=== PATIENT | male | born 1955 | race Caucasian/White ===

== ENCOUNTER 2018-07-05 22:52 | Outpatient (REF) | payer MEDICAID, SELFPAY ==
[2018-07-05 23:48] LABS: Hemoglobin A1C 6.1 % (4.5-6.2)
[2018-07-06 00:06] LABS: ALT 29 U/L (12-78); AST 16 U/L (15-37); Albumin 4.1 g/dL (3.4-5.0); Alkaline Phosphatase 111 U/L (46-116); Anion Gap 12.5 mmol/L (3-11); BUN 15 mg/dL (7-18); Bilirubin, Total 0.3 mg/dL (0.2-1.0); CO2 24.5 mmol/L (21.0-32.0); CREATININE 0.85 mg/dL (0.70-1.30); Calcium 9.1 mg/dL (8.5-10.1); Chloride 104 mmol/L (98-107); Cholesterol 229 mg/dL (50-200); Glucose 90 mg/dL (70-100); HDL Cholesterol 51 mg/dL (40-60); LDL CHOLESTEROL 156 mg/dL (<100); Potassium 4.6 mmol/L (3.5-5.1); Sodium 141 mmol/L (136-145); Total Protein 7.1 g/dL (6.4-8.2); Triglyceride 155 mg/dL (30-150)
[2018-07-07 09:41] LABS: Hepatitis C Ab w Rflx HCV PCR Negative (NEGAT)
[2018-07-07 15:22] LABS: Lyme Ab w Rflx to Lyme Confirm Negative
[2018-07-07 23:57] LABS: Anaplasma phagocytophilum Negative (Negative); B. miyamotoi PCR Negative (Negative); Babesia divergens/MO-1 Negative (Negative); Babesia duncani Negative (Negative); Babesia microti Negative (Negative); Ehrlichia chaffeensis Negative (Negative); Ehrlichia ewingii/canis Negative (Negative); Ehrlichia muris eauclairensis Negative (Negative)
== END 2018-07-05 23:12 ==
LOC: NCHCN 22:52
PROVIDERS: Visit Provider Family Medicine
DX: M25.469 Effusion, unspecified knee (principal); E66.3 Overweight; Z00.00 Encounter for general adult medical examination without abnormal findings; Z11.59 Encounter for screening for other viral diseases; Z13.220 Encounter for screening for lipoid disorders; Z13.1 Encounter for screening for diabetes mellitus
CPT/HCPCS: 80053; 80061; 83721; 86803; 83036; 86618; 87798

== ENCOUNTER 2019-09-04 15:50 | Outpatient (REF) | payer MEDICAID, SELFPAY ==
[2019-09-04 21:26] LABS: Abs Immature Grans 0.01 k/cumm (0.0-0.09); Absolute Basophil Count 0.06 k/cumm (0.0-0.2); Absolute Eosinophil Count 0.44 k/cumm (0.0-0.7); Absolute Lymphocyte Count 2.46 k/cumm (1.2-3.4); Absolute Monocyte Count 0.65 k/cumm (0.11-0.7); Absolute Neutrophil Count 3.41 k/cumm (1.2-6.7); Basophils % 0.9; Eosinophils % 6.3; HCT 46.3 % (40.0-50.0); HGB 15.4 g/dL (13.5-17.5); Immature Grans % 0.1; Mean Corp. HGB Concentration 33.3 g/dL (32.0-36.0); Mean Corpuscular Hemoglobin 30.1 pg (27.0-33.0); Mean Corpuscular Volume 90.6 fL (80-95); Mean Platelet Volume 10.6 fL (8.0-11.0); Monocytes % 9.2; Neutrophils % 48.5; Platelet Count 281 x1000/uL (130-400); RBC 5.11 m/cumm (4.50-6.00); RBC Distribution Width 13.1 % (11.8-14.1); White Blood Cell Count 7.03 k/cumm (4.4-10.8)
[2019-09-04 21:46] LABS: ALT 38 U/L (16-63); AST 18 U/L (15-37); Albumin 4.2 g/dL (3.4-5.0); Alkaline Phosphatase 111 U/L (46-116); Anion Gap 8.6 mmol/L (3-11); BUN 12 mg/dL (7-18); Bilirubin, Total 0.2 mg/dL (0.2-1.0); CO2 28.4 mmol/L (21.0-32.0); CREATININE 0.96 mg/dL (0.70-1.30); Calcium 9.4 mg/dL (8.5-10.1); Chloride 105 mmol/L (98-107); Glucose 83 mg/dL (74-106); Potassium 4.5 mmol/L (3.5-5.1); Sodium 142 mmol/L (136-145); TSH (W/Ref FT4) 2.62 uIU/mL (0.36-3.74); Total Protein 7.2 g/dL (6.4-8.2)
[2019-09-05 09:55] LABS: Hemoglobin A1C 6.1 % (4.5-6.2)
[2019-09-05 09:58] LABS: Calculated LDL 150 mg/dL; Cholesterol 228 mg/dL (<200); HDL Cholesterol 45 mg/dL (40-60); Triglyceride 168 mg/dL (<150)
== END 2019-09-04 16:10 ==
LOC: NCHCO 15:50
PROVIDERS: PCP Family Medicine; Visit Provider Family Medicine
DX: R73.03 Prediabetes (principal); R20.0 Anesthesia of skin; R20.2 Paresthesia of skin; M62.831 Muscle spasm of calf; I10 Essential (primary) hypertension
CPT/HCPCS: 80053; 80061; 83036; 83735; 84443; 85025

== ENCOUNTER 2021-04-16 14:52 | Outpatient (REF) | payer MEDICAID, SELFPAY ==
--- NOTE | 2021-04-16 12:30 | SKI_PTH ---
PATIENT: Carlos Chaudhary LOC: [facility]#:[id number] AGE/SX: 65/M ROOM: RE04/16/[address]: Candy Montez : 1955 BED: DIS: 04/16/2021 SPEC #: [id number] RECD: 04/17/21 12:53 STATUS: LUKE REQ #: [id number] AUBREY: 04/16/21 12:[address]: Emilio Michael DEPT: Surgical Specimen RECD BY: Rajni Mayer Tissues: 1 - SKIN BIOPSY(SHAVE/PUNCH) Procedures: SKIN LEVEL 4 Comments: [id number]
[2021-04-16 14:32] LABS: Abs Immature Grans 0.03 10^3/uL (0.0-0.06); Absolute Basophil Count 0.07 10^3/uL (0.0-0.2); Absolute Eosinophil Count 0.31 10^3/uL (0.0-0.7); Absolute Monocyte Count 0.61 10^3/uL (0.1-0.8); Absolute Neutrophil Count 4.11 10^3/uL (1.2-6.7); Eosinophils % 4.3; HCT 50.7 % (40.0-50.0); HGB 16.2 g/dL (13.5-17.5); Immature Grans % 0.4; MCH 29.9 pg (27.0-33.0); MCV 93.5 fL (80-95); MPV 10.8 fL (8.0-11.0); Monocytes % 8.4; Neutrophils % 56.9; Nucleated RBC 0 %; Platelet Count 248 10^3/uL (130-400); RBC 5.42 10^6/uL (4.36-5.78); RDW 13.2 % (11.8-14.1); RDW-SD 45.5 fL; WBC 7.23 10^3/uL (4.4-10.8)
[2021-04-16 14:50] LABS: Hemoglobin A1C 6.2 % (<5.7)
[2021-04-16 14:51] LABS: ALT 25 U/L (16-63); AST 14 U/L (15-37); Albumin 4.2 g/dL (3.4-5.0); Alkaline Phosphatase 113 U/L (46-116); Anion Gap 10.7 mmol/L (3-11); BUN 15 mg/dL (7-18); Bilirubin, Total 0.5 mg/dL (0.2-1.0); CO2 27.3 mmol/L (21.0-32.0); CREATININE 0.9 mg/dL (0.70-1.30); Calcium 9.4 mg/dL (8.5-10.1); Calculated LDL 185 mg/dL (<100); Chloride 104 mmol/L (98-107); Cholesterol 260 mg/dL (<200); Glucose 112 mg/dL (74-106); HDL Cholesterol 58 mg/dL (40-60); Potassium 4.7 mmol/L (3.5-5.1); Sodium 142 mmol/L (136-145); Total Protein 7.1 g/dL (6.4-8.2); Triglyceride 85 mg/dL (<150)
[2021-04-16 14:58] LABS: Lipase 112 U/L (73-393)
[2021-04-16 21:53] LABS: PSA, Screening 0.9 ng/mL (0.0-4.5)
== END 2021-04-16 14:53 | disposition home or self-care (01) ==
LOC: NCHCN 14:52
PROVIDERS: PCP Family Medicine; Visit Provider Family Medicine
DX: Z00.00 Encounter for general adult medical examination without abnormal findings (principal); I10 Essential (primary) hypertension; R73.03 Prediabetes; E78.5 Hyperlipidemia, unspecified; R63.4 Abnormal weight loss
CPT/HCPCS: 80053; 80061; 83690; 84153; 83036; 85025; 88305

== ENCOUNTER 2021-04-16 15:00 | Outpatient (REF) | payer MEDICAID, SELFPAY | END 2021-04-16 15:01 | disposition home or self-care (01) | LOC: NCHCN 15:00 | PROVIDERS: Visit Provider Family Medicine | DX: A63.0 Anogenital (venereal) warts (principal) ==

== ENCOUNTER 2021-09-08 13:16 | Outpatient (REF) | payer MEDICAID, SELFPAY ==
[2021-09-08 15:06] LABS: ALT 82 U/L (16-63); AST 33 U/L (15-37); Alkaline Phosphatase 136 U/L (46-116); Anion Gap 3.3 mmol/L (3-11); BUN 13 mg/dL (7-18); Bilirubin, Total 0.4 mg/dL (0.2-1.0); CO2 26.7 mmol/L (21.0-32.0); CREATININE 0.9 mg/dL (0.70-1.30); Calcium 9.2 mg/dL (8.5-10.1); Chloride 105 mmol/L (98-107); Glucose 102 mg/dL (74-106); Potassium 4.4 mmol/L (3.5-5.1); Sodium 135 mmol/L (136-145); Total Protein 6.9 g/dL (6.4-8.2)
== END 2021-09-08 13:17 | disposition home or self-care (01) ==
LOC: NCHCN 13:16
PROVIDERS: PCP Family Medicine; Visit Provider Nurse Practitioner Family
DX: I10 Essential (primary) hypertension (principal)
CPT/HCPCS: 80053

== ENCOUNTER 2021-10-14 14:48 | Outpatient (REF) | payer MEDICAID, SELFPAY ==
[2021-10-14 15:23] LABS: ALT 65 U/L (16-63); AST 30 U/L (15-37); Albumin 3.8 g/dL (3.4-5.0); Alkaline Phosphatase 137 U/L (46-116); Anion Gap 11.2 mmol/L (3-11); BUN 16 mg/dL (7-18); Bilirubin, Total 0.3 mg/dL (0.2-1.0); CO2 24.8 mmol/L (21.0-32.0); CREATININE 0.9 mg/dL (0.70-1.30); Calculated LDL 67 mg/dL (<100); Chloride 104 mmol/L (98-107); Cholesterol 131 mg/dL (<200); Glucose 105 mg/dL (74-106); HDL Cholesterol 48 mg/dL (40-60); Potassium 4.3 mmol/L (3.5-5.1); Sodium 140 mmol/L (136-145); Total Protein 6.6 g/dL (6.4-8.2); Triglyceride 83 mg/dL (<150)
[2021-10-14 22:45] LABS: PSA, Screening 1.4 ng/mL (0.0-4.5)
== END 2021-10-14 14:49 | disposition home or self-care (01) ==
LOC: NCHCN 14:48
PROVIDERS: PCP Family Medicine; Visit Provider Family Medicine
DX: E78.00 Pure hypercholesterolemia, unspecified (principal); I25.10 Atherosclerotic heart disease of native coronary artery without angina pectoris; R79.89 Other specified abnormal findings of blood chemistry; Z12.5 Encounter for screening for malignant neoplasm of prostate
CPT/HCPCS: 80053; 80061; 84153

== ENCOUNTER 2022-01-23 12:33 | Outpatient (CLI) | payer MEDICAID, SELFPAY ==
--- NOTE | 2022-01-23 | DI.RAD_ITS ---
Exam(s) XR THORACIC SPINE COMPLETE EXAM: XR THORACIC SPINE COMPLETE CLINICAL HISTORY: NECK AND BACK PAIN TECHNIQUE: COMPARISON: CR,XR XR CERVICAL SPINE COMP 4-5V from 01/23/2022 FINDINGS: Three views were obtained. There is loss of disc height noted throughout the thoracic region. No ev idence of acute fracture or dislocation. Moderate hypertrophic endplate changes noted throughout. IMPRESSION: DJD, no evidence of acute injury. RADIATION DOSE DELIVERED: Total DLP
--- NOTE | 2022-01-23 | DI.RAD_ITS ---
Exam(s) XR LUMBAR SPINE COMPLETE EXAM: XR LUMBAR SPINE COMPLETE CLINICAL HISTORY: NECK AND BACK PAIN TECHNIQUE: COMPARISON: No exams were available for comparison FINDINGS: Five views were obtained. There is apparent fusion of the left SI joint. The intervertebral disc sp aces are narrowed in the lower thoracic and upper lumbar spine. There is no evidence of acute fractu re or dislocation. Moderate hypertrophic endplate and facet degenerative changes seen. IMPRESSION: DJD, no evidence of acute injury. RADIATION DOSE DELIVERED: Total DLP
--- NOTE | 2022-01-23 13:11 | DI.RAD_ITS ---
Exam(s) XR CERVICAL SPINE COMP 4-5V EXAM: XR CERVICAL SPINE COMP 4-5V CLINICAL HISTORY: NECK AND BACK PAIN TECHNIQUE: COMPARISON: No exams were available for comparison FINDINGS: Six views were obtained. There is mild loss of disc height at C5-6 and C6-7. There is neural forami nal narrowing bilaterally at C4-5 C5-6 and C6-7. There is no evidence of acute fracture or dislocati on. No destructive lesion identified. IMPRESSION: Degenerative changes as described above. RADIATION DOSE DELIVERED: Total DLP
--- NOTE | 2022-01-23 13:50 | DI.VRAD_ITS ---
PROCEDURE INFORMATION: Exam: XR Lumbosacral Spine Exam date and time: 01/23/2022 12:56 PM Age: 66 years old Clinical indication: Low back pain TECHNIQUE: Imaging protocol: XR of the lumbosacral spine. Views: 4 or 5 views. COMPARISON: CR XR THORACIC SPINE COMPLETE 01/23/2022 12:53 PM FINDINGS: Bones/joints: Normal alignment. No acute compression deformities. Disc degeneration at L1-L2 and L2-L3. Mild wedging of L1 and L2 that appears chronic. Soft tissues: Unremarkable. IMPRESSION: Degenerative changes. Dictated and Authenticated by: Dominic Guerrero MD. Ordering:NIDA Fuller MD
--- NOTE | 2022-01-23 13:51 | DI.VRAD_ITS ---
PROCEDURE INFORMATION: Exam: XR Thoracic Spine Exam date and time: 01/23/2022 12:53 PM Age: 66 years old Clinical indication: Pain in thoracic spine TECHNIQUE: Imaging protocol: XR of the thoracic spine. Views: 3 views. COMPARISON: CR XR CERVICAL SPINE COMP 4-5V 01/23/2022 12:51 PM FINDINGS: Bones/joints: No acute compression deformities. Mild thoracic scoliosis of the upper spine concave left. Multilevel mild disc degeneration with spondylosis changes. Soft tissues: Unremarkable. IMPRESSION: No acute compression deformities. Dictated and Authenticated by: Dominic Guerrero MD. Ordering:NIDA Fuller MD
--- NOTE | 2022-01-23 13:52 | DI.VRAD_ITS ---
PROCEDURE INFORMATION: Exam: XR Spine; Cervical Exam date and time: 01/23/2022 12:51 PM Age: 66 years old Clinical indication: Pain: Neck and back pain TECHNIQUE: Imaging protocol: XR of the spine. Exam focused on the cervical spine. Views: 1 view. COMPARISON: No relevant prior studies available. FINDINGS: Bones/joints: Alignment of the spine is normal. Disc degeneration C5-C6 and C6-C7. Foraminal narrowing C5-C6 and C6-C7. Open-mouth view is normal. Soft tissues: Normal. IMPRESSION: Multilevel disc degeneration. Dictated and Authenticated by: Dominic Guerrero MD. Ordering:NIDA Fuller MD
== END 2022-01-23 12:53 ==
PROVIDERS: PCP Family Medicine; Visit Provider Nurse Practitioner Family
DX: M54.2 Cervicalgia (principal); M54.59 Other low back pain; Z98.1 Arthrodesis status; M47.815 Spondylosis without myelopathy or radiculopathy, thoracolumbar region; M51.35 Other intervertebral disc degeneration, thoracolumbar region; M50.322 Other cervical disc degeneration at C5-C6 level; M50.323 Other cervical disc degeneration at C6-C7 level
CPT/HCPCS: 72050; 72072; 72110

== ENCOUNTER 2022-04-13 11:25 | Outpatient (REF) | payer MEDICAID, SELFPAY ==
[2022-04-13 16:24] LABS: ALT 46 U/L (16-63); AST 29 U/L (15-37); Albumin 3.9 g/dL (3.4-5.0); Alkaline Phosphatase 122 U/L (46-116); Anion Gap 11.1 mmol/L (3-11); BUN 21 mg/dL (7-18); Bilirubin, Total 0.6 mg/dL (0.2-1.0); CO2 20.9 mmol/L (21.0-32.0); CREATININE 0.8 mg/dL (0.70-1.30); Calcium 8.9 mg/dL (8.5-10.1); Calculated LDL 82 mg/dL (<100); Chloride 103 mmol/L (98-107); Cholesterol 147 mg/dL (<200); Glucose 123 mg/dL (74-106); HDL Cholesterol 50 mg/dL (40-60); Sodium 135 mmol/L (136-145); Triglyceride 75 mg/dL (<150)
== END 2022-04-13 11:26 | disposition home or self-care (01) ==
LOC: NCHCN 11:25
PROVIDERS: PCP Family Medicine; Visit Provider Family Medicine
DX: R73.03 Prediabetes (principal); R79.89 Other specified abnormal findings of blood chemistry; E66.3 Overweight; E78.5 Hyperlipidemia, unspecified
CPT/HCPCS: 80053; 80061; 83036

== ENCOUNTER 2023-05-03 17:16 | Outpatient (REF) | payer MEDICARE, OTHER, SELFPAY ==
[2023-05-03 17:29] LABS: Hemoglobin A1C 6.3 % (<5.7)
[2023-05-03 17:33] LABS: ALT 40 U/L (16-63); AST 32 U/L (15-37); Alkaline Phosphatase 129 U/L (46-116); BUN 15 mg/dL (7-18); Bilirubin, Total 0.6 mg/dL (0.2-1.0); CREATININE 0.9 mg/dL (0.70-1.30); Calcium 9.2 mg/dL (8.5-10.1); Calculated LDL 68 mg/dL (<100); Chloride 104 mmol/L (98-107); Cholesterol 134 mg/dL (<200); Estimated GFR 94.78 (mL/min/1.73m2); Glucose 113 mg/dL (74-106); HDL Cholesterol 48 mg/dL (40-60); Potassium 3.9 mmol/L (3.5-5.1); Sodium 140 mmol/L (136-145); Total Protein 7.1 g/dL (6.4-8.2); Triglyceride 91 mg/dL (<150)
[2023-05-04 19:54] LABS: PSA, Screening 0.9 ng/mL (<=4.5)
== END 2023-05-03 17:17 | disposition home or self-care (01) ==
LOC: NCHCN 17:16
PROVIDERS: PCP Family Medicine; Visit Provider Family Medicine
DX: Z00.00 Encounter for general adult medical examination without abnormal findings (principal); R73.03 Prediabetes; I25.10 Atherosclerotic heart disease of native coronary artery without angina pectoris; Z12.5 Encounter for screening for malignant neoplasm of prostate
CPT/HCPCS: 80053; 80061; 84153; 83036

== ENCOUNTER 2024-08-02 10:37 | Outpatient (REF) | payer MEDICARE, OTHER, SELFPAY ==
[2024-08-02 17:30] LABS: ALT 27 U/L (16-63); AST 19 U/L (15-37); Alkaline Phosphatase 119 U/L (46-116); Anion Gap 12.3 mmol/L (3-11); BUN 21 mg/dL (7-18); CO2 25.7 mmol/L (21.0-32.0); Calcium 9.3 mg/dL (8.5-10.1); Calculated LDL 100 mg/dL (<100); Chloride 107 mmol/L (98-107); Cholesterol 177 mg/dL (<200); Estimated GFR 83.01 (mL/min/1.73m2); Glucose 115 mg/dL (74-106); HDL Cholesterol 49 mg/dL (40-60); Potassium 4.1 mmol/L (3.5-5.1); Sodium 145 mmol/L (136-145); Total Protein 6.7 g/dL (6.4-8.2); Triglyceride 141 mg/dL (<150)
[2024-08-03 09:43] LABS: PSA, Screening 0.8 ng/mL (<=4.5)
== END 2024-08-02 10:38 | disposition home or self-care (01) ==
LOC: NCHCN 10:37
PROVIDERS: PCP Family Medicine; Visit Provider Family Medicine
DX: Z00.00 Encounter for general adult medical examination without abnormal findings (principal); Z12.5 Encounter for screening for malignant neoplasm of prostate
CPT/HCPCS: 80053; 80061; 84153; 83036

== ENCOUNTER 2024-08-14 22:59 | Outpatient (REF) | payer MEDICARE, OTHER, SELFPAY | END 2024-08-14 23:00 | disposition home or self-care (01) | LOC: NCHCN 22:59 | PROVIDERS: PCP Family Medicine; Visit Provider Family Medicine | DX: M79.18 Myalgia, other site (principal) | CPT/HCPCS: 84443 ==

== ENCOUNTER 2024-10-12 08:06 | Outpatient (REF) | payer MEDICARE, OTHER, SELFPAY ==
--- OUTSIDE RECORDS SUMMARY | 2024-10-12 08:15 | XMS_ITS | Encounter Summary ---
Author Organization [facility] Address [address] [place] [address] Care Team Providers Care Fern Cutter Name Role Phone Nataliia Montez MD Primary Care Provide r Reason for Visit * Reason Comments Follow-up anoscopy Encounter Details Date Type Department Care Team (Late st Contact Info) Description 04/21/2022 14:45 EDT Office Visit [facility] General Surgery - [address] [address] Oumar Carlos MD [address] [place] [address], [address] [place] [address] Anal condyloma (Primary Dx) Social History Tobacco Use Types Packs/Day Years Used Date Smoking Tobacco: Some Days Cigarettes Smokeless Tobacco: Never Alcohol Use Standard Drinks/Week Comments No 0 (1 standard drink = 0.6 oz pur e alcohol) rare Interpersonal Safety Answer Date Record ed Physically Hurt Never 05/18/2020 Verbally Threaten Not on file 05/18/2020 Sex and Gender Information Value Date Recorded Sex Assigned at Not on file Legal Sex Male 17:36 EST Gender Identity Male 09/19/2019 9:00 EST Sexual Orientation Not on file documented as of this encounter Last Filed Vital Signs Vital Sign Reading Time Taken Comments Blood Pressure 142/77 04/21/2022 1435 EDT Pulse 53 04/21/2022 1435 EDT Temperature - - Respiratory Rate - - Oxygen Saturation - - Inhaled Oxygen Concentration - - Weight 83.8 kg (184 lb 12.8 oz) 04/21/2022 1435 EDT Height 170.2 cm (5' 7.01) 04/21/2022 1435 EDT Body Mass Index 28.94 04/21/2022 1435 EDT documented in this encounter Functional Status * Are you deaf or do you have serious difficulty hearing? Answer Date of Assessment Author No 07/26/2021 20:15 Terrie Soliman RN * Are you blind or do you have serious difficulty seeing, even when wearing glasses? Answer Date of Assessment Author No 07/26/2021 20:15 Terrie Soliman RN * Do you have serious difficulty walking or climbing stairs? (5 years old or older) Answer Date of Assessment Author No 07/26/2021 20:15 Terrie Soliman RN * Do you have difficulty dressing or bathing? (5 years old or older) Answer Date of Assessment Author No 07/26/2021 20:15 Terrie Soliman RN * Because of a physical, mental, or emotional condition, do you have difficulty doing errands alone such as visiting a doctor's office or shopping? (15 years old or older) Answer Date of Assessment Author No 07/26/2021 20:15 Terrie Soliman RN documented as of this encounter Mental Status * Because of a physical, mental, or emotional condition, do you have serious difficulty concentrating, remembering, or making decisions? (5 years old or older) Answer Entry Date Author No 07/26/2021 20:15 Terrie Soliman RN documented in this encounter Progress Notes * Anne Ortiz MD - 04/21/2022 1445 EDT Colorectal Clinic Progress Note Chief Complaint: Anal condyloma Subjective: Reports he is here for follow up for his anal condyloma. He has had no recurrences since having his HPV vaccinations and just had his third shot yesterday. Denies any new lesions, pain orblood with bowel movements. Objective: BP 142/77 HR 53 PE: General: alert, cooperative, NAD HEENT: mucous membranes moist Cardiac: RRR Respiratory: normal effort, non-labored on room air Rectal: no condylomas present on external examination. No abnormalities palpated on GALILEO. Assessment: Carlos Jimenez is a 66 y.o. 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 He has had resolution of his symptoms since receiving his first tworounds of the HPV vaccination and just had his second booster yesterday. Will plan for yearly follow ups in the future and advised Carlos to call the office if he should experience recurrence of his symptoms before his next scheduled appointment. Plan: - Follow up yearly - Call clinic PRN for recurrence Anne Ortiz MD, PGY- 2 04/21/2022 I saw and examined the patient and discussed with the resident/medical student/ANIMAL SCIENTIST team. I agree with the findings, and plan of care documented in the resident's/medical student's/ANIMAL SCIENTIST's note. Any additions/exceptions are noted below. 66-year-old male with prior anal condyloma treated with imiquimod. No evidence of recurrence 6 months removed from treatment. We will follow-up in 6 months for exam and anoscopy. Plan to space out visits annually following that exam. Oumar Carlos MD Colon and Rectal Surgery Division of General and Gastrointestinal Surgery documented in this encounter Plan of Treatment Not on file documented as of this encounter Visit Diagnoses Diagnosis Anal condyloma- Primary Condyloma acuminatum documented in this encounter Care Teams Fern Cutter Relationship Specialty Start Date End Date Nataliia Montez MD [address] [place] [address] [address] [place] [address] PCP - General 08/29/18 documented as of this encounter
--- OUTSIDE RECORDS SUMMARY | 2024-10-12 08:15 | XMS_ITS | Encounter Summary ---
Author Organization [facility] Address [address] [place] [address] Care Team Providers Care Millinery Teacher Name Role Phone Nataliia Montez MD Primary Care Provide r Reason for Referral * Referral (Routine/Next Available) - Authorized Specialty Diagnoses / Procedures Referred By Imer howe Referred To Contact Diagnoses Special screening for malignant neoplasms, colon Personal history of colonic polyps Procedures COLONOSCOPY NJ COLONOSCOPY FLX DX W/COLLJ SPEC WHEN PFRMD NJ COLONOSCOPY W/BIOPSY SINGLE/MULTIPLE NJ COLSC FLX W/REMOVAL LESION BY HOT BX FORCEPS Nataliia Montez MD [address] [place] [id number] Phone: tel: fax: [address] [address] Phone: tel: fax: Referral ID Status Reason Start Date Expiration Date V isits Requested Visits Authorized [id number] Authorized 11/15/2022 1 1 Encounter Details Date Type Department Care Team (Latest Contact Info) Description 11/15/2022 Transcribe Orders [address] [address] Nataliia Montez MD [address] [place] [address] [address] [place] [address] Special screening for malignant neoplasms, colon (Primary Dx); Personal history of colonic polyps Social History Tobacco Use Types Packs/Day Years [...] on file documented as of this encounter Functional Status * Are you [...] Terrie Soliman RN documented in this encounter Plan of Treatment Pending Results Name Type Priority Associated Diagnoses Date /Time COLONOSCOPY GI Routine Special screening for malignant neoplasms, colon Personal history of colonic polyps 06/10/2023 9:10 EDT Scheduled Orders Name Type Priority Associated Diagnoses Orde r Schedule COLONOSCOPY GI Routine Special screening for malignant neoplasms, colon Personal history of colonic polyps Expected: 11/15/2022 (Approximate), Expires: 05/15/2024 documented as of this encounter Visit Diagnoses Diagnosis Special screening for malignant neoplasms, colon- Primary Personal history of colonic polyps documented in this encounter Care Teams Millinery Teacher Relationship Specialty Start Date End Date Nataliia Montez MD [address] [address] PCP - General 08/29/18 documented as of this encounter
--- OUTSIDE RECORDS SUMMARY | 2024-10-12 08:15 | XMS_ITS | Encounter Summary ---
Author Organization [facility] Address [address] [place] [address] Care Team Providers Care Early Childhood Education Worker Name Role Phone Nataliia Montez MD Primary Care Provide r Encounter Details Date Type Department Care Team (Late st Contact Info) Description 08/02/2024 Lab Requisition [facility] Pathology & Laboratory Medicine - [address] [address] Outr Resulting Lab, Provider Social History Tobacco Use Types Packs/Day Years Used Date Smoking Tobacco: Every Day Cigarettes Smokeless Tobacco: Never Alcohol Use Standard Drinks/Week Comments Yes 0 (1 standard drink = 0.6 oz [...] on file documented as of this encounter Procedures Procedure Name Priority Date/Time Associated Diagnosis Comments PSA TOTAL, DIAGNOSTIC Routine 08/02/2024 7:30 EDT documented in this encounter Results * PSA TOTAL, DIAGNOSTIC (08/02/2024 7:30 EDT) PSA 0.8 <=4.5 ng/mL 08/03/2024 9:38 EDT [facility] Blood VENOUS BLOOD / Unknown 08/02/2024 7:30 EDT 08/02/2024 22:16 EDT Narrative [facility] - 08/03/2024 9:38 EDT NOTE: Serum PSA concentration should not be interpreted as absolute evidence for the presence or absence of malignant disease. Assayed on Siemens ADVIA Centaur XPT using chemiluminescent technology.??Values obtained by using different assay methods cannot be used interchangeably. us Provider Outr Resulting Lab CHEMISTRY & BLOOD GA S ORDERABLES Final Result [facility] [address] [place] [address] documented in this encounter Visit Diagnoses Not on filedocumented in this encounter Care Teams Early Childhood Education Worker Relationship Specialty Start Date End Date Nataliia Montez MD [address] [facility] [address] [place] [address] PCP - General 08/29/18 documented as of this encounter
--- OUTSIDE RECORDS SUMMARY | 2024-10-12 08:15 | XMS_ITS | Encounter Summary ---
Author Organization [facility] Address [address] [place] [address] Care Team Providers Care Resource Engineer Name Role Phone Nataliia Montez MD Primary Care Provide r Reason for Referral * Referral (Routine/Next Available) - Authorized Specialty Diagnoses / Procedures Referred By Contac shyam Referred To Contact Diagnoses Special screening for malignant neoplasms, colon Personal history of colonic polyps Procedures COLONOSCOPY FL COLONOSCOPY FLX DX W/COLLJ SPEC WHEN PFRMD FL COLONOSCOPY W/BIOPSY SINGLE/MULTIPLE FL COLSC FLX W/REMOVAL LESION BY HOT BX FORCEPS Nataliia Montez MD [address] [place] [address] Phone: tel: fax: [facility] Gastroenterology - [facility] [place] [address] [place] [address] Phone: tel: fax: Referral ID Status Reason Start Date Expiration Date V isits Requested Visits Authorized [id number] Authorized 11/15/2022 1 1 * Referral (Routine/Next Available) - Receiving Office to Obtain Authorization Specialty Diagnoses / Procedures Referred By Contact Referred To Contact Gastroenterology and Hepatology Procedures COLONOSCOPY PROCEDURE New Sorto MD Phone: tel: fax: Referral ID Status Reason Start Date Expiration Date Visits Requested Visits Authorized [id number] Receiving Office to Obtain Authorization 06/10/2023 1 1 Reason for Visit * Referral (Routine/Next Available) - Authorized Specialty Diagnoses / Procedures Referred By Contac t Referred To Contact Diagnoses Special screening for malignant neoplasms, colon Personal history of colonic polyps Procedures COLONOSCOPY FL COLONOSCOPY FLX DX W/COLLJ SPEC WHEN PFRMD FL COLONOSCOPY W/BIOPSY SINGLE/MULTIPLE FL COLSC FLX W/REMOVAL LESION BY HOT BX FORCEPS Nataliia Montez MD [address] [place] [address] Phone: tel: fax: [facility] Gastroenterology - [address] [address] Phone: tel: fax: Referral ID Status Reason Start Date Expiration Date V isits Requested Visits Authorized [id number] Authorized 11/15/2022 1 1 Encounter Details Date Type Department Care Team (Late st Contact Info) Description 06/10/2023 6:56 EDT - 06/10/2023 23:59 EDT Hospital Encounter [facility] Endoscopy - [address] [id number] New Sorto MD [address] [place] [address], [address] [place] [phone] Special screening for malignant neoplasms, colon; Personal history of colonic polyps Discharge Disposition: Home or Self Care Social History Tobacco Use Types Packs/Day Years Used Date Smoking Tobacco: Every Day Cigarettes Smokeless Tobacco: Never Tobacco Cessation:Ready to Q uit: Not Asked; Counseling Given: Not Answered Alcohol Use Standard Drinks/Week Comments Yes 0 [...] Sign Reading Time Taken Comments Blood Pressure 106/72 06/10/2023 0945 EDT Pulse - - Temperature 36.3 ??C (97.3 ??F) 06/10/2023 0936 EDT Respiratory Rate 15 06/10/2023 0945 EDT Oxygen Saturation 95% 06/10/2023 0945 EDT Inhaled Oxygen Concentration - - Weight 81.2 kg (179 lb) 06/10/2023 075 EDT Height 165.1 cm (5' 5) 06/10/2023 075 EDT Body Mass Index 29.79 06/10/2023 0753 EDT documented in this encounter Functional Status [...] Terrie Soliman RN documented in this encounter Medications at Time of Discharge aspirin chewable 81 mg tablet Take 1 Tablet by mouth daily. 90 Tablet 3 07/29/2021 atorvastatin (LIPITOR) 80 mg tablet Take 1 Tablet by mouth daily. 90 Tablet 07/29/2021 clopidogreL (PLAVIX) 75 mg tablet Take 1 Tablet by mouth daily. 90 Tablet 3 07/29/2021 nicotine (NICODERM CQ) 21 mg/[address] 1 Patch onto the skin daily as needed (nicotine craving). 30 Patch 1 07/28/2021 olmesartan (BENICAR) 20 mg tablet Take 1 Tablet by mouth daily. documented as of this encounter Discharge Disposition Disposition Code Departure Means Destination Home or Self Care documented in this encounter H&P Notes * Rick Martinez DO - 06/10/2023 0900 EDT Endoscopy Sedation for Procedure History & Physical Date: 06/10/2023 Time: 9:03 Location: [facility] Endoscopy - [facility] Planned Procedure: Colonoscopy Chief Complaint/Indications for Procedure: surveillance History Previous Complication with Sedation and/or Anesthesia? No Allergies: Allergies Allergen Reactions ??? Losartan Muscle Aches ??? Pollen Extracts Current Medications: Current Outpatient Medications Medication ??? aspirin chewable 81 mg tablet ??? atorvastatin (LIPITOR) 80 mg tablet ??? clopidogreL (PLAVIX) 75 mg tablet ??? nicotine (NICODERM CQ) 21 mg/24 hr patch ??? olmesartan (BENICAR) 20 mg tablet Current Facility-Administered Medications Medication Route Frequency ??? diphenhydrAMINE (BENADRYL) injection 25 mg intravenous Once PRN ??? sodium chloride 0.9 % (NS) infusion intravenous PRN Or ??? lactated ringers (LR) infusion intravenous PRN ??? lidocaine 1 % injection 2 mg intradermal PRN ??? lidocaine 1 % injection 2 mg intradermal PRN ??? ondansetron (PF) (ZOFRAN) injection 2-4 mg intravenous PRN ??? sodium chloride 0.9 % (flush) flush 3 mL intravenous PRN ??? sodium chloride 0.9 % (flush) flush 5 mL intravenous Q8H Past Medical History: Past Medical History: Diagnosis Date ??? Anomaly, cardiac ??? Environmental allergies ??? Hypertension ??? Pericardial effusion Social History: Past Surgical History: Procedure Laterality Date ??? ANKLE FRACTURE SURGERY Right ??? CARDIAC SURGERY pericardial effusion ??? PILONIDAL CYST DRAINAGE Social History Tobacco Use ??? Smoking status: Every Day Packs/day: 1 Types: Cigarettes ??? Smokeless tobacco: Never Substance Use Topics ??? Alcohol use: Yes Comment: rare Family History: Family History Problem Relation Age of Onset ??? Colon Cancer Father ??? Cancer Maternal Grandmother ??? Stomach Cancer Maternal Grandfather Review of Systems as pertinent: Physical Exam Vital Signs: BP 125/75 Temp 36.2 ??C (97.2 ??F) (Temporal) Resp 16 Ht 165.1 cm (65) Wt 81.2 kg (179 lb) SpO2 97% BMI 29.79 kg/m?? Heart Examination: Cardiac Regularity: Regular Respiratory Examination: Respiratory Pattern: Regular Abdominal Examination: Additional physical exam related to the proposed procedure, patient activity, disease state and treatment as pertinent: Assessment Previous complications with sedation or anesthesia?: No Anesthesia Classification: ASA 2 Plan: Proceed with sedation for procedure Fasting Time: Date of Last Liquid: 06/10/23 Time of Last Liquid: 0430 Date of Last Solid: 06/08/23 Time of Last Solid: 1800 Patient Appropriate Candidate for Planned Sedation?: Yes Rick Martinez DO 06/10/2023 9:03 Cosigned by New Sorto MD at 06/10/2023 9:07 EDT documented in this encounter Plan of Treatment Pending Results Name Type Priority Associated Diagnoses Date /Time COLONOSCOPY GI Routine Special screening for malignant neoplasms, colon Personal history of colonic polyps 06/10/2023 9:10 EDT Scheduled Orders Name Type Priority Associated Diagnoses Orde r Schedule COLONOSCOPY GI Routine Special screening for malignant neoplasms, colon Personal history of colonic polyps 1 Occurrences starting 06/10/2023 until 06/10/2023 documented as of this encounter Procedures Procedure Name Priority Date/Time Associated Diagnosis Comments COLONOSCOPY PROCEDURE Routine 06/10/2023 9:32 EDT SURGICAL PATHOLOGY Routine 06/10/2023 9: 18 EDT Special screening for malignant neoplasms, colon Personal history of colonic polyps documented in this encounter Results * COLONOSCOPY PROCEDURE (06/10/2023 9:32 EDT) Anatomical Region Laterality Modality Endoscopy Narrative 06/10/2023 9:32 EDT Procedure Performed Colonoscopy Indications for Exam Surveillance. Hx of polyps. Procedure Technique A physical exam was performed. Informed consent was obtained from the patient after explaining all the risks (perforation, bleeding, missed findings, injury to nearby organs, infection and adverse effects to the medicine), benefits and alternatives to the procedure which the patient appeared to understand and so stated. ??The patient was connected to the monitoring devices and placed in the left lateral position. Continuous oxygen was provided with a nasal cannula and IV medicine administered thru an indwelling cannula. After adequate sedation was achieved, a digital exam was performed and the colonoscope introduced into the rectum and advanced under direct visualization to the Cecum. The Cecum was identified by visual landmarks. The endoscope was subsequently removed slowly while carefully examining the color, texture, anatomy, and integrity of the mucosa on withdrawal. Retroflexion was performed in the rectum: Yes. The patient was subsequently transferred to the recovery area in satisfactory condition. Rectal Exam:Normal rectal exam Estimated Blood Loss: None Complications None Medications Demerol 75 mg Versed 3 mg I was in continuous face to face attendance during the administration of moderate sedation services that were monitored by an independent trained observer who had no other duties during the procedure. ??Total sedation time was ??24 ??minutes. Dexter Bowel Prep Right Colon: 3 ? Transverse Colon: 3 ? Left Colon: 3 ?Total: 9 Findings 5 to 7 mm flat elevated polyp in the transverse colon. Polypectomy performed with cold snare. 3 to 5 mm flat elevated polyp in the transverse colon. Polypectomy performed with cold biopsy forcep. 2, 3 mm flat elevated polyp in the sigmoid colon. Polypectomy performed with cold biopsy forcep. internal hemorrhoids. Diagnosis 5 to 7 mm flat elevated polyp in the transverse colon. Polypectomy performed with cold snare. 3 to 5 mm flat elevated polyp in the transverse colon. Polypectomy performed with cold biopsy forcep. 2, 3 mm flat elevated polyp in the sigmoid colon. Polypectomy performed with cold biopsy forcep. internal hemorrhoids. Recommendations Follow biopsy results. Repeat colonoscopy in 3-5 years, depending on polyp histology. The??procedure??was??performed??by??Dr. Rick Martinez M.D. in the presence of Dr. New Sorto. The attending physician was in the room for the entire procedure. This electronic signature authenticates all electronic and/or handwritten documentation, including orders, generated by the signer during the episode of care contained in this record. 06/10/2023 09:32:37 AM By New Sorto MD New Sorto MD GI PROCEDURE ORDERABLES F inal Result * SURGICAL PATHOLOGY (06/10/2023 9:18 EDT) Note to Patient The following pathology results have been interpreted by your pathologist and may be available to you before your health provider has had the opportunity to review them. Please allow time for your provider to receive these results and explore management options, if applicable. 06/14/2023 9:10 [facility] Final Diagnosis A. COLON, TRANSVERSE, POLYPS, BIOPSY: - Tubular adenomas. B. COLON, SIGMOID, POLYPS, BIOPSY: - Tubular adenoma. - Hyperplastic polyp. 06/14/2023 9:10 [facility] Attestation There was significant resident/fellow involvement in the diagnostic evaluation of this case. By the signature below, the attending physician certifies that they have personally conducted a gross and/or microscopic examination of the described specimens and rendered or confirmed the above diagnosis. 06/14/2023 9:10 [facility] at 0910 Clinical History Not listed 06/14/2023 9:10 [facility] Gross Description A. Received in formalin labelled with proper patient identification (initials M, S) and transverse colon polyps are 3 schmdi and pink-schmid focally red speckled tissues (1.1 x 0.7 x 0.1 cm to 0.3 x 0.1 x 0.1 cm). Entirely submitted in A1. B. Received in formalin labelled with proper patient identification (initials M, S) and sigmoid colon polyps are 5 pink tissues (0.3 x 0.2 x 0.2 cm to 0.1 by less than 0.1 by less than 0.1 cm). Entirely submitted in B1. Please note the smaller tissues may not survive processing. Ting Espinosa 06/10/2023 12:29 06/14/2023 9:10 EDT [facility] Resident/Joel w: New Cristobal MD 06/14/2023 9:10 EDT [facility] Performing Lab [facility] 06/14/2023 9:10 EDT [facility] Scanned Images 06/14/2023 9:10 EDT [facility] Tissue TRANSVERSE COLON STRUCTURE / Unknown 06/10/2023 9:18 EDT 06/10/2023 11:39 EDT Tissue specimen (specimen) SIGMOID COLON STRUCTURE / Unknown 06/10/2023 9:23 EDT 06/10/2023 11:39 EDT us New Sorto MD PATHOLOGY ORDERABLES María garza Result Performing Organization Address City/State/[facility] Co de Phone Number [facility] [address] [place] [phone] documented in this encounter Visit Diagnoses Diagnosis Special screening for malignant neoplasms, colon Personal history of colonic polyps documented in this encounter Administered Medications Inactive Administered Medications - up to 3 most recent administrations Medication Order MAR Action Action Date Dose Rate Site lactated ringers (LR) infusion 30 mL/hr, intravenous, PRN, Starting on Tue06/10/23 at 0750, Until Tue06/13/23 at 0158, Routine, Preprocedure New Bag 06/10/2023 8:05 EDT 30 mL/hr 30 mL/ hr meperidine (PF) (DEMEROL) injection intravenous, As needed, Starting on Tue06/10/23 at 0905, Until Tue06/10/23 at 0931, Routine, Intraprocedure Given 06/10/2023 9:09 EDT 25 mg Given 06/10/2023 9:05 EDT 50 mg midazolam (VERSED) injection intravenous, As needed, Starting on Tue06/10/23 at 0905, Until Tue06/10/23 at 0931, Routine, Intraprocedure Given 06/10/2023 9:09 EDT 1 mg Given 06/10/2023 9:05 EDT 2 mg documented in this encounter Discontinued Medications Medication Sig Discontinue Reason Start Date End Da te polyethylene glycol (GOLYTELY) 236-22.74-6.74 -5.86 gram suspension Follow instructions on colonoscopy prep sheet. OK to substitute with any PEG-3350 product: CoLyte, Gavilyte, Nulytely, Trilyte, or generic PEG-3350 Therapy completed 03/24/2023 06/10/2023 documented as of this encounter Orders Medications Ordered That Seth ht Not Have Been Administered Count Last Ordered Date First Ordered Date diphenhydrAMINE (BENADRYL) injection 25 mg 1 06/10/2023 lidocaine 1 % injection 2 mg 2 06/10/2023 ondansetron (PF) (ZOFRAN) injection 2-4 mg 1 06/10/2023 sodium chloride 0.9 % (flush) flush 3 mL 1 06/10/2023 sodium chloride 0.9 % (flush) flush 5 mL 1 06/10/2023 sodium chloride 0.9 % (NS) infusion 1 06/10 documented in this encounter Care Teams Resource Engineer Relationship Specialty Start Date End Date Nataliia Montez MD [address] [place] [id number] PCP - General 08/29/18 documented as of this encounter
--- OUTSIDE RECORDS SUMMARY | 2024-10-12 08:15 | XMS_ITS | Encounter Summary ---
Author Organization [facility] Address [address] [place] [address] Care Team Providers Care Industrial Economist Name Role Phone Nataliia Montez MD Primary Care Provide r Reason for Visit * Reason Comments Follow-up Anal condyloma Encounter Details Date Type Department Care Team (Late st Contact Info) Description 10/20/2022 11:45 EST Office Visit [facility] General Surgery - [address] [address] Oumar Carlos MD [address] [place] [address], [address] [place] [phone] Anal condyloma (Primary Dx) Social [...] Sign Reading Time Taken Comments Blood Pressure 163/98 10/20/2022 1146 EST Pulse 60 10/20/2022 1146 EST Temperature - - Respiratory Rate - - Oxygen Saturation - - Inhaled Oxygen Concentration - - Weight 85.3 kg (188 lb) 10/20/2022 1146 EST Height 170.2 cm (5' 7.01) 10/20/2022 1146 EST Body Mass Index 29.44 10/20/2022 1146 EST documented in this encounter Functional Status * [...] Terrie Soliman RN documented in this encounter Patient Instructions * Patient Instructions* Oumar Carlos MD - 10/20/2022 11:45 EST Images from the original note were not included. Division of General and Gastrointestinal Surgery [address] [place] [address] 5th Floor [place], [place], [address] Office: [phone] General Instructions for Anorectal Care Diet Please maintain a high-fiber diet (bran cereals, whole grain breads, fruits, and vegetables). Goal fiber consumption is 30g daily. Fiber Supplementation Instructions Also, please take a fiber supplement (Metamucil, Citrucel, Benefiber or other equivalent) availableover the counter. Take 2 tablespoons daily in one glass of water or juice. Drink 8-10 glasses (8oz per glass) of water daily as well. It is ok to start with half the recommended dose for the first 3-5 days. Sitz Bath Instructions Use for perianal pain, discomfort, or itching. Please fill a bathtub with warm water (as hot as youcan safely tolerate). Soak in the tub for 15-20 minutes. Repeat 2-4 times daily, especially after bowel movements. Pat dry, do not wipe excessively. Bowel Hygiene Please minimize the amount of time you spend on the toilet and avoid straining. Both can make your symptoms worse. Hemorrhoid Banding (Ignore if you did not receive banding) If you had hemorrhoid banding today, you may expect some pressure in the anal area for roughly two days. - Do not take any pain medication which contains Aspirin. Ibuprofen (e.g Advil) and Acetaminophen (e.g. Tylenol) are fine to take. - In seven to ten days, the banded tissue and the rubber bands will pass, usually unnoticeably, with a bowel movement. Occasionally the healing area left behind will bleed a small amount. If the bleeding seems excessive, call the office. REASONS TO CALL THE OFFICE -Excessive bleeding (bleeding that does not stop with direct pressure or soaks through dressings and clothing) -If you pass a large amount of blood (1 cup or more) or feel faint from bleeding -If you are unable to urinate for more than 6 hours -If you have a persistent fever greater than 101 degrees -If you have nausea and vomiting that persists making it difficult for you to keep fluids down -Firm painful lump with green/yellow, smelly discharge Follow-up You will already have a follow-up appointment if needed. Please call the office if you need to change or cancel the appointment, or if you have any questions. 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 No evidence that the condyloma returned. States that he has issues with needing to wipe more frequently after bowel movements. Denies any changes in stools. Denies any pain, or perianal itchiness Denies any fevers, CP, SOB, or other issues. Review of Symptoms: Reviewed in detail. He has no pertinent positives on extensive review of systems other than as described above. PMH/PSH/Meds/Allergies: No change in history, medications, or allergies unless noted below. Objective: Blood pressure (!) 163/98, pulse 60, height 170.2 cm (67.01), weight 85.3 kg (188 lb). Physical Exam: Gen: awake, alert, and oriented x 3, NAD Neck: soft, no thyromegaly, no carotid bruits, no cervical lymphadenopathy CV: regular rate Pulm: CTA bilat, no wheezes or rhonchi Abd: soft, non tender Ext: warm, well perfused,no edema Anorectal: External: small external hemorrhoidal tissue, no evidence of condyloma Internal: palpable enlarged prostate, multiple grade 2 internal hemorrhoids in all three columns, no evidence of any condyloma Office Anoscopy/Proctoscopy I explained the procedure including the risks, benefits, and alternative. Verbal consent for the procedure was obtained. A pre-procedure verification was conducted prior to the procedure. The patient's identity, procedure, and when applicable the: side/site, patient position, availability of special equipment or special requirements was verbally confirmed prior to the procedure. Procedure: Diagnostic anoscopy Findings: No visible lesions in the distal rectum anal canal. Enlarged internal hemorrhoids. Complications: none The patient tolerated the procedure without issue. A stone sandblaster was present for the entirety of the exam. Data Review: Labs: Lab Results Component Value Date WBC 7.71 07/28/2021 HGB 15.6 07/28/2021 HCT 45.9 07/28/2021 PLT 207 07/28/2021 Lab Results Component Value Date CREATININE 0.78 07/28/2021 BUN 17 07/28/2021 NA 138 07/28/2021 K 4.2 07/28/2021 CL 107 07/28/2021 CO2 22 07/28/2021 CALCIUM 9.6 07/28/2021 Lab Results Component Value Date INR 0.9 07/26/2021 No results found for: CEA, CA199, CA125 Radiology: none Assessment: Carlos Jimenez is a(n) 67 y.o. old male Hx of anal condyloma. Received HPV vaccine series in 2021. Doing well, no signs of recurrence on physical exam. Has internal hemorrhoids Will follow up in one year. Plan: -f/u with anoscopy in 2023 -take fiber for hemorrhoids PRADEEP JIMENEZ MD 10/20/2022 12:08 I saw and examined the patient and discussed with the resident/medical student/STRAIGHTENING PRESS OPERATOR team. I agree with the findings, and plan of care documented in the resident's/medical student's/STRAIGHTENING PRESS OPERATOR's note. Any additions/exceptions are noted below. Carlos is a 67-year-old male with history of perianal condyloma. No recurrent disease status post Aldara treatment. Annual anoscopy without evidence of intra anal follow-up 1 year. Oumar Carlos MD Colon and Rectal Surgery Division of General and Gastrointestinal Surgery documented in this encounter Plan of Treatment Not on file documented as of this encounter Visit Diagnoses Diagnosis Anal condyloma- Primary Condyloma acuminatum documented in this encounter Care Teams Industrial Economist Relationship Specialty Start Date End Date Nataliia Montez MD [address] [place] [address] [place] [id number] PCP - General 08/29/18 documented as of this encounter
--- OUTSIDE RECORDS SUMMARY | 2024-10-12 08:15 | XMS_ITS | Clinical Summary ---
Author Organization [facility] Address [address] [place] [address] Care Team Providers Care Straightening Machine Operator Name Role Phone Nataliia Montez MD Primary Care Provide r Allergies Active Allergy Reactions Criticality Noted Date Comments Losartan Muscle Aches 11/02/2018 Pollen Extracts 10/20/2022 Medications olmesartan (BENICAR) 20 mg tablet Take 1 Tablet by mouth daily. Active aspirin chewable 81 mg tablet Take 1 Tablet by mouth daily. 90 Tablet 3 1 Active atorvastatin (LIPITOR) 80 mg tablet Take 1 Tablet by mouth daily. 90 Tablet 1 Active clopidogreL (PLAVIX) 75 mg tablet Take 1 Tablet by mouth daily. 90 Tablet 3 1 Active Additional Information Patient not taking.Reported on 10/20/2022 nicotine (NICODERM CQ) 21 mg/[address] 1 Patch onto the skin daily as needed (nicotine craving). 30 Patch 1 1 Active Additional Information Patient not taking.Reported on 08/19/2023 ketoconazole (NIZORAL) 2 % cream Sig apply thin layer to rash areas on face, BID 15 g 5 3 Active Active Problems Problem Noted Date Diagnosed Date CAD in [place] artery 07/27/2021 NSTEMI (non-ST elevated myocardial infarction) ( HCC-CMS) 07/26/2021 Chest pain 07/26/2021 Encounters Date Type Department Care Team Description 08/02/2024 Lab Requisition [facility] Pathology & Laboratory Medicine - [address] [address] Outr Resulting Lab, Provider from Last 3 Months Immunizations Name Administration Dates Next Due Covid-19 mRNA Vaccine (PFIZE R COVID-19) PF 0.3 ml IM (12 yrs+) 02/03/2021,01/13/2021 Influenza Vaccine Quad PF 0.5 ml IM (6 mos+) 09/2021 Surgical History Surgery Date Site/Laterality Comments PILONIDAL CYST DRAINAGE CARDIAC SURGERY pericardial effusion ANKLE FRACTURE SURGERY Right Medical History Medical History Date Comments Pericardial effusion Anomaly, cardiac Hypertension Environmental allergies Family History Medical History Relation Comments Colon Cancer Father Stomach Cancer Maternal Grandfather Cancer Maternal Grandmother Relation Status Comments Father Alive Maternal Grandfather Maternal Grandmother Social History Tobacco Use Types Packs/Day Years [...] 9:00 EST Sexual Orientation Not on file Obstetrics History Last Filed Vital Signs Vital Sign Reading Time Taken Comments Blood Pressure 138/72 11/23/2023 1320 EST Pulse 61 11/23/2023 1320 EST Temperature 36.3 ??C (97.3 ??F) 06/10/2023 0936 EDT Respiratory Rate 15 06/10/2023 0945 EDT Oxygen Saturation 95% 11/23/2023 1320 EST Inhaled Oxygen Concentration - - Weight 84.8 kg (187 lb) 11/23/2023 1320 EST Height 165.1 cm (5' 5) 11/23/2023 1320 EST Body Mass Index 31.12 11/23/2023 1320 EST Plan of Treatment Health Maintenance Due Date Last Done Comments Cologuard (Colon Cancer Screening) 2002 FIT Test (Colon Cancer Screening) 2002 Sigmoidoscopy (Colon Cancer Screening) 2002 RSV Immunization ( o r 60+ Years) (1 - Risk 60-74 years 1-dose series) 2017 Fall Risk Screening 2022 COVID-19 Vaccine ( season) 2024, 01/13/2021 Colonoscopy (Colon Cancer Screening) 06/10/2026 08/02/2023, 09/19/2019 Colorectal Cancer Screening 06/10/2026 Hepatitis C Screen Completed 07/31/2014 Medical Devices Implanted Type Area Car Rental Service Attendant Device Identifier Shelf Expiration Date Model / Serial / Lot Stent Coronary Everomimus Eluting Pt Cr Otw 3.0x32mm Promus Elite [id number] - [id number] Implanted:Qty : 1 on 07/27/2021 by Tung Dennis MD at [facility] Drug Eluting Stent Left: Coronary Skinkers [id number] 08/29/2022 [id number] / / [id number] Procedures Procedure Name Priority Date/Time Associated Diagnosis Comments PSA TOTAL, DIAGNOSTIC Routine 08/02/2024 7:30 EDT COLONOSCOPY PROCEDURE Routine 06/10/2023 9:32 EDT HEPATITIS C AB W REFLEX TO HCV RNA BY PCR Routine 07/31/2014 15:17 EDT from Last 3 Months or Most Recently Relevant to Health Maintenance Results * PSA TOTAL, DIAGNOSTIC (08/02/2024 7:30 EDT) PSA 0.8 <=4.5 ng/mL 08/03/2024 9:38 EDT [facility] Blood VENOUS BLOOD / Unknown 08/02/2024 7:30 EDT 08/02/2024 22:16 EDT Narrative [facility] - 08/03/2024 9:38 EDT NOTE: Serum PSA concentration should not be interpreted as absolute evidence for the presence or absence of malignant disease. Assayed on Siemens ADVIA Innovacellaur XPT using chemiluminescent technology.??Values obtained by using different assay methods cannot be used interchangeably. us Provider Outr Resulting Lab CHEMISTRY & BLOOD GA S ORDERABLES Final Result [facility] [address] [place], [place] [id number] * COLONOSCOPY PROCEDURE (06/10/2023 9:32 EDT) Anatomical [...] procedure. ??Total sedation time was ??24 ??minutes. [place] Bowel Prep Right Colon: 3 ? Transverse [...] GI PROCEDURE ORDERABLES F inal Result * HEPATITIS C ANTIBODY (07/31/2014 15:17 EDT) Hepatitis C Ab Negative [facility] Comment:Reference Range: Neg ative 07/31/2014 15:1 7 EDT 07/31/2014 19:08 EDT Katelyn Elder SKEINS YARN EXAMINER CHEMISTRY & BLOOD GAS ORDERA BLES Final Result Performing Organization Address City/State/[facility] Co de Phone Number [facility] [address] [place] [address] from Last 3 Months or Most Recently Relevant to Health Maintenance Insurance [employer] [place] [place] [id number] MEDICARE [employer]CO [place] Advance Directives For more information, please contact: [phone] * Full Code (Latest Code Status on File) Date Activated Date Inactivated Comments 07/26/2021 19:06 07/28/2021 13:26 Question Answer Comments When the patient has NO PULSE: Full Code / CPR Who Made the Decision? Default/Not Discussed Care Teams Straightening Machine Operator Relationship Specialty Start Date End Date Nataliia Montez MD [address] [place] [address] [address] [place] [address] PCP - General 08/29/18
--- OUTSIDE RECORDS SUMMARY | 2024-10-12 08:15 | XMS_ITS | Encounter Summary ---
Author Organization [facility] Address [address] [place] [address] Care Team Providers Care Cloth Roll Winder Name Role Phone Nataliia Montez MD Primary Care Provide r Reason for Visit * Reason Onset Date Comments Appointment Related 04/09/2024 Encounter Details Date Type Department Care Team (Late st Contact Info) Description 04/09/2024 Telephone [facility] Dermatology [address] [address] Alex Lopez, PA-C [address] [place] [address], [address] [place] [address] Appointment Related Social History Tobacco Use Types Packs/Day Years [...] Date of Assessment Author No 07/26/2021 20:15 EDT Terrie Daniels, RN * Are you blind or do you have serious difficulty seeing, even when wearing glasses? Answer Date of Assessment Author No 07/26/2021 20:15 JACET Terrie Daniels RN * Do you have serious difficulty walking or climbing stairs? (5 years old or older) Answer Date of Assessment Author No 07/26/2021 20:15 JACET Terrie Daniels RN * Do you have difficulty dressing or bathing? (5 years old or older) Answer Date of Assessment Author No 07/26/2021 20:15 JACET Terrie Daniels RN * Because of a physical, mental, [...] Terrie Soliman RN documented in this encounter Miscellaneous Notes * Telephone Encounter - Natalie Escobar MA - 04/12/2024 9987 EDT Called patient asking him to upload a photo of the skintag he wants removed. Patient stated he has never used MyChart before but will try. He was away at time of call so I could not help directly, but I explained how to do this. Sent a MyChart message with [employer]. Natalie Escobar MA 15:00 04/12/2024 * Telephone Encounter - Bernie Fields - 04/09/2024 1523 EDT Patient is calling to see if Alex Lopez would be able to remove a skin tag by the eye? Patient states that its been starting to bother him and has been getting bigger as well. Relayed to patient that I am unsure if Alex is comfortable removing skin tags so close to the eye...Patient opted for PSS to leave a message for Alex for when he's back in the office. Please see if this is something Alex would be willing to do and relay to patient. Thanks! Bernie Fields 04/09/2024 15:28 documented in this encounter Plan of Treatment Not on file documented as of this encounter Visit Diagnoses Not on filedocumented in this encounter Care Teams Cloth Roll Winder Relationship Specialty Start Date End Date Nataliia Montez MD [address] [address] PCP - General 08/29/18 documented as of this encounter
--- OUTSIDE RECORDS SUMMARY | 2024-10-12 08:15 | XMS_ITS | Encounter Summary ---
Author Organization [facility] Address [address] [place] [address] Care Team Providers Care Sonar Technician Name Role Phone Nataliia Montze MD Primary Care Provide r Reason for Visit * Reason Onset Date Comments Other 06/09/2023 Encounter Details Date Type Department Care Team (Late st Contact Info) Description 06/09/[address] [facility] Gastroenterology - [address] [address] [place] Sorto MD [address] [place] [address] [address] [place] [address] Other Social History Tobacco Use Types Packs/Day Years [...] Assessment Author No 07/26/2021 20:15 EDT Terrie Daniels RN * Do you have serious difficulty walking or climbing stairs? (5 years old or older) Answer Date of Assessment Author No 07/26/2021 20:15 EDT Terrie Daniels RN * Do you have difficulty dressing or bathing? (5 years old or older) Answer Date of Assessment Author No 07/26/2021 20:15 EDT Terrie Daniels RN * Because of a physical, mental, or emotional condition, do you have difficulty doing errands alone such as visiting a doctor's office or shopping? (15 years old or older) Answer Date of Assessment Author No 07/26/2021 20:15 EDT Terrie Daniels RN documented as of this encounter Mental Status * Because of a physical, mental, or emotional condition, do you have serious difficulty concentrating, remembering, or making decisions? (5 years old or older) Answer Entry Date Author No 07/26/2021 20:15 EDT Terrie Daniels RN documented in this encounter Miscellaneous Notes * Telephone Encounter - Nandini Gordon RN - 06/09/2023 1119 EDT Spoke w/ pt and [facility] He states understanding w/ no further questions at this time. * Telephone Encounter - Sasha Kirkland - 06/09/2023 1053 EDT Calling for help with the Internet. documented in this encounter Plan of Treatment Not on file documented as of this encounter Visit Diagnoses Not on filedocumented in this encounter Care Teams Sonar Technician Relationship Specialty Start Date End Date Nataliia Montez MD [address] [place] [id number] PCP - General 08/29/18 documented as of this encounter
--- OUTSIDE RECORDS SUMMARY | 2024-10-12 08:15 | XMS_ITS | Encounter Summary ---
Author Organization [facility] Address [address] [place] [address] Care Team Providers Care Boom Pump Operator Name Role Phone Nataliia Montez MD Primary Care Provide r Reason for Visit * Reason Comments Follow-up Anal condyloma Encounter Details Date Type Department Care Team (Late st Contact Info) Description 11/23/2023 13:45 EST Office Visit [facility] General Surgery - [facility] [address] [place] [address] Oumar Carlos MD [address] [place] [address], [address] [place] [address] Anal condyloma (Primary Dx) Social [...] EST Pulse 61 11/23/2023 1320 EST Temperature - - Respiratory Rate - - Oxygen Saturation 95% 11/23/2023 1320 EST Inhaled Oxygen Concentration - - Weight 84.8 kg (187 lb) 11/23/2023 1320 EST Height 165.1 cm (5' 5) 11/23/2023 1320 EST Body Mass Index 31.12 11/23/2023 1320 EST documented in this encounter Functional Status [...] documented in this encounter Progress Notes * Oumar Carlos MD - 11/23/2023 1345 EST Colorectal Surgery Clinic Follow-Up Note Reason For Visit: Anal condyloma HPI: Carlos returns to clinic for evaluation of anal condyloma. He was previously treated over 1 year agowith good response. Since his last visit which no intra anal or perianal disease noted he denies any new symptoms. No lumps or bumps around his anus. No drainage itching or bleeding. No pain with defecation. He did receive the Gardasil vaccine. Review of Symptoms: Reviewed in detail. He has no pertinent positives on extensive review of systems other than as described above. PMH/PSH/Meds/Allergies: No change in history, medications, or allergies unless noted below. Objective: Blood pressure 138/72, pulse 61, height 165.1 cm (65), weight 84.8 kg (187 lb), SpO2 95 %. Physical Exam: Gen: awake, alert, and oriented x 3, NAD Neck: soft CV: regular rate Pulm: non-labored respirations, comfortable on room air Abd: deferred Ext: well perfused Anorectal: Normal-appearing cranial skin. No evidence of recurrent perianal condyloma. Data Review: Labs: Lab Results Component Value [...] Radiology: none Assessment: Carlos Jimenez is a(n) 68 y.o. old male with history of perianal condyloma treated with topicalcream. Overall he had a good response without evidence of recurrent disease over a 1 year period oftime. Plan: Continue to monitor for recurrence of symptoms or lesions around his anus. Follow-up as needed in particular symptoms return Oumar Carlos MD 11/24/2023 9:21 documented in this encounter Plan of Treatment Not on file documented as of this encounter Visit Diagnoses Diagnosis Anal condyloma- Primary Condyloma acuminatum documented in this encounter Care Teams Boom Pump Operator Relationship Specialty Start Date End Date Nataliia Montez MD 4 [facility] [address] [place] [address] PCP - General 08/29/18 documented as of this encounter
--- OUTSIDE RECORDS SUMMARY | 2024-10-12 08:15 | XMS_ITS | Encounter Summary ---
Author Organization [facility] Address [address] [place] [address] Care Team Providers Care C Winforms Developer Name Role Phone Nataliia Montez MD Primary Care Provide r Reason for Visit * Reason Comments Follow-up Anal condyloma Encounter Details Date Type Department Care Team (Late st Contact Info) Description 08/26/2021 13:30 EST Office Visit [facility] General Surgery - [facility] [address] [place] [address] Oumar Carlos MD [address] [place] [address], [address] [place] [address] Anal condyloma (Primary Dx) Social [...] Sign Reading Time Taken Comments Blood Pressure 157/90 08/26/2021 1308 EST Pulse 65 08/26/2021 1308 EST Temperature - - Respiratory Rate - - Oxygen Saturation - - Inhaled Oxygen Concentration - - Weight 83.2 kg (183 lb 6.4 oz) 08/26/[address] Height 170.2 cm (5' 7.01) 08/26/2021 1308 EST Body Mass Index 28.72 08/26/2021 1308 EST documented in this encounter Functional Status [...] * Patient Instructions* Oumar Carlos MD - 08/26/2021 13:30 EST Topical Treatment for Anal Warts Imiquimod (efudex) is an ointment to treat your anal warts. It should be applied once daily before bed on Tuesday, Tuesday, and Tuesday and washed off in the morning with soap and water. Please follow these instructions: - Put a pea-sized amount on a gloved finger - Rub into the pink skin around your anus where there are warts. - You may need a second pea-sized amount for complete coverage OR you may need to apply some internally (no more than one fingernail depth). This will be discussed at your visit if needed. Imiquimod may cause skin irritation to area around your anus, perineum, or scrotum/labia. Please use Vaseline ointment to protect your healthy skin. PCP visit upcoming, discuss HPV vaccine documented in this encounter Ordered Prescriptions Prescription Sig Dispense Quantity Refills Last Filled Start Date End Date imiquimod (ALDARA) 5 % cream Apply 1 application topically to affected area three times a week for 90 days. Apply a thin layer as directed. 24 Packet 08/26/2021 2 documented in this encounter Progress Notes * Oumar Carlos MD - 08/26/2021 1330 EST Colorectal Surgery Clinic Follow-Up Note Reason For Visit: Anal condyloma HPI: Mr. Jimenez returns to clinic today for evaluation of his anal condyloma. He was last seen 6 weeks ago with numerous external condyloma and no evidence of internal disease. He was prescribed topical imiquimod which has been applying 3 times a week and reports improvement. Of note he did have to temporarily stop applying the ointment due to irritation. He also was recently admitted to [facility] with an NSTEMI requiring cardiac catheterization and stenting. He is now on dual antiplatelet therapy and doing well. He is scheduled for PCP visit next week Review of Symptoms: Reviewed in detail. He has no pertinent positives on extensive review of systems other than as described above. PMH/PSH/Meds/Allergies: No change in history, medications, or allergies unless noted below. Objective: Blood pressure (!) 157/90, pulse 65, height 170.2 cm (67.01), weight 83.2 kg (183 lb 6.4 oz). Physical Exam: Gen: awake, alert, and oriented x 3, NAD Neck: soft, no thyromegaly, no carotid bruits, no cervical lymphadenopathy CV: RRR no M/R/G Pulm: CTA bilat, no wheezes or rhonchi Abd: Soft nontender nondistended Ext: warm, well perfused,no edema Anorectal: External: Resolving external condyloma Internal: No masses or lesions Function: Normal Office Anoscopy/Proctoscopy I explained the procedure including the risks, benefits, and alternative. Verbal consent for the procedure was obtained. A pre-procedure verification was conducted prior to the procedure. The patient's identity, procedure, and when applicable the: side/site, patient position, availability of special equipment or special requirements was verbally confirmed prior to the procedure. Procedure: Diagnostic anoscopy Findings: The anoscope was introduced into the anal canal. The distal rectal mucosa was examined and appeared normal. The anal canal mucosa was examined appeared normal. No lesions concerning for intraanal condyloma or dysplasia. Complications: none The patient tolerated the procedure without issue. A entrepreneurship program director was present for the entirety of the exam. Data Review: Labs: Lab Results Component Value Date WBC 7.71 07/28/2021 HGB 15.6 07/28/2021 HCT 45.9 07/28/2021 PLT 207 07/28/2021 Lab Results Component Value Date CREATININE 0.78 07/28/2021 BUN 17 07/28/2021 NA 138 07/28/2021 K 4.2 07/28/2021 CL 107 07/28/2021 CO2 22 07/28/2021 CALCIUM 9.6 07/28/2021 Lab Results Component Value Date INR 0.9 07/26/2021 Radiology: None Assessment: Carlos Jimenez is a(n) 66 y.o. old male with perianal condyloma improving on topical imiquimod.Patient is to continue to apply topical therapy 3 times a week and follow-up in clinic in 2 months to assess for resolution. He should also see his PCP next week as scheduled and discuss proceeding HPV vaccine. Plan: Follow-up in 8 weeks Continue topical imiquimod HPV vaccine with PCP Oumar Carlos MD 08/26/2021 13:33 documented in this encounter Plan of Treatment Not on file documented as of this encounter Visit Diagnoses Diagnosis Anal condyloma- Primary Condyloma acuminatum documented in this encounter Discontinued Medications Medication Sig Discontinue Reason Start Date End Da te imiquimod (ALDARA) 5 % cream Apply 1 application topically to affected area three times a week for 90 days. Apply a thin layer as directed. Reorder 07/08/2021 08/26/2021 documented as of this encounter Care Teams C Winforms Developer Relationship Specialty Start Date End Date Nataliia Montez MD [address] [address] PCP - General 08/29/18 documented as of this encounter
--- OUTSIDE RECORDS SUMMARY | 2024-10-12 08:15 | XMS_ITS | Encounter Summary ---
Author Organization [facility] Address [address] [place] [address] Care Team Providers Care Editor Book Name Role Phone Nataliia Montez MD Primary Care Provide r Encounter Details Date Type Department Care Team (Late st Contact Info) Description 10/14/[address] [facility] Pathology & Laboratory Medicine - [address] [address] Outr Resulting Lab, Provider Social History Tobacco [...] Associated Diagnosis Comments PSA TOTAL, DIAGNOSTIC Routine 10/14/2021 8:05 EST documented in this encounter Results * PSA TOTAL, DIAGNOSTIC (10/14/2021 8:05 EST) PSA 1.4 0.0 - 4.5 ng/mL 10/14/2021 22:40 EST [facility] Blood VENOUS BLOOD / Unknown 10/14/2021 8:05 EST 10/14/2021 21:47 EST Narrative [facility] - 10/14/2021 22:40 EST NOTE: Serum PSA concentration should not be interpreted as absolute evidence for the presence or absence of malignant disease. Assayed on Siemens ADVIA Centaur XPT using chemiluminescent technology.??Values obtained by using different assay methods cannot be used interchangeably. us Provider Outr Resulting Lab CHEMISTRY & BLOOD GA S ORDERABLES Final Result [facility] [address] [place] [address] documented in this encounter Visit Diagnoses Not on filedocumented in this encounter Care Teams Editor Book Relationship Specialty Start Date End Date Nataliia Montez MD 4 [facility] [address] [place] [address] PCP - General 08/29/18 documented as of this encounter
--- OUTSIDE RECORDS SUMMARY | 2024-10-12 08:15 | XMS_ITS | Encounter Summary ---
Author Organization [facility] Address [address] [place] [address] Care Team Providers Care Data Integrity Analyst Name Role Phone Nataliia Montez MD Primary Care Provide r Reason for Visit * Reason Comments Follow-up FBSE, Hx AK. Skin le jeevan on top of scalp Encounter Details Date Type Department Care Team (Late st Contact Info) Description 08/19/2023 9:20 EDT Office Visit [facility] Dermatology [address]th [address] [address] Alex Lopez PA-C [address] [facility], [address] 5 [place] [address] Actinic keratosis (Primary Dx); Acquired digital fibrokeratoma Social History Tobacco Use Types Packs/Day Years [...] this encounter Patient Instructions * Patient Instructions* Alex Lopez PA-C - 08/19/2023 9:20 EDT DERMATOLOGY WOUND CARE INSTRUCTIONS FOR CRYOSURGERY The area you had treated with liquid nitrogen therapy may swell, blister and throb for 24 hours. You may see blood in the blisters. If the blisters open, apply Vaseline/petroleum jelly until the areahas healed. We do not recommend the use of triple antibiotic ointment or other ointments as they can cause allergic reactions. Any scabs that form should fall off within 14-21 days. CONTACT THE OFFICE IF YOU EXPERIENCE: increasing redness warmth to touch increasing pain drainage with a foul odor rapid swelling of the wound fever or chills Please call our office or . documented in this encounter Ordered Prescriptions Prescription Sig Dispense Quantity Refills Last Filled Start Date End Date ketoconazole (NIZORAL) 2 % cream Sig apply thin layer to rash areas on face, BID 15 g 5 08/19/2023 documented in this encounter Progress Notes * Alex Lopez PA-C - 08/19/2023 0920 EDT Chief Complaint Patient presents with Follow-up FBSE, Hx AK. Skin lesion on top of scalp Subjective: Presents today for annual skin exam secondary to prior history of Actinic keratosis. Reports scaly spots on scalp. History of lesion(s) negative for spontaneous bleeding, itching or pain. Past Medical History: Diagnosis Date Anomaly, cardiac Environmental allergies Hypertension Pericardial effusion Objective: Complete Cutaneous Exam On physical examination, in general, Mr. Jimenez is a male who is well- groomed, well-nourished, and appears stated age and is is in no apparent distress. He is alert and oriented to person, place and time. He has Mendieta type III skin. Complete cutaneous examination of the head, including the scalp and face, neck, back, chest, including breasts and axillae, abdomen, groin, buttocks, intertriginous areas, and all four extremities were examined. The examination was normal with the additionof the following comments: Lesion A: Location: Right anterior scalp x 3 Lesion Color: pink Lesion Type: macules Lesion Description: Gritty, keratotic texture on palpation. Well-defined. Lesion B: Location: Left ring finger, dorsal Lesion Color: pink, yellowish Lesion Type: papule Lesion Description: 2 mm, firm, dome-shaped, shows peripheral collarette at base. A/P: 1.) Actinic keratoses, right scalp. PLAN: Treatment by LN cryotherapy today. See procedure note below for details. CRYOSURGERY PROCEDURE NOTE PATIENT INFORMATION: Carlos Jimenez [id number] 1955 [id number] 1955 DATE OF PROCEDURE: 08/19/2023 SURGEON: Alex Lopez PA-C TABLE OPERATOR: INDICATIONS: SITE/LESION TYPE/DIAGNOSIS: Lesion(s) A: Location: right anterior scalp Lesion Type/Diagnosis: 3 actinic keratosis(es) Liquid nitrogen cryosurgery was applied to a total of 3 lesion(s) on the above stated locations. The expected reaction and healing course were discussed, as well as the possibility of incomplete resolution and/or permanent dyspigmentation. The indication, risks, benefits and alternatives to this pro cedure were discussed in detail with the patient and all questions were answered. Verbal wound care instructions were given. COMPLICATIONS: none Alex Lopez PA-C 08/19/2023 9:39 2.) Acquired digital fibrokeratoma, left ring finger. PLAN: Patient reassurance; no further treatment today. Refilled today: Prescription for Ketoconazole 2% cream, sig apply face BID, #30g with 12 refills. Follow up here in one year, sooner if needed. Alex HARRIS PA-C [facility] Division of Dermatology Clinical Instructor - [facility] 08/19/2023 documented in this encounter Plan of Treatment Not on file documented as of this encounter Visit Diagnoses Diagnosis Actinic keratosis- Primary Acquired digital fibrokeratoma Acquired keratoderma documented in this encounter Care Teams Data Integrity Analyst Relationship Specialty Start Date End Date Nataliia Montez MD [address] [address] PCP - General 08/29/18 documented as of this encounter
--- OUTSIDE RECORDS SUMMARY | 2024-10-12 08:15 | XMS_ITS | Referral Summary ---
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) 07/26/2021 Chest pain 07/26/2021 Immunizations Name Administration Dates Next Due Covid-19 mRNA Vaccine (PFIZE R COVID-19) PF 0.3 ml IM (12 yrs+) 02/03/2021,01/13/2021 Influenza Vaccine Quad PF 0.5 ml IM (6 mos+) 09/2021 Social History Tobacco Use Types Packs/Day Years [...] 9:00 EST Sexual Orientation Not on file Last Filed Vital Signs Vital Sign Reading [...] Body Mass Index 31.12 11/23/2023 1320 EST Functional Status * Are you deaf or [...] Author No 07/26/2021 20:15 Terrie Soliman RN Mental Status * Because of a physical, mental, or emotional condition, do you have serious difficulty concentrating, remembering, or making decisions? (5 years old or older) Answer Entry Date Author No 07/26/2021 20:15 Terrie Soliman RN Plan of Treatment Not on file Medical Devices Implanted Type Area General Utility Worker Device Identifier Shelf Expiration Date Model / Serial / Lot Stent Coronary Everomimus Eluting Pt Cr Otw 3.0x32mm Promus Elite [id number] - [id number] Implanted:Qty : 1 on 07/27/2021 by Tung Dennis MD at [facility] Drug Eluting Stent Left: Coronary [employer] [id number] 08/29/2022 [id number] / / [id number] Procedures Procedure Name Priority Date/Time Associated Diagnosis Comments PSA TOTAL, DIAGNOSTIC Routine 08/02/2024 7:30 EDT COLONOSCOPY PROCEDURE Routine 06/10/2023 9:32 EDT HEPATITIS C AB W REFLEX TO HCV RNA BY PCR Routine 07/31/2014 15:17 EDT from Last 3 Months or Most Recently Relevant to Health Maintenance Results * PSA TOTAL, DIAGNOSTIC (08/02/2024 7:30 EDT) PSA 0.8 <=4.5 ng/mL 08/03/2024 9:38 EDT [facility] Blood VENOUS BLOOD / Unknown 08/02/2024 7:30 EDT 08/02/2024 22:16 EDT Narrative [facility] - 08/03/2024 9:38 EDT NOTE: Serum PSA concentration should not be interpreted as absolute evidence for the presence or absence of malignant disease. Assayed on Siemens ADVIA [employer]so [employer]aur XPT using chemiluminescent technology.??Values obtained by using different assay methods cannot be used interchangeably. us Provider Outr Resulting Lab CHEMISTRY & BLOOD GA S ORDERABLES Final Result [facility] [address] [place], [place] [address] * COLONOSCOPY PROCEDURE (06/10/2023 9:32 EDT) Anatomical [...] procedure. ??Total sedation time was ??24 ??minutes. [place] Bowel Prep Right Colon: 3 ? Transverse [...] 7 EDT 07/31/2014 19:08 EDT Katelyn Elder APRN CHEMISTRY & BLOOD GAS ORDERA BLES Final Result [facility] [address] [place] [address] from Last 3 Months or Most Recently Relevant to Health Maintenance Insurance [employer] MEDICARE [employer]CO [place] Advance Directives For more information, please contact: [phone] * Full Code (Latest Code Status on File) Date Activated Date Inactivated Comments 07/26/2021 19:06 07/28/2021 13:26 Question Answer Comments When the patient has NO PULSE: Full Code / CPR Who Made the Decision? Default/Not Discussed Care Teams Tube Operator Relationship Specialty Start Date End Date Nataliia Montez MD [address] [place] [address] [address] [place] [address] PCP - General 08/29/18
--- OUTSIDE RECORDS SUMMARY | 2024-10-12 08:15 | XMS_ITS | Encounter Summary ---
Author Organization [facility] Address [address] [place] [address] Care Team Providers Care Sanitation Director Name Role Phone Nataliia Montez MD Primary Care Provide r Reason for Visit * Reason Onset Date Comments Medication Questions 06/09/2023 Encounter Details Date Type Department Care Team (Late st Contact Info) Description 06/09/2023 Telephone [facility] Gastroenterology - [address] [address] New Sorto MD [address] [place] [address], [facility] [address] [place] [address] Medication Questions Social History Tobacco Use Types Packs/Day Years [...] Encounter - Nandini Gordon RN - 06/09/2023 1031 EDT Spoke w/ pt and resent CellErahart invite. He will call back if he can't get into his mychart. He states understanding w/ no further questions at this time. * Telephone Encounter - Sasha Kirkland - 06/09/2023 1013 EDT Patient has questions on his colonoscopy, at the [facility] who will bring him tomorrow but forgot his paperwork. documented in this encounter Plan of Treatment Not on file documented as of this encounter Visit Diagnoses Not on filedocumented in this encounter Care Teams Sanitation Director Relationship Specialty Start Date End Date Nataliia Montez MD 4 [facility] [address] [place] [address] PCP - General 08/29/18 documented as of this encounter
--- OUTSIDE RECORDS SUMMARY | 2024-10-12 08:15 | XMS_ITS | Encounter Summary ---
Author Organization [facility] Address [address] [place] [address] Care Team Providers Care Utilization Management Rn Name Role Phone Nataliia Montez MD Primary Care Provide r Reason for Visit * Reason Comments Follow-up Anal condyloma Encounter Details Date Type Department Care Team (Late st Contact Info) Description 10/21/2021 11:45 EST Office Visit [facility] General Surgery - [facility] [address] [place] [address] Oumar Carlos MD [address] [place] [address], [address] [place] [address] Anal condyloma (Primary Dx) Social [...] Sign Reading Time Taken Comments Blood Pressure 122/93 10/21/2021 1143 EST Pulse 76 10/21/2021 1143 EST Temperature - - Respiratory Rate - - Oxygen Saturation - - Inhaled Oxygen Concentration - - Weight 82.6 kg (182 lb 3.2 oz) 10/21/[address] Height 170.2 cm (5' 7.01) 10/21/2021 1143 EST Body Mass Index 28.53 10/21/2021 1143 EST documented in this encounter Functional Status [...] * Patient Instructions* Oumar Carlos MD - 10/21/2021 11:45 EST Stop imiquimod. documented in this encounter Progress Notes * Sujit Murray MD - 10/21/2021 1145 EST Surgery Progress Note Chief Complaint: Anal condyloma Subjective: Feels that things have completely resolved. Had to stop the imiquimod in the past 2 weeks due to irritation, but is not longer having any bothersome symptoms. Got his first round of HPV shots, 2nd round is tomorrow. Objective: All vitals reviewed and wnl PE: Gen: Awake, alert, no acute distress CV: RRR Resp: CTAB Abd: SNT Rectal: Normal rectal exam, no evidence of condyloma Assessment: Mr. Jimenez is a 66 yom presenting for follow up of anal condyloma. Lesions have resolved and he is undergoing HPV vaccination. Okay to stop imiquimod and follow up as needed. Plan: - Follow up yearly Sujit Murray MD, PGY- 5 10/21/2021 I saw and examined the patient and discussed with the resident/medical student/HEALTH INFORMATION TECHNOLOGIST team. I agree with the findings, and plan of care documented in the resident's/medical student's/HEALTH INFORMATION TECHNOLOGIST's note. Any additions/exceptions are noted below. The patient exhibits complete resolution of anal condyloma with topical imiquimod therapy. He stopped the imiquimod 2 weeks ago due to mild irritation. His perianal skin looks well-healed with no evidence of condyloma. I will see the patient back in 1 year for repeat anoscopy. In the meantime he should complete his HPV vaccine regimen and should feel free to call the office should his condyloma return prior to follow-up. Oumar Carlos MD Colon and Rectal Surgery Division of General and Gastrointestinal Surgery documented in this encounter Plan of Treatment Not on file documented as of this encounter Visit Diagnoses Diagnosis Anal condyloma- Primary Condyloma acuminatum documented in this encounter Care Teams Utilization Management Rn Relationship Specialty Start Date End Date Nataliia Montez MD [address] [place] [address] [address] [place] [address] PCP - General 08/29/18 documented as of this encounter
--- OUTSIDE RECORDS SUMMARY | 2024-10-12 08:15 | XMS_ITS | Encounter Summary ---
Author Organization [facility] Address [address] [place] [address] Care Team Providers Care Operator Specialist Communications Name Role Phone Nataliia Montez MD Primary Care Provide r Encounter Details Date Type Department Care Team (Late st Contact Info) Description 03/23/2023 Orders Only [facility] Gastroenterology - [facility] [address] [place], [place] [address] New Sorto MD [address] [facility], [address] [place] [address] Social History Tobacco Use Types Packs/Day Years [...] Terrie Soliman RN documented in this encounter Ordered Prescriptions Prescription Sig Dispense Quantity Refills Last Filled Start Date End Date polyethylene glycol (GOLYTELY) 236-22.74-6.74 -5.86 gram suspension Follow instructions on colonoscopy prep sheet. OK to substitute with any PEG-3350 product: CoLyte, Gavilyte, Nulytely, Trilyte, or generic PEG-3350 1 Each 03/24/2023 3 documented in this encounter Plan of Treatment Not on file documented as of this encounter Visit Diagnoses Not on filedocumented in this encounter Care Teams Operator Specialist Communications Relationship Specialty Start Date End Date Nataliia Montez MD [address] [facility] [address] [place] [address] PCP - General 08/29/18 documented as of this encounter
--- OUTSIDE RECORDS SUMMARY | 2024-10-12 08:15 | XMS_ITS | Encounter Summary ---
Author Organization [facility] Address [address] [place] [address] Care Team Providers Care Substance Abuse Counselor Name Role Phone Nataliia Montez MD Primary Care Provide r Reason for Visit * Reason Comments Skin Exam Spots of concern on back and scalp Encounter Details Date Type Department Care Team (Late st Contact Info) Description 08/16/2022 11:20 EDT Office Visit [facility] Dermatology [address] [facility] [address] [place] [address] Alex Lopez PA-C [address] [facility], [address] [place] [address] Actinic keratosis (Primary Dx); Inflamed seborrheic keratosis; Solar lentigo Social History Tobacco Use Types Packs/Day Years [...] * Patient Instructions* Alex Lopez PA-C - 08/16/2022 11:20 EDT DERMATOLOGY WOUND CARE INSTRUCTIONS FOR CRYOSURGERY [...] days. CONTACT THE OFFICE IF YOU EXPERIENCE: ?? increasing redness ?? warmth to touch ?? increasing pain ?? drainage with a foul odor ?? rapid swelling of the wound ?? fever or chills Please call our office or . documented in this encounter Progress Notes * Alex Lopez PA-C - 08/16/2022 1120 EDT Chief Complaint Patient presents with ??? Skin Exam Spots of concern on back and scalp Subjective: Presents today for further evaluation and treatment of skin lesions. Characterized by spots on scalp and back, which are scaly and itchy. History of lesion(s) negative for spontaneous bleeding, or pain. Past Medical History: Diagnosis Date ??? Anomaly, cardiac ??? Environmental allergies ??? Hypertension ??? Pericardial effusion Objective: Waist up Cutaneous Exam On physical examination, in general, Mr. Jimenez is a male who presents well- groomed, well-nourished and appears stated age. He is alert and oriented to person, place and time. He has Mendieta type III skin. On cutaneous examination of the head, including the scalp and face, neck, back, chest, including breasts and axillae, abdomen, intertriginous areas, and upper extremities were examined. The examination was normal with the addition of the following comments: Lesion A: Location: Central/anterior scalp x 1; right mid nasal bridge x 1 Lesion Color: whitish, yellowish Lesion Type: macule, papule Lesion Description: Gritty, keratotic texture on palpation. Well-defined. Lesion B: Location: Central nasal bridge Lesion Color: brown, black Lesion Type: macule, patch Lesion Description: No clinical changes noted in reference to prior observations in my chart notes (see my notes from 2019.) Lesion C: Location: Right upper back x 2; left elbow x 1 Lesion Color: brown, mcgarry Lesion Type: papule, plaques Lesion Description: Warty, crusted, stuck-on appearing papule and plaques with mild, surrounding erythema. A/P: 1.) Actinic keratoses, scalp/nose. PLAN: Treatment by LN cryotherapy today. See procedure note below for details. 2.) Lentigo/nevus collision, nasal bridge, no changes noted. PLAN: Patient reassurance; no further treatment today. 3.) Inflamed seborrheic keratoses, back/elbow. PLAN: Treatment by LN cryotherapy today. See procedure note below for details. CRYOSURGERY PROCEDURE NOTE PATIENT INFORMATION: Carlos Jimenez [id number] 1955 [id number] 1955 DATE OF PROCEDURE: 08/16/2022 SURGEON: Alex Lopez PA-C CAKE WINDER: INDICATIONS: SITE/LESION TYPE/DIAGNOSIS: Lesion(s) A: Location: Central/anterior scalp x 1; right mid nasal bridge x 1 Lesion Type/Diagnosis: 2 actinic keratosis(es) Lesion(s) B: Location: Right upper back x 2; left elbow x 1 Lesion Type/Diagnosis: 3 irritated seborrheic keratosis(es) Liquid nitrogen cryosurgery was applied to a total of 5 lesion(s) on the above stated locations. The expected reaction and healing course were discussed, as well as the possibility of incomplete resolution and/or permanent dyspigmentation. The indication, risks, benefits and alternatives to this pro cedure were discussed in detail with the patient and all questions were answered. Verbal wound care instructions were given. COMPLICATIONS: none NOTE: 2-3 freeze/thaw cycles were applied to all today. Alex Lopez PA-C 08/16/2022 11:48 Follow up here in one year, sooner if needed. Alex HARRIS PA-C [facility] Division of Dermatology Clinical Instructor - [facility] 08/16/2022 documented in this encounter Plan of Treatment Not on file documented as of this encounter Visit Diagnoses Diagnosis Actinic keratosis- Primary Inflamed seborrheic keratosis Solar lentigo Other dyschromia documented in this encounter Care Teams Substance Abuse Counselor Relationship Specialty Start Date End Date Nataliia Montez MD [address] [place] [address] [address] [place] [address] PCP - General 08/29/18 documented as of this encounter
--- OUTSIDE RECORDS SUMMARY | 2024-10-12 08:15 | XMS_ITS | Encounter Summary ---
Author Organization [facility] Address [address] [place] [address] Care Team Providers Care Metal Weigher Name Role Phone Nataliia Montez MD Primary Care Provide r Encounter Details Date Type Department Care Team (Late st Contact Info) Description 05/04/2023 Lab Requisition [facility] Pathology & Laboratory Medicine - [address] [address] Outr Resulting Lab, Provider Social History Tobacco [...] Associated Diagnosis Comments PSA TOTAL, DIAGNOSTIC Routine 05/03/2023 9:10 EDT documented in this encounter Results * PSA TOTAL, DIAGNOSTIC (05/03/2023 9:10 EDT) PSA 0.9 <=4.5 ng/mL 05/04/2023 19:48 EDT [facility] Blood VENOUS BLOOD / Unknown 05/03/2023 9:10 EDT 05/04/2023 17:48 EDT Narrative [facility] - 05/04/2023 19:48 EDT NOTE: Serum PSA concentration should not be interpreted as absolute evidence for the presence or absence of malignant disease. Assayed on Siemens ADVIA [employer] XPT using chemiluminescent technology.??Values obtained by using different assay methods cannot be used interchangeably. us Provider Outr Resulting Lab CHEMISTRY & BLOOD GA S ORDERABLES Final Result [facility] [address] [place] [address] documented in this encounter Visit Diagnoses Not on filedocumented in this encounter Care Teams Metal Weigher Relationship Specialty Start Date End Date Nataliia Montez MD 4 [facility] [address] [place] [address] PCP - General 08/29/18 documented as of this encounter
--- OUTSIDE RECORDS SUMMARY | 2024-10-12 08:16 | XMS_ITS | Encounter Summary ---
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 Name Role Phone Nataliia Montez MD Primary Care Provide r Encounter Details Date Type Department Care Team (Late st Contact Info) Description 09/19/2019 8:58 EST - 09/19/2019 11:17 EST Hospital Encounter [facility] Endoscopy - [address] [id number] New Sorto MD [address] [place] [address], [address] [place] [address] Discharge Disposition: Home or Self Care Social History Tobacco Use Types Packs/Day Years Used Date Smoking Tobacco: Some Days Cigarettes Smokeless Tobacco: Never Alcohol Use Standard Drinks/Week Comments No 0 (1 standard drink = 0.6 oz pur e alcohol) rare Sex and Gender Information Value Date Recorded Sex Assigned at Not on file Legal Sex Male 17:36 EST Gender Identity Male 09/19/2019 9:00 EST Sexual Orientation Not on file documented as of this encounter Last Filed Vital Signs Vital Sign Reading Time Taken Comments Blood Pressure 103/64 09/19/2019 1115 EST Pulse - - Temperature 35.1 ??C (95.2 ??F) 09/19/2019 0943 EST Respiratory Rate 13 09/19/2019 1115 EST Oxygen Saturation 93% 09/19/2019 1115 EST Inhaled Oxygen Concentration - - Weight 84.8 kg (187 lb) 09/19/2019 0943 EST Height 167.6 cm (5' 6) 09/19/2019 0943 EST Body Mass Index 30.18 09/19/2019 0943 EST documented in this encounter Functional Status * Because of a physical, mental, or emotional condition, does this person have difficulty doing errands alone such as visiting a doctor's office or shopping? Answer Date of Assessment Author No 11/02/2018 8:22 EST documented as of this encounter Mental Status * Because of a physical, mental, or emotional condition, does this person have serious difficulty concentrating, remembering, or making decisions? Answer Entry Date Author No 11/02/2018 8:22 EST documented in this encounter Medications at Time of Discharge olmesartan (BENICAR) 20 mg tablet Take 1 Tablet by mouth daily. aspirin 325 mg tablet Take 325 mg by mouth daily. 07/26/2021 ketoconazole (NIZORAL) 2 % cream Sig apply thin layer to rash areas on face, BID 15 g 5 11/02/2018 07/26/2021 losartan (COZAAR) 25 mg tablet Take 25 mg by mouth daily. 07/26/2021 documented as of this encounter Discharge Disposition Disposition Code Departure Means Destination Home or Self Care Walk-out Home documented in this encounter H&P Notes * New Sorto MD - 09/19/2019 1024 EST Endoscopy Sedation for Procedure History & Physical Date: 09/19/2019 Time: 10:24 Location: 4 Planned Procedure: Colonoscopy Chief Complaint/Indications for Procedure: personal h/o colon polyps History Previous Complication with Sedation and/or Anesthesia? No Allergies: Allergies Allergen Reactions ??? Losartan Muscle Aches Current Medications: Current Facility-Administered Medications: diphenhydrAMINE (BENADRYL) injection 25 mg intravenous Once PRN lactated ringers (LR) infusion intravenous CONTINUOUS lidocaine (PF) 10 mg/mL (1 %) injection 2 mg intradermal PRN ondansetron (PF) (ZOFRAN) injection 2-4 mg intravenous PRN sodium chloride 0.9 % (flush) flush 3 mL intravenous PRN Past Medical History: Past Medical History: Diagnosis Date ??? Anomaly, cardiac ??? Environmental allergies ??? Hypertension ??? Pericardial effusion Social History: Past Surgical History: Procedure Laterality Date ??? CARDIAC SURGERY pericardial effusion ??? PILONIDAL CYST DRAINAGE Social History Tobacco Use ??? Smoking status: Current Some Day Smoker Packs/day: 1.00 ??? Smokeless tobacco: Never Used Substance Use Topics ??? Alcohol use: No Comment: rare Family History: Family History Problem Relation Age of Onset ??? Colon Cancer Father ??? Cancer Maternal Grandmother ??? Stomach Cancer Maternal Grandfather Review of Systems as pertinent: Physical Exam Vital Signs: BP 139/86 Temp (!) 35.1 ??C (95.2 ??F) (Tympanic) Resp 16 Ht 167.6 cm (66) Wt84.8 kg (187 lb) SpO2 98% BMI 30.18 kg/m?? Heart Examination: Cardiac Regularity: Regular Respiratory Examination: Respiratory Pattern: Regular Breath Sounds Right: Clear Breath Sounds Left: Clear Abdominal Examination: Soft, non-tender, bowel sounds normal, no masses, no organomegaly Additional physical exam related to the proposed procedure, patient activity, disease state and treatment as pertinent: Assessment Previous complications with sedation or anesthesia?: No Airway Concerns: None/NA Anesthesia Classification: ASA 2 Plan: Proceed with sedation for procedure Fasting Time: Patient Appropriate Candidate for Planned Sedation?: Yes New Sorto MD 09/19/2019 10:24 documented in this encounter Plan of Treatment Not on file documented as of this encounter Procedures Procedure Name Priority Date/Time Associated Diagnosis Comments COLONOSCOPY PROCEDURE Routine 09/19/2019 10:52 EST SURGICAL PATHOLOGY Routine 09/19/2019 10 :35 EST COLONOSCOPY 09/19/2019 10:21 EST Screen for colon cancer documented in this encounter Results * COLONOSCOPY PROCEDURE (09/19/2019 10:52 EST) Anatomical Region Laterality Modality Endoscopy Narrative 09/19/2019 10:52 EST Procedure Performed Colonoscopy Indications for Exam Surveillance for a personal h/o colon polyps Procedure Technique A physical exam was performed. [...] during the procedure. ??Total sedation time was 21 ?? minutes. [place] Bowel Prep Right Colon: 3 ? Transverse Colon: 3 ? Left Colon: 3 ?Total: 9 Findings 2, 2 to 3 mm flat elevated polyps in the cecum. Polypectomy performed with cold biopsy forcep. 3 to 4 mm flat elevated polyp in the ascending colon. Polypectomy performed with cold biopsy forcep. 3, 3 to 4 mm flat elevated polyps in the sigmoid colon. Polypectomy performed with cold biopsy forcep. 5 mm sessile polyp in the rectum. Polypectomy performed with cold biopsy forcep. internal hemorrhoids. Diagnosis 2, 2 to 3 mm flat elevated polyps in the cecum. Polypectomy performed with cold biopsy forcep. 3 to 4 mm flat elevated polyp in the ascending colon. Polypectomy performed with cold biopsy forcep. 3, 3 to 4 mm flat elevated polyps in the sigmoid colon. Polypectomy performed with cold biopsy forcep. 5 mm sessile polyp in the rectum. Polypectomy performed with cold biopsy forcep. internal hemorrhoids. Recommendations Follow biopsy results. Repeat colonoscopy in 3-5 years, depending on polyp histology. The??procedure??was??performed??by??Dr. Gwendolyn Cole M.D. in the presence of Dr. New Sorto. The attending physician was in the room for the entire procedure. This electronic signature authenticates all electronic and/or handwritten documentation, including orders, generated by the signer during the episode of care contained in this record. 09/19/2019 10:52:13 AM By New Sorto MD us New Sorto MD GI PROCEDURE ORDERABLES F inal Result * SURGICAL PATHOLOGY (09/19/2019 10:35 EST) Final Diagnosis A. COLON, CECUM, POLYPS, BIOPSY: - Fragments of tubular adenoma (s). B. COLON, ASCENDING, POLYP, BIOPSY: - Sessile serrated adenoma. C. COLON, SIGMOID, POLYPS, BIOPSY: - Fragments of hyper plastic polyp (s). D. RECTUM, POLYP, BIOPSY: - Fragments of tubular adenoma. 09/21/2019 14:38 [facility] at 1437 Clinical History 09/21/2019 14:38 [facility] Attestation By the signature below, the attending physician certifies that they have personally conducted a gross and/or microscopic examination of the described specimens and rendered or confirmed the above diagnosis. 09/21/2019 14:38 [facility] at 1437 Gross Description A. Received in formalin labelled with proper patient identification (initials M, S) and cecal polyps are 3 schmid irregular tissues ranging from 0.2 x 0.1 by less than 0.1 cm to 0.3 x 0.2 x 0.1 cm. Entirely submitted in A1. B. Received in formalin labelled with proper patient identification (initials M, S) and ascending colon polyp is a schmid irregular tissue, 0.4 x 0.2 x 0.2 cm. Entirely submitted in B1. C. Received in formalin labelled with proper patient identification (initials M, S) and sigmoid colon polyps are 4 schmid nodular tissues ranging from 0.2 x 0.2 x 0.1 cm to 0.2 x 0.2 x 0.2 cm. Entirely submitted in C1. D. Received in formalin labelled with proper patient identification (initials M, S) and rectal polyp are 2 schmid irregular tissues averaging 0.2 x 0.2 x 0.2 cm. Entirely submitted in D1. Landy Sofia 09/19/2019 13:50 09/21/2019 14:38 EST [facility] Scanned Images 09/21/2019 14:38 EST [facility] Tissue POLYP OF COLON / Unknown 09/19/2019 10:35 EST 09/19/2019 12:41 EST Tissue specimen (specimen) POLYP OF COLON / Unknown 09/19/2019 10:38 EST 09/19/2019 12:41 EST Tissue specimen (specimen) POLYP OF COLON / Unknown 09/19/2019 10:43 EST 09/19/2019 12:41 EST Tissue specimen (specimen) SPECIMEN FROM RECTUM / Unknown 09/19/2019 10:45 EST 09/19/2019 12:41 EST us New Sorto MD PATHOLOGY ORDERABLES María garza Result [facility] [address] [place] [address] documented in this encounter Visit Diagnoses Not on filedocumented in this encounter Administered Medications Inactive Administered Medications - up to 3 most recent administrations Medication Order MAR Action Action Date Dose Rate Site diphenhydrAMINE (BENADRYL) injection 25 mg 25 mg, intravenous, ONCE PRN, 1 dose, Starting on Tue09/19/19 at 1010, Until Tue09/19/19 at 1409, Sleep, Routine, Preprocedure lactated ringers (LR) infusion 30 mL/hr, intravenous, CONTINUOUS, Starting on Tue09/19/19 at 1030, Until Tue09/19/19 at 1409, Routine, Preprocedure New Bag 09/19/2019 10:03 EST 30 mL/hr 30 mL/hr lidocaine (PF) 10 mg/mL (1 %) injection 2 mg 2 mg, intradermal, PRN, 4 doses, Starting on Tue09/19/19 at 1010, Until Tue09/19/19 at 1409, peripheral intravenous catheter placement, Routine, Preprocedure meperidine (PF) (DEMEROL) injection intravenous, PRN, Starting on Tue09/19/19 at 1026, Until Tue09/19/19 at 1409, Routine Given 09/19/2019 10:29 EST 25 mg Given 09/19/2019 10:26 EST 50 mg midazolam (MDV) (VERSED) injection intravenous, PRN, Starting on Tue09/19/19 at 1026, Until Tue09/19/19 at 1409, Routine Given 09/19/2019 10:29 EST 1 mg Given 09/19/2019 10:26 EST 2 mg ondansetron (PF) (ZOFRAN) injection 2-4 mg 2-4 mg, intravenous, PRN, Starting on Tue09/19/19 at 1010, Until Tue09/19/19 at 1409, Nausea, Vomiting, Routine, Intraprocedure sodium chloride 0.9 % (flush) flush 3 mL 3 mL, intravenous, PRN, Starting on Tue09/19/19 at 1010, Until Tue09/19/19 at 1409, Line Care, Routine, Preprocedure documented in this encounter Discontinued Medications Medication Sig Discontinue Reason Start Date End Da te polyethylene glycol (GOLYTELY) 236-22.74-6.74 -5.86 gram suspension Follow instructions on 'colonoscopy preparation instructions' sheet. Therapy completed 07/18/2019 09/19/2019 documented as of this encounter Active and Recently Administered Medications Times are shown in EST. Continuous Medication Order 09/17/2019 09/18/2019 09/19/2019 lactated ringers (LR) infusion 30 mL/hr, intravenous, CONTINUOUS, Starting on Tue09/19/19 at 1030, Until Tue09/19/19 at 1409, Routine, Preprocedure 1003 (New Bag - Prov ider: Isi Mitchell RN)1142 (Completed - Provider: Anne Rothman RN) PRN Medication Order 09/17/2019 09/18/2019 09/19/2019 diphenhydrAMINE (BENADRYL) injection 25 mg 25 mg, intravenous, ONCE PRN, 1 dose, Starting on Tue09/19/19 at 1010, Until Tue09/19/19 at 1409, Sleep, Routine, Preprocedure lidocaine (PF) 10 mg/mL (1 %) injection 2 mg 2 mg, intradermal, PRN, 4 doses, Starting on Tue09/19/19 at 1010, Until Tue09/19/19 at 1409, peripheral intravenous catheter placement, Routine, Preprocedure meperidine (PF) (DEMEROL) injection intravenous, PRN, Starting on Tue09/19/19 at 1026, Until Tue09/19/19 at 1409, Routine 1026 (Given - Provid er: Tana Quach RN)1029 (Given - Provider: Tana Quach RN) midazolam (MDV) (VERSED) injection intravenous, PRN, Starting on Tue09/19/19 at 1026, Until Tue09/19/19 at 1409, Routine 1026 (Given - Provid er: Tana Quach RN)1029 (Given - Provider: Tana Quach RN) ondansetron (PF) (ZOFRAN) injection 2-4 mg 2-4 mg, intravenous, PRN, Starting on Tue09/19/19 at 1010, Until Tue09/19/19 at 1409, Nausea, Vomiting, Routine, Intraprocedure sodium chloride 0.9 % (flush) flush 3 mL 3 mL, intravenous, PRN, Starting on Tue09/19/19 at 1010, Until Tue09/19/19 at 1409, Line Care, Routine, Preprocedure documented in this encounter Orders Medications Ordered That Seth ht Not Have Been Administered Count Last Ordered Date First Ordered Date diphenhydrAMINE (BENADRYL) injection 25 mg 1 09/19/2019 lidocaine (PF) 10 mg/mL (1 % ) injection 2 mg 1 09/19/2019 ondansetron (PF) (ZOFRAN) injection 2-4 mg 1 09/19/2019 sodium chloride 0.9 % (flush) flush 3 mL 1 09/19/2019 documented in this encounter Care Teams 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
--- OUTSIDE RECORDS SUMMARY | 2024-10-12 08:16 | XMS_ITS | Encounter Summary ---
Author Organization [facility] Address [address] [place] [address] Care Team Providers Care Scrummaster Name Role Phone Nataliia Montez MD Primary Care Provide r Reason for Visit * Reason Comments Chest Pain Pt presents to the E D with c/o cp, diaphorisis, left arm pain and nausea this am. Pt has a hx of pericardial effusion. 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 * Auth/Cert Specialty Diagnoses / Procedures [facility] Referred To Contact Diagnoses Chest pain NSTEMI (non-ST elevated myocardial infarction) ([facility]) Referral ID Status Reason Start Date Expiration Date Visits Re quested Visits Authorized [id number] 1 1 Encounter Details Date Type Department Care Team (Late st Contact Info) Description 07/27/2021 10:10 EDT - 07/27/2021 11:10 EDT Surgery [facility] Invasive Cardiology Unit [address] [place] [address] Tung Dennis MD [address] [facility], Level 1 [place] [id number] Left Heart Cath Surgery Details Date/Time Status Location OR Service Patient Class Case Class Case Type Trauma Case? 07/27/2021 1010 Posted [facility] Manager Leasing Manager Leasing 2 Interventional Cardiology Inpatient Panel 1 Procedure LRB Anes Op Region Wound Class Comments Left Heart Cath Left Chest Percutaneous Coronary Intervention N/A None Chest Surgeon Surgeon Role Service Panel Tung Dennis MD Primary Interventional Cardi ology 1 Maxim Graves MD Fellow Interventional Cardiology 1 documented in this encounter Social History Tobacco Use Types Packs/Day Years [...] 9:00 EST Sexual Orientation Not on file COVID-19 Exposure Response Date Recorded In the last month, have you been in contact with someone who was confirmed or suspected to have Coronavirus / COVID-19? No / Unsure 07/26/2021 15:05 EDT documented as of this encounter Last Filed Vital Signs Vital Sign Reading Time Taken Comments Blood Pressure 137/81 07/27/2021 0905 EDT Pulse 57 07/26/2021 1503 EDT Temperature 36 ??C (96.8 ??F) 07/27/2021 0900 EDT Respiratory Rate 16 07/27/2021 0900 EDT Oxygen Saturation 98% 07/27/2021 0900 EDT Inhaled Oxygen Concentration - - Weight 78 kg (172 lb) 07/27/2021 0905 EDT Height 170.2 cm (5' 7) 07/27/2021 0905 EDT Body Mass Index 26.94 07/27/2021 0905 EDT documented in this encounter Functional Status * Are you deaf or do you have serious difficulty hearing? Answer Date of Assessment Author No 07/26/2021 20:15 EDT Terrie Daniels RN * Are you blind or do you have serious difficulty seeing, even when wearing glasses? Answer Date of Assessment Author No 07/26/2021 20:15 EDT Terrie Daniels RN * Do you have serious difficulty walking or climbing stairs? (5 years old or older) Answer Date of Assessment Author No 07/26/2021 20:15 EDTerrie Woodruff RN * Do you have difficulty dressing or bathing? (5 years old or older) Answer Date of Assessment Author No 07/26/2021 20:15 EDTerrie Woodruff RN * Because of a physical, mental, [...] Terrie Soliman RN documented in this encounter Discharge Summaries * MossShirazia - 07/28/2021 0940 EDT Cardiology Discharge Summary Primary Care Provider: Nataliia Montez Attending Physician: Tung Dennis Jr., MD Admit Date: 07/26/2021 Discharge Date: 07/28/2021 Disposition: Home or self care Problems and Procedures Admitting Diagnosis: NSTEMI Final Hospital Diagnosis: NSTEMI, CAD s/p PCI Additional Problems Managed in the Hospital Active Hospital Problems Diagnosis Date Noted ??? *Chest pain 07/26/2021 ??? CAD in [place] artery 07/27/2021 ??? NSTEMI (non-ST elevated myocardial infarction) ([facility]) ([facility]) 07/26/2021 Resolved Hospital Problems No resolved problems to display. Left Heart Cath 07/27/2021 Access: Right radial artery IV Contrast Total: 100 mL X-ray Dose: 340 mGy ?? Diagnostic Cardiac Study Results Left main: Free of angiographically significant disease. Left anterior descending: Minor luminal irregularities. Left circumflex: Mid 90% involving OM2 (Becker 0,1,0) Right coronary artery: Non dominant. Free of angiographically significant disease. ?? Interventional Procedure: Using standard technique, the mid left circumflex coronary artery was stented using a Promus 3.0x32 TEODORA, post-dilated to 4.0 proximally. ?? Plan: Aspirin 81mg PO daily. High intensity statin therapy PO daily. Ticagrelor 90mg PO BID. Evaluation for cardiac rehab program. Transthoracic Echo 07/27/2021 ??? Left??Ventricle: The left ventricular cavity was normal in size. Left ventricular systolic function was normal with an ejection fraction of 60-65%. The estimated left ventricular ejection fraction by biplane Chang's method was 63%. Left ventricular diastolic parameters were normal. Left ventricular wall thickness was normal. Left ventricular wall motion was normal; there were no regional wall motion abnormalities. ??? Left??Atrium: Left atrial cavity was mildly dilated. Left atrial volume index was mildly increased. ?? Hospital Course Genaro Shin is a 65 y.o. male with a PMH significant for hypertension, tobacco use disoder and pericarditis with pericardial effusion in 2012 (unclear cause) who presented to [facility] ED on 07/26 for evaluation of chest pain and nausea which started 3 days earlier and gradually worsened. Troponin was mildly elevated and pt was transferred to [facility] for ischemic evaluation of suspected type 1NSTEMI. Patient had heart cath and stenting of the LCx vessel as described above. Echocardiogram demonstrated LVEF 60-65% without regional wall motion abnormalities and mildly dilated left atrium. Patient did well overnight; he had 1 episode of 6 beats of NSVT immediately post-PCI but was otherwise free of arrhythmias and heart block on telemetry. Right radial cath site is soft, no bleeding or hematoma, distal CSMTs intact. Smoking cessation was discussed with pt and he is ready to quit. Pt was discharged with nicotine replacement therapy and plans on slowly cutting back with the goal of complete cessation. Patient will be discharged on aspirin 81 mg daily indefinitely, clopidogrel 75 mg daily uninterrupted for at least 1 year (07/27/2022), atorvastatin 80 mg daily, and CRYPTOLOGIC SUPERVISOR olmesartan 20 mg daily. Pt has baseline bradycardia and therefore a beta porfirio was not started. Follow up was requested with PCP and Dr. Serrato. Pt was also referred for cardiac rehab evaluation at [facility]. Allergies and Immunizations Allergies Allergen Reactions ??? Losartan Muscle Aches There is no immunization history for the selected administration types on file for this patient. Transition of Care Plans Condition at Discharge Improved Assessment at Discharge Vitals: 07/27/21 1721 07/27/21 1947 07/28/21 0017 07/28/21 0829 BP: (!) 156/77 129/63 109/73 126/79 BP Cuff Location: Left arm Left arm Left arm Left arm BP Patient Position: Standing Standing Standing Semi fowlers Pulse: Resp: 16 18 16 Temp: 36.2 ??C (97.2 ??F) 36.2 ??C (97.2 ??F) 36.4 ??C (97.5 ??F) TempSrc: Tympanic Tympanic Tympanic SpO2: 97% 96% 98% 98% Weight: Height: Is the patient being discharged with a diagnosis of Systolic Heart Failure? No Coumadin Management N/A Non-Cardiac Studies at Time of Discharge none Results Pending at Discharge Test results still pending from this admission None Last Lab Results at Discharge BUN: Lab Results Component Value Date BUN 17 07/28/2021 Creatinine: Lab Results Component Value Date CREATININE 0.78 07/28/2021 CBC: Lab Results Component Value Date WBC 7.71 07/28/2021 RBC 5.23 07/28/2021 HGB 15.6 07/28/2021 HCT 45.9 07/28/2021 MCV 88 07/28/2021 MCH 29.8 07/28/2021 MCHC 34.0 07/28/2021 PLT 207 07/28/2021 DIFFTYPE Auto 07/26/2021 SEDRATE 2 06/23/2017 Electrolytes: Lab Results Component Value Date NA 138 07/28/2021 K 4.2 07/28/2021 CL 107 07/28/2021 CO2 22 07/28/2021 Lipid Profile: Lab Results Component Value Date CHOL 198 07/27/2021 TRIG 169 07/27/2021 HDL 41 07/27/2021 LDLBASE 123 07/27/2021 CHOLHDL 4.8 07/27/2021 Lab Results Component Value Date HGBA1C 6.1 (H) 07/26/2021 Medication List START taking these medications aspirin chewable 81 mg tablet Take 1 Tablet by mouth daily. Start taking on: July 29, 2021 atorvastatin 80 mg tablet Commonly known as: LIPITOR Take 1 Tablet by mouth daily. Start taking on: July 29, 2021 clopidogreL 75 mg tablet Commonly known as: PLAVIX Take 1 Tablet by mouth daily. Start taking on: July 29, 2021 nicotine 21 mg/24 hr patch Commonly known as: NICODERM CQ Place 1 Patch onto the skin daily as needed (nicotine craving). CONTINUE taking these medications imiquimod 5 % cream Commonly known as: ALDARA Apply 1 application topically to affected area three times a week for 90 days. Apply a thin layer as directed. olmesartan 20 mg tablet Commonly known as: BENICAR Where to Get Your Medications These medications were sent to [facility] - [place], [place] - [address] [place], [place] [address] [id number] ?? aspirin chewable 81 mg tablet ?? atorvastatin 80 mg tablet ?? clopidogreL 75 mg tablet ?? nicotine 21 mg/24 hr patch Discharge Follow Up Appointments Scheduled with [facility] Upcoming Appointments Aug 26, 2021 13:30 Office Visit with Oumar Carlos MD [facility] General Surgery - [facility] (--) [address] [place] [id number] Appointments Outside of [facility] We Will Schedule Follow-up appointments and procedures [facility] Cardiac Rehabilitation Referral Your local cardiac rehab program will contact you and/or your tape recorder repairer to discuss. Authorizing Provider: Iram Moss DNP Amb Consult/Follow Up Cardiac Rehabilitation Beth Reason for Request: CAD s/p PCI Expected Discharge Date (Inpatient Only): 07/28/2021 Practice Site (External Referral Only): [facility] Authorizing Provider: Iram Moss DNP Amb Consult/Follow Up Primary Care Physician Reason for Request: NSTEMI s/p PCI Expected Discharge Date (Inpatient Only): 07/28/2021 Authorizing Provider: Iram Moss DNP Amb Consult/Follow Up Cardiology Reason for Request: CAD s/p PCI Expected Discharge Date (Inpatient Only): 07/28/2021 Authorizing Provider: Iram Moss DNP Nadia S Fletcher, DNP 07/28/2021 9:46 Cosigned by Tung Dennis Jr., MD at 07/28/2021 15:08 EDT documented in this encounter Medications at Time [...] tablet Take 1 Tablet by mouth daily. imiquimod (ALDARA) 5 % cream Apply 1 application topically to affected area three times a week for 90 days. Apply a thin layer as directed. 24 Packet 07/08/2021 documented as of this encounter Ordered Prescriptions Prescription Sig Dispense Quantity Refills Last Filled Start Date End Date nicotine (NICODERM CQ) 21 mg/[address] 1 Patch onto the skin daily as needed (nicotine craving). 30 Patch 1 07/28/2021 clopidogreL (PLAVIX) 75 mg tablet Take 1 Tablet by mouth daily. 90 Tablet 3 07/29/2021 atorvastatin (LIPITOR) 80 mg tablet Take 1 Tablet by mouth daily. 90 Tablet 07/29/2021 aspirin chewable 81 mg tablet Take 1 Tablet by mouth daily. 90 Tablet 3 07/29/2021 ticagrelor (BRILINTA) 90 mg tablet Take 1 Tablet by mouth 2 times daily. 180 Tablet 3 07/27/2021 07/28/2021 documented in this encounter Discharge Disposition Disposition Code Departure Means Destination Home or Self [facility] documented in this encounter Progress Notes * Buddy Huber - 07/27/2021 1526 EDT Initial Case Management/Social Work Assessment and Discharge Plan/Readmission Risk Assessment REASON FOR ADMISSION: Chest pain Patient understands reason for admission: Yes PATIENT INFO VERIFIED: PCP, Contact Info, Address Type of housing (single family, condo, apartment, long term, single room occupancy, [facility] funded hotel room, group nursing home) - single family Who does the patient live with? alone Does the patient have access to their own bedroom/bathroom/kitchen - or is it shared with others? Does not share Name of housing complex (ex [facility], [facility], etc)- n/a Housing Authority/Managing Organization - n/a Community Care Providers (lining caser, [facility] nurse, etc) name and contact information- n/a LIVING ARRANGEMENTS AND ACCESSIBILITY ISSUES: Living Arrangements: Alone, Private residence Levels: 1 Stairs to enter: 1 Handicap access: Railings into home Bathroom located on bedroom level?: Yes What in home social supports are available to the patient? Family member(s), Friends / neighbors Is 09/05 care available? NA ADVANCED DIRECTIVES, POA &/or COLST IN PLACE: Healthcare Directive: No, patient does not have advance directive for healthcare treatment Information Provided on Healthcare Directives: Yes Information on Healthcare Directives Requested: No (Patient does not wish to complete an Advance Directive this admission) DIRECTIVES FOR FINANCES: Directive For Finances: No TRANSPORTATION: Transportation: Self Patient expects to be discharged to: home CULTURAL, CHRISTIAN and/or LANGUAGE factors affecting health care/discharge planning: Spiritual/Cultural Requests: None Insurance Information: Medical Insurance: Yes Type of insurance: Medicaid Medicaid Type: Community Referred to patient financial services: No Nutrition: cardiac diet DISCHARGE RISK ASSESSMENT: Lives at home with limited or no community support Total # selected above: Score of 1 - 2: This patient is at LOW RISK for re-hospitalization Tentative plan to address the risk of re-hospitalization for those at HIGH MODERATE RISK: Other: (Patient is low risk for rehospitalization) RAPT TOOL: Age: 50-65 Gender: Male Ambulation distance: 2 or more blocks (600ft) Gait device: None Community Services: Home health, MOW, [facility]-none of one time a week Will you live with someone who will care for you?: No RAPT Tool Score: 9 Patient expects to be discharged to: home SBIRT: SASQ (Single Alcohol Screening Question) How many times in the past year have you had 5 or more drinks in a single day?: Never How many times in the past year have you used an illegal drug or used a prescription medication fornon-medical reasons?: Never Intervention in place/initiated?: No, not indicated FUNCTIONAL STATUS: Activities patient requires assistance: None Assistive Device: None COMMUNITY RESOURCES/SUPPORTS: Primary Care Provider: Nataliia Montez PCP Verified: Specialists: None Type of Home Health Services: None DME Provider: n/a Pharmacy: [id number] - [place], [place] - [address] [facility] [id number] [facility] - [place], [place] - [address] [address] Home Health: N/a Other: POST HOSPITAL TRANSITION PLAN: Home to self care. Patient is independent with ADL's and IADL's prior to admission. Patient's brother Lico is at bedside, Lico lives in [place]. Lico will drive patient home at discharge. Patient chose to participate in Meds to Beds. BUDDY HUBER 07/27/2021 15:26 * Loni Cardona MD - 07/27/2021 1516 EDT Cardiology Progress note Service Date: 07/27/2021 Admit Date: 07/26/2021 15:06 Reason for Admission: 65 y.o. male admitted with a chief complaint of chest pain and now with a principal diagnosis of NSTEMI. Events/ Procedures in the last 24 Hours: NAEO Subjective/Objective Subjective Patient has no acute complaints. Denies fevers, chills, n/v, CP, SOB, palpitations, lightheadedness, dizziness, LE edema. Review of Systems Pertinent items are noted in Subjective/HPI Objective Vital Signs Patient Vitals for the past 8 hrs: BP Pulse Heart Rate Resp Temp SpO2 O2 Device 07/27/21 1445 116/73 -- (!) 48 BPM -- -- 97 % None 07/27/21 1430 120/87 -- 57 BPM -- -- -- -- 07/27/21 1415 110/75 -- 54 BPM 18 -- -- None 07/27/21 1412 116/69 -- 63 BPM -- -- -- -- 07/27/21 1343 104/58 62 62 BPM 18 -- 98 % -- 07/27/21 0905 137/81 -- -- -- -- -- -- 07/27/21 0900 137/81 -- 52 BPM 16 36 ??C (96.8 ??F) 98 % None 07/27/21 0848 -- -- 55 BPM -- -- -- None Weight: Patient Vitals for the past 8 hrs: Weight 07/27/21 0905 78 kg (172 lb) Intake/Output Summary (Last 24 hours) at 07/27/2021 1517 Last data filed at 07/27/2021 1343 Gross per 24 hour Intake 1764.31 ml Output -- Net 1764.31 ml Physical Exam General: Alert and oriented. No apparent distress. HEENT: No scleral icterus, no conjunctival injection. No nasal discharge. Cardiac:Regular rate and rhythm. No murmurs. Pulmonary: Clear to auscultation bilaterally. Abdominal: Soft, non-tender, non-distended. No rebound or guarding. Extremities: Warm and well-perfused. 2+ lower extremity pulses. No lower extremity edema. Skin: Warm and dry. No rashes. Neuro: No cranial nerve deficits. No focal neurological deficits. Psych: Pleasant and cooperative. Normal behavior. Is PICC or central line present? No, PICC/Central line not present. Medications Reviewed Labs Reviewed CBC: Recent Labs 07/26/21 1530 07/27/21 0609 WBC 5.85 4.98 HGB 16.1 15.0 HCT 47.7 44.8 MCV 89 87 PLT 232 189 BMP: Recent Labs 07/26/21 1530 07/27/21 0609 CREATININE 0.82 0.71 BUN 16 16 NA 140 137 K 4.3 4.3 CL 105 107 CO2 26 21* CALCIUM 9.6 9.5 MG 2.1 1.9 Coags: Recent Labs 07/26/21 1530 PROTIME 10.4 INR 0.9 PTT 33 LFTs: No results for input(s): ALT, AST, GGT, ALKPHOS, TBIL in the last 72 hours. Cardiac Biomarkers: Recent Labs 07/26/21 1842 07/27/21 0326 07/27/21 1108 TROPONINI 1.160* 1.220* 0.715* Lipids: Recent Labs 07/27/21 0609 CHOL 198 TRIG 169 HDL 41 LDLBASE 123 CHOLHDL 4.8 Non-Invasive Findings last 24 hours: TTE - 07/27 ??? Left??Ventricle: The left ventricular cavity was normal in size. Left ventricular systolic function was normal with an ejection fraction of 60-65%. The estimated left ventricular ejection fraction by biplane Chang's method was 63%. Left ventricular diastolic parameters were normal. Left ventricular wall thickness was normal. Left ventricular wall motion was normal; there were no regional wall motion abnormalities. ??? Left??Atrium: Left atrial cavity was mildly dilated. Left atrial volume index was mildly increased. Telemetry: Sinus bradycardia Does the patient have active heart failure? no C - 07/27 Diagnostic Cardiac Study Results Left main: Free of angiographically significant disease. Left anterior descending: Minor luminal irregularities. Left circumflex: Mid 90% involving OM2 (Becker 0,1,0) Right coronary artery: Non dominant. Free of angiographically significant disease. ?? Post-Procedure Diagnostic Conclusion: PCI is indicated. Interventional Procedure: Using standard technique, the mid left circumflex coronary artery was stented using a Promus 3.0x32 TEODORA, post-dilated to 4.0 proximally. Assessment/Plan Assessment/Plan Genaro Shin is a 65 y.o. male patient with PMHx of hypertension, pericarditis with pericardial effusion 7 years ago who presented to the ED for recent worsening of chest pressure and shortnessof breath with 1 incident of acute onset chest pain with radiation to the left arm, found to have positive troponin, c/f NSTEMI. Before admission, was s/p CRYPTOLOGIC SUPERVISOR ASA 324mg x2. He was started on heparin gtt. Since admission, troponins peaked at 1.22. TTE showed no overt structural abnormalities. Underwent LHC today that showed occlusion in left circumflex, and stent was placed. Is now hemodynamicallystable post-procedure for transfer to interventional cardiology service. #NSTEMI - Continue telemetry - F/u lipid panel and HbA1c - ASA 81mg daily - Ticagrelor 90mg BID - S/p heparin gtt - Atorvastatin 80 mg daily - Consider initiation of BB - Supplemental O2 if needed for hypoxia ?? #HTN BP 147/83 on arrival. Continues to be well-controlled. - CRYPTOLOGIC SUPERVISOR olmesartan 20 mg daily - Consider additional antihypertensives ?? #Anal condyloma -On CRYPTOLOGIC SUPERVISOR topical imiquimod for total 6 weeks (seems to have been initiated 07/09/2021) -He will either need to bring imiquimod from home or order as nonformulary. ?? FEN: Cardiac diet ?? Code: FULL code per discussion with patient ?? DVT PPx: S/p heparin gtt ?? Disposition: Pending clinical course LONI CARDONA MD 07/27/2021 15:17 Cosigned by Lloyd Alvarez MD at 07/27/2021 15:52 EDT * Yonathan Mckeon - 07/26/2021 1839 EDT Fellow addendum to resident H and P Briefly, this is a 65 yr old male with hx of HTN, pericarditis who is presenting to the ER with complains of chest pain. Patient reports that for past 2 days he is feeling really tired and nauseous. With minimal activityhe is having episodes of dizziness associated with left arm numbness, chest pressure and shortness of breath. Due to the symptoms he presented to ER for evaluation No prior CAD history. Patient is active smoker. Father with LA in 60s. On arrival to ER patient's blood pressure was stable. Noted to be in sinus bradycardia heart rates in the high 50s. On exam cardiac exam with regular rate and rhythm, no murmurs rubs or gallops Lungs clear to auscultation Labs with troponin elevated to 0.559, D-dimer negative, chest x-ray normal, EKG with sinus bradycardia without any acute ischemic changes noted. A/P: this is a 65 yr old male with hx of HTN, pericarditis who is presenting to the ER with complains ofchest pain concerning for type I NSTEMI. -Trend troponin and EKG to peak Start on heparin drip, aspirin -Plan for left heart cath tomorrow -N.p.o. after midnight -Start on high intensity statin -Check lipids and A1c -Obtain formal echo tomorrow Yonathan Mckeon, PGY5 [id number] detonator maker PATIENT CONSENT TO CARDIOVASCULAR CATHETERIZATION OR INTERVENTION: Yonathan Hongai, have explained the risks and benefits of cardiac catheterization and/or intervention to the patient (or responsible libertarian) and have answered the patient's (or responsible libertarian's) questions. To the best of my knowledge, the patient (or responsible libertarian) has been adequately informed. The patient (or responsible libertarian) has consented to the interventional cardiac procedure. As partof the consent we reviewed that, like surgical procedures, interventional procedures require aggressive short term support to determine the potential benefits of the procedures. For this reason, the patient (or responsible libertarian) has agreed to remain FULL CODE for a minimum of 48 hours after the procedure. Yonathan Mckeon 07/26/2021 18:43 documented in this encounter H&P Notes * Bruce Vital - 07/26/2021 1745 EDT Cardiology Admission H&P Admit Date: 07/26/2021 PCP: Nataliia Montez Customer Operations Manager: Previously seen by Katelyn Elder APRN (2013) CC: Chest pain HPI: Genaro Shin is a 65 y.o. male with a PMH significant for hypertension, pericarditis with pericardial effusion 7 years ago who presented to the ED for chest pain. In the ED, VSS with BP 147/83. EKG showing sinus bradycardia with HR 50 without obvious signs of ischemia. Normal BMP and CBC. Other labs notable for fibrinogen 399, troponin 0.559, negative D-dimer.CXR showing no acute abnormality of the chest. He was started on heparin drip. On interview, patient states that his chest pain began 3 days ago and has gradually worsened. He describes the pain as pressure-like, 4/10 in severity, localized to the left parasternal region with intermittent radiation to the neck. Not worsened by exertion or positioning, no he does report a history of brief chest pain and shortness of breath on exertion. He also had acute onset diaphoresis, nausea, and left arm pain/numbness after sweeping in the garage today which prompted him to come to the ED. Prior to arrival, patient took 2 x 325 mg aspirin. He is a current 1 PPD smoker. Family history positive for heart attack and father at age 60. 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 His presenting symptom at this timewas pleuritic chest pain. Symptoms resolved in 2012 after this procedure. -Patient reporting history of one of his outpatient providers telling him he has a thoracic aneurysm that would need to be monitored Echocardiogram: no prior available KATIE: NA [facility]: NA Review of Systems: A 10-point review of systems was conducted and negative except as noted above. Past Medical History: Reviewed, pertinent PMH as noted above Past Medical History: Diagnosis Date ??? Anomaly, cardiac ??? Environmental allergies ??? Hypertension ??? Pericardial effusion Prior to admission medications: No current facility-administered medications on file prior to encounter. Current Outpatient Medications on File Prior to Encounter Medication Sig Dispense Refill ??? aspirin 325 mg tablet Take 325 mg by mouth daily. (Patient not taking: Reported on 06/10/2021) ??? imiquimod (ALDARA) 5 % cream Apply 1 application topically to affected area three times a week for 90 days. Apply a thin layer as directed. 24 Packet 0 ??? ketoconazole (NIZORAL) 2 % cream Sig apply thin layer to rash areas on face, BID (Patient not taking: Reported on 06/10/2021) 15 g 5 ??? losartan (COZAAR) 25 mg tablet Take 25 mg by mouth daily. (Patient not taking: Reported on 06/10/2021) ??? olmesartan (BENICAR) 20 mg tablet Take 40 mg by mouth daily. Past Surgical History: Past Surgical History: Procedure Laterality Date ??? CARDIAC SURGERY pericardial effusion ??? PILONIDAL CYST DRAINAGE Family History: Father with LA at age 60. Family History Problem Relation Age of Onset ??? Colon Cancer Father ??? Cancer Maternal Grandmother ??? Stomach Cancer Maternal Grandfather Social History: Current smoker Social History Tobacco Use ??? Smoking status: Current Some Day Smoker Packs/day: 1.00 ??? Smokeless tobacco: Never Used Substance Use Topics ??? Alcohol use: No Comment: rare Allergies and Medications: Reviewed Allergies Allergen Reactions ??? Losartan Muscle Aches Physical Exam BP (!) 147/83 Pulse 57 Temp 37.2 ??C (99 ??F) (Oral) Resp 18 Ht 170.2 cm (67) Wt 78 kg (172 lb) SpO2 97% BMI 26.94 kg/m?? General: Alert and oriented. No apparent distress. HEENT: No scleral icterus, no conjunctival injection. No nasal discharge. Cardiac:Regular rate and rhythm. No murmurs. Pulmonary: Clear to auscultation bilaterally. Abdominal: Soft, non-tender, non-distended. No rebound or guarding. Extremities: Warm and well-perfused. 2+ lower extremity pulses. No lower extremity edema. Skin: Warm and dry. No rashes. Neuro: No cranial nerve deficits. No focal neurological deficits. Psych: Pleasant and cooperative. Normal behavior. Data review: EKG: Sinus bradycardia with no obvious signs of ischemia. Labs: Reviewed CBC and coags: Recent Labs 07/26/21 1530 WBC 5.85 HGB 16.1 HCT 47.7 PLT 232 MCV 89 Recent Labs 07/26/21 1530 INR 0.9 PTT 33 Incorrect component name entered: PT BMP: Recent Labs 07/26/21 1530 NA 140 K 4.3 CL 105 CO2 26 BUN 16 CREATININE 0.82 No results for input(s): AST, ALT, ALKPHOS, ALB in the last 72 hours. Lipid profile and HbA1c: No results for input(s): HDL, LDLBASE, CHOL, TRIG in the last 72 hours.Incorrect component name entered: [id number] Cardiac Biomarkers: Recent Labs 07/26/21 1530 TROPONINI 0.559* Microbiology NA Imaging/Other Studies: CXR showing no acute cardiopulmonary process. ASSESSMENT/PLAN: Genaro Shin is a 65 y.o. male patient with PMHx of hypertension, pericarditis with pericardial effusion 7 years ago who presented to the ED for recent worsening of chest pressure and shortnessof breath with 1 incident of acute onset chest pain with radiation to the left arm, found to have positive troponin, c/f NSTEMI. Plan for trending troponins, LHC and echo tomorrow. Currently on heparin drip s/p aspirin load. #NSTEMI - Admit to telemetry - Cycle cardiac enzymes q8h till peak - F/u lipid panel and HbA1c - Echocardiogram to assess LVEF tomorrow ordered - ASA 81mg daily starting tm. Pt took ASA 324 mg x 2 CRYPTOLOGIC SUPERVISOR - Heparin gtt - Atorvastatin 80 mg daily - Consider initiation of BB - NPO after midnight for [facility] 07/27 - Diet cardiac - Supplemental O2 if needed for hypoxia #HTN BP 147/83 on arrival. - CRYPTOLOGIC SUPERVISOR olmesartan 20 mg daily - Consider additional antihypertensives #Anal condyloma -On CRYPTOLOGIC SUPERVISOR topical imiquimod for total 6 weeks (seems to have been initiated 07/09/2021) -He will either need to bring imiquimod from home or order as nonformulary. FEN: Cardiac diet, n.p.o. after midnight for [facility] Code: FULL code per discussion with patient DVT PPx: Heparin gtt Disposition: Pending clinical course BRUCE VITAL MD/PGY1 [id number] 07/26/21 17:46 Cosigned by Lloyd Alvarez MD at 07/27/2021 13:48 EDT Associated attestation - Lloyd Alvarez MD - 07/27/2021 1348 EDT I have seen and evaluated the patient on 07/27/21. I agree with the assessment and plan as outlinedby Dr. Vital. Lloyd Alvarez MD [facility] documented in this encounter Procedure Notes * Tung Dennis Jr., MD - 07/27/2021 1340 EDT Cardiovascular Catheterization Laboratory Preliminary Report -- Catheterization Date of Service/Procedure: 07/27/2021 Attending Physician: Tung Dennis Jr., MD Fellow: Maxim Graves MD Pre-Procedure Diagnosis /NCDR Indication: Genaro Shin is a 65 y.o. year old male with ACS <= 24 hrs. Chest Pain Symptom Assessment: Typical Angina NCDR Indication for PCI: NSTE - ACS Heart Failure: No CHSA Clinical Frailty Scale: 3: Managing Well Prior Stress Testing? No Anesthesia: A moderate level of anesthesia/conscious sedation was used in addition to local anesthesia. Access: Right radial artery Procedure: He was brought to [facility] Cardiac Catheterization Laboratory for the procedure: Diagnostic coronary/graft angiography and Coronary intervention (PCI). Closure: TR Band Post-Procedure Condition: The condition of the patient was Good. Complications: None. IV Contrast Total: 100 mL X-ray Dose: 340 mGy Estimated Blood Loss: Minimal. Unless otherwise noted,there were no specimens removed, cultures obtained, or drains retained. Research Study: Patient is not enrolled in a research study. Diagnostic Cardiac Study Results Left main: Free of angiographically significant disease. Left anterior descending: Minor luminal irregularities. Left circumflex: Mid 90% involving OM2 (Becker 0,1,0) Right coronary artery: Non dominant. Free of angiographically significant disease. Post-Procedure Diagnostic Conclusion: PCI is indicated. Interventional Procedure: Using standard technique, the mid left circumflex coronary artery was stented using a Promus 3.0x32 TEODORA, post-dilated to 4.0 proximally. Plan: Aspirin 81mg PO daily. High intensity statin therapy PO daily. Ticagrelor 90mg PO BID. Evaluation for cardiac rehab program. At the completion of the procedure, the attending physician has explained the findings, therapies, any complications and treatment plan to the patient. With the patients consent, all family members and patient support persons who were present at the conclusion of the procedure have been notified ofthese results and treatment plans as well. Post Interventional Conclusion/Physician Disposition: (check one main category) Inpatient procedure, continue inpatient status (no procedural complication required) Tung Dennis Jr., MD PagerNumber: [phone] 07/27/2021 13:41 documented in this encounter ED Notes * Mark Dale RN - 07/26/20211952 EDT Ok to transport off of tele per Dr Yo * Zita Hull RN - 07/26/2021 1813 EDT Cards Fellow @ bedside. * Shravan Rajan - 07/26/2021 1632 EDT IShravan, notified Dr. MOORE of TROPONIN 0.559 on 07/26/2021 at 16:32. * Eleazar Yo MD - 07/26/2021 1549 EDT This patient received an evaluation and medical screening exam for emergent medical conditions at the [facility] on 07/26/2021. This note was created and authored by Winnie Moore DO working under the supervision of Eleazar Yo MD. This documentation is recorded by Taina Bone acting as Scribe under the direction and presence of Eleazar Yo MD and Winnie Moore DO. Eleazar Yo MD and Winnie Moore DO: We personally performed the services recorded by thescribe in our presence. We confirm the scribe's documentation has been reviewed by us to accuratelyand completely record our work, treatment, procedures, and medical decision making. ED Attending's Supervisory Statement Srinath Hong Samuel F, MD, performed a history and exam of this patient and discussed the case with the resident. I have reviewed and edited this note, and the documentation is consistent with my findings, assessment and plan. I fully participated in the medical decision making. The patient has pain, with story concerning for ACS. He is currently chest pain- free. EKG with submillimeter ST elevations inferiorly, not STEMI criteria, troponin mildly elevated, discussed with cardiology who plan to evaluate at bedside and likely admit, agree with heparin drip which was subsequently ordered. Aspirin loaded on arrival. Less likely dissection, PE, pneumothorax, pneumonia. HPI Genaro Shin is a 65 y.o. male with a past medical history significant for hypertension, pericarditis with pericardial effusion 7 years ago who presents to the ED at [facility] for chest pain. The patient states that his chest pain began 3 days ago and has gradually worsened. The chest pain is described as pressure. It is localized to the left parasternal region and intermittently radiates to the neck. It does not worsen with position and it is not worse on exertion. He rates his pain a 4 out of 10. Today, the patient developed acute onset diaphoresis, nausea as well as left arm pain and numbness, prompting visit to the emergency department for further evaluation. Denies fevers, chills, loss of consciousness, weakness, abdominal pain, vomiting, changes in bowel movements, dysuria, hematur ia. Also denies recent extensive travel, prolonged immobilization, recent surgery or history of cancer. He is a current smoker, smoking 1 pack per day. Family history notable for heart attack in father at age 60. The patient took two 325mg aspirin prior to arrival. History was provided by: The patient Patient's pertinent PMH, FH, SH were reviewed and updated PRN. Other documented history in the medical record includes but is not limited to: PMH PSH Past Medical History: Diagnosis Date ??? Anomaly, cardiac ??? Environmental allergies ??? Hypertension ??? Pericardial effusion Past Surgical History: Procedure Laterality Date ??? CARDIAC SURGERY pericardial effusion ??? PILONIDAL CYST DRAINAGE Social History Family History Social History Tobacco Use ??? Smoking status: Current Some Day Smoker Packs/day: 1.00 ??? Smokeless tobacco: Never Used Substance Use Topics ??? Alcohol use: No Comment: rare Family History Problem Relation Age of Onset ??? Colon Cancer Father ??? Cancer Maternal Grandmother ??? Stomach Cancer Maternal Grandfather Medications Allergies Current Facility-Administered Medications Medication Route Frequency ??? heparin 1,000 unit/mL injection 5,000 Units intravenous PRN Or ??? heparin 1,000 unit/mL injection 2,500 Units intravenous PRN ??? heparin 1,000 unit/mL injection 5,000 Units intravenous Now ??? heparin in 1/2 NS 25,000 unit/250 mL infusion intravenous CONTINUOUS ??? ondansetron (PF) (ZOFRAN) injection 4 mg intravenous Now Current Outpatient Medications Medication ??? aspirin 325 mg tablet ??? imiquimod (ALDARA) 5 % cream ??? ketoconazole (NIZORAL) 2 % cream ??? losartan (COZAAR) 25 mg tablet ??? olmesartan (BENICAR) 20 mg tablet Allergies Allergen Reactions ??? Losartan Muscle Aches ROS A focused review of systems was performed. Pertinent positives and negatives as noted in HPI. Physical Exam Nursing notes and vital signs were reviewed Vital Signs Temp: 37.2 ??C (99 ??F) Temp src: Oral Pulse: 57 Resp: 18 SpO2: 97 % BP: (!) 147/83 Physical Exam Constitutional: Well appearing in no acute distress. Appears stated age. Head: Atraumatic, normocephalic Eyes: No scleral icterus, no conjuctival injection Mouth: Moist oral mucosa without apparent lesions Neck: Full ROM Cardiovascular: Regular rate and rhythm. Extremities warm and well perfused, no peripheral edema. +2 equal radial pulses bilaterally. Respiratory: Normal respiratory effort. No wheezes or crackles. Clear to auscultation bilaterally. Abdomen: Soft, non-tender to palpation. Skin: No overt rashes on exposed skin. Musculoskeletal: Moving extremities spontaneously; no gross deformities. Neuro: Grossly neurologically intact with normal speech. Cranial nerves II through XII grossly intact. Full strength and sensation in all 4 extremities. Psych: No agitation or overt thought disorder. Results An EKG was obtained and independently interpreted: Sinus bradycardia at a rate of 56 bpm. Normal axis. Normal intervals. No ST segment elevations or depressions. I performed a limited Cardiac [id number] ultrasound. Please see my narrative and impression recorded in imaging results. I performed, reviewed, and independently interpreted the images. Images saved in SeeControl and PACS. This study was supervised by a credentialed provider. Please see attestation in SeeControl Imaging obtained was reviewed and independently interpreted by myself along with a radiologist. Please see radiology report for further details: XR CHEST 2 VIEWS Preliminary Result No acute abnormality of the chest. Laboratory results independently reviewed, significant for: Labs Reviewed TROPONIN I - Abnormal Result Value Status Troponin I 0.559 (*) Final Narrative: The results of this assay can be falsely lowered due to the consumption of Biotin. FIBRINOGEN - Abnormal Fibrinogen 399 (*) Final BASIC METABOLIC PANEL (BMP) - Normal Sodium 140 Final Potassium 4.3 Final Chloride 105 Final CO2 Total 26 Final Glucose 80 Final Calcium 9.6 Final Calculated Calcium 9.0 Final BUN 16 Final Creatinine 0.82 Final eGFR 94 Final MAGNESIUM - Normal Magnesium 2.1 Final LIPASE - Normal Lipase 53 Final PROTIME - Normal I.N.R. 0.9 Final Pro Time 10.4 Final Narrative: Moderate Intensity Coumadin INR = 2.0-3.0 Adjustments in anticoagulant therapy dose should be based on the INR and NOT on the Protime. PTT - Normal PTT 33 Final D-DIMER - Normal D-Dimer <200 Final Narrative: Cutoff value for the exclusion of DVT and PE: 230 ng/mL D-dimer units. Any use of the age-adjusted cutoff value is a post-analytic modification of this FDA- approved test and is considered off-labeluse of the test result. [facility] laboratory does not have literature to support the validity of an age-adjusted cutoff for our specific assay. HOLD BLUE TOP Hold Hold Final HOLD GREEN TOP Hold Hold Final HOLD LAVENDER TOP Hold Hold Final COMPLETE BLOOD COUNT AND DIFFERENTIAL WBC 5.85 Final RBC 5.35 Final Hemoglobin 16.1 Final HCT 47.7 Final MCV 89 Final MCH 30.1 Final MCHC 33.8 Final RDW-CV 13.1 Final RDW-SD 42.5 Final PLT 232 Final MPV 10.5 Final Neutrophils 47.4 Final Lymphocytes 35.6 Final Monocytes 11.1 Final Eosinophils 4.3 Final Basophils 0.9 Final Immature Grans 0.7 Final Absolute Neutrophils 2.78 Final Absolute Lymphocytes 2.08 Final Absolute Monocytes 0.65 Final Absolute Eosinophils 0.25 Final Absolute Basophils 0.05 Final Absolute Immature Grans 0.04 Final Type of Differential: Auto Final Procedures Procedures Medical Decision Making / ED Course A medical screening exam was performed. Genaro Shin is a 65 y.o. male with a past medical history significant for hypertension, pericarditis with pericardial effusion status post pericardiocentesis 7 years ago who presented to the ED at [facility] with the chief complaint of 3 days of chest pressure associated with new-onset nausea, diaphoresis, and left arm pain and numbness today, found to have NSTEMI. Currently chest pain free. The patient was aspirin loaded with two 325mg aspirin prior to arrival. The differential diagnosis for this patient included but was not limited to: ACS, aortic dissection, pericarditis, pericardial effusion, tamponade, pulmonary embolism, myocarditis, pancreatitis, stable angina, pneumonia, costochondritis, rib fractures. Further workup included: Chest x-ray, EKG, POCUS, lab work including cardiac pack. Diagnostic imaging revealed: No acute abnormality of the chest. POCUS demonstrated normal EF. No evidence of gross wall motion abnormalities or pericardial effusion. EKG notable for sinus bradycardia at a rate of 56 bpm. Normal axis. Normal intervals. No ST segmentelevations or depressions. Labwork was significant for: Troponin-0.559, negative D-dimer, normal lipase. Repeat EKG demonstrated sinus bradycardia at a rate of [address] segment elevations in III and avF. Repeat troponin 1.160. Consulted cardiology, who agreed to evaluate the patient. Recommended starting the patient on a heparin drip. A heparin drip was started. Cardiology evaluated the patient. The patient was admitted to Cardiology under the care of Dr. Gupta. Clinical Impression Final diagnoses: None Disposition Upon departure from the Emergency Department, the patient's pain seemed to be 0 on a zero to ten scale. Condition at departure from the Emergency Department: Improved Disposition decisions were made weighing risks and benefits of hospitalization vs. outpatient treatment, the risk for further decompensation, and the patient's wishes. Admitted Some of this note was transcribed with [employer] software. While it was proofread, it may still contain unnoticed grammatical or word errors due to incorrect transcribing. documented in this encounter Miscellaneous Notes * Plan of Care - Carlos Devries RN - 07/28/2021 1023 EDT Problem: Daily Care Plan Goals Goal: Care Plan Documentation Outcome: Ongoing Flowsheets (Taken 07/28/2021 0900) Area of Focus: Circulatory Status Goal This Shift: VSS VS: BP 126/79 (BP Cuff Location: Left arm, BP Patient Position: Semi fowlers) Pulse 62 Temp 36.4 ??C (97.5 ??F) (Tympanic) Resp 16 Ht 170.2 cm (67) Wt 78 kg (172 lb) SpO2 98% BMI 26.94kg/m?? Data: Assumed care of pt at 0700. Pt s/p PCI to LCx yesterday via RRA, site remains C/D/I. SB on tele. No c/o pain,; endorsing mild SOB this morning that began last evening, lungs CTAB, O2 sats WNL. notified, Brilinta switched to Plavix. Action: All medications administered as ordered (see eMAR). Tele monitored per [facility] policy. Continually assessed for pain and offered interventions. Response: Pt pleasant and cooperative, able to make needs known. Resting comfortably with call bellin reach. Plan for discharge today. 1020: d/c order in place, IVs removed, flu vaccine administered, tele removed. AVS discussed with patient, addressed all questions. Awaiting ride home from brother. CARLOS DEVRIES RN 07/28/2021 10:23 * Plan of Care - Rosario Molina RN - 07/28/2021 0600 EDT Data: Assumed care of pt at 1900. Tele shows SB 50s with lowest reading of 45. Pt denies CP/numbness/N. Pt reports slight SOB at rest while falling asleep. Pt saturating at 97%. S/P LHC via RRA; C/D/I. Action: Monitored cath site and associated pain. Educated pt on post LHC restrictions and plan of care. Clustered care to promote rest. Response: Pt understands education and denies questions at this time. Pt resting comfortably in bedwith no needs at this time. ROSARIO MOLINA RN 07/28/2021 06:00 Problem: High Fall Risk: Goal: Patient Will Remain Free from Fall-Related Injury Outcome: Ongoing Problem: Daily Care Plan Goals Goal: Care Plan Documentation Outcome: Ongoing * Plan of Care - Ewelina Denny RN - 07/27/2021 1158 EDT Problem: Daily Care Plan Goals Goal: Care Plan Documentation Outcome: Ongoing Data: Patient admitted with NSTEMI. He is A&O x3, independent. Patient reports that he is not having chest pain, but continues to feel subtle chest tightness. He is NPO for C today. SB on tele with HR in the 50s. Heparin gtt infusing. Action: Assessed and documented in flow sheets. Meds given per DEC. Reviewed expectations for LHC procedure. Response: Patient has been OOB ambulating in his room. He is anxious about LHC. CTM and provide interventions as needed. EWELINA DENNY RN 07/27/2021 11:58 * Plan of Care - Rosario Molina RN - 07/27/2021 0533 EDT Data: Pt arrived to unit at 20:15. Pt denies CP/SOB/numbness/N. Tele shows SB in the 50s. Action: Completed admission documentation. Oriented pt to floor, room & call yañez system. Clustered care to promote rest. Response: Pt resting comfortably in bed with no needs at this time. ROSARIO MOLINA RN 07/27/2021 05:33 Problem: High Fall Risk: Goal: Patient will Remain Free of Falls due to Med. Side Effects Outcome: Ongoing documented in this encounter Plan of Treatment Scheduled Referrals Name Type Priority Associated Diagnoses Order Schedule PROVIDER FOLLOW-UP INSTRUCTIONS Outpatient Referral Routine/Next Available Ordered: 07/27/2021 documented as of this encounter Procedures Procedure Name Priority Date/Time Associated Diagnosis Comments ECG REPORT - SCANNED 08/11/2021 18:19 EDT ECG REPORT - SCANNED 08/11/2021 10:53 EDT ECG REPORT - SCANNED 08/11/2021 10:35 EDT ECG REPORT - SCANNED 07/30/2021 11:24 EDT ECG REPORT - SCANNED 07/30/2021 11:24 EDT COMPLETE BLOOD COUNT Routine 07/28/2021 5:25 EDT BASIC METABOLIC PANEL (BMP) Routine 07/28/2021 5:25 EDT EKG 12-LEAD Routine 07/27/2021 15:46 EDT CARDIAC CATHETERIZATION Routine 07/27/20 13:50 EDT CARDIAC CATHETERIZATION Routine 07/27/20 13:50 EDT TROPONIN I Routine 07/27/2021 11:08 EDT TRANSTHORACIC ECHO (TTE) COMPLETE Routine 07/27/2021 8:37 EDT HEPARIN LEVEL - UNFRACTIONATED HEPARIN STAT 07/27/2021 6:09 EDT COMPLETE BLOOD COUNT Routine 07/27/2021 6:09 EDT MAGNESIUM Routine 07/27/2021 6:09 EDT LIPID PROFILE (INCLUDES CHOLESTEROL, TRIGLYCERIDES, HDL, LDL) Routine 07/27/2021 6:09 EDT BASIC METABOLIC PANEL (BMP) Routine 07/27/2021 6:09 EDT TROPONIN I Routine 07/27/2021 3:26 EDT HEPARIN LEVEL - UNFRACTIONATED HEPARIN STAT 07/27/2021 0:20 EDT ZZCOVID-19 TEST [facility] PCR Today 07/26/2021 18:42 EDT COVID-19 TESTING Routine 07/26/2021 18:4 2 EDT TROPONIN I STAT 07/26/2021 18:42 EDT EKG 12-LEAD STAT 07/26/2021 17:29 EDT POCT US ED CARDIAC 07/26/2021 16 :50 EDT XR CHEST 2 VIEWS STAT 07/26/2021 16:1 1 EDT HOLD LAVENDER TOP Routine 07/26/2021 15: 30 EDT HOLD GREEN TOP Routine 07/26/2021 15:30 EDT HOLD BLUE TOP Routine 07/26/2021 15:30 EDT TROPONIN I STAT Add-on 07/26/2021 15:30 EDT PTT STAT Add-on 07/26/2021 15:30 EDT PROTIME STAT Add-on 07/26/2021 15:30 EDT FIBRINOGEN STAT Add-on 07/26/2021 15:30 EDT D-DIMER STAT Add-on 07/26/2021 15:30 EDT COMPLETE BLOOD COUNT AND DIFFERENTIAL STAT Add-on 07/26/2021 15:30 EDT MAGNESIUM STAT Add-on 07/26/2021 15:30 EDT LIPASE STAT Add-on 07/26/2021 15:30 EDT HEMOGLOBIN A1C Add-On 07/26/2021 15:30 EDT BASIC METABOLIC PANEL (BMP) STAT Add-on 07/26/2021 15:30 EDT EKG 12-LEAD STAT 07/26/2021 15:07 EDT EKG 12-LEAD STAT 07/26/2021 14:59 EDT documented in this encounter Results * ECG REPORT - SCANNED (08/11/2021 18:19 EDT) 08/11/2021 18:1 9 EDT us Scan 2 Continuous Improvement Consultant PROCEDURE/MINOR SURGICAL OR DERABLES Final Result * ECG REPORT - SCANNED (08/11/2021 10:53 EDT) 08/11/2021 10:5 3 EDT us Scan 2 Continuous Improvement Consultant PROCEDURE/MINOR SURGICAL OR DERABLES Final Result * ECG REPORT - SCANNED (08/11/2021 10:35 EDT) 08/11/2021 10:3 5 EDT us Scan 2 Continuous Improvement Consultant PROCEDURE/MINOR SURGICAL OR DERABLES Final Result * ECG REPORT - SCANNED (07/30/2021 11:24 EDT) 07/30/2021 11:2 4 EDT us Scan 2 Continuous Improvement Consultant PROCEDURE/MINOR SURGICAL OR DERABLES Final Result * ECG REPORT - SCANNED (07/30/2021 11:24 EDT) 07/30/2021 11:2 4 EDT us Scan 2 Continuous Improvement Consultant PROCEDURE/MINOR SURGICAL OR DERABLES Final Result * (ABNORMAL) BASIC METABOLIC PANEL (BMP) (07/28/2021 5:25 EDT) Sodium 138 136 - 145 mmol/L 07/28/2021 6:53 [facility] Potassium 4.2 3.5 - 5.0 mEq/L 07/28/2021 6:53 [facility] Chloride 107 96 - 110 mEq/L 07/28/2021 6:53 [facility] CO2 Total 22 22 - 32 mEq/L 07/28/2021 6:53 [facility] Glucose 107(H) 70 - 100 mg/dL 07/28/2021 6:53 [facility] Calcium 9.6 8.5 - 10.5 mg/dL 07/28/2021 6:53 [facility] LABORATORY SERVICES Calculated Calcium 9.6 8.5 - 10.5 mg/dL 07/28/2021 6:53 [facility]ORY [facility] BUN 17 10 - 26 mg/dL 07/28/2021 6:53 [facility] Creatinine 0.78 0.66 - 1.25 mg/dL 07/28/2021 6:53 [facility] eGFR 96 >60 mL/min/1.7 3m2 07/28/2021 6:53 [facility] Comment:eGFR calculated jack gordon CKD-EPI equation for non- Americans. Multiply eGFR by 1.16 for patients. Blood VENOUS BLOOD / Unknown Venipuncture / Unknown 07/28/2021 5:25 EDT 07/28/2021 6:20 EDT Iram Moss DNP CHEMISTRY & BLOOD GAS ORDER KARYN Final Result [facility] LABORATORY SERVICES [address] [place] [address] * COMPLETE BLOOD COUNT (07/28/2021 5:25 EDT) WBC 7.71 4.00 - 10.40 K/cmm 07/28/2021 6:28 [facility] RBC 5.23 4.36 - 5.78 M/cmm 07/28/2021 6:28 [facility] Hemoglobin 15.6 13.8 - 17.3 gm/dL 07/28/2021 6:28 [facility] HCT 45.9 39.5 - 50.2 % 07/28/2021 6:28 [facility] MCV 88 81 - 95 fl 07/28/2021 6:28 [facility] MCH 29.8 27.6 - 33.0 pg 07/28/2021 6:28 [facility] MCHC 34.0 32.8 - 36.4 gm/dL 07/28/2021 6:28 [facility] RDW-CV 13.0 <14.2 % 07/28/2021 6:28 [facility] RDW-SD 41.5 <46.0 fl 07/28/2021 6:28 [facility] LABORATORY SERVICES PLT 207 141 - 377 K/cmm 07/28/2021 6:28 EDT [facility] LABORATORY SERVICES MPV 10.3 9.5 - 12.7 fl 07/28/2021 6:28 EDT [facility] LABORATORY SERVICES Blood VENOUS BLOOD / Unknown Venipuncture / Unknown 07/28/2021 5:25 EDT 07/28/2021 6:16 EDT Cristina Gupta MD HEMATOLOGY & PF4 ORDE RABLES Final Result [facility] LABORATORY SERVICES [address] [place] [address] * EKG 12-LEAD (07/27/2021 15:46 EDT) 07/27/2021 15:4 6 EDT Narrative [facility] EKG - 08/11/2021 10:50 EDT ? [facility] ? Test Date: ?2021-07-27 Pat Name: ? GENARO SHIN ? Department: ?? [place] [facility] ? Room: ? [id number] Gender: ? Male ? 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 : ?1955 ? Requested By: NELI Duncan Order Number: [id number] ? Aristeo HOLLEY: ?? CLAUDIO JONES MD ? Measurements Intervals ?Lorenzo ? Rate: ? 51 ? P: ?27 ID: ? [id number] ?QRS: ?-17 QRSD: ? 94 ? T: ?-25 QT: ? 423 ? QTc: ?391 ? Interpretive Statements SINUS BRADYCARDIA I reviewed the tracing and have either agreed or edited the findings in this report. Electronically Signed On 08-11-2021 10:50:35 EDT by CLAUDIO JONES MD. Procedure Note Claudio Jones MD - 08/11/2021 [facility] Test Date: 2021-07-27 Pat Name: GENARO SHIN Department: [place] [address] Room: [facility] Gender: Male Rf Microwave Engineer: : 1955 Requested By: NELI Duncan Order Number: [id number] Reading MD: CLAUDIO JONES MD Measurements Intervals Lorenzo Rate: 51 P: 27 ID: [id number] QRS: -17 QRSD: 94 T: -25 QT: 423 QTc: 391 Interpretive Statements SINUS BRADYCARDIA I reviewed the tracing and have either agreed or edited the findings inthis report. Electronically Signed On 08-11-2021 10:50:35 EDT by CLAUDIO ZIMMERMAN MD. Tung Dennis MD CARDIAC ECG ORDERABLES Final Result [facility] EKG * LEFT HEART CATH, PERCUTANEOUS CORONARY INTERVENTION (07/27/2021 13:50 EDT) Anatomical Region Laterality Modality Manager Leasing 07/27/2021 12:3 2 EDT Narrative 08/05/2021 13:25 EDT Cardiology [address] [place] [address] Catheterization Laboratory Study Patient: Genaro Shin M ?Study Date: ?07/27/2021 ?Accession #: ? [id number] : ? 1955 Referring: Bruce Vital Diagnostic Attending: ??Tung Dennis Interventional Attending: ?? Tung Dennis Diagnostic Fellow: Maxim Graves MD Interventional Fellow: Maxim Graves MD ATTESTATION: IDr. Maxim was the initial author of this report. Dr. Tung Dennis was present and supervising for the entire procedure. I, Dr. Tung Dennis have reviewed and agreed with the findings of this report. PROCEDURE PLAN: Based on the diagnostic study percutaneous coronary intervention is indicated. RESEARCH STUDY: Patient is not enrolled in any research studies. IMPRESSIONS: 1. Moderate single vessel coronary artery disease. 2. Non ST-elevated myocardial infarction (NSTEMI). The culprit lesion ?? was identified and reperfusion was successfully achieved with no ?? complications. SUMMARY: 1. Left circumflex: Mid-vessel lesion: There is a discrete, 90%de brittany ?? stenosis. There is FRANKY grade 3 flow (brisk flow) across the lesion. ?? The distal vessel supplies a large vascular territory. The lesion is ?? a likely culprit for the patient's anginal symptoms and an ACC/AHA ?? type A low risk lesion for intervention. The lesion was stented ?? (see 1st lesion intervention), jailing the first obtuse marginal. ?? Following intervention, the lesion has a residual stenosis of 0%, an ?? excellent angiographic appearance, and FRANKY grade 3 flow (brisk ?? flow). 2. 2nd obtuse marginal: Ostial lesion: There is an 80% stenosis. RECOMMENDATIONS: 1. ACC recommendation: PCI w/o planned CABG. 2. Patient management should include risk factor modification, lifestyle ?? change to reduce stress, and a cardiac rehabilitation program. 3. Aspirin 81mg PO daily. ?? High intensity statin therapy PO daily. ?? Ticagrelor 90mg PO BID. HISTORY: Risk factors: ??Family history of coronary artery disease. Current tobacco use. Hypertension. LABS, PRIOR TESTS, PROCEDURES AND SURGERY: Serum potassium (K) of 4.3 mEq/l. ??Serum creatinine (current admission) of 0.71 mg/dl. ??Hemoglobin (pre-procedure) of 15 g/dl. STUDY DATA: Study status: ??Cardiac cath: urgent. Percutaneous coronary intervention: urgent. ??Location: ??Catheterization laboratory. Sex: male. Patient is 65yr old. Height: 170.2cm. Weight: 78kg. BSA: 1.94m^2. Procedures performed: ?Right radial artery access. ?Left coronary angiography. ?Right coronary angiography. ?Lesion intervention: ?? Percutaneous intervention on the 90% de brittany stenosis in the mid left circumflex. ?Balloon angioplasty. ?Stent placement. Balloon angioplasty. ANESTHESIA: Conscious sedation by cardiology staff. PROCEDURE: 1. Initial setup. The patient was brought to the laboratory in the ?? fasting state. A baseline ECG was recorded. Surface ECG leads, ?? automatic cuff blood pressure measurements, and pulse oximetric ?? signals were monitored. 2. Skin preparation. The planned puncture sites were prepped with ?? chlorhexidine and draped in the usual sterile manner. 3. Local anesthesia. Using 2% Lidocaine, local anesthetic was ?? administered to the access site(s). 4. Right radial artery access. A 6FR/.021 Alamo Sheath Slender sheath ?? was advanced into the vessel. 5. Selective left coronary angiography. A 5 FR Dyllan catheter was ?? advanced into the left coronary vessel ostium under fluoroscopic ?? guidance. Contrast was injected. Images were obtained in multiple ?? projections. 6. Selective right coronary angiography. A 5 FR Dyllan catheter was ?? advanced into the right coronary vessel ostium under fluoroscopic ?? guidance. Contrast was injected. Images were obtained in multiple ?? projections. 7. Right radial artery hemostasis. Mechanical compression was applied. 1st lesion intervention: Percutaneous intervention on the 90% de brittany stenosis in the mid left circumflex. 1. Guider placement. A 6F Runway VL 3.5 guiding catheter was placed. 2. Wire placement. A 190cm Minamo wire was placed across the lesion. 3. Balloon angioplasty. A 3mm (D) x 12mm (L), Emerge RX balloon was ?? employed. The balloon was placed across the lesion and given two ?? inflations with a maximum inflation pressure of 14atm. 4. Stent placement. A 3.0/32 Promus Elite stent was advanced across the ?? lesion and deployed with a single inflation and a maximum pressure of ?? 17atm. 5. Balloon angioplasty. A 4mm (D) x 15mm (L), NC EMERGE balloon was ?? employed. The balloon was placed across the lesion and given two ?? inflations with a maximum inflation pressure of 18atm. STUDY COMPLETION: The estimated blood loss was 10ml. All catheters inserted during the procedure were removed. The patient tolerated the procedure well and was discharged from the lab. There were no complications. ??Contrast: Isovue 100ml (total dose). ??Isovue 100ml (wasted). ??Fluoroscopy time: 9.7min. ??Fluoroscopy dose: ??34cGy. CORONARY ARTERIES: The coronary circulation is co-dominant. Left main: ??Normal. LAD: ??Minor luminal irregularities. Left circumflex: ??Mid-vessel lesion: There is a discrete, 90%de brittany stenosis. There is FRANKY grade 3 flow (brisk flow) across the lesion. The distal vessel supplies a large vascular territory. The lesion is a likely culprit for the patient's anginal symptoms and an ACC/AHA type A low risk lesion for intervention. The lesion was stented (see 1st lesion intervention), jailing the first obtuse marginal. Following intervention, the lesion has a residual stenosis of 0%, an excellent angiographic appearance, and FRANKY grade 3 flow (brisk flow). There were no site complications. 2nd obtuse marginal: ??Ostial lesion: There is an 80% stenosis. Right coronary: ??Normal. HEMODYNAMICS: + + + LV pressure s/ed ? 139 (s) ? + + + Arterial pressure s/d (m) 125/69 (91) + + + * Electronically signed by Tung Dennis Jr., MD 2021-08-05 13:25 us Bruce Vital CARDIAC CATH ORDERABLES Final Re sult * (ABNORMAL) TROPONIN I (07/27/2021 11:08 EDT) [facility] Troponin I (ng/mL) 0.715(H) <0.034 ng/mL 07/27/2021 12:18 EDT [facility] LABORATORY SERVICES Blood VENOUS BLOOD / Unknown Venipuncture / Unknown 07/27/2021 11:08 EDT 07/27/2021 11:35 EDT Narrative [facility] LABORATORY SERVICES - 07/27/2021 12:18 EDT The results of this assay can be falsely lowered due to the consumption of Biotin. us Cristina Gupta MD CHEMISTRY & BLOOD GAS ORDERABLES Final Result [facility]ORATORY SERVICES [address] [place] [address] * TRANSTHORACIC ECHO (TTE) COMPLETE W/DOPPLER W/CF NO CONTRAST (07/27/2021 8:37 EDT) LA Atrial Length A2C 6.7 cm [facility] LA Atrial Area A4C 25.0 cm2 [facility] LA ID/bsa, A-P 2.1 cm/m2 [facility] LA ID, A-P, ES 3.9 cm [facility] LV PW thickness, ED, PLAX 0.9 0.6 - 1.1 cm [facility] Aortic root ID 3.4 cm [facility] LV ejection fraction, 1-p A4C 60 % [facility] LVOT mean gradient, S 2 mmHg [facility] AV LVOT peak gradient 4 mmHg [facility] LV e', lateral 0.14 m/s [facility] Mitral deceleration time 243 ms [facility] LV IVRT, DP 85 msec [facility] PO INT [facility] CARE LVOT area 3.1 cm2 [facility] LVOT peak velocity, S 1.0 m/s [facility] LVOT VTI, S 23.7 cm [facility] PO INT [facility] CARE Stroke volume (SV), LVOT DP 74 ml [facility] Mitral peak gradient, D 3 mmHg [facility] LVOT mean velocity, S 0.7 m/s [facility] Mitral E-wave peak velocity 0.9 m/s [facility] Mitral A-wave peak velocity 0.6 m/s [facility] LV Systolic Volume Index 14.0 mL/m2 [facility] LV Diastolic Volume Index 38.0 mL/m2 [facility] LA Atrial Length A4C 6.8 cm [facility] LVOT ID, S 2.0 cm [facility] POI NT OF CARE EF 63 % [facility] LA volume, ES, BP 71.0 ml [facility] LA volume/bsa, ES, A4C 39.0 ml/m2 [facility] LA volumes, ES, A4C 75.0 ml [facility] LA volume/bsa, ES, BP 37.0 ml/m2 [facility] LV Systolic Volume 27 mL [facility] LV Diastolic Volume 72 mL [facility] Stroke index (SV/bsa) LVOT DP 39.0 ml/m2 [facility] Interventricular Septum to Posterior Wall Thickness Ratio 1.1 [facility] P OINT OF [facility] IVS thickness, ED, PLAX 1.0 cm [facility] LV e', medial 0.08 m/s [facility] LV e', average 0.11 m/s [facility] Pulmonic valve mean velocity, S 1 cm/s [facility] Ascending aorta ID, a-p 3.6 cm [facility] LA Atrial Area A2C 25.0 cm2 [facility] LA/aortic root ratio 1.15 [facility] LV ID, ED, PLAX 5.1 3.5 - 6.0 cm [facility] LV ID, ES, PLAX 3.8 2.1 - 4.0 cm [facility] LV end diastolic volume 1-p A2C 71 ml [facility] LV ejection fraction, 1-p A2C 61 % [facility] T [facility] LV E/e', lateral 6.0 [facility] LV E/e', medial 6.0 [facility] N POINT OF [facility] LV E/e', average 6 [facility] LV end-diastolic volume, 1-p A4C 64 ml [facility] Anatomical Region Laterality Modality Ultrasound Narrative 07/27/2021 9:41 EDT ?Left??Ventricle: The left ventricular cavity was normal in size. Left ventricular systolic function was normal with an ejection fraction of 60-65%. The estimated left ventricular ejection fraction by biplane Chang's method was 63%. Left ventricular diastolic parameters were normal. Left ventricular wall thickness was normal. Left ventricular wall motion was normal; there were no regional wall motion abnormalities. ?Left??Atrium: Left atrial cavity was mildly dilated. Left atrial volume index was mildly increased. Left Ventricle The left ventricular cavity was normal in size. Left ventricular systolic function was normal with an ejection fraction of 60-65%. The estimated left ventricular ejection fraction by biplane Chang's method was 63%. Left ventricular diastolic parameters were normal. Left ventricular wall thickness was normal. Left ventricular wall motion was normal; there were no regional wall motion abnormalities. Right Ventricle The right ventricular cavity was normal in size. Right ventricular systolic function was normal. Right ventricular wall thickness was normal. Left Atrium Left atrial cavity was mildly dilated. Left atrial volume index was mildly increased. Right Atrium The right atrium was normal in size. IVC/SVC The inferior vena cava was normal in size. Mitral Valve Mitral valve structure was normal. There was no significant mitral valve stenosis or regurgitation. Tricuspid Valve Tricuspid valve structure was normal. There was trace tricuspid valve regurgitation. There was no tricuspid valve stenosis. Aortic Valve The aortic valve structure was trileaflet. The aortic leaflets were not thickened. There was no aortic valve stenosis. There was no aortic valve regurgitation. Pulmonic Valve There was no pulmonic valve regurgitation. There was no pulmonic valve stenosis. Ascending Aorta The ascending aorta was mildly dilated. Pericardium There was no pericardial effusion. Pulmonic Artery Pulmonary systolic pressure was within the normal range, estimated to be 30 mmHg. Study Details Study status: Routine. Transthoracic echocardiography. M-Mode, complete 2D, complete spectral Doppler, and color Doppler.The study was interpreted by [facility]. Pertinent images and digital data are archived for permanent storage and are available for subsequent review. Scanning was performed from the apical, parasternal and subcostal acoustic windows. Overall the study quality was adequate. Images were obtained using cardiac ultrasound machine EPIQ #10. us Cristina Gupta MD CARDIAC ECHO ORDERABL ES Final Result * COMPLETE BLOOD COUNT (07/27/2021 6:09 EDT) WBC 4.98 4.00 - 10.40 K/cmm 07/27/2021 6:56 [facility] RBC 5.13 4.36 - 5.78 M/cmm 07/27/2021 6:56 [facility] Hemoglobin 15.0 13.8 - 17.3 gm/dL 07/27/2021 6:56 [facility] HCT 44.8 39.5 - 50.2 % 07/27/2021 6:56 [facility] MCV 87 81 - 95 fl 07/27/2021 6:56 [facility] MCH 29.2 27.6 - 33.0 pg 07/27/2021 6:56 [facility] MCHC 33.5 32.8 - 36.4 gm/dL 07/27/2021 6:56 [facility] RDW-CV 13.1 <14.2 % 07/27/2021 6:56 [facility] RDW-SD 41.8 <46.0 fl 07/27/2021 6:56 [facility] PLT 189 141 - 377 K/cmm 07/27/2021 6:56 [facility] MPV 10.6 9.5 - 12.7 fl 07/27/2021 6:56 [facility] Blood VENOUS BLOOD / Unknown Venipuncture / Unknown 07/27/2021 6:09 EDT 07/27/2021 6:49 EDT us Cristina Gupta MD HEMATOLOGY & PF4 ARIE WAGNER Final Result [facility] [address] [place] [address] * MAGNESIUM (07/27/2021 6:09 EDT) Magnesium 1.9 1.7 - 2.8 mg/dL 07/27/2021 7:26 [facility] Blood VENOUS BLOOD / Unknown Venipuncture / Unknown 07/27/2021 6:09 EDT 07/27/2021 6:54 EDT Cristina Gupta MD CHEMISTRY & BLOOD GAS ORDERABLES Final Result Performing Organization Address [facility] Co de Phone Number [facility] [address] [place] [address] * HEPARIN LEVEL - UNFRACTIONATED HEPARIN (07/27/2021 6:09 EDT) Heparin Level-UFH 0.35 Therapeutic Range: 0.30 - 0.70 IU/mL 07/27/2021 7:11 EDT [facility] Comment:Unfractionated hepar in therapeutic range = 0.3-0.7 IU/ml - This test is not intended for monitoring direct Xa inhibitors, direct thrombin inhibitors, or fondaparinux.- Exogenous ATIII is NOT supplied in this assay. For unexpected or persistently low levels, consider measuring patient's ATIII level. Results will be overestimated in the presence of direct Xa inhibitors (rivaroxaban, apixaban, edoxaban). Blood VENOUS BLOOD / Unknown Venipuncture / Unknown 07/27/2021 6:09 EDT 07/27/2021 6:48 EDT Winnie Moore DO HEMATOLOGY & PF4 ORDERABLES Final Result Performing Organization Address [facility] Co de Phone Number [facility] [address] [place] [address] * LIPID PROFILE (INCLUDES CHOLESTEROL, TRIGLYCERIDES, HDL, LDL) (07/27/2021 6:09 EDT) Cholesterol 198 See Note mg/dL 07/27/2021 7:26 EDT [facility] Comment: Acceptable: ?<200 mg/dL Borderline High: 200-239 mg/dL High: ?> or = 240 mg/dL HDL 41 See Note mg/dL 07/27/2021 7:26 EDT [facility] Comment: Low: ? <40 mg/dL Normal: ??40-60 mg/dL High: ?>60 mg/dL LDL, Calculated 123 See Note mg/dL 07/27/2021 7:26 [facility] Comment: Optimal: ? <100 mg/dL Near Optimal: ?100-129 mg/dL Borderline High: 130-159 mg/dL High: ?160-189 mg/dL Very High: ? > or = 190 mg/dL Triglyceride 169 See Note mg/dL 07/27/2021 7:26 [facility] Comment: Normal: ? <150 mg/dL Borderline High: ??150 - 199 mg/dL High: ? 200 - 499 mg/dL Very High: ?> or = 500 mg/dL Chol/HDL Ratio 4.8 See Note 07/27/2021 7:26 [facility] Comment:No reference range h as been established for CHOL/HDL ratio. Non HDL Cholesterol 157 See Note mg/dL 07/27/2021 7:26 [facility] Comment: Desirable: ?<130 mg/dL Borderline High: ??130-159 mg/dL High: ? 160-189 mg/dL Very High: ?> or = 190 mg/dL Blood VENOUS BLOOD / Unknown Venipuncture / Unknown 07/27/2021 6:09 EDT 07/27/2021 6:54 EDT Cristina Gupta MD CHEMISTRY & BLOOD GAS ORDERABLES Final Result [facility] [address] [place] [address] * (ABNORMAL) BASIC METABOLIC PANEL (BMP) (07/27/2021 6:09 EDT) Sodium 137 136 - 145 mmol/L 07/27/2021 7:26 [facility] Potassium 4.3 3.5 - 5.0 mEq/L 07/27/2021 7:26 [facility] Chloride 107 96 - 110 mEq/L 07/27/2021 7:26 [facility] CO2 Total 21(L) 22 - 32 mEq/L 07/27/2021 7:26 [facility] Glucose 106(H) 70 - 100 mg/dL 07/27/2021 7:26 [facility] Calcium 9.5 8.5 - 10.5 mg/dL 07/27/2021 7:26 [facility] Calculated Calcium 9.6 8.5 - 10.5 mg/dL 07/27/2021 7:26 [facility] BUN 16 10 - 26 mg/dL 07/27/2021 7:26 [facility] Creatinine 0.71 0.66 - 1.25 mg/dL 07/27/2021 7:26 [facility] eGFR 100 >60 mL/min/1.7 3m2 07/27/2021 7:26 [facility] Comment:eGFR calculated jack gordon CKD-EPI equation for non- Americans. Multiply eGFR by 1.16 for patients. Blood VENOUS BLOOD / Unknown Venipuncture / Unknown 07/27/2021 6:09 EDT 07/27/2021 6:54 EDT us Cristina Gupta MD CHEMISTRY & BLOOD GAS ORDERABLES Final Result [facility] [address] [place] [address] * (ABNORMAL) TROPONIN I (07/27/2021 3:26 EDT) Troponin I (ng/mL) 1.220(H) <0.034 ng/mL 07/27/2021 4:21 [facility] Comment:Slight hemolysis tera ntified, interpret with caution as results may be affected due to hemolysis. Blood VENOUS BLOOD / Unknown Venipuncture / Unknown 07/27/2021 3:26 EDT 07/27/2021 3:38 EDT Narrative [facility] - 07/27/2021 4:21 EDT The results of this assay can be falsely lowered due to the consumption of Biotin. Cristina Gupta MD CHEMISTRY & BLOOD GAS ORDERABLES Final Result Performing Organization Address [facility] de Phone Number [facility] [address] [place] [address] * HEPARIN LEVEL - UNFRACTIONATED HEPARIN (07/27/2021 0:20 EDT) Heparin Level-UFH 0.49 Therapeutic Range: 0.30 - 0.70 IU/mL 07/27/2021 0:54 EDT [facility] Comment:Unfractionated hepar in therapeutic range = 0.3-0.7 IU/ml - This test is not intended for monitoring direct Xa inhibitors, direct thrombin inhibitors, or fondaparinux.- Exogenous ATIII is NOT supplied in this assay. For unexpected or persistently low levels, consider measuring patient's ATIII level. Results will be overestimated in the presence of direct Xa inhibitors (rivaroxaban, apixaban, edoxaban). Blood VENOUS BLOOD / Unknown Venipuncture / Unknown 07/27/2021 0:20 EDT 07/27/2021 0:33 EDT Eleazar Yo MD HEMATOLOGY & PF4 ORDERABLES F inal Result Performing Organization Address [facility] Co de Phone Number [facility] [address] [place] [address] * COVID-19 TEST [facility] PCR (07/26/2021 18:42 EDT) Swab ENTIRE NASOPHARYNX / Unknown Swab / Unknown 07/26/2021 18:42 EDT 07/26/2021 18:44 EDT Eleazar Yo MD MICROBIOLOGY - GENERAL ORDERA BLES Final Result Performing Organization Address [facility] Co de Phone Number [facility] [address] [place] [address] * (ABNORMAL) TROPONIN I (07/26/2021 18:42 EDT) Pathologist [facility] Troponin I (ng/mL) 1.160(H) <0.034 ng/mL 07/26/2021 19:19 EDT [facility] Blood VENOUS BLOOD / Unknown Venipuncture / Unknown 07/26/2021 18:42 EDT 07/26/2021 18:44 EDT Narrative [facility] - 07/26/2021 19:19 EDT The results of this assay can be falsely lowered due to the consumption of Biotin. Eleazar Yo MD CHEMISTRY & BLOOD GAS ORDERAB LES Final Result Performing Organization Address [facility] Co de Phone Number [facility]ORY SERVICES [address] [place] [address] * COVID-19 TESTING (07/26/2021 18:42 EDT) [facility] COVID-19 rt-PCR Result Negative Negative 07/26/2021 21:30 EDT [facility] Comment: This test has not been FDA cleared or approved. This test has been authorized by FDA under an EUA for use by authorized laboratories. This test has been authorized only for detection of nucleic acid from 2019-nCoV, not for any other viruses or pathogens. This test is only authorized for the duration of the declaration that circumstances exist justifying the authorization of emergency use of in vitro diagnostic tests for detection and/or diagnosis of 2019-nCoV under section 564(b)(1) of Act, 21 U.S.C ?? 360bbb-3(b) (1), unless the authorization is terminated or revoked sooner. Negative results do not preclude 2019-nCoV infection and should not be used as the sole basis for treatment or other patient management decisions. Negative results must be combined with clinical observations, patient history, and epidemiological information. Performed on the [employer] instrument Performing Lab [place] [facility] Lab 07/26/2021 21:30 EDT [facility] Swab ENTIRE NASOPHARYNX / Unknown Swab / Unknown 07/26/2021 18:42 EDT 07/26/2021 18:44 EDT us Eleazar Yo MD MICROBIOLOGY - GENERAL FLORINAA BLES Final Result [facility] [address] [place] [address] * EKG 12-LEAD (07/26/2021 17:29 EDT) 07/26/2021 17:2 9 EDT Narrative [facility] EKG - 08/11/2021 10:31 EDT ?[facility] Emergency ? Test Date: ?2021-07-26 Pat Name: ? GENARO SHIN ? Department: ?? ED ? Room: ? AC16 Gender: ? Male ? 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 [id number] : ?1955 ? Requested By: OSCAR WHITNEY Order Number: [id number] ? Aristeo HOLLEY: ?? CLAUDIO JONES MD ? Measurements Intervals ?Lorenzo ? Rate: ? 50 ? P: ?56 ID: ? [id number] ?QRS: ?-10 QRSD: ? 88 ? T: ?11 QT: ? 429 ? QTc: ?394 ? Interpretive Statements SINUS BRADYCARDIA I reviewed the tracing and have either agreed or edited the findings in this report. Electronically Signed On 08-11-2021 10:31:09 EDT by CLAUDIO JONES MD. Procedure Note Claudio Jones MD - 08/11/2021 [facility] Emergency Test Date: 2021-07-26 Pat Name: GENARO SHIN Department: ED Room: 16 Gender: Male Rf Microwave Engineer: [id number] : 1955 Requested By: OSCAR WHITNEY Order Number: [id number] Aristeo MD: CLAUDIO JONES MD Measurements Intervals Lorenzo Rate: 50 P: 56 ID: [id number] QRS: -10 QRSD: 88 T: 11 QT: 429 QTc: 394 Interpretive Statements SINUS BRADYCARDIA I reviewed the tracing and have either agreed or edited the findings inthis report. Electronically Signed On 08-11-2021 10:31:09 EDT by CLAUDIO ZIMMERMAN MD. Winnie Moore DO CARDIAC ECG ORDERABLES Final Result [facility] EKG * POCT ED CARDIAC (07/26/2021 16:50 EDT) Anatomical Region Laterality Modality Other 07/26/2021 16:5 0 EDT Narrative 2021 9:00 EDT Study Date and Time: 2021-07-26 16:50 Study Author: Maksim Moore EDR ED Cardiac - TTE: Indication(s) for Exam: ?The exam was performed with the following indications:: Chest Pain ?Other indications(s):: N/A Views Obtained & Images Saved for these Views: ?The pericardial sac, myocardium, 4 chambers, and IVC were identified using the following views:: Parasternal Long Lorenzo (PLAX), Parasternal Short Lorenzo (PSAX), Subxiphoid, Apical 4-chamber ?Other views obtained: N/A ?Pleural space was evaluated with the following views: N/A Findings: ?Pericardial effusion: None ?Other pericardial finidfindings:: N/A ?Cardiac Activity: Normal ?Other Cardiac Activity:: N/A ?LV Function: Normal ( > 50% LVEF) ?Other LV Function findings:: N/A ?RV Diameter: Normal ?Other RV findings: N/A ?Signs of RV Strain: None ?Other cardiac findings: N/A ?IVC collapsibility: Indeterminate ?Other IVC Findings: N/A ?Pulmonary Findings: N/A ?Other Pulmonary findings: N/A Interpretation: ?Cardiac Interpretation: Normal Cardiac Activity, Normal Cardiac Function ?Other cardiac: N/A ?Pulmonary Interpretation: N/A ?Other pulmonary: N/A Confirmatory Findings: ?What confirmatory study was performed during ED patient evaluation?: No additional study ordered ?Confirmatory study findings/comments:: marko bump - found to have NSTEMI Signed by Maksim Moore EDR on 2021 07:15 Physician Attestation: I reviewed and independently interpreted these images. ??I was present for the vargas and critical portions of the ultrasound imaging and agree with or have edited the findings as documented. Final Signature by Jose A Yo on 2021 09:00 Procedure Note Eleazar Yo MD - 09/03/2021 Study Date and Time: 2021-07-26 16:50 Study Author: Maksim NARAYANAN ED Cardiac - TTE: Indication(s) for Exam: The exam was performed with the following indications:: Chest Pain Other indications(s):: N/A Views Obtained & Images Saved for these Views: The pericardial sac, myocardium, 4 chambers, and IVC were identifiedusing the following views:: Parasternal Long Lorenzo (PLAX), ParasternalShort Lorenzo (PSAX), Subxiphoid, Apical 4-chamber Other views obtained: N/A Pleural space was evaluated with the following views: N/A Findings: Pericardial effusion: None Other pericardial finidfindings:: N/A Cardiac Activity: Normal Other Cardiac Activity:: N/A LV Function: Normal ( > 50% LVEF) Other LV Function findings:: N/A RV Diameter: Normal Other RV findings: N/A Signs of RV Strain: None Other cardiac findings: N/A IVC collapsibility: Indeterminate Other IVC Findings: N/A Pulmonary Findings: N/A Other Pulmonary findings: N/A Interpretation: Cardiac Interpretation: Normal Cardiac Activity, Normal CardiacFunction Other cardiac: N/A Pulmonary Interpretation: N/A Other pulmonary: N/A Confirmatory Findings: What confirmatory study was performed during ED patient evaluation?:No additional study ordered Confirmatory study findings/comments:: marko riberamp - found to haveNSTEMI Signed by Maksim NARAYANAN on 2021 07:15 Physician Attestation: I reviewed and independently interpreted theseimages. I was present for the vargas and critical portions of the ultrasoundimaging and agree with or have edited the findings as documented. Final Signature by Jose A Yo on 2021 09:00 us Winnie Moore DO IMG POCT US ORDERABLES Final Result * XR CHEST 2 VIEWS (07/26/2021 16:11 EDT) Anatomical Region Laterality Modality Computed Radiogr aphy 07/26/2021 18:0 8 EDT Impressions 07/26/2021 18:08 EDT No acute abnormality of the chest. I have personally reviewed the images and the above interpretation and agree with the findings. Narrative 07/26/2021 18:08 EDT XR CHEST 2 VIEWS ??07/26/2021 4:00 PM CLINICAL HISTORY/COMMENTS: chest pain with nausea, diaphoresis, and left arm pain COMPARISON: Chest radiographs on 09/24/2015. The patient had a Chest CT at an outside institution on 05/04/2021. TECHNIQUE: Frontal and lateral views of the chest were performed. FINDINGS: Soft tissues, bones and extrathoracic findings: Degenerative changes are noted. Cardiac and mediastinal contours: Within normal limits for technique. Lungs: The lungs appear generally clear with no airspace consolidation identified. The pulmonary vascular pattern is within normal limits. ?? Pleura/diaphragms: No pleural effusion or pneumothorax demonstrated. Procedure Note Rodríguez Alanis MD - 07/26/2021 XR CHEST 2 VIEWS 07/26/2021 4:00 PM CLINICAL HISTORY/COMMENTS: chest pain with nausea, diaphoresis, and left arm pain COMPARISON: Chest radiographs on 09/24/2015. The patient had a Chest CT at an outsideinstitution on 05/04/2021. TECHNIQUE: Frontal and lateral views of the chest were performed. FINDINGS: Soft tissues, bones and extrathoracic findings: Degenerative changes arenoted. Cardiac and mediastinal contours: Within normal limits for technique. Lungs: The lungs appear generally clear with no airspace consolidationidentified. The pulmonary vascular pattern is within normal limits. Pleura/diaphragms: No pleural effusion or pneumothorax demonstrated. IMPRESSION No acute abnormality of the chest. I have personally reviewed the images and the above interpretation andagree with the findings. us Winnie Moore DO IM DIAGNOSTIC IMAGING ORDER KARYN Final Result * (ABNORMAL) HEMOGLOBIN A1C (07/26/2021 15:30 EDT) Hemoglobin A1c 6.1(H) <5.7 % 07/27/2021 11:28 EDT [facility] Comment: Glycemic Status References: Normal: ??<5.7% Pre-Diabetes: ??5.7% - 6.4% Diagnostic of Diabetes: ??> or = 6.5% (if confirmed) Goals for glycemic control in diabetics (ADA 2017): <7.0% target for non adults with diabetes. <7.5% target for children and adolescents with Type I Diabetes. More or less stringent targets may be appropriate for individual patients. Est Avg Glucose 128 mg/dL 11:28 EDT [facility] Comment:The eAG represents t he A1c result expressed as average glucose in mg/dL. Blood VENOUS BLOOD / Unknown Venipuncture / Unknown 07/26/2021 15:30 EDT 07/26/2021 15:32 EDT us Cristina Gupta MD CHEMISTRY & BLOOD GAS ORDERABLES Final Result [facility] [address] [place] [address] * D-DIMER (07/26/2021 15:30 EDT) D-Dimer <200 <=230 ng/mL DDU 07/26/2021 17:49 EDT [facility] Blood VENOUS BLOOD / Unknown Venipuncture / Unknown 07/26/2021 15:30 EDT 07/26/2021 15:33 EDT Narrative [facility] - 07/26/2021 17:49 EDT Cutoff value for the exclusion of DVT and PE: 230 ng/mL D-dimer units. Any use of the age-adjusted cutoff value is a post-analytic modification of this FDA-approved test and is considered off-label use of the test result. [facility] laboratory does not have literature to support the validity of an age-adjusted cutoff for our specific assay. Winnie Mejiaick DO HEMATOLOGY & PF4 ORDERABLES Final Result Performing Organization Address [facility] Co de Phone Number [facility] [address] [place] [address] * PTT (07/26/2021 15:30 EDT) [facility] PTT [phone] - 37 secs 07/26/2021 16:08 EDT [facility] Blood VENOUS BLOOD / Unknown Venipuncture / Unknown 07/26/2021 15:30 EDT 07/26/2021 15:33 EDT [employer] DO HEMATOLOGY & PF4 ORDERABLES Final Result Performing Organization Address [facility] de Phone Number [facility] [address] [place] [address] * (ABNORMAL) FIBRINOGEN (07/26/2021 15:30 EDT) [facility] Fibrinogen 399(H) 171 - 384 mg/dl 07/26/2021 16:06 EDT [facility] Blood VENOUS BLOOD / Unknown Venipuncture / Unknown 07/26/2021 15:30 EDT 07/26/2021 15:33 EDT [employer] DO HEMATOLOGY & PF4 ORDERABLES Final Result Performing Organization Address [facility] de Phone Number [facility] [address] [place] [address] * PROTIME (07/26/2021 15:30 EDT) Pathologist [facility] I.N.R. 0.9 0.9 - 1.1 Ratio 07/26/2021 16:08 EDT [facility] Pro Time 10.4 10.4 - 12.6 secs 07/26/2021 16:08 EDT [facility] Blood VENOUS BLOOD / Unknown Venipuncture / Unknown 07/26/2021 15:30 EDT 07/26/2021 15:33 EDT Narrative [facility] - 07/26/2021 16:08 EDT Moderate Intensity Coumadin INR = 2.0-3.0 Adjustments in anticoagulant therapy dose should be based on the INR and NOT on the Protime. [employer] DO HEMATOLOGY & PF4 ORDERABLES Final Result [facility] [address] [place] [address] * LIPASE (07/26/2021 15:30 EDT) Lipase 53 <251 U/L 07/26/2021 16:18 EDT [facility] Blood VENOUS BLOOD / Unknown Venipuncture / Unknown 07/26/2021 15:30 EDT 07/26/2021 15:32 EDT [employer] DO CHEMISTRY & BLOOD GAS ORDERA BLES Final Result Performing Organization Address [facility]/ZIP Co de Phone Number [facility] [address] [place] [address] * MAGNESIUM (07/26/2021 15:30 EDT) Magnesium 2.1 1.7 - 2.8 mg/dL 07/26/2021 16:18 EDT [facility] Blood VENOUS BLOOD / Unknown Venipuncture / Unknown 07/26/2021 15:30 EDT 07/26/2021 15:32 EDT [employer] DO CHEMISTRY & BLOOD GAS ORDERA BLES Final Result Performing Organization Address [facility]/ZIP Co de Phone Number [facility] [address] [place] [address] * (ABNORMAL) TROPONIN I (07/26/2021 15:30 EDT) Troponin I (ng/mL) 0.559(H) <0.034 ng/mL [facility]2021 [facility] Blood VENOUS BLOOD / Unknown Venipuncture / Unknown 07/26/2021 15:30 EDT 07/26/2021 15:32 EDT Narrative [facility] - 07/26/2021 16:33 EDT The results of this assay can be falsely lowered due to the consumption of Biotin. Winnie Moore DO CHEMISTRY & BLOOD GAS ORDERA BLES Final Result [facility] [address] [place] [address] * BASIC METABOLIC PANEL (BMP) (07/26/2021 15:30 EDT) Pathologist [facility] Sodium 140 136 - 145 mmol/L 07/26/2021 16:18 [facility] Potassium 4.3 3.5 - 5.0 mEq/L 07/26/2021 16:18 [facility] Chloride 105 96 - 110 mEq/L 07/26/2021 16:18 [facility] CO2 Total 26 22 - 32 mEq/L 07/26/2021 16:18 [facility] Glucose 80 70 - 100 mg/dL 07/26/2021 16:18 [facility] Calcium 9.6 8.5 - 10.5 mg/dL 07/26/2021 16:18 [facility] Calculated Calcium 9.0 8.5 - 10.5 mg/dL 07/26/2021 16:18 [facility] BUN 16 10 - 26 mg/dL 07/26/2021 16:18 [facility] Creatinine 0.82 0.66 - 1.25 mg/dL 07/26/2021 16:18 [facility] eGFR 94 >60 mL/min/1.7 3m2 07/26/2021 16:18 [facility] Comment:eGFR calculated jack gordon CKD-EPI equation for non- Americans. Multiply eGFR by 1.16 for patients. Blood VENOUS BLOOD / Unknown Venipuncture / Unknown 07/26/2021 15:30 EDT 07/26/2021 15:32 EDT Winnie Moore DO CHEMISTRY & BLOOD GAS ORDERA BLES Final Result [facility] [address] [place] [address] * COMPLETE BLOOD COUNT AND DIFFERENTIAL (07/26/2021 15:30 EDT) WBC 5.85 4.00 - 10.40 K/cmm 07/26/2021 16:04 [facility] RBC 5.35 4.36 - 5.78 M/cmm 07/26/2021 16:04 [facility] Hemoglobin 16.1 13.8 - 17.3 gm/dL 07/26/2021 16:04 [facility] HCT 47.7 39.5 - 50.2 % 07/26/2021 16:04 [facility] MCV 89 81 - 95 fl 07/26/2021 16:04 [facility] MCH 30.1 27.6 - 33.0 pg 07/26/2021 16:04 [facility] MCHC 33.8 32.8 - 36.4 gm/dL 07/26/2021 16:04 [facility] RDW-CV 13.1 <14.2 % 07/26/2021 16:04 [facility] RDW-SD 42.5 <46.0 fl 07/26/2021 16:04 [facility] PLT 232 141 - 377 K/cmm 07/26/2021 16:04 [facility] MPV 10.5 9.5 - 12.7 fl 07/26/2021 16:04 [facility] % Neutrophils 47.4 % 07/26/2021 16:04 [facility] % Lymphocytes 35.6 % 07/26/2021 16:04 [facility] % Monocytes 11.1 % 07/26/2021 16:04 [facility] % Eosinophils 4.3 % 07/26/2021 16:04 [facility] % Basophils 0.9 % 07/26/2021 16:04 [facility] % Immature Grans 0.7 % 07/26/20 16:04 [facility] Absolute Neutrophils 2.78 2.20 - 8.85 K/cmm 07/26/2021 16:04 [facility] Absolute Lymphocytes 2.08 1.09 - 3.30 K/cmm 07/26/2021 16:04 [facility] Absolute Monocytes 0.65 0.10 - 0.80 K/cmm 07/26/2021 16:04 [facility] Absolute Eosinophils 0.25 0.03 - 0.61 K/cmm 07/26/2021 16:04 [facility] ABS Basophils 0.05 0.01 - 0.11 K/cmm 07/26/2021 16:04 [facility] Absolute Immature Grans 0.04 0.00 - 0.06 K/cmm 07/26/2021 16:04 [facility] Type of Differential: Auto 07/26/2021 16:04 [facility] Blood VENOUS BLOOD / Unknown Venipuncture / Unknown 07/26/2021 15:30 EDT 07/26/2021 15:32 EDT us Winnie Moore DO PACKAGES & DNA PROBE ORDERAB LES Final Result [facility] [address] [place] [address] * HOLD LAVENDER TOP (07/26/2021 15:30 EDT) Hold Hold 07/26/2021 16:45 [facility] Blood VENOUS BLOOD / Unknown Venipuncture / Unknown 07/26/2021 15:30 EDT 07/26/2021 15:32 EDT us Eleazar Yo MD LAB INFO SERVICE AND SUPPORT & PHONE RESULT Final Result Performing Organization Address [facility] Co de Phone Number [facility] [address] [place] [address] * HOLD GREEN TOP (07/26/2021 15:30 EDT) Hold Hold 07/26/2021 16:45 EDT [facility] Blood VENOUS BLOOD / Unknown Venipuncture / Unknown 07/26/2021 15:30 EDT 07/26/2021 15:32 EDT us Eleazar Yo MD LAB INFO SERVICE AND SUPPORT & PHONE RESULT Final Result Performing Organization Address [facility] Co de Phone Number [facility] [address] [place] [address] * HOLD BLUE TOP (07/26/2021 15:30 EDT) Hold Hold 07/26/2021 16:45 EDT [facility] Blood VENOUS BLOOD / Unknown Venipuncture / Unknown 07/26/2021 15:30 EDT 07/26/2021 15:33 EDT us Eleazar Yo MD LAB INFO SERVICE AND SUPPORT & PHONE RESULT Final Result Performing Organization Address [facility] Co de Phone Number [facility] [address] [place] [address] * EKG 12-LEAD (07/26/2021 15:07 EDT) 07/26/2021 15:0 7 EDT Narrative [facility] EKG - 08/11/2021 18:12 EDT ?[facility] Emergency ? Test Date: ?2021-07-26 Pat Name: ? GENARO SHIN ? Department: ?? ED ? Room: ? Gender: ? Male ? 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 [id number] : ?1955 ? Requested By: TORRES LEGER TRACI Order Number: [id number] ? Reading MD: ?? MARLA ZEGLIN MD ? Measurements Intervals ?Lorenzo ? Rate: ? 56 ? P: ?39 ID: ? [id number] ?QRS: ?-9 QRSD: ? 86 ? T: ?2 QT: ? 404 ? QTc: ?390 ? Interpretive Statements SINUS BRADYCARDIA Automated Interpretation. ??Provider Interpretation to follow. Compared to ECG 06/23/2017 03:30:46 Sinus rhythm no longer present T-wave abnormality no longer present I reviewed the tracing and have either agreed or edited the findings in this report. Electronically Signed On 08-11-2021 18:12:51 EDT by MARLA RICHARD MD. 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 Provider Interpretation to follow. Compared to ECG 06/23/2017 03:30:46 Sinus rhythm no longer present T-wave abnormality no longer present I reviewed the tracing and have either agreed or edited the findings inthis report. Electronically Signed On 08-11-2021 18:12:51 EDT by DEUCE HOLLEY. us Emigdio White MD CARDIAC ECG ORDERABLES nal Result [facility] EKG documented in this encounter Visit Diagnoses Not on filedocumented in this encounter Admitting Diagnoses Diagnosis NSTEMI (non-ST elevated myocardial infarction) ([facility]) Acute myocardial infarction, subendocardial infarction, episode of care unspecified documented in this encounter Administered Medications Inactive Administered Medications - up to 3 most recent administrations Medication Order MAR Action Action Date Dose Rate Site acetaminophen (TYLENOL) tablet 650 mg 650 mg, oral, EVERY 4 HOURS PRN, Starting on Tue07/27/21 at 1343, Until Tue07/28/21 at 1321, Pain, Routine, Release aspirin chewable tablet 81 mg 81 mg, oral, DAILY, First dose on Tue07/27/21 at 0900, Until Discontinued, Routine Given 07/28/2021 8:44 EDT 81 mg Given 07/27/2021 9:09 EDT 81 mg atorvastatin (LIPITOR) tablet 80 mg 80 mg, oral, DAILY, First dose on Tue07/26/21 at 1915, Until Discontinued, Routine Given 07/28/2021 8:44 EDT 80 mg Given 07/27/2021 9:09 EDT 80 mg Given 07/26/2021 21:12 EDT 80 mg fentaNYL citrate (PF) injection PRN, Starting on Tue07/27/21 at 1306, Until Tue07/27/21 at 1348, Routine, Intraprocedure Given 07/27/2021 13:20 E DT 50 mcg Given 07/27/2021 13:06 EDT 50 mcg fentaNYL citrate (PF) injection PRN, Starting on Tue07/27/21 at 1333, Until Tue07/27/21 at 1354, Routine, Intraprocedure Given 07/27/2021 13:33 EDT 50 mcg heparin 1,000 unit/mL injection PRN, Starting on Tue07/27/21 at 1322, Until Tue07/27/21 at 1348, Routine, Intraprocedure Given 07/27/2021 13:22 EDT 6,500 Units iopamidoL (ISOVUE-370) injection PRN, Starting on Tue07/27/21 at 1349, Until Tue07/27/21 at 1350, Routine, Intraprocedure Given 07/27/2021 13:49 EDT 100 mL midazolam (PF) (VERSED) injection PRN, Starting on Tue07/27/21 at 1306, Until Tue07/27/21 at 1348, Routine, Intraprocedure Given 07/27/2021 13:20 EDT 1 mg Given 07/27/2021 13:06 EDT 1 mg midazolam (PF) (VERSED) injection PRN, Starting on Tue07/27/21 at 1338, Until Tue07/27/21 at 1354, Routine, Intraprocedure Given 07/27/2021 13:38 EDT 1 mg nicotine (NICODERM CQ) 21 mg/24 hr patch 1 Patch 1 Patch, transdermal, DAILY PRN, Starting on Tue07/28/21 at 0941, Until Tue07/28/21 at 1321, nicotine craving, Routine olmesartan (BENICAR) tablet 20 mg 20 mg, oral, DAILY, First dose on Tue07/27/21 at 0900, Until Discontinued, Routine Given 07/28/2021 8:44 EDT 20 mg Given 07/27/2021 9:08 EDT 20 mg sodium chloride 0.9 % (NS) infusion FA IP EQF CONTINUOUS PRN FOR ONE STEP MEDS, Starting on Tue07/27/21 at 1248, Until Tue07/27/21 at 1248, Routine, Intraprocedure New Bag 07/27/2021 12:48 EDT 25 mL/hr 25 mL/hr ticagrelor (BRILINTA) tablet PRN, Starting on Tue07/27/21 at 1342, Until Tue07/27/21 at 1348, Routine, Intraprocedure Given 07/27/2021 13:42 EDT 180 mg documented in this encounter Discontinued Medications Medication Sig Discontinue Reason Start Date End Da te aspirin 325 mg tablet Take 325 mg by mouth daily. Error 07/26/2021 ketoconazole (NIZORAL) 2 % cream Sig apply thin layer to rash areas on face, BID Error 11/02/2018 07/26/2021 losartan (COZAAR) 25 mg tablet Take 25 mg by mouth daily. Error 07/26/2021 ticagrelor (BRILINTA) 90 mg tablet Take 1 Tablet by mouth 2 times daily. 07/27/2021 07/28/2021 documented as of this encounter Active and Recently Administered Medications Times are shown in EDT. Scheduled Medication Order 07/26/2021 07/27/2021 07/28/2021 aspirin chewable tablet 81 mg 81 mg, oral, DAILY, First dose on Tue07/27/21 at 0900, Until Discontinued, Routine 09 (Given - Provider: Ewelina Denny RN)1232 (DEC Hold - Provider: Automatic Transfer Provider Hn - Reason: Patient off unit)1400 (DEC Unhold - Provider: Automatic Transfer Provider Hn) 0844 (Given - Provider: Carlos Devries RN) atorvastatin (LIPITOR) tablet 80 mg 80 mg, oral, DAILY, First dose on Tue07/26/21 at 1915, Until Discontinued, Routine 2111 (Given - Provider: Rosario Molina RN) 0909 (Given - Provider: Ewelina Denny RN)1232 (DEC Hold - Provider: Automatic Transfer Provider Hn - Reason: Patient off unit)1400 (DEC Unhold - Provider: Automatic Transfer Provider Hn) 0844 (Given - Provider: Carlos Devries RN) clopidogreL (PLAVIX) tablet 600 mg (COMPLETED) 600 mg, oral, NOW X1, 1 dose, On Tue07/28/21 at 1000, Routine 1005 (Given - Provider: Carlos Devries RN) heparin 1,000 unit/mL injection 5,000 Units (COMPLETED) 5,000 Units (rounded from 4,963 Units = 70 Units/kg ? 70.9 kg Adjusted weight), intravenous, NOW X1, 1 dose, On Tue07/26/21 at 1800, STAT 1809 (Given - Provider: Zita Hull, LIEN) lactated ringers BOLUS 1,000 mL (COMPLETED) 1,000 mL, intravenous, NOW X1, 1 dose, On Tue07/26/21 at 1600, STAT 1627 (New Bag - Provider: Zita Hull, RN)1737 (IV Stopped - Provider: Zita Hull RN) olmesartan (BENICAR) tablet 20 mg 20 mg, oral, DAILY, First dose on Tue07/27/21 at 0900, Until Discontinued, Routine 0908 (Given - Provider: Ewelina Denny RN)1232 (DEC Hold - Provider: Automatic Transfer Provider Hn - Reason: Patient off unit)1400 (DEC Unhold - Provider: Automatic Transfer Provider Hn) 0844 (Given - Provider: Carlos Devries RN) ticagrelor (BRILINTA) tablet 90 mg (CANCELED) 90 mg, oral, 2 TIMES DAILY, First dose on Tue07/27/21 at 2100, Until Discontinued, Routine 2007 (Given - Provider: Rosario Molina RN) 0958 (Not Given - Provider: Carlos Devries RN - Reason: Discontinued) Continuous Medication Order 07/26/2021 07/27/2021 07/28/2021 heparin in 1/2 NS 25,000 unit/250 mL infusion (CANCELED) 15 Units/kg/hr ? 70.9 kg Adjusted weight (10.635 mL/hr, rounded to 10.6 mL/hr), intravenous, CONTINUOUS, Starting on Tue07/26/21 at 1800, Until Tue07/27/21 at 1348, STAT 1809 (New Bag - Provider: Zita Hull, RN)2041 (Rate Documented - Provider: Brandi Daniels, RN) 0745 (Rate Documented - Provider: Ewelina Denny RN - Comment: [facility]FH .35)1251 (Paused - Provider: Lenard Webb RN) PRN Medication Order 07/26/2021 07/27/2021 07/28/2021 acetaminophen (TYLENOL) tablet 650 mg 650 mg, oral, EVERY 4 HOURS PRN, Starting on Tue07/27/21 at 1343, Until Tue07/28/21 at 1321, Pain, Routine, Release fentaNYL citrate (PF) injection (CANCELED) PRN, Starting on Tue07/27/21 at 1306, Until Tue07/27/21 at 1348, Routine, Intraprocedure 1306 (Given - Provider: Mark Vickers RN)1320 (Given - Provider: Mark Vickers, LIEN) fentaNYL citrate (PF) injection (CANCELED) PRN, Starting on Tue07/27/21 at 1333, Until Tue07/27/21 at 1354, Routine, Intraprocedure 1333 (Given - Provider: Mark Vickers RN) heparin 1,000 unit/mL injection (CANCELED) PRN, Starting on Tue07/27/21 at 1322, Until Tue07/27/21 at 1348, Routine, Intraprocedure 1322 (Given - Provider: Mark Vickers, LIEN) iopamidoL (ISOVUE-370) injection (CANCELED) PRN, Starting on Tue07/27/21 at 1349, Until Tue07/27/21 at 1350, Routine, Intraprocedure 1349 (Given - Provider: Tung Dennis Jr., MD) lidocaine (PF) 10 mg/mL (1 %) injection 2 mg 2 mg, intradermal, PRN, 4 doses, Starting on Tue07/26/21 at 1906, Until Tue07/28/21 at 1321, peripheral intravenous catheter placement, Routine 1232 (DEC Hold - Provider: Automatic Transfer Provider Hn - Reason: Patient off unit)1400 (DEC Unhold - Provider: Automatic Transfer Provider Hn) midazolam (PF) (VERSED) injection (CANCELED) PRN, Starting on Tue07/27/21 at 1306, Until Tue07/27/21 at 1348, Routine, Intraprocedure 1306 (Given - Provider: Mark Vickers RN)1320 (Given - Provider: Mark Vickers RN) midazolam (PF) (VERSED) injection (CANCELED) PRN, Starting on Tue07/27/21 at 1338, Until Tue07/27/21 at 1354, Routine, Intraprocedure 1338 (Given - Provider: Mark Vickers RN) nicotine (NICODERM CQ) 21 mg/24 hr patch 1 Patch 1 Patch, transdermal, DAILY PRN, Starting on Tue07/28/21 at 0941, Until Tue07/28/21 at 1321, nicotine craving, Routine sodium chloride 0.9 % (NS) infusion (COMPLETED) FA IP EQF CONTINUOUS PRN FOR ONE STEP MEDS, Starting on Tue07/27/21 at 1248, Until Tue07/27/21 at 1248, Routine, Intraprocedure 1248 (New Bag - Provider: Lenard Webb RN) ticagrelor (BRILINTA) tablet (CANCELED) PRN, Starting on Tue07/27/21 at 1342, Until Tue07/27/21 at 1348, Routine, Intraprocedure 1342 (Given - Provider: Mark Vickers RN) documented in this encounter Orders Medications Ordered That Seth ht Not Have Been Administered Count Last Ordered Date First Ordered Date clopidogreL (PLAVIX) tablet 600 mg 1 2020 nicotine (NICODERM CQ) 21 mg /24 hr patch 1 Patch 1 07/28/2021 acetaminophen (TYLENOL) tablet 650 mg 1 08/2021 fentaNYL citrate (PF) 50 mcg/mL injection 2 07/27/2021 heparin 1,000 unit/mL injection 1 lidocaine 20 mg/mL (2 %) injection 1 2020 midazolam (PF) (VERSED) 1 mg/mL injection 2 07/27/2021 nitroglycerin 100 mcg/mL syringe 1 07/27/20 21 ticagrelor (BRILINTA) 90 mg tablet 2 2020 ticagrelor (BRILINTA) tablet 90 mg 1 2020 verapamil (ISOPTIN) 2.5 mg/mL injection 1 1 aspirin chewable tablet 81 mg 1 07/26/2021 atorvastatin (LIPITOR) tablet 80 mg 1 07/26 heparin 1,000 unit/mL inject ion 2,500 Units 1 07/26/2021 heparin 1,000 unit/mL inject ion 5,000 Units 2 07/26/2021 heparin in 1/ NS 25,000 uni t/250 mL infusion 1 07/26/2021 lactated ringers BOLUS 1,000 mL 1 lidocaine (PF) 10 mg/mL (1 % ) injection 2 mg 1 07/26/2021 olmesartan (BENICAR) tablet 20 mg 1 021 ondansetron (PF) (ZOFRAN) injection 4 mg 1 07/26/2021 EKG Orders Without Results Count Last Ordered D ate First Ordered Date EKG 12-LEAD 1 07/26/2021 Diet Count Last Ordered Date First Orde red Date DISCHARGE DIET 3 07/27/2021 Nursing Count Last Ordered Date First Orde red Date ACTIVITY INSTRUCTIONS 3 07/27/2021 BATHING INSTRUCTIONS 3 07/27/2021 PATIENT AT LOW RISK FOR VTE: RISK OF PHARMACOLOGIC PROPHYLAXIS OUTWEIG 1 07/27/2021 WOUND CARE INSTRUCTIONS 2 07/27/2021 HEIGHT AND WEIGHT 1 07/26/2021 NURSING COMMUNICATION 1 07/26/2021 VITAL SIGNS 1 07/26/2021 VTE PHARMACOLOGIC PROPHYLAXI S CURRENTLY ORDERED OR ON ALTERNATIVE THER 1 07/26/2021 Admission Count Last Ordered Date First Orde red Date ADMIT TO INPATIENT 1 07/26/2021 Transfer Count Last Ordered Date First Orde red Date ED BED REQUEST 1 07/26/2021 Discharge Count Last Ordered Date First Orde red Date DISCHARGE PATIENT 1 07/28/2021 Legal Count Last Ordered Date First Orde red Date MISCELLANEOUS DISCHARGE INSTRUCTIONS 6 07/17 Case Request Count Last Ordered Date First Orde red Date CASE REQUEST CORE SHAPER TOP 1 07/26/2021 documented in this encounter Care Teams Scrummaster Relationship Specialty Start Date End Date Nataliia Montez MD [address] [address] PCP - General 08/29/18 documented as of this encounter
--- OUTSIDE RECORDS SUMMARY | 2024-10-12 08:16 | XMS_ITS | Encounter Summary ---
Author Organization [facility] Address [address] [place] [address] Care Team Providers Care Loom Winder Tender Name Role Phone Nataliia Montez MD Primary Care Provide r Reason for Visit * Reason Comments New Patient Visit Condyloma acuminata * Referral (3 - 10 Business Days) - Closed Specialty Diagnoses / Procedures [facility] To Contact Colon and Rectal Surgery / General Surgery Diagnoses Condyloma acuminata Alex Lopez PA-C Phone: tel: fax: [address] [address] Phone: tel: fax: Referral ID Status Reason Start Date Expiration Date V isits Requested Visits Authorized [id number] Closed Specialty Services Required 06/10/2021 1 1 Encounter Details Date Type Department Care Team (Late st Contact Info) Description 07/08/2021 13:30 EDT Office Visit [address] [id number] Oumar Carlos MD [address] [facility], [address] [place] [id number] Anal condyloma (Primary Dx) Social History Tobacco [...] Sign Reading Time Taken Comments Blood Pressure 130/83 07/08/2021 1306 EDT Pulse 73 07/08/2021 1306 EDT Temperature - - Respiratory Rate - - Oxygen Saturation - - Inhaled Oxygen Concentration - - Weight 80.6 kg (177 lb 9.6 oz) 07/08/2021 1306 E DT Height 167.6 cm (5' 5.98) 07/08/2021 1306 EDT Body Mass Index 28.68 07/08/2021 1306 EDT documented in this encounter Functional Status [...] 11/02/2018 8:22 EST documented in this encounter Ordered Prescriptions Prescription Sig Dispense Quantity Refills Last Filled Start Date End Date imiquimod (ALDARA) 5 % cream Apply 1 application topically to affected area three times a week for 90 days. Apply a thin layer as directed. 24 Packet 07/08/2021 1 documented in this encounter Progress Notes * Oumar Carlos MD - 07/08/2021 1330 EDT Colorectal Surgery Clinic Note Chief Complaint: Anal condyloma HPI: Patient is a 65 y.o. male being seen at the request of Alex Lopez PA-C for evaluation of perineal warts. Mr. Jimenez of late has noticed numerous bumps on his perianal skin that have become minimally symptomatic. Occasionally itch and when he wipes them excessively bleed slightly. Otherwise they are not causing him any discomfort. He has not noticed any change in bowel habits or weight loss. He is not currently sexually active and last intercourse 20 years ago. He has no known history of STI and is HIV negative in 2014 without concern for exposure since. He has never engaged in receptive intercourse. He does carry a family history of colon cancer in his father. However does not have a personal family history of plantar bowel disease or anal cancer. He is up-to-date on his colonoscopies. 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 Review of Symptoms: Reviewed in detail on our intake sheet today. He has no pertinent positives on extensive review of systems other than as described above. PMH PSH Past Medical History: Diagnosis Date ??? Anomaly, cardiac ??? Environmental allergies ??? Hypertension ??? Pericardial effusion Past Surgical History: Procedure Laterality Date ??? CARDIAC SURGERY pericardial effusion ??? PILONIDAL CYST DRAINAGE Social History Family history Social History Tobacco Use ??? Smoking status: Current Some Day Smoker Packs/day: 1.00 ??? Smokeless tobacco: Never Used Substance Use Topics ??? Alcohol use: No Comment: rare Family History Problem Relation Age of Onset ??? Colon Cancer Father ??? Cancer Maternal Grandmother ??? Stomach Cancer Maternal Grandfather Current Outpatient Medications Medication ??? aspirin 325 mg tablet ??? imiquimod (ALDARA) 5 % cream ??? ketoconazole (NIZORAL) 2 % cream ??? losartan (COZAAR) 25 mg tablet ??? olmesartan (BENICAR) 20 mg tablet No current facility-administered medications for this visit. Allergies Allergies Allergen Reactions ??? Losartan Muscle Aches Objective: Blood pressure 130/83, pulse 73, height 167.6 cm (65.98), weight 80.6 kg (177 lb 9.6 oz). Physical Exam: Gen: awake, alert, and oriented x 3, NAD Neck: soft, no thyromegaly, no carotid bruits, no cervical lymphadenopathy CV: RRR no M/R/G Pulm: CTA bilat, no wheezes or rhonchi Abd: Soft nontender nondistended. No inguinal lymphadenopathy. Ext: warm, well perfused,no edema Anorectal: Numerous perianal condyloma >10, non-confluent. No palpable masses on internal exam. Office Anoscopy/Proctoscopy I explained the procedure including the risks, benefits, and alternative. Verbal consent for the procedure was obtained. A pre-procedure verification was conducted prior to the procedure. The patient's identity, procedure, and when applicable the: side/site, patient position, availability of special equipment or special requirements was verbally confirmed prior to the procedure. Procedure: anoscopy Findings: no visible disease in the anal canal Complications: none The patient tolerated the procedure without issue. A air support control officer was present for the entirety of the exam. 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 He is minimally symptomatic at this time but is interested in undergoing treatment. We discussed all available options including topical imiquimod and fulguration. Patient is interested in trying topical therapy at this time. I will see him back in 6 weeks to reevaluate his condyloma and decide whether or not he needs additional therapy. Will discuss long-term follow-up plan at that time. I also recommended to him that he receivesthe HPV vaccine which we unfortunately did not provide in our clinic. Plan: - topical imiquimod as prescribed for 6 weeks - fu in clinic in 6 weeks - discuss HPV vaccine with PCP Oumar Carlos MD 07/09/2021 7:21 documented in this encounter Plan of Treatment Not on file documented as of this encounter Visit Diagnoses Diagnosis Anal condyloma- Primary Condyloma acuminatum documented in this encounter Care Teams Loom Winder Tender Relationship Specialty Start Date End Date Nataliia Montez MD [address] [address] PCP - General 08/29/18 documented as of this encounter
--- OUTSIDE RECORDS SUMMARY | 2024-10-12 08:16 | XMS_ITS | Encounter Summary ---
Author Organization [facility] Address [address] [place] [address] Care Team Providers Care Sewage Reticulation Drafting Officer Name Role Phone Nataliia Montez MD Primary Care Provide r Encounter Details Date Type Department Care Team (Late st Contact Info) Description 07/18/2019 Orders Only [facility] [address] [place], [place] [id number] New Sorto MD [address] [facility], [address] [place] [address] Social History Tobacco Use Types [...] as of this encounter Functional Status * Because of [...] Follow instructions on 'colonoscopy preparation instructions' sheet. 1 Bottle 07/18/2019 9 documented in this encounter Plan of Treatment Not on file documented as of this encounter Visit Diagnoses Not on filedocumented in this encounter Care Teams Sewage Reticulation Drafting Officer Relationship Specialty Start Date End Date Nataliia Montez MD [address] [place] [id number] PCP - General 08/29/18 documented as of this encounter
--- OUTSIDE RECORDS SUMMARY | 2024-10-12 08:16 | XMS_ITS | Encounter Summary ---
Author Organization [facility] Address [address] [place] [address] Care Team Providers Care Transport Specialist Name Role Phone Katelyn Elder APRN Primary Care Provider [phone] Reason for Visit * Reason Comments Foreign Body in Eye FB sensation left ey e after working under a car on the [employer]. Encounter Details Date Type Department Care Team (Latest Contact Info) Description 10/19/2017 16:24 EST - 10/19/2017 19:42 EST Hospital Encounter [facility] [address] [place] [address] [id number] Lauren Kumar PA-C [address] [place] [id number] Unknown, Provider, Foreign body of right eye, initial encounter (Primary Dx); Corneal rust ring of right eye Discharge Disposition: Home or Self Care Social [...] Sign Reading Time Taken Comments Blood Pressure 147/82 10/19/2017 1923 EST Pulse 61 10/19/20171922 EST Temperature 36.5 ??C (97.7 ??F) 10/19/2017 1642 EST Respiratory Rate 15 10/19/2017 192 EST Oxygen Saturation - - Inhaled Oxygen Concentration - - Weight - - Height - - Body Mass Index - - documented in this encounter Discharge Instructions * Discharge Instructions* Lauren Kumar PA-C - 10/19/2017 19:52 EST As we discussed, your corneal abrasion should only take a few days to heal. In the mean time you will need to take the antibiotic drops prescribed as well as control your pain. You may take ibuprofen 600mg (3 regular tabs) every 6 hours or naproxen (aleve) 440 mg (2 regular tabs) every 8 -12 hours as needed for your pain. You will need to use your eyedrops 2 drops in your left eye 4 times a day for one week. If you have severe pain, discharge from your eye, headache, or any change in vision, or any redness, swelling, or tenderness in the skin around the area of your eyes, you need to return immediately to the clinic or go directly to the ER. * Attachments The following attachments cannot be sent through Care Everywhere. * FOREIGN BODY IN THE EYE ([employer] [place]) documented in this encounter Medications at Time of Discharge olmesartan (BENICAR) 20 mg tablet Take 1 Tablet by mouth daily. losartan (COZAAR) 25 mg tablet Take 25 mg by mouth daily. 07/26/2021 documented as of this encounter Discharge Disposition Disposition Code Departure Means Destination Home or Self Care documented in this encounter ED Notes * Lauren Kumar PA-C - 10/19/2017 194 ESTAssociated Order(s): FOREIGN BODY REMOVAL DOS: 10/19/2017 Chief Complaint Patient presents with ??? Foreign Body in Eye FB sensation left eye after working under a car on the [place]. The patient is a 62 y.o. 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 Foreign Body in Eye Review of Systems Current Facility-Administered Medications Medication Dose Route Frequency Provider Last Rate Last Dose ??? polymyxin B sulf-trimethoprim (POLYTRIM) ophthalmic solution 2 Drop 2 Drop left eye Now Lauren Kumar PA-C Current Outpatient Prescriptions Medication Sig Dispense Refill ??? losartan (COZAAR) 25 mg tablet Take 25 mg by mouth daily. ??? olmesartan (BENICAR) 20 mg tablet Take 20 mg by mouth daily. Allergies Allergen Reactions ??? No Known Drug Allergies There are no active problems to display for this patient. Past Medical History: Diagnosis Date ??? Anomaly, cardiac ??? Environmental allergies ??? Hypertension ??? Pericardial effusion Social History Substance Use Topics ??? Smoking status: Current Some Day Smoker Packs/day: 0.25 ??? Smokeless tobacco: Never Used ??? Alcohol use No Comment: rare Family History Problem Relation Age of Onset ??? Colon Cancer Father ??? Cancer Maternal Grandmother ??? Stomach Cancer Maternal Grandfather BP (!) 147/82 Pulse 61 Temp 97.7 ??F (36.5 ??C) (Temporal) Resp 15 Physical Exam Constitutional: He is oriented to person, place, and time. He appears well- developed and well-nourished. No distress. HENT: Head: Normocephalic. Eyes: EOM are normal. Pupils are equal, round, and reactive to light. Right eye exhibits no discharge and no exudate. No foreign body present in the right eye. Left eye exhibits discharge (excess lacrimation). Left eye exhibits no exudate. Foreign body (there is a pinpoint foreign body over the nasal aspect of the left cornea. it is visible to the naked eye) present in the left eye. Right conjunct alicia is not injected. Left conjunctiva is injected. Cardiovascular: Normal rate, regular rhythm and normal heart sounds. Neurological: He is alert and oriented to person, place, and time. Skin: Skin is warm and dry. No rash noted. Psychiatric: He has a normal mood and affect. His behavior is normal. Nursing note and vitals reviewed. Consult orders: None PCP: Katelyn Elder No results found for this visit on 10/19/17. Radiology orders: None Imaging Results None No orders to display Relevant Data FB Removal Date/Time: 10/19/2017 19:54 Performed by: PAConsent: Verbal consent obtained. Consent given by: patient Time out: Immediately prior to procedure a time out was called to verify the correct patient, procedure, equipment, production support consultant and site/side marked as required, Body area: eye Location: left cornea Local anesthetic: tetracaine drops Eye not examined with fluorescein Corneal abrasion size: small Corneal abrasion location: medialResidual rust ring presentDressing: antibiotic drops Complexity: simple Number of Objects Recovered: 1 Objects Recovered: 1 Post-procedure assessment: foreign body removed Patient tolerance: Patient tolerated the procedure well with no immediate complications URGENT CARE COURSE A medical screening exam was performed. ASSESSMENT AND PLAN Final diagnoses: Foreign body of right eye, initial encounter Corneal rust ring of right eye Case discussed briefly with Dr. sims who is able to see the patient and outpatient follow-up. Polytrim eyedrops given. Patient instructed to follow up with Dr. Tate by calling tomorrow morning in taking the next appointment. He should return any time for worsening pain, change in vision, discharge from the eye, fever, any other signs of worsening. Dr. Km Maddox was available for consultation during my care of this patient. DISPOSITION: Discharged The patient's pain was managed to an adequate level weighing risk vs. benefit of further medications. Upon departure from [facility], the patient's pain was 3 on a zero to ten scale. Any further pain treatment will be at the discretion of the provider following up with the patient based on their clinical assessment . Condition at departure from the [facility] : Stable MDM 10/19/2017 19:56 * Taya Chatterjee RN - 10/19/2017 1722 EST Foreign body in left eye round 1400. Flushed eye with water but irritation witjh blinking is getting worse. documented in this encounter Plan of Treatment Not on file documented as of this encounter Procedures Procedure Name Priority Date/Time Associated Diagnosis Comments FOREIGN BODY REMOVAL - EMBEDDED Routine 10/19/2017 19:56 EST documented in this encounter Results * FOREIGN BODY REMOVAL (10/19/2017 19:56 EST) Narrative [facility] EKG - 10/19/2017 19:56 EST Lauren Kumar PA-C ? 10/19/2017 19:56 FB Removal Date/Time: 10/19/2017 19:54 Performed by: PAConsent: Verbal consent obtained. Consent given by: patient Time out: Immediately prior to procedure a time out was called to verify the correct patient, procedure, equipment, production support consultant and site/side marked as required, Body area: eye Location: left cornea Local anesthetic: tetracaine drops Eye not examined with fluorescein Corneal abrasion size: small Corneal abrasion location: medialResidual rust ring presentDressing: antibiotic drops Complexity: simple Number of Objects Recovered: 1 Objects Recovered: 1 Post-procedure assessment: foreign body removed Patient tolerance: Patient tolerated the procedure well with no immediate complications us Lauren Kumar PA-C PROCEDURE/MINOR SURGIC AL ORDERABLES Final Result [facility] EKG documented in this encounter Visit Diagnoses Diagnosis Foreign body of right eye, initial encounter- Primary Corneal rust ring of right eye documented in this encounter Administered Medications Inactive Administered Medications - up to 3 most recent administrations Medication Order MAR Action Action Date Dose Rate Site polymyxin B sulf-trimethoprim (POLYTRIM) ophthalmic solution 2 Drop 2 Drop, left eye, NOW X1, 1 dose, On Tue10/19/17 at 2000, Routine Given 10/19/2017 19:53 EST 2 Drops tetracaine HCl (PF) (PONTOCAINE) 0.5 % ophthalmic solution 1 Drop 1 Drop, left eye, NOW X1, 1 dose, On Tue10/19/17 at 1900, Routine Given 10/19/2017 18:56 EST 1 Drop documented in this encounter Active and Recently Administered Medications Times are shown in EST. Scheduled Medication Order 10/17/2017 10/18/2017 10/19/2017 polymyxin B sulf-trimethoprim (POLYTRIM) ophthalmic solution 2 Drop (COMPLETED) 2 Drop, left eye, NOW X1, 1 dose, On Tue10/19/17 at 2000, Routine 1953 (Given - Provid er: Taya Chatterjee RN - Comment: Dipensed the bottle to patient with instructions on discharge instructions) tetracaine HCl (PF) (PONTOCAINE) 0.5 % ophthalmic solution 1 Drop (COMPLETED) 1 Drop, left eye, NOW X1, 1 dose, On Tue10/19/17 at 1900, Routine 1856 (Given - Provid er: Jerry Parra RN) documented in this encounter Orders Medications Ordered That Seth ht Not Have Been Administered Count Last Ordered Date First Ordered Date polymyxin B sulf-trimethopri m (POLYTRIM) ophthalmic solution 1 Drop 1 10/19/2017 Nursing Count Last Ordered Date First Orde red Date VISUAL ACUITY SCREENING 1 10/19/2017 documented in this encounter Care Teams Transport Specialist Relationship Specialty Start Date End Date Katelyn Elder, KEELEY [phone] [id number] PCP - General 02/01/13 08/28/18 documented as of this encounter
--- OUTSIDE RECORDS SUMMARY | 2024-10-12 08:16 | XMS_ITS | Encounter Summary ---
Author Organization [facility] Address [address] [place] [address] Care Team Providers Care Hadoop Consultant Name Role Phone Nataliia Montez MD Primary Care Provide r Reason for Referral * (Routine/Next Available) Specialty Diagnoses / Procedures Referred By Imer howe Referred To Contact Iram Moss DNP Phone: tel: Referral ID Status Reason Start Date Expiration Date V isits Requested Visits Authorized Specialty Services Required Comments Your local cardiac rehab program will contact you and/or your stocking and box shop supervisor to discuss. Reason for Visit * Reason Comments Chest Pain Pt presents to the E D with c/o cp, diaphorisis, left arm pain and nausea this am. Pt has a hx of pericardial effusion. 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 * Auth/Cert Specialty Diagnoses / Procedures Referred By Imer howe Referred To Contact Diagnoses Chest pain NSTEMI (non-ST elevated myocardial infarction) ([facility]) Referral ID Status Reason Start Date Expiration Date Visits Re quested Visits Authorized [id number] 1 1 Encounter Details Date Type Department Care Team (Late st Contact Info) Description 07/26/2021 15:06 EDT - 07/28/2021 11:21 EDT Hospital Encounter [facility] Cardiac Unit [address] [place], [place] [id number] Eleazar Yo MD [address] [place] [id number] Cristina Gupat MD [address] [phone] Lloyd Alvarez MD [address] [facility] [address] [place] [address] Falguni Dennis MD [address] [phone] Chest pain (Primary Dx); NSTEMI (non-ST elevated myocardial infarction) ([facility]) ([facility]); 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; Tobacco use disorder Discharge Disposition: Home or Self Care Social [...] Sign Reading Time Taken Comments Blood Pressure 126/79 07/28/2021 0829 EDT Pulse 62 07/27/2021 1343 EDT Temperature 36.4 ??C (97.5 ??F) 07/28/2021 0829 EDT Respiratory Rate 16 07/28/2021 0829 EDT Oxygen Saturation 98% 07/28/2021 0829 EDT Inhaled Oxygen Concentration - - Weight [...] documented in this encounter Discharge Summaries * Iram Moss - 07/28/2021 0940 EDT Cardiology Discharge Summary Primary Care Provider: Nataliia Montez Attending Physician: Falguni Dennis Jr., MD Admit Date: 07/26/2021 Discharge Date: 07/28/2021 Disposition: Home or self care Problems and Procedures Admitting Diagnosis: NSTEMI Final Hospital Diagnosis: NSTEMI, CAD s/p PCI Additional Problems Managed in the Hospital Active Hospital Problems Diagnosis Date Noted ??? *Chest pain 07/26/2021 ??? 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 NSTEMI (non-ST elevated myocardial infarction) ([facility]) ([facility]) 07/26/2021 Resolved Hospital Problems No [...] in 2012 (unclear cause) who presented to [facility] ED on 07/26 for evaluation of chest pain and nausea which started 3 days earlier and gradually worsened. Troponin was mildly elevated and pt was transferred to [facility] for ischemic evaluation of suspected type 1NSTEMI. 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 Pt has baseline bradycardia and therefore a beta porfirio was not started. Follow up was requested with PCP and Dr. Serrato. Pt was also referred for cardiac rehab evaluation at [facility]. Allergies and Immunizations Allergies Allergen Reactions ??? [...] Your Medications These medications were sent to [facility] ([facility] - [place] [address] ?? aspirin chewable 81 mg tablet ?? atorvastatin 80 mg tablet ?? clopidogreL 75 mg tablet ?? nicotine 21 mg/24 hr patch Discharge Follow Up Appointments Scheduled with [facility] Upcoming Appointments Aug 26, 2021 13:30 Office Visit with Oumar Carlos MD [facility] General Surgery - [facility] (--) [address] [place] [address] Appointments Outside of [facility] We Will Schedule Follow-up appointments and procedures [facility] Cardiac Rehabilitation Referral Your local cardiac rehab program will contact you and/or your stocking and box shop supervisor to discuss. Authorizing Provider: Iram Moss DNP Amb Consult/Follow Up Cardiac Rehabilitation [facility] Reason for Request: CAD s/p PCI Expected Discharge Date (Inpatient Only): 07/28/2021 Practice Site (External Referral Only): [facility] Authorizing Provider: Iram Moss DNP Amb Consult/Follow Up Primary Care Physician Reason for Request: NSTEMI s/p PCI Expected Discharge Date (Inpatient Only): 07/28/2021 Authorizing Provider: Iram Moss DNP Amb Consult/Follow Up Cardiology Reason for Request: CAD s/p PCI Expected Discharge Date (Inpatient Only): 07/28/2021 Authorizing Provider: Iram Moss DNP Nadia S Fletcher, DNP 07/28/2021 9:46 Cosigned by Falguni Dennis Jr., MD at 07/28/2021 15:08 EDT [...] Code Departure Means Destination Home or Self Longterm documented in this encounter Progress Notes * Buddy Huber - 07/27/2021 1526 EDT Initial Case Management/Social Work Assessment and Discharge Plan/Readmission Risk Assessment REASON FOR ADMISSION: Chest pain Patient understands reason for admission: Yes PATIENT INFO VERIFIED: PCP, Contact Info, Address Type of housing (single family, condo, apartment, fpc, single room occupancy, [facility] funded hotel room, group halfway) - single family Who does the patient live with? alone Does the patient have access to their own bedroom/bathroom/kitchen - or is it shared with others? Does not share Name of housing complex (ex [employer], [facility], etc)- n/a Housing Authority/Managing Organization - n/a Community Care Providers (leather case finisher, [facility] nurse, etc) name and contact information- [...] expects to be discharged to: home CULTURAL, MANDAEISM and/or LANGUAGE factors affecting health care/discharge planning: [...] device: None Community Services: Home health, MOW, SASH-none of one time a week Will you [...] Health Services: None DME Provider: n/a Pharmacy: [facility]/pharmacy #[id number] [address] [facility] ([facility]) - [address] [address] Home Health: N/a Other: POST HOSPITAL TRANSITION PLAN: Home to self care. Patient is independent with ADL's and IADL's prior to admission. Patient's brother Lico is at bedside, Lico lives in [place]. Lico will drive patient home at discharge. [...] the patient have active heart failure? no [facility] - 07/27 Diagnostic Cardiac Study Results Left [...] troponin, c/f NSTEMI. Before admission, was s/p WEB MARKETING STRATEGIST ASA 324mg x2. He was started on [...] on arrival. Continues to be well-controlled. - WEB MARKETING STRATEGIST olmesartan 20 mg daily - Consider additional antihypertensives ?? #Anal condyloma -On WEB MARKETING STRATEGIST topical imiquimod for total 6 weeks (seems [...] history. Patient is active smoker. Father with OK in 60s. On arrival to ER patient's [...] formal echo tomorrow Yonathan Mckeon, PGY5 [phone] psychology fellow PATIENT CONSENT TO CARDIOVASCULAR CATHETERIZATION OR INTERVENTION: I, Yonathan Mckeon, have explained the risks and benefits of cardiac catheterization and/or intervention to the patient (or responsible democrat) and have answered the patient's (or responsible democrat's) questions. To the best of my knowledge, the patient (or responsible democrat) has been adequately informed. The patient (or responsible democrat) has consented to the interventional cardiac procedure. As partof the consent we reviewed that, like surgical procedures, interventional procedures require aggressive short term support to determine the potential benefits of the procedures. For this reason, the patient (or responsible democrat) has agreed to remain FULL CODE for a minimum of 48 hours after the procedure. Yonathan Mckeon 07/26/2021 18:43 documented in this encounter H&P Notes * Bruce Vital - 07/26/2021 1745 EDT Cardiology Admission H&P Admit Date: 07/26/2021 PCP: Nataliia Montez Materials Management Clerk: Previously seen by Katelyn Elder APRN (2013) [...] with tamponade physiology s/p pericardial window at [facility]. His presenting symptom at this timewas pleuritic chest pain. Symptoms resolved in 2012 after this procedure. -Patient reporting history of one of his outpatient providers telling him he has a thoracic aneurysm that would need to be monitored Echocardiogram: no prior available KATIE: NA C: NA Review of Systems: A 10-point review [...] PILONIDAL CYST DRAINAGE Family History: Father with OK at age 60. Family History Problem Relation [...] Pt took ASA 324 mg x 2 WEB MARKETING STRATEGIST - Heparin gtt - Atorvastatin 80 mg daily - Consider initiation of BB - NPO after midnight for LHC 07/27 - Diet cardiac - Supplemental O2 if needed for hypoxia #HTN BP 147/83 on arrival. - WEB MARKETING STRATEGIST olmesartan 20 mg daily - Consider additional antihypertensives #Anal condyloma -On WEB MARKETING STRATEGIST topical imiquimod for total 6 weeks (seems to have been initiated 07/09/2021) -He will either need to bring imiquimod from home or order as nonformulary. FEN: Cardiac diet, n.p.o. after midnight for LHC Code: FULL code per discussion with patient DVT PPx: Heparin gtt Disposition: Pending clinical course BRUCE VITAL MD/PGY1 [id number] 07/26/21 17:46 Cosigned by Lloyd Alvarez MD at 07/27/2021 13:48 EDT Associated attestation - Lloyd Alvarez MD - 07/27/2021 1493 EDT I have seen and evaluated the patient on 07/27/21. I agree with the assessment and plan as outlinedby Dr. Vital. Lloyd Alvarez MD [facility] documented in this encounter Procedure Notes * Falguni Dennis Jr., MD - 07/27/2021 1340 EDT Cardiovascular Catheterization Laboratory Preliminary Report -- Catheterization Date of Service/Procedure: 07/27/2021 Attending Physician: Falguni Dennis Jr., MD Fellow: Maxim Graves MD [...] artery Procedure: He was brought to [facility] Cardiac Catheterization Laboratory for the procedure: [...] continue inpatient status (no procedural complication required) Falguni Dennis Jr., MD PagerNumber: [phone] 07/27/2021 13:41 documented in this encounter ED Notes * Mark Dale RN - 07/26/2021 1953 EDT Ok to transport off of tele per Dr Yo * Zita Hull RN - 07/26/2021 1813 EDT Cards Fellow @ bedside. * Shravan Rajan - 07/26/2021 1632 EDT IShravan, notified Dr. MOORE of TROPONIN 0.559 on 07/26/2021 at 16:32. * Eleazar Yo MD - 07/26/2021 1549 EDT This patient received an evaluation and medical screening exam for emergent medical conditions at the [facility] on 07/26/2021. This note was created [...] ago who presents to the ED at [facility] for chest pain. The patient states that [...] provided by: The patient Patient's pertinent PMH, , SH were reviewed and updated PRN. Other [...] or depressions. I performed a limited Cardiac [id number] ultrasound. Please see my narrative and impression recorded in imaging results. I performed, reviewed, and independently interpreted the images. Images saved in [employer] and PACS. This study was supervised by a credentialed provider. Please see attestation in [employer] obtained was reviewed and independently interpreted [...] is considered off-labeluse of the test result. [facility] laboratory does not have literature to support [...] ago who presented to the ED at [facility] with the chief complaint of 3 days [...] Some of this note was transcribed with [employer] dictating software. While it was proofread, it may still contain unnoticed grammatical or word errors due to incorrect transcribing. documented in this encounter Miscellaneous Notes * Plan of Care - Carlos Devrise RN - 07/28/2021 1023 EDT Problem: Daily [...] subtle chest tightness. He is NPO for LHC today. SB on tele with HR in [...] HEPARIN STAT 07/27/2021 0:20 EDT ZZCOVID-19 TEST [facility] PCR Today 07/26/2021 18:42 EDT COVID-19 [...] 08/11/2021 18:1 9 EDT us Scan 2 Senior Clinical Data Coordinator PROCEDURE/MINOR SURGICAL OR DERABLES Final Result * ECG REPORT - SCANNED (08/11/2021 10:53 EDT) 08/11/2021 10:5 3 EDT us Scan 2 Senior Clinical Data Coordinator PROCEDURE/MINOR SURGICAL OR DERABLES Final Result * ECG REPORT - SCANNED (08/11/2021 10:35 EDT) 08/11/2021 10:3 5 EDT us Scan 2 Senior Clinical Data Coordinator PROCEDURE/MINOR SURGICAL OR DERABLES Final Result * ECG REPORT - SCANNED (07/30/2021 11:24 EDT) 07/30/2021 11:2 4 EDT us Scan 2 Senior Clinical Data Coordinator PROCEDURE/MINOR SURGICAL OR DERABLES Final Result * ECG REPORT - SCANNED (07/30/2021 11:24 EDT) 07/30/2021 11:2 4 EDT us Scan 2 Senior Clinical Data Coordinator PROCEDURE/MINOR SURGICAL OR DERABLES Final Result * (ABNORMAL) BASIC METABOLIC PANEL (BMP) (07/28/2021 5:25 EDT) Sodium 138 136 - 145 mmol/L 07/28/2021 6:53 EDT [facility] Potassium 4.2 3.5 - 5.0 mEq/L 07/28/2021 6:53 [facility] Chloride 107 96 - 110 mEq/L 07/28/2021 6:53 [facility] CO2 Total 22 22 - 32 mEq/L 07/28/2021 6:53 [facility] Glucose 107(H) 70 - 100 mg/dL 07/28/2021 6:53 [facility] Calcium 9.6 8.5 - 10.5 mg/dL 07/28/2021 6:53 [facility] Calculated Calcium 9.6 8.5 - 10.5 mg/dL 07/28/2021 6:53 [facility] BUN 17 10 - 26 mg/dL 07/28/2021 6:53 [facility] Creatinine 0.78 0.66 - 1.25 mg/dL 07/28/2021 6:53 [facility] eGFR 96 >60 mL/min/1.7 3m2 07/28/2021 6:53 [facility] Comment:eGFR calculated jack gordon CKD-EPI equation for non- Americans. Multiply eGFR by 1.16 for patients. Blood VENOUS BLOOD / Unknown Venipuncture / Unknown 07/28/2021 5:25 EDT 07/28/2021 6:20 EDT Iram Moss [facility] CHEMISTRY & BLOOD GAS ORDER KARYN Final Result [facility] [address] [place] [address] * COMPLETE BLOOD COUNT (07/28/2021 5:25 EDT) WBC 7.71 4.00 - 10.40 K/cmm 07/28/2021 6:28 T [facility] RBC 5.23 4.36 - 5.78 M/cmm 07/28/2021 6:28 [facility] Hemoglobin 15.6 13.8 - 17.3 gm/dL 07/28/2021 6:28 EDT [facility] HCT 45.9 39.5 - 50.2 % 07/28/2021 6:28 EDT [facility] MCV 88 81 - 95 fl 07/28/2021 6:28 EDT [facility] MCH 29.8 27.6 - 33.0 pg 07/28/2021 6:28 EDT [facility] MCHC 34.0 32.8 - 36.4 gm/dL 07/28/2021 6:28 EDT [facility] RDW-CV 13.0 <14.2 % 07/28/2021 6:28 EDT [facility] RDW-SD 41.5 <46.0 fl 07/28/2021 6:28 EDT [facility] PLT 207 141 - 377 K/cmm 07/28/2021 6:28 EDT [facility] MPV 10.3 9.5 - 12.7 fl 07/28/2021 6:28 EDT [facility] Blood VENOUS BLOOD / Unknown Venipuncture / Unknown 07/28/2021 5:25 EDT 07/28/2021 6:16 EDT Cristina Gupta MD HEMATOLOGY & PF4 ARIE WAGNER Final Result [facility] [address] [place] [address] * EKG 12-LEAD (07/27/2021 15:46 EDT) 07/27/2021 15:4 6 EDT Narrative [facility] EKG - 08/11/2021 10:50 EDT ? [facility] ? Test Date: ?2021-07-27 Pat Name: ? GENARO SHIN ? Department: ?? [place] [facility] ? Room: ? [id number] Gender: ? Male ? 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 : ?1955 ? Requested By: NELI FALGUNI B Order Number: [id number] ? Reading MD: ?? CLAUDIO JONES MD ? Measurements Intervals ?Williams ? Rate: ? 51 ? P: ?27 CA: ? 154 ?QRS: ?-17 QRSD: ? 94 ? T: ?-25 QT: ? 423 ? QTc: ?391 ? Interpretive Statements SINUS BRADYCARDIA I reviewed the tracing and have either agreed or edited the findings in this report. Electronically Signed On 08-11-2021 10:50:35 EDT by CLAUDIO JONES MD. Procedure Note Claudio Jones MD - 08/11/[address] [facility] Test Date: 2021-07-27 Pat Name: GENARO SHIN Department: [place] [address] Room: [id number] Gender: Male Film Rental Clerk: : 1955 Requested By: NELI Duncan Order Number: [id number] Reading MD: CLAUDIO JONES MD Measurements Intervals Williams Rate: 51 P: 27 CA: 154 QRS: -17 QRSD: 94 T: -25 QT: 423 QTc: 391 Interpretive Statements SINUS BRADYCARDIA I reviewed the tracing and have either agreed or edited the findings inthis report. Electronically Signed On 08-11-2021 10:50:35 EDT by CLAUDIO ZIMMERMAN MD. Falguni Dennis MD CARDIAC ECG ORDERABLES Final Result [facility] EKG * LEFT HEART CATH, PERCUTANEOUS CORONARY INTERVENTION (07/27/2021 13:50 EDT) Anatomical Region Laterality Modality Operations Supervisor 2Nd Shift 07/27/2021 12:3 2 EDT Narrative 08/05/2021 13:25 EDT [address]iology [address] [place] [address] Catheterization Laboratory Study Patient: Genaro Shin M ?Study Date: ?07/27/2021 ?Accession #: ? [id number] : ? 1955 Referring: Bruce Vital Diagnostic Attending: ??Falguni Dennis Interventional Attending: ?? Falguni Dennis Diagnostic Fellow: Maxim Graves MD Interventional Fellow: Maxim Graves MD ATTESTATION: IDr. Maxim was the initial author of this report. Dr. Falguni Dennis was present and supervising for the entire procedure. I, Dr. Falguni Dennis have reviewed and agreed with the [...] 4. Right radial artery access. A 6FR/.021 [place] Sheath Slender sheath ?? was advanced into [...] + + + * Electronically signed by Falguni Dennis Jr., MD 2021-08-05 13:25 us Bruce Vital CARDIAC CATH ORDERABLES Final Re sult * (ABNORMAL) TROPONIN I (07/27/2021 11:08 EDT) Pathologist [facility] Troponin I (ng/mL) 0.715(H) <0.034 ng/mL 07/27/2021 12:18 EDT [facility] Blood VENOUS BLOOD / Unknown Venipuncture / Unknown 07/27/2021 11:08 EDT 07/27/2021 11:35 EDT Narrative [facility] - 07/27/2021 12:18 EDT The results of this assay can be falsely lowered due to the consumption of Biotin. us Cristina Gupta MD CHEMISTRY & BLOOD GAS ORDERABLES Final Result [facility] [address] [place] [address] * TRANSTHORACIC ECHO (TTE) COMPLETE W/DOPPLER W/CF NO CONTRAST (07/27/2021 8:37 EDT) Pathologist [facility] [place] Atrial Length A2C 6.7 cm [facility] [...] CARE LVOT peak velocity, S 1.0 m/s [facility] POINT OF CARE LVOT VTI, S 23.7 cm [facility] PO INT OF CARE Stroke volume (SV), LVOT DP 74 ml [facility] POINT OF CARE Mitral peak gradient, D 3 mmHg [facility] POINT OF CARE LVOT mean velocity, S 0.7 m/s [facility] POINT [facility] CARE Mitral E-wave peak velocity 0.9 m/s [facility] POINT [facility] CARE Mitral A-wave peak velocity 0.6 m/s [facility] LV Systolic Volume Index 14.0 mL/m2 [facility] LV Diastolic Volume Index 38.0 mL/m2 [facility] LA Atrial Length A4C 6.8 cm [facility] POINT OF CARE LVOT ID, S 2.0 cm [facility] POI NT OF CARE EF 63 % [facility] POIN T OF CARE LA volume, ES, BP 71.0 ml [facility] POINT OF CARE LA volume/bsa, ES, A4C 39.0 ml/m2 [facility] CARE LA volumes, ES, A4C 75.0 ml [facility] POINT OF CARE LA volume/bsa, ES, BP 37.0 ml/m2 [facility] LV Systolic Volume 27 mL [facility] POINT OF CARE LV Diastolic Volume 72 mL [facility] POINT OF CARE Stroke index (SV/bsa) LVOT DP 39.0 ml/m2 [facility] POINT OF CARE Interventricular Septum to Posterior Wall Thickness Ratio 1.1 [facility] P OINT OF CARE IVS thickness, ED, PLAX 1.0 cm [facility] LV e', medial 0.08 m/s [facility] LV e', average 0.11 m/s [facility] Pulmonic valve mean velocity, S 1 cm/s [facility] C[facility] Ascending aorta ID, a-p 3.6 cm [facility] LA Atrial Area A2C [...] color Doppler.The study was interpreted by [facility]. Pertinent images [...] 4.98 4.00 - 10.40 K/cmm 07/27/2021 6:56 [facility] RBC 5.13 4.36 - 5.78 M/cmm 07/27/2021 6:56 [facility] Hemoglobin 15.0 13.8 - 17.3 gm/dL 07/27/2021 6:56 [facility] HCT 44.8 39.5 - 50.2 % 07/27/2021 6:56 [facility] MCV 87 81 - 95 fl 07/27/2021 6:56 [facility] MCH 29.2 27.6 - 33.0 pg 07/27/2021 6:56 [facility] MCHC 33.5 32.8 - 36.4 gm/dL 07/27/2021 6:56 [facility] RDW-CV 13.1 <14.2 % 07/27/2021 6:56 [facility] RDW-SD 41.8 <46.0 fl 07/27/2021 6:56 [facility] PLT 189 141 - 377 K/cmm 07/27/2021 6:56 [facility] MPV 10.6 9.5 - 12.7 fl 07/27/2021 6:56 EDT [facility] Blood VENOUS BLOOD / Unknown Venipuncture / Unknown 07/27/2021 6:09 EDT 07/27/2021 6:49 EDT Cristina Gupta MD HEMATOLOGY & PF4 ORDE RABLES Final Result [facility] [address] [place] [address] * MAGNESIUM (07/27/2021 6:09 EDT) Pathologist [facility] Magnesium 1.9 1.7 - 2.8 mg/dL 07/27/2021 7:26 EDT [facility] Blood VENOUS BLOOD / Unknown Venipuncture / Unknown 07/27/2021 6:09 EDT 07/27/2021 6:54 EDT Cristina Gupta MD CHEMISTRY & BLOOD GAS ORDERABLES Final Result Performing Organization Address City/[facility] Co de Phone Number [facility] [address] [place] [address] * HEPARIN LEVEL - UNFRACTIONATED HEPARIN (07/27/2021 6:09 EDT) Heparin Level-UFH 0.35 Therapeutic Range: 0.30 - 0.70 IU/mL 07/27/2021 7:11 EDT [facility] Comment:Unfractionated hepar in therapeutic [...] Unknown 07/27/2021 6:09 EDT 07/27/2021 6:48 EDT us Winnie Moore DO HEMATOLOGY & PF4 ORDERABLES Final Result [facility] [address] [place] [address] * LIPID PROFILE (INCLUDES CHOLESTEROL, TRIGLYCERIDES, HDL, LDL) (07/27/2021 6:09 EDT) Cholesterol 198 See Note mg/dL 07/27/2021 7:26 [facility] Comment: Acceptable: ?<200 mg/dL Borderline High: 200-239 mg/dL High: ?> or = 240 mg/dL HDL 41 See Note mg/dL 07/27/2021 7:26 [facility] Comment: Low: ? <40 mg/dL Normal: ??40-60 mg/dL High: ?>60 mg/dL LDL, Calculated 123 See Note mg/dL 07/27/2021 7:26 [facility] Comment: Optimal: ? <100 mg/dL Near Optimal: ?100-129 mg/dL Borderline High: 130-159 mg/dL High: ?160-189 mg/dL Very High: ? > or = 190 mg/dL Triglyceride 169 See Note mg/dL 07/27/2021 7:26 [facility] Comment: Normal: ? <150 mg/dL Borderline High: ??150 - 199 mg/dL High: ? 200 - 499 mg/dL Very High: ?> or = 500 mg/dL Chol/HDL Ratio 4.8 See Note 07/27/2021 7:26 [facility] Comment:No reference range h as been established for CHOL/HDL ratio. Non HDL Cholesterol 157 See Note mg/dL 07/27/2021 7:26 [facility] Comment: Desirable: ?<130 mg/dL Borderline High: ??130-159 mg/dL High: ? 160-189 mg/dL Very High: ?> or = 190 mg/dL Blood VENOUS BLOOD / Unknown Venipuncture / Unknown 07/27/2021 6:09 EDT 07/27/2021 6:54 EDT Cristina Gupta MD CHEMISTRY & BLOOD GAS ORDERABLES Final Result [facility] [address] [place] [address] * (ABNORMAL) BASIC METABOLIC PANEL (BMP) (07/27/2021 6:09 EDT) Sodium 137 136 - 145 mmol/L 07/27/2021 7:26 [facility] Potassium 4.3 3.5 - 5.0 mEq/L 07/27/2021 7:26 [facility] Chloride 107 96 - 110 mEq/L 07/27/2021 7:26 [facility] CO2 Total 21(L) 22 - 32 mEq/L 07/27/2021 7:26 [facility] Glucose 106(H) 70 - 100 mg/dL 07/27/2021 7:26 [facility] Calcium 9.5 8.5 - 10.5 mg/dL 07/27/2021 7:26 [facility] Calculated Calcium 9.6 8.5 - 10.5 mg/dL 07/27/2021 7:26 [facility] BUN 16 10 - 26 mg/dL 07/27/2021 7:26 [facility] Creatinine 0.71 0.66 - 1.25 mg/dL 07/27/2021 7:26 [facility] eGFR 100 >60 mL/min/1.7 3m2 07/27/2021 7:26 [facility] Comment:eGFR calculated jack gordon CKD-EPI equation for non- Americans. Multiply eGFR by 1.16 for patients. Blood VENOUS BLOOD / Unknown Venipuncture / Unknown 07/27/2021 6:09 EDT 07/27/2021 6:54 EDT us Cristina Gupta MD CHEMISTRY & BLOOD GAS ORDERABLES Final Result Performing Organization Address [facility] de Phone Number [facility] [address] [place] [address] * (ABNORMAL) TROPONIN I (07/27/2021 3:26 EDT) [facility] Troponin I (ng/mL) 1.220(H) <0.034 ng/mL 07/27/2021 4:21 EDT [facility] Comment:Slight hemolysis tera ntified, interpret with caution as results may be affected due to hemolysis. Blood VENOUS BLOOD / Unknown Venipuncture / Unknown 07/27/2021 3:26 EDT 07/27/2021 3:38 EDT Narrative [facility] - 07/27/2021 4:21 EDT The results of this assay can be falsely lowered due to the consumption of Biotin. us Cristina Gupta MD CHEMISTRY & BLOOD GAS ORDERABLES Final Result Performing Organization Address [facility] de Phone Number [facility] [address] [place] [address] * HEPARIN LEVEL - UNFRACTIONATED HEPARIN (07/27/2021 0:20 EDT) [facility] Heparin Level-UFH 0.49 Therapeutic Range: 0.30 - 0.70 IU/mL 07/27/2021 0:54 EDT [facility] Comment:Unfractionated hepar in therapeutic [...] ORDERABLES F inal Result Performing Organization Address City/[facility]/ZIP Co de Phone Number [facility] [address] [place] [address] * COVID-19 TEST [facility] PCR (07/26/2021 18:42 EDT) Swab ENTIRE NASOPHARYNX / Unknown Swab / Unknown 07/26/2021 18:42 EDT 07/26/2021 18:44 EDT Eleazar Yo MD MICROBIOLOGY - GENERAL ORDERA BLES Final Result Performing Organization Address [facility]/ZIP Co de Phone Number [facility] [address] [place] [address] * (ABNORMAL) TROPONIN I (07/26/2021 18:42 EDT) Pathologist [facility] Troponin I (ng/mL) 1.160(H) <0.034 ng/mL 07/26/2021 19:19 EDT [facility] Blood VENOUS BLOOD / Unknown Venipuncture / Unknown 07/26/2021 18:42 EDT 07/26/2021 18:44 EDT Narrative [facility] - 07/26/2021 19:19 EDT The results of this assay can be falsely lowered due to the consumption of Biotin. Eleazar Yo MD CHEMISTRY & BLOOD GAS ORDERAB LES Final Result Performing Organization Address [facility]/ZIP Co de Phone Number [facility] [address] [place] [address] * COVID-19 TESTING (07/26/2021 18:42 EDT) Pathologist [facility] COVID-19 rt-PCR Result Negative Negative 07/26/2021 21:30 EDT [facility] Comment: This test has [...] history, and epidemiological information. Performed on the [employer] instrument Performing Lab [place] [facility] 07/26/2021 21:30 EDT [facility] Swab ENTIRE NASOPHARYNX / Unknown Swab / Unknown 07/26/2021 18:42 EDT 07/26/2021 18:44 EDT Eleazra Yo MD MICROBIOLOGY - GENERAL ORDERA BLES Final Result [facility] [address] [place] [address] * EKG 12-LEAD (07/26/2021 17:29 EDT) 07/26/2021 17:2 9 EDT Narrative [facility] EKG - 08/11/2021 10:31 EDT ?[facility] ? Test Date: ?2021-07-26 Pat Name: ? GENARO SHIN ? Department: ?? ED ? Room: ? AC16 Gender: ? Male ? 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 [id number] : ?1955 ? Requested By: OSCAR WHITNEY Order Number: [id number] ? Reading MD: ?? CLAUDIO JONES MD ? Measurements Intervals ?Williams ? Rate: ? 50 ? P: ?56 CA: ? 152 ?QRS: ?-10 QRSD: ? 88 ? T: ?11 QT: ? 429 ? QTc: ?394 ? Interpretive Statements SINUS BRADYCARDIA I reviewed the tracing and have either agreed or edited the findings in this report. Electronically Signed On 08-11-2021 10:31:09 EDT by CLAUDIO JONES MD. Procedure Note Claudio Jones MD - 08/11/[address] [facility] Test Date: 2021-07-26 Pat Name: GENARO SHIN Department: ED Room: [facility] Gender: Male Film Rental Clerk: [id number] : 1955 Requested By: OSCAR WHITNEY Order Number: [id number] Reading MD: CLAUDIO JONES MD Measurements Intervals Williams Rate: 50 P: 56 CA: 152 QRS: -10 QRSD: 88 T: 11 QT: 429 QTc: 394 Interpretive Statements SINUS BRADYCARDIA I reviewed the tracing and have either agreed or edited the findings inthis report. Electronically Signed On 08-11-2021 10:31:09 EDT by CLAUDIO ZIMMERMAN MD. Winnie Moore DO CARDIAC ECG ORDERABLES Final Result [facility] EKG * POCT ED CARDIAC (07/26/2021 [...] identified using the following views:: Parasternal Long Williams (PLAX), Parasternal Short Williams (PSAX), Subxiphoid, Apical 4-chamber ?Other views obtained: [...] additional study ordered ?Confirmatory study findings/comments:: marko reddy - found to have NSTEMI Signed by [...] were identifiedusing the following views:: Parasternal Long Williams (PLAX), ParasternalShort Williams (PSAX), Subxiphoid, Apical 4-chamber Other views obtained: [...] evaluation?:No additional study ordered Confirmatory study findings/comments:: trop bump - found to haveNSTEMI Signed by Maksim Moore EDR on 2021 [...] the above interpretation andagree with the findings. Winnie Moore DO [facility] DIAGNOSTIC IMAGING ORDER KARYN Final Result * (ABNORMAL) HEMOGLOBIN A1C (07/26/2021 15:30 EDT) Hemoglobin A1c 6.1(H) <5.7 % 07/27/2021 11:28 EDT [facility] Comment: Glycemic Status References: [...] Est Avg Glucose 128 mg/dL 11:28 EDT [facility] Comment:The eAG represents t he A1c result expressed as average glucose in mg/dL. Blood VENOUS BLOOD / Unknown Venipuncture / Unknown 07/26/2021 15:30 EDT 07/26/2021 15:32 EDT Cristina Gupta MD CHEMISTRY & BLOOD GAS ORDERABLES Final Result Performing Organization Address City/[facility]/ZIP Co de Phone Number [facility] [address] [place] [address] * D-DIMER (07/26/2021 15:30 EDT) Pathologist [facility] D-Dimer <200 <=230 ng/mL DDU 07/26/2021 17:49 EDT [facility] Blood VENOUS BLOOD / Unknown Venipuncture / Unknown 07/26/2021 15:30 EDT 07/26/2021 15:33 EDT Narrative [facility] - 07/26/2021 17:49 EDT Cutoff value for the exclusion of DVT and PE: 230 ng/mL D-dimer units. Any use of the age-adjusted cutoff value is a post-analytic modification of this FDA-approved test and is considered off-label use of the test result. [facility] laboratory does not have literature to support the validity of an age-adjusted cutoff for our specific assay. Winnie Moore DO HEMATOLOGY & PF4 ORDERABLES Final Result Performing Organization Address [facility]/ZIP Co de Phone Number [facility] [address] [place] [address] * PTT (07/26/2021 15:30 EDT) [facility] PTT 33 26 - 37 secs 07/26/2021 16:08 EDT [facility] Blood VENOUS BLOOD / Unknown Venipuncture / Unknown 07/26/2021 15:30 EDT 07/26/2021 15:33 EDT Winnie Moore DO HEMATOLOGY & PF4 ORDERABLES Final Result Performing Organization Address City/[facility]/ZIP Co de Phone Number [facility] [address] [place] [address] * (ABNORMAL) FIBRINOGEN (07/26/2021 15:30 EDT) [facility] Fibrinogen 399(H) 171 - 384 mg/dl 07/26/2021 16:06 EDT [facility] Blood VENOUS BLOOD / Unknown Venipuncture / Unknown 07/26/2021 15:30 EDT 07/26/2021 15:33 EDT Winnie Mejiaick DO HEMATOLOGY & PF4 ORDERABLES Final Result Performing Organization Address City/[facility]/ZIP Co de Phone Number [facility] [address] [place] [address] * PROTIME (07/26/2021 15:30 EDT) I.N.R. 0.9 0.9 - 1.1 Ratio 07/26/2021 16:08 EDT [facility] Pro Time 10.4 10.4 - 12.6 secs 07/26/2021 16:08 EDT [facility] Blood VENOUS BLOOD / Unknown Venipuncture / Unknown 07/26/2021 15:30 EDT 07/26/2021 15:33 EDT Narrative [facility] - 07/26/2021 16:08 EDT Moderate Intensity Coumadin INR = 2.0-3.0 Adjustments in anticoagulant therapy dose should be based on the INR and NOT on the Protime. Winnie Moore DO HEMATOLOGY & PF4 ORDERABLES Final Result Performing Organization Address City/[facility]/ZIP Co de Phone Number [facility] [address] [place] [address] * LIPASE (07/26/2021 15:30 EDT) Lipase 53 <251 U/L 07/26/2021 16:18 EDT [facility] Blood VENOUS BLOOD / Unknown Venipuncture / Unknown 07/26/2021 15:30 EDT 07/26/2021 15:32 EDT Winnie Moore DO CHEMISTRY & BLOOD GAS ORDERA BLES Final Result [facility] [address] [place] [address] * MAGNESIUM (07/26/2021 15:30 EDT) Magnesium 2.1 1.7 - 2.8 mg/dL 07/26/2021 16:18 EDT [facility] Blood VENOUS BLOOD / Unknown Venipuncture / Unknown 07/26/2021 15:30 EDT 07/26/2021 15:32 EDT Propellerick DO CHEMISTRY & BLOOD GAS ORDERA BLES Final Result Performing Organization Address City/[facility]/ZIP Co de Phone Number [facility] [address] [place] [address] * (ABNORMAL) TROPONIN I (07/26/2021 15:30 EDT) Pathologist [facility] Troponin I (ng/mL) 0.559(H) <0.034 ng/mL 07/26/2021 16:33 EDT [facility] Blood VENOUS BLOOD / Unknown Venipuncture / Unknown 07/26/2021 15:30 EDT 07/26/2021 15:32 EDT Narrative [facility] - 07/26/2021 16:33 EDT The results of this assay can be falsely lowered due to the consumption of Biotin. Propellerick DO CHEMISTRY & BLOOD GAS ORDERA BLES Final Result Performing Organization Address City/[facility]/ZIP Co de Phone Number [facility] [address] [place] [address] * BASIC METABOLIC PANEL (BMP) (07/26/2021 15:30 EDT) Sodium 140 136 - 145 mmol/L 07/26/2021 16:18 EDT [facility] Potassium 4.3 3.5 - 5.0 mEq/L 07/26/2021 16:18 EDT [facility] Chloride 105 96 - 110 mEq/L 07/26/2021 16:18 EDT [facility] CO2 Total 26 22 - 32 mEq/L 07/26/2021 16:18 [facility] Glucose 80 70 - 100 mg/dL 07/26/2021 16:18 [facility] Calcium 9.6 8.5 - 10.5 mg/dL 07/26/2021 16:18 [facility] Calculated Calcium 9.0 8.5 - 10.5 mg/dL 07/26/2021 16:18 [facility] BUN 16 10 - 26 mg/dL 07/26/2021 16:18 [facility] Creatinine 0.82 0.66 - 1.25 mg/dL 07/26/2021 16:18 [facility] eGFR 94 >60 mL/min/1.7 3m2 07/26/2021 16:18 [facility] Comment:eGFR calculated jack gordon CKD-EPI equation for non- Americans. Multiply eGFR by 1.16 for patients. Blood VENOUS BLOOD / Unknown Venipuncture / Unknown 07/26/2021 15:30 EDT 07/26/2021 15:32 EDT Winnie Moore DO CHEMISTRY & BLOOD GAS ORDERA BLES Final Result [facility] [address] [place] [address] * COMPLETE BLOOD COUNT AND DIFFERENTIAL (07/26/2021 15:30 EDT) WBC 5.85 4.00 - 10.40 K/cmm 07/26/2021 16:04 [facility] RBC 5.35 4.36 - 5.78 M/cmm 07/26/2021 16:04 [facility] Hemoglobin 16.1 13.8 - 17.3 gm/dL 07/26/2021 16:04 [facility] HCT 47.7 39.5 - 50.2 % 07/26/2021 16:04 [facility] MCV 89 81 - 95 fl 07/26/2021 16:04 [facility] MCH 30.1 27.6 - 33.0 pg 07/26/2021 16:04 [facility] MCHC 33.8 32.8 - 36.4 gm/dL 07/26/2021 16:04 [facility] RDW-CV 13.1 <14.2 % 07/26/2021 16:04 [facility] RDW-SD 42.5 <46.0 fl 07/26/2021 16:04 [facility] PLT 232 141 - 377 K/cmm 07/26/2021 16:04 [facility] MPV 10.5 9.5 - 12.7 fl 07/26/2021 16:04 [facility] % Neutrophils 47.4 % 07/26/2021 16:04 [facility] % Lymphocytes 35.6 % 07/26/2021 16:04 [facility] % Monocytes 11.1 % 07/26/2021 16:04 [facility] % Eosinophils 4.3 % 07/26/2021 16:04 [facility] % Basophils 0.9 % 07/26/2021 16:04 [facility] % Immature Grans 0.7 % 07/26/20 16:04 [facility] Absolute Neutrophils 2.78 2.20 - 8.85 K/cmm 07/26/2021 16:04 [facility] Absolute Lymphocytes 2.08 1.09 - 3.30 K/cmm 07/26/2021 16:04 [facility] Absolute Monocytes 0.65 0.10 - 0.80 K/cmm 07/26/2021 16:04 [facility] Absolute Eosinophils 0.25 0.03 - 0.61 K/cmm 07/26/2021 16:04 [facility] ABS Basophils 0.05 0.01 - 0.11 K/cmm 07/26/2021 16:04 [facility] Absolute Immature Grans 0.04 0.00 - 0.06 K/cmm 07/26/2021 16:04 EDT [facility] Type of Differential: Auto 07/26/2021 16:04 EDT [facility] Blood VENOUS BLOOD / Unknown Venipuncture / Unknown 07/26/2021 15:30 EDT 07/26/2021 15:32 EDT Winnie Moore DO PACKAGES & DNA PROBE ORDERAB LES Final Result [facility] [address] [place] [address] * HOLD LAVENDER TOP (07/26/2021 15:30 EDT) Hold Hold 07/26/2021 16:45 EDT [facility] Blood VENOUS BLOOD / Unknown Venipuncture / Unknown 07/26/2021 15:30 EDT 07/26/2021 15:32 EDT Eleazar Yo MD LAB INFO SERVICE AND SUPPORT & PHONE RESULT Final Result [facility] [address] [place] [address] * HOLD GREEN TOP (07/26/2021 15:30 EDT) Hold Hold 07/26/2021 16:45 EDT [facility] Blood VENOUS BLOOD / Unknown Venipuncture / Unknown 07/26/2021 15:30 EDT 07/26/2021 15:32 EDT Eleazar Yo MD LAB INFO SERVICE AND SUPPORT & PHONE RESULT Final Result [facility] [address] [place] [address] * HOLD BLUE TOP (07/26/2021 15:30 EDT) Hold Hold 07/26/2021 16:45 EDT [facility] Blood VENOUS BLOOD / Unknown Venipuncture / Unknown 07/26/2021 15:30 EDT 07/26/2021 15:33 EDT us Eleazar Yo MD LAB INFO SERVICE AND SUPPORT & PHONE RESULT Final Result [facility] [address] [place] [address] * EKG 12-LEAD (07/26/2021 15:07 EDT) 07/26/2021 15:0 7 EDT Narrative [facility] EKG - 08/11/2021 18:12 EDT ?[facility] ? Test Date: ?2021-07-26 Pat Name: ? GENARO SHIN ? Department: ?? ED ? Room: ? Gender: ? Male ? 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 [id number] : ?1955 ? Requested By: TORRES AVILES Order Number: [id number] ? Aristeo HOLLEY: ?? MARLA RICHARD MD ? Measurements Intervals ?Williams ? Rate: ? 56 ? P: ?39 CA: ? 154 ?QRS: ?-9 QRSD: ? 86 [...] Note Marla Richard MD - 08/11/[address] [facility] Test Date: 2021-07-26 Pat Name: GENARO SHIN Department: ED Room: Gender: Male Film Rental Clerk: [id number] : 1955 Requested By: TORRES AVILES Order Number: [id number] Reading MD: MARLA RICHARD MD Measurements Intervals Williams Rate: 56 P: 39 CA: 154 QRS: -9 QRSD: 86 T: 2 QT: 404 QTc: 390 Interpretive Statements SINUS BRADYCARDIA Automated Interpretation. Provider Interpretation to follow. Compared to ECG 06/23/2017 03:30:46 Sinus rhythm no longer present T-wave abnormality no longer present I reviewed the tracing and have either agreed or edited the findings inthis report. Electronically Signed On 08-11-2021 18:12:51 EDT by DEUCE HOLLEY. 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 Coronary atherosclerosis of douglas coronary artery Tobacco use disorder NSTEMI (non-ST elevated myocardial infarction) (HCC-CMS) Acute myocardial infarction, subendocardial infarction, episode of care unspecified 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 70.9 kg Adjusted weight), intravenous, NOW X1, 1 dose, On Tue07/26/21 at 1800, STAT Given 07/26/2021 18:09 EDT 5,000 Units heparin in 1/2 NS 25,000 unit/250 mL infusion 15 Units/kg/hr ? 70.9 kg Adjusted weight (10.635 mL/hr, rounded to 10.6 mL/hr), intravenous, CONTINUOUS, Starting on Tue07/26/21 at 1800, Until Tue07/27/21 at 1348, STAT Rate Documented 07/27/2021 7:45 EDT 15 Units/kg/hr 10.6 mL/hr Rate Documented 07/26/2021 20:41 EDT 15 Units/kg/hr 10.6 m L/hr New Bag 07/26/2021 18:09 EDT 15 Units/kg/hr 10.6 mL/hr lactated ringers BOLUS 1,000 mL 1,000 mL, intravenous, NOW X1, 1 dose, On Tue07/26/21 at 1600, STAT New Bag 07/26/2021 16:27 EDT 1,000 mL nicotine (NICODERM CQ) 21 mg/24 hr patch 1 Patch 1 Patch, transdermal, DAILY PRN, Starting on Tue07/28/21 at 0941, Until Tue07/28/21 at 1321, nicotine craving, Routine olmesartan (BENICAR) tablet 20 mg 20 mg, oral, DAILY, First dose on Tue07/27/21 at 0900, Until Discontinued, Routine Given 07/28/2021 8:44 EDT 20 mg Given 07/27/2021 9:08 EDT 20 mg ticagrelor (BRILINTA) tablet 90 mg 90 mg, oral, 2 TIMES DAILY, First dose on Tue07/27/21 at 2100, Until Discontinued, Routine Given 07/27/2021 20:08 EDT 90 mg documented in this encounter Discontinued Medications [...] on Tue07/27/21 at 0900, Until Discontinued, Routine 0909 (Given - Provider: Ewelina Denny RN)1232 (DEC Hold - Provider: Automatic Transfer Provider Hn - Reason: Patient off unit)1400 (DEC Unhold - Provider: Automatic Transfer Provider Hn) 0844 (Given - Provider: Carlos Devries RN) atorvastatin (LIPITOR) tablet 80 mg 80 mg, oral, DAILY, First dose on Tue07/26/21 at 1915, Until Discontinued, Routine 211 (Given - Provider: Rosario Molina RN) 0909 [...] 1800, STAT 1809 (Given - Provider: Zita Hull RN) lactated ringers BOLUS 1,000 mL (COMPLETED) 1,000 mL, intravenous, NOW X1, 1 dose, On Tue07/26/21 at 1600, STAT 1627 (New Bag - Provider: Zita Hull RN)1737 (IV Stopped - Provider: Ziat Hull RN) olmesartan (BENICAR) tablet 20 mg 20 mg, oral, DAILY, First dose on Tue07/27/21 at 0900, Until Discontinued, Routine 0908 (Given - Provider: Ewelina Denny RN)1232 (DEC Hold - Provider: Automatic Transfer Provider Hn - Reason: Patient off unit)1400 (DEC Unhold - Provider: Automatic Transfer Provider Hn) 0844 (Given - Provider: Carlos Devries, LIEN) ticagrelor (BRILINTA) tablet 90 mg (CANCELED) 90 mg, oral, 2 TIMES DAILY, First dose on Tue07/27/21 at 2100, Until Discontinued, Routine 2007 (Given - Provider: Rosario Molina RN) 0947 (Not Given - Provider: Carlos Devries RN - Reason: Discontinued) Continuous Medication Order 07/26/2021 07/27/2021 07/28/2021 heparin in 1/2 NS 25,000 unit/250 mL infusion (CANCELED) 15 Units/kg/hr ? 70.9 kg Adjusted weight (10.635 mL/hr, rounded to 10.6 mL/hr), intravenous, CONTINUOUS, Starting on Tue07/26/21 at 1800, Until Tue07/27/21 at 1348, STAT 1809 (New Bag - Provider: Ziat Hull RN)2041 (Rate Documented - Provider: Brandi Daniels RN) 0745 (Rate Documented - Provider: Ewelina [...] RN)1320 (Given - Provider: Mark Vickers RN) fentaNYL citrate (PF) injection (CANCELED) PRN, Starting on Tue07/27/21 at 1333, Until Tue07/27/21 at 1354, Routine, Intraprocedure 1333 (Given - Provider: Mark Vickers RN) heparin 1,000 unit/mL injection (CANCELED) PRN, Starting on Tue07/27/21 at 1322, Until Tue07/27/21 at 1348, Routine, Intraprocedure 1322 (Given - Provider: Mark Vickers RN) iopamidoL (ISOVUE-370) injection (CANCELED) PRN, Starting on Tue07/27/21 at 1349, Until Tue07/27/21 at 1350, Routine, Intraprocedure 1349 (Given - Provider: Falguni Dennis Jr., MD) lidocaine (PF) 10 mg/mL [...] Intraprocedure 1248 (New Bag - Provider: Lenard Webb, LIEN) ticagrelor (BRILINTA) tablet (CANCELED) PRN, Starting on Tue07/27/21 at 1342, Until Tue07/27/21 at 1348, Routine, Intraprocedure 1342 (Given - Provider: Mark Vickers RN) documented in this encounter Orders Medications Ordered That Seth ht Not Have Been Administered Count Last Ordered Date First Ordered Date nicotine (NICODERM CQ) 21 mg /24 hr patch 1 Patch 1 07/28/2021 acetaminophen (TYLENOL) tablet 650 mg 1 08/2021 fentaNYL citrate (PF) 50 mcg/mL injection 2 07/27/2021 fentaNYL citrate (PF) injection 2 1 heparin 1,000 unit/mL injection 2 1 iopamidoL (ISOVUE-370) injection 1 07/27/20 21 lidocaine 20 mg/mL (2 %) injection 1 2020 midazolam (PF) (VERSED) 1 mg/mL injection 2 07/27/2021 midazolam (PF) (VERSED) injection 2 021 nitroglycerin 100 mcg/mL syringe 1 07/27/20 sodium chloride 0.9 % (NS) infusion 1 07/27 ticagrelor (BRILINTA) 90 mg tablet 2 2020 ticagrelor (BRILINTA) tablet 1 07/27/2021 verapamil (ISOPTIN) 2.5 mg/mL injection 1 1 heparin 1,000 unit/mL inject ion 2,500 Units 1 07/26/2021 heparin 1,000 unit/mL inject ion 5,000 Units 1 07/26/2021 lidocaine (PF) 10 mg/mL (1 % ) injection 2 mg 1 07/26/2021 ondansetron (PF) (ZOFRAN) injection 4 mg 1 [...] Date First Orde red Date CASE REQUEST ANESTHESIOLOGIST ASSISTANT CERTIFIED 1 07/26/2021 documented in this encounter Care Teams Hadoop Consultant Relationship Specialty Start Date End Date Nataliia Montez MD [address] [address] PCP - General 08/29/18 documented as of this encounter
--- OUTSIDE RECORDS SUMMARY | 2024-10-12 08:16 | XMS_ITS | Encounter Summary ---
Author Organization [facility] Address [address] [place] [address] Care Team Providers Care Cross Tie Tram Loader Name Role Phone Nataliia Montez MD Primary Care Provide r Encounter Details Date Type Department Care Team (Late st Contact Info) Description 04/16/2021 Lab Requisition [facility] Pathology & Laboratory Medicine - [address] [address] Outr Resulting Lab, Provider Social History Tobacco [...] 11/02/2018 8:22 EST documented in this encounter Plan of Treatment Not on file documented as of this encounter Procedures Procedure Name Priority Date/Time Associated Diagnosis Comments PSA TOTAL, DIAGNOSTIC Routine 04/16/2021 8:56 EDT documented in this encounter Results * PSA TOTAL, DIAGNOSTIC (04/16/2021 8:56 EDT) PSA 0.9 0.0 - 4.5 ng/mL 04/16/2021 21:47 EDT [facility] Blood VENOUS BLOOD / Unknown 04/16/2021 8:56 EDT 04/16/2021 20:53 EDT Narrative [facility] - 04/16/2021 21:47 EDT NOTE: Serum PSA concentration should not be interpreted as absolute evidence for the presence or absence of malignant disease. Assayed on Siemens ADVIA Closetboxaur XPT using chemiluminescent technology.??Values obtained by using different assay methods cannot be used interchangeably. us Provider Outr Resulting Lab CHEMISTRY & BLOOD GA S ORDERABLES Final Result [facility] [address] [place] [address] documented in this encounter Visit Diagnoses Not on filedocumented in this encounter Care Teams Cross Tie Tram Loader Relationship Specialty Start Date End Date Nataliia Montez MD [address] [place] [address] [address] [place] [address] PCP - General 08/29/18 documented as of this encounter
--- OUTSIDE RECORDS SUMMARY | 2024-10-12 08:16 | XMS_ITS | Encounter Summary ---
Author Organization [facility] Address [address] [place] [address] Care Team Providers Care Warehouse Forklift Operator Name Role Phone Nataliia Montez MD Primary Care Provide r Reason for Referral * Referral (3 - 10 Business Days) - Closed Specialty Diagnoses / Procedures Referred By Contac t Referred To Contact Colon and Rectal Surgery / General Surgery Diagnoses Condyloma acuminata Alex Lopez PA-C Phone: tel: fax: [facility] General Surgery - [address] [address] Phone: tel: fax: Referral ID Status Reason Start Date Expiration Date V isits Requested Visits Authorized [id number] Closed Specialty Services Required 06/10/2021 1 1 Question Answer Reason for Request: Patient with new onset, extensive, biopsy-proven condyloma involving external anus. Scheduling Comments (optional ? describe specific scheduling needs if applicable): Within next month/JOSE Reason for Visit * Reason Comments Follow-up Patient reports spot s of concern on buttocks and groin * Consult (Routine) - Closed Specialty Diagnoses / Procedures Referred By Contac t Referred To Contact Dermatology Diagnoses Verruca vulgaris Skin lesions Anal warts Nataliia Montez MD [address] [place] [address] [place] [address] Phone: tel: fax: [facility] Dermatology [address] [address] Phone: tel: fax: Referral ID Status Reason Start Date Expiration Date Visits Re quested Visits Authorized [id number] Closed 1 1 Encounter Details Date Type Department Care Team (Late st Contact Info) Description 06/10/2021 15:10 EDT Office Visit [facility] Dermatology [address] [phone] Alex Lopez PA-C [address] [facility], [address] [place] [address] Neoplasm of uncertain behavior of skin (Primary Dx); Condyloma acuminata; Inflamed seborrheic keratosis Social History Tobacco Use Types Packs/Day Years [...] 11/02/2018 8:22 EST documented in this encounter Patient Instructions * Patient Instructions* Alex Lopez PA-C - 06/10/2021 15:10 EDT DERMATOLOGY WOUND CARE INSTRUCTIONS FOR CRYOSURGERY [...] chills Please call our office or . WOUND CARE INSTRUCTIONS FOR SKIN BIOPSIES DRESSING/BANDAID: This should remain in place for 24 hours. You may shower or bathe after 24 hours.After the shower, remove the bandage, pat dry, and replace it with Vaseline/petroleum jelly and non-stick bandaging. DISCOMFORT: Tylenol (acetaminophen) or ibuprofen may be used for discomfort. Generally the pain should be mild. Take according to container washer directions. BLEEDING: You may notice some blood on the edges of the dressing the first day and this is NORMAL. If the bleeding soaks through the dressing, hold solid pressure on the area with a wet wash cloth for 15 minutes. If the bleeding stops, put a new dressing on the site. If not, call our office at . ACTIVITY: You may resume normal activity in 1 day unless instructed otherwise. WOUND CARE: ?? Wash hands with soap and water before changing the dressing. ?? Change the dressing daily and when it becomes wet/dirty. Clean the wound daily with mild soap and water. You may gently loosen any crusts with a cotton swab. The wound may be slightly tender and may bleed a small amount. A small amount of discharge is normal. Apply a thin layer of sterile petroleum jelly/vaseline over the wound. Cover the wound with a non-stick dressing or bandage. It is important to keep the wound covered for 1 week. We do not recommend antibiotic ointment as many people will develop an allergic reaction. SUTURE REMOVAL: Please return to our clinic at your scheduled appointment for suture removal. You may also have your local doctors remove them at the scheduled time. CONTACT THE OFFICE IF YOU EXPERIENCE: ?? increased redness ?? warmth to touch ?? increased pain ?? drainage with a foul odor ?? rapid swelling of the wound ?? fever or chills It was a pleasure taking care of you today. Please call our office or if you have any concerns or questions. documented in this encounter Progress Notes * Holly Jacobo MA - 06/10/2021 1510 EDT Review of Systems Constitutional: Negative for fatigue, fever and unexpected weight change. HENT: Negative for mouth sores. Eyes: Negative for pain. Respiratory: Negative for cough and shortness of breath. Cardiovascular: Negative for chest pain and palpitations. Gastrointestinal: Negative for abdominal pain, blood in stool, constipation, diarrhea, nausea and vomiting. Genitourinary: Negative for dysuria, frequency and hematuria. Musculoskeletal: Negative for myalgias, joint swelling, arthralgias and muscle stiffness in the morning. Skin: Negative for rash. Neurological: Negative for numbness and headaches. Endo/Heme/Allergies: Does not bruise/bleed easily. Psychiatric/Behavioral: Negative for sleep disturbance. The patient is not nervous/anxious. HOLLY JACOBO MA 06/10/2021 15:10 * Alex Lopez PA-C - 06/10/2021 1510 EDT Chief Complaint Patient presents with ??? Follow-up Patient reports spots of concern on buttocks and groin Subjective: Presents today for further evaluation and treatment of skin lesions. Characterized by: A.) More Seborrheic keratoses, pubic area and left groin crease. Similar lesions were biopsied by me in 2019, showing Seborrheic keratosis. B.) New concern: Perianal warts. Recently biopsy-proven. Has always been heterosexual, denies receptive anal intercourse. These lesions seem to be new over past 1-2 years, were not noted on colonoscopy in 2019. Objective: Complete Cutaneous Exam On physical examination, in general, Mr. Jimenez is a male who is well- groomed, well-nourished and appears stated age and is is in no apparent distress. He is alert and oriented to person, place and time. He has Mendieta type III skin. Complete cutaneous examination of the head, including thescalp and face, neck, back, chest, including breasts and axillae, abdomen, groin, buttocks, intertriginous areas, and all four extremities were examined. The examination was normal with the addition of the following comments: Lesion A: Location: Left posterior neck x 1; left pubic area x 1; left medial thigh x 2; right groin crease x1 Lesion Color: brown Lesion Type: papules Lesion Description: Warty, stuck-on appearing lesions with velvety surface texture, morphologicallysimilar with respect to one another. Lesion B: Location: External anus Lesion Color: flesh-colored, pink Lesion Type: papules Lesion Description: discrete and confluent, too numerous to count, monomorphic/verrucous lesions ranging 1-2 mm diameter. Laboratory: Surgical Pathology (Final result) [id number] Authorizing Provider: Emilio Michael MD Ordering Provider: Emilio Michael MD Ordering Location: [facility] Pathology & Laboratory Medicine - [facility] Collected: 04/16/2021 1230 Pathologist: Shikha Conley MD Received: 04/17/2021 1806 . Final Diagnosis Attention patients The following pathology results have been interpreted by your pathologist and may be available toyou before your health provider has had the opportunity to review them. Please allow time for your provider to receive these results and explore management options, if applicable. A. SKIN OF PERIANAL REGION, SHAVE BIOPSY: - Condyloma acuminatum. See comment. Diagnosis Comment Customs And Immigration Officer slides of this case were reviewed at the intradepartmental consultation conference. . A/P: 1.) Inflamed seborrheic keratoses, pubic area/thigh/groin/neck. PLAN: Clinical impression was reviewed with patient. Largest lesion biopsied today for histopath confirmation, remainder treated via cryotherapy. The patient name, date of , surgical site, and procedure were verified prior to the procedure.Alex Lopez PA-C 16:04 06/10/2021. SHAVE BIOPSY PATIENT INFORMATION: Carlos Jimenez : MRN: [id number] SURGEON: Alex Lopez PA-C The indication, risks, benefits and alternatives to this procedure were discussed in detail with the patient and all questions were answered. Informed consent was obtained in writing. PROCEDURE NOTE Specimen A Procedure: Tangential Shave Indication: Diagnostic Biopsy Site: left pubic area Anesthesia: 1% lidocaine with epinephrine 1:100,000 local infiltration Prep: Povodine Iodine The lesion was prepped as above and locally anesthetized. The specimen was removed by tangential shave using a Dermablade??. Hemostasis was achieved with pressure and/or aluminum chloride. The wound was cleansed with alcohol and a sterile dressing was applied over Petrolatum ointment. Verbal and written wound care instructions were given.The specimen was submitted to pathology for histological evaluation. CRYOSURGERY PROCEDURE NOTE PATIENT INFORMATION: Carlos Jimenez [id number] 1955 DATE OF PROCEDURE: 06/10/2021 SURGEON: Alex Lopez PA-C AIR TUBE RELEASER: INDICATIONS: SITE/LESION TYPE/DIAGNOSIS: Lesion(s) A: Location: Left posterior neck x 1; left pubic area x 1; left medial thigh x 2; right groin crease x1 Lesion Type/Diagnosis: 4 irritated seborrheic keratosis(es) Liquid nitrogen cryosurgery was applied to a total of 4 lesion(s) on the above stated locations. The expected reaction and healing course were discussed, as well as the possibility of incomplete resolution and/or permanent dyspigmentation. The indication, risks, benefits and alternatives to this pro cedure were discussed in detail with the patient and all questions were answered. Verbal wound care instructions were given. COMPLICATIONS: none NOTE: Two freeze/thaw cycles were applied to all today. Alex Lopez PA-C 06/10/2021 16:04 2.) Viral warts, external anus. PLAN: Clinical impression was reviewed with patient. Recommend immediate referral to colorectal surgery for consultation in consideration of anoscopy to check for further involvement, and for consideration of treatment under conscious sedation/etc. Referral was placed by me today. Follow up here as needed, pending results of today's skin biopsy and/or other diagnostic procedures. Alex HARRIS PA-C [facility] Division of Dermatology Clinical Instructor - [facility] 06/10/2021 documented in this encounter Miscellaneous Notes * Result Encounter Note - Alex Lopez PA-C - 06/10/2021 1510 EDT Results reviewed - showed benign Seborrheic keratosis, left pubic area - no further treatment indicated at this time. SELVIN please call patient to inform - can explain that biopsy showed benign keratosis, biopsy was negative for any kind of warts. He is all set, no further treatment needed there. Alex Lopez PA-C 06/12/2021 15:21 * Result Encounter Note - Devonte Bingham MA - 06/10/2021 1510 EDT Spoke with patient to relay biopsy results patient verbalized understanding and had no further questions at this time. DEVONTE BINGHAM MA 06/15/2021 16:30 documented in this encounter Plan of Treatment Scheduled Referrals Name Type Priority Associated Diagnoses Orde r Schedule AMB CONS/FOLLOW UP GENERAL SURGERY/COLORECTAL SURGERY Outpatient Referral Routine Condyloma acuminata Ordered: 06/10/2021 documented as of this encounter Procedures Procedure Name Priority Date/Time Associated Diagnosis Comments SURGICAL PATHOLOGY Routine 06/10/2021 15 :38 EDT Neoplasm of uncertain behavior of skin documented in this encounter Results * SURGICAL PATHOLOGY (06/10/2021 15:38 EDT) Note to Patient The following pathology results have been interpreted by your pathologist and may be available to you before your health provider has had the opportunity to review them. Please allow time for your provider to receive these results and explore management options, if applicable. 06/12/2021 10:39 [facility] Final Diagnosis A. SKIN OF PUBIC REGION, LEFT, SHAVE BIOPSIES: - Seborrheic keratosis, pigmented. See comment. 06/12/2021 10:39 [facility] Diagnosis Comment The findings are those of a seborrheic keratosis. Definitive viral cytopathic changes are not identified. 06/12/2021 10:39 [facility] Attestation By the signature below, the attending physician certifies that they have 1) personally conducted a gross and/or microscopic examination of the described specimen(s), and/or personally interpreted the results of laboratory testing of the described specimen(s), and 2) personally rendered or confirmed the above diagnosis. 06/12/2021 10:39 [facility] at 1039 Clinical History Probable ISK; DDx: Condyloma (less likely); clinical diagnosis code: D48.5 06/12/2021 10:39 [facility] Gross Description A. Received in formalin labelled with proper patient identification (initials M, S) and left pubic area are 2 polypoid fragments of schmid-nelson tissue (0.7 x 0.7 x 0.3 cm and 1.0 x 0.8 x 0.3 cm). The margins are inked. The specimens are bisected and entirely submitted in A1 (smaller tissue) and A2 (larger tissue). NIKKI TUBBS(ASCP) 06/11/2021 7:28 06/12/2021 10:39 [facility] Performing Lab [facility] 06/12/2021 10:39 [facility] Scanned Images 06/12/2021 10:39 [facility] Tissue TISSUE SPECIMEN FROM SKIN / Unknown Collection, Other / Unknown 06/10/2021 15:38 EDT 06/10/2021 21:38 EDT us Alex Lopez PA-C PATHOLOGY ORDERABLES Fin al Result [facility] [address] [place] [address] documented in this encounter Visit Diagnoses Diagnosis Neoplasm of uncertain behavior of skin- Primary Condyloma acuminata Condyloma acuminatum Inflamed seborrheic keratosis documented in this encounter Care Teams Warehouse Forklift Operator Relationship Specialty Start Date End Date Nataliia Montez MD [address] [place] [id number] PCP - General 08/29/18 documented as of this encounter
--- OUTSIDE RECORDS SUMMARY | 2024-10-12 08:16 | XMS_ITS | Encounter Summary ---
Author Organization [facility] Address [address] [place] [address] Care Team Providers Care Surgical Services Manager Name Role Phone Nataliia Montez MD Primary Care Provide r Reason for Visit * Reason Comments Epidermal Cyst Back Encounter Details Date Type Department Care Team (Late st Contact Info) Description 12/14/2018 9:00 EST Office Visit [facility] Dermatology 5th [address] [address] Nusrat Lopez, PA-C [address] [place] [address], [address] [place] [address] Epidermal inclusion cyst (Primary Dx) Discharge Disposition: Auto Discharge Social History Tobacco Use Types Packs/Day Years [...] 11/02/2018 8:22 EST documented in this encounter Discharge Diagnoses Diagnosis L72.0 Epidermal cyst-L72.0[ICD-10-CM] documented in this encounter Patient Instructions * Patient Instructions* Nusrat Lopez PA-C - 12/14/2018 9:00 EST [facility] DERMATOLOGIC AND [facility] SURGERY UNIT EXCISIONAL WOUND CARE INSTRUCTIONS The DRESSING/BANDAID should remain in place for 24 hours. You may shower or bathe after 24 hours; remove the bandage and replace it after the shower. DISCOMFORT: Expect some discomfort. Extra-Strength Tylenol, taken as directed by the keyboard operator, will help relieve pain. If the pain is severe please call the office. BLEEDING: You may notice some blood on the edges of the dressing the first day - this is NORMAL. Ifthe bleeding soaks through the dressing, remove the dressing, and apply firm, steady pressure with a moist clean wash cloth for fifteen minutes. If the bleeding stops, redress the wound, if not, callour office at . ACTIVITY: Relax and limit your physical activity for the first 48 hours after surgery. Also, if thesurgery was on the face or scalp, keep your head elevated. Your provider may ask you to limit activity for a longer period of time. APPEARANCE: There may be swelling and bruising around the wound, especially near the eyes. Some redness is normal, but the wound should not be red, hot and tender. If the wound becomes increasingly inflamed, warm, or drains pus, please call our office. WOUND CARE: ?? Wash hands with soap and water before changing the dressing. ?? Change the dressing daily and when it becomes wet. Clean the wound daily with mild soap and water. You may gently loosen any crusts with a cotton swab. The wound may be slightly tender and may bleed a small amount. A small amount of discharge is normal. Apply a thin layer of sterile petroleum jelly over the wound. Cover the wound with a Telfa (non-stick) dressing or bandage. It is important to keep the wound covered. If your sutures require removal, you will receive specific instructions regarding when and where tohave them removed. CONTACT THE OFFICE IF YOU EXPERIENCE: ?? increased redness ?? warmth to touch ?? increased pain ?? drainage with a foul odor ?? rapid swelling of the wound ?? fever or chills Please call our office or . documented in this encounter Discharge Disposition Disposition Code Departure Means Destination Auto Discharge documented in this encounter Progress Notes * Rebecca Elmore - 12/14/2018 09 EST Patient Education Topic: wound care Method: Demonstration, Handout and Verbal Taught to: Patient Barriers: None Outcomes: independent and verbalized understanding Signature: Rebecca Elmore * Nusrat Lopez PA-C - 12/14/2018 09 EST Images from the original note were not included. Chief Complaint Patient presents with ??? Epidermal Cyst Back LINEAR EXCISION AND LAYERED CLOSURE PATIENT INFORMATION: Genaro Jimenez : MRN: [id number] PROCEDURE DATE: 12/14/2018 SURGEON: Nusrat Lopez PA-C SHIP SCRAPER: Rebecca Elmore MA LOCATION: central and superior back PREOPERATIVE DIAGNOSIS: Scarred/previously ruptured Epidermal inclusion cyst LESION SIZE: 2.8 x 2.6 cm MARGIN PER SIDE: 0 cm TOTAL EXCISION DIAMETER: 2.8 x 2.6 cm INDICATIONS: The indication, risks, benefits and alternatives to this procedure were discussed in detail with the patient and all questions were answered. The patient had no contraindications to surgery with local anesthesia. Informed consent was obtained in writing. PROCEDURE: Patient position: prone Anesthesia: 1% lidocaine with epinephrine 1:100,000 local infiltration Prep: Povodine Iodine The patient was brought to the operative suite. The lesion was identified, prepped and draped in the usual sterile fashion. Following complete anesthesia, the skin was incised in a fusiform fashion to the level of the superficial fascia with a number 15 surgical blade. The wound was undermined as needed with care to avoid functionally important nerves and vessels. Hemostasis was achieved with spot electrocoagulation. The wound edges were approximated with 3.0 PDS (polydioxanone) buried interrupted sutures at the level of the fascia and subcutis. The epidermis was approximated with 5.0 Fast absorbing plain gut. The final wound length was 3.2 centimeters. The wound edges were cleansed and a st erile dressing was applied. Verbal and written wound care instructions were given. The patient tolerated the procedure well and left the operating suite in excellent condition. NOTE: Significant scarring changes/fibrosis were present in all areas immediately surrounding cyst,consistent with patient history of prior rupture/drainage. The surgical specimen was submitted to pathology for histologic evaluation. POSTOPERATIVE DIAGNOSIS: Scarred/previously ruptured Epidermal inclusion cyst FINAL PROCEDURE: Excision and Linear Repair BLOOD LOSS: minimal OPERATIVE TIME: 45 minutes COMPLICATIONS: None A combined pressure/tegaderm dressing was applied today. Patient instructed to call/come here for further wound care should the area under the dressing get wet within the next 7 days. Follow up here as needed. Nusrat HARRIS PA-C [facility] Division of Dermatology Clinical Instructor - [facility] 12/14/2018 * Carmencita Bernard MD - 12/14/2018 0900 EST I was the supervising physician and was present in the clinic during this visit. Note reviewed, patient was not seen by me. Carmencita Bernard MD documented in this encounter Plan of Treatment Scheduled Orders Name Type Priority Associated Diagnoses Orde r Schedule SURGICAL PATHOLOGY- ORDER ONLY Pathology Routine Epidermal inclusion cyst Ordered: 12/14/2018 documented as of this encounter Procedures Procedure Name Priority Date/Time Associated Diagnosis Comments SURGICAL PATHOLOGY Routine 12/14/2018 10 :29 EST documented in this encounter Results * SURGICAL PATHOLOGY (12/14/2018 10:29 EST) Pathology Report: SURGICAL PATHOLOGY REPORT Reports generated via electronic interface contain original data; however they are lacking the format of the original report. Caution should be taken when reading/interpret ing unformatted reports. Name: ? GENARO JIMENEZ ? Accession #: ? [id number] ? : ? 1955 (Age: 63) ??M ? Collect Date: ? 12/14/2018 ? Location: ? DERM ? Receive Date: ? 12/14/2018 ? Provider: NUSRAT LOPEZ PA-C Copy to: ? Final Pathologic Diagnosis: SKIN OF BACK, CENTRAL UPPER, EXCISION: - Follicular cyst, infundibular type. Microscopic Description: There is a dermal cyst that is lined by stratified squamous epithelium that matures through a granular layer. ??The cyst is filled with laminated orthokeratin. ??(Dr. Rogel)/jds Document reviewed and electronically signed by: CLAUDETTE ROGEL MD Report ??Date: 12/18/2018 11:10 By the signature above, the attending physician certifies that he/she has personally conducted a gross and/or microscopic examination of the described specimens and rendered or confirmed the above diagnosis. Specimen(s) Received: Central upper back Clinical History: Probable scarred EIC; clinical diagnosis code: L72.0 Gross Description: ? Received in formalin labelled with proper patient identification (initials M, S) and central upper back is a 2.7 x 2.3 x 1.5 cm ovoid, focally disrupted fragment of pink-white tissue. There is a 2.4 x 0.6 cm unoriented pink-schmid skin ellipse located along one side of the specimen. The margin is inked blue. Sectioning reveals a 2.0 x 1.5 x 0.9 cm smooth-walled cyst filled with grumous pink-white material located immediately subjacent to the skin surface. The remaining cut surfaces are schmid-white. Two guest service representative sections are submitted in 1-2. NIKKI Lee (ASCP) 12/14/2018 12:35 PM End of Report [facility] 12/14/2018 10:2 9 EST 12/14/2018 10:29 EST us Nusrat Lopez PA-C PATHOLOGY ORDERABLES Fin al Result [facility] [address] [place] [address] documented in this encounter Visit Diagnoses Diagnosis Epidermal inclusion cyst- Primary Sebaceous cyst documented in this encounter Care Teams Surgical Services Manager Relationship Specialty Start Date End Date Nataliia Montez MD [address] [place] [id number] PCP - General 08/29/18 documented as of this encounter
--- OUTSIDE RECORDS SUMMARY | 2024-10-12 08:16 | XMS_ITS | Encounter Summary ---
Author Organization [facility] Address [address] [place] [address] Care Team Providers Care Information Systems Security Developer Name Role Phone Tra Montez MD Primary Care Provide r Reason for Visit * Reason Comments New Patient Visit Skin Exam FBSE. Patient report s several spots of concerns * Consult (Routine) - Closed Specialty Diagnoses / Procedures Referred By Contebonie t Referred To Contact Dermatology Diagnoses Skin lesions Tra Montez MD [address] [place] [address] [address] [place] [address] Phone: tel: fax: [facility] Dermatology [address] [address] Phone: tel: fax: Referral ID Status Reason Start Date Expiration Date Visits Re quested Visits Authorized [id number] Closed 1 1 Encounter Details Date Type Department Care Team (Late st Contact Info) Description 11/02/2018 8:30 EST Office Visit [facility] Dermatology [address] [id number] Nusrat Lopez PA-C [address] [facility], [facility] [address] [place] [id number] Neoplasm of uncertain behavior of skin (Primary Dx); Inflamed seborrheic keratosis; Seborrheic dermatitis Discharge Disposition: Auto Discharge Social History Tobacco [...] documented in this encounter Discharge Diagnoses Diagnosis L82.0 Inflamed seborrheic keratosis-L82.0[ICD-10-CM] L21.9 Seborrheic dermatitis, unspecified-L21.9[ICD-10-CM] D48.5 Neoplasm of uncertain behavior of skin-D48.5[ICD-10-CM] documented in this encounter Patient Instructions * Patient Instructions* Nusrat Lopez PA - 11/02/2018 8:30 EST WOUND CARE INSTRUCTIONS FOR SKIN BIOPSIES DRESSING/BANDAID: This should remain in place for 24 hours. You may shower or bathe after 24 hours.After the shower, remove the bandage, pat dry, and replace it with Vaseline/petroleum jelly and non-stick bandaging. DISCOMFORT: Tylenol (acetaminophen) or ibuprofen may be used for discomfort. Generally the pain should be mild. Take according to flame hardener directions. BLEEDING: You may notice some blood [...] concerns or questions. documented in this encounter Ordered Prescriptions Prescription Sig Dispense Quantity Refills Last Filled Start Date End Date ketoconazole (NIZORAL) 2 % cream Sig apply thin layer to rash areas on face, BID 15 g 5 11/02/2018 07/26/2021 documented in this encounter Discharge Disposition Disposition Code Departure Means Destination Auto Discharge documented in this encounter Progress Notes * Mayra Guzman - 11/02/2018 0830 EST Review of Systems Constitutional: Negative for fatigue, fever and unexpected weight change. HENT: Negative for mouth sores. Eyes: Negative for pain. Respiratory: Negative for cough and shortness of breath. Cardiovascular: Negative for chest pain and palpitations. Gastrointestinal: Negative for abdominal pain, blood in stool, constipation, diarrhea, nausea and vomiting. Genitourinary: Negative for dysuria, frequency and hematuria. Musculoskeletal: Positive for joint swelling, arthralgias and muscle stiffness in the morning. Negative for myalgias. Skin: Negative for rash. Neurological: Negative for numbness and headaches. Endo/Heme/Allergies: Does not bruise/bleed easily. Psychiatric/Behavioral: Negative for sleep disturbance. The patient is not nervous/anxious. Mayra Guzman 11/02/2018 8:24 Reviewed NIKKI Mckeon 11/02/2018 * Nusrat Lopez PA - 11/02/2018 0830 EST Chief Complaint Patient presents with ??? New Patient Visit ??? Skin Exam FBSE. Patient reports several spots of concerns Subjective: Presents today for further evaluation and treatment of multiple concerns: A.) Brown spot, nasal bridge, no changes noted but wants to have checked again. (I had diagnosed asSeborrheic keratosis/Lentigo senilis collision lesion in 2012.) History of lesion(s) negative for spontaneous bleeding, itching or pain. B.) irritated, pink mole on left mid flank area. C.) Irritated/bothersome moles on right groin crease, and left pubic area. Both are itchy. History of lesion(s) negative for spontaneous bleeding, or pain. For a complete past medical history, current medications, medication allergies, review of systems, family history and social history, please see the Dermatology intake sheet in chart. There is no problem list on file for this patient. Past Medical History: Diagnosis Date ??? Anomaly, cardiac ??? Environmental allergies ??? Hypertension ??? Pericardial effusion Objective: Complete Cutaneous Exam On physical examination, in general, Mr. Jimenez is a male who is well- groomed, well-nourished and appears stated age and is is in no apparent distress. He is alert and oriented to person, place and time. He has Mendieta type II skin. Complete cutaneous examination of the head, including the scalp and face, neck, back, chest, including breasts and axillae, abdomen, groin, buttocks, intertriginous areas, and all four extremities were examined. The examination was normal with the addition of the following comments: Lesion A: Location: Nasal bridge Lesion Color: brown Lesion Type: papule, patch Lesion Description: Shows an approximately 1 cm schmid patch with a centrally- located, warty, stuck-onappearing papule of approximately 2 mm diameter. No features consistent with melanocytic lesion areseen on dermoscopy, and essentially no clinical changes noted in reference to prior observations inmy chart notes. Lesion B: Location: cheek(s) Lesion Color: whitish, erythematous Lesion Type: patches Lesion Description: Multiple lkvb-vp-kaepxaxcoavy patches characterized by moderate amount of loosely adherent, yellowish, greasy scale. Lesion C: Location: Left mid flank - See photo from today in patient chart under scans/media in [facility]ISM. Lesion Color: pink Lesion Type: papule Lesion Description: Somewhat excoriated, pearly lesion. Shows somewhat atypical vascular pattern ondermoscopy, with numerous torturous and looped vessels. Lesion D: Location: Left pubic area Lesion Color: whitish, pink, brown Lesion Type: Papule - 4 mm Lesion Description: Warty, crusted, stuck-on appearing papule with mild, surrounding erythema. Lesion E: Left mid groin crease shows a pink/brown, verrucous and pedunculated papule. A/P: 1.) Seborrheic keratosis/Lentigo senilis, nasal bridge. PLAN: Patient reassurance; no further treatment today. 2.) Seborrheic Dermatitis, cheeks. PLAN: Etiology, treatment and expectations for treatment of Seborrheic Dermatitis were reviewed at length today. Recommend proceed with first-line topical therapy: Prescription for Ketoconazole 2% cream, sig apply face BID, #30g with 12 refills. 3.) Skin neoplasm of unspecified nature, left mid flank , clinically suspicious for excoriated/traumatized Seborrheic keratosis. Ddx: Basal Cell carcinoma vs Amelanotic malignant melanoma. Plan: Biopsy by shave technique today, specimen to pathology, further treatment pending results, see procedurenote below for details. Details of procedure, possible post-operative complications, as well as post-procedure wound care was reviewed. 4.) Inflamed seborrheic keratosis, left pubic area. PLAN: Etiology, treatment and expectations for treatment of Inflamed seborrheic keratosis were reviewed at length today. Risks/benefits of therapy were reviewed. Treatment by LN cryotherapy today. See procedure note below for details. CRYOSURGERY PROCEDURE NOTE PATIENT INFORMATION: Genaro Jimenez [id number] 1955 [id number] 1955 DATE OF PROCEDURE: 11/02/2018 SURGEON: NIKKI Mckeon COGNOS ADMINISTRATOR: INDICATIONS: SITE/LESION TYPE/DIAGNOSIS: Lesion(s) A: Location: Left pubic area Lesion Type/Diagnosis: 1 irritated seborrheic keratosis(es) Liquid nitrogen cryosurgery was applied to a total of 1 lesion(s) on the above stated locations. The expected reaction and healing course were discussed, as well as the possibility of incomplete resolution and/or permanent dyspigmentation. The indication, risks, benefits and alternatives to this pro cedure were discussed in detail with the patient and all questions were answered. Verbal wound care instructions were given. COMPLICATIONS: none NOTE: 3 freeze/thaw cycles were applied today. NIKKI Mckeon 11/02/2018 9:11 5.) Skin neoplasm of unspecified nature, right groin crease, clinically suspicious for Inflamed seborrheic keratosis. Ddx: Nevus vs External Genital Wart. Plan: Biopsy by shave technique today, specimen to pathology, further treatment pending results, see procedure note below for details. Details of procedure, possible post-operative complications, as well as post-procedure wound care was reviewed. The patient name, date of , surgical site, and procedure were verified prior to the procedure.NIKKI Mckeon 9:12 11/02/2018. SHAVE BIOPSY PATIENT INFORMATION: Genaro Jimenez : MRN: [id number] SURGEON: NIKKI Mckeon The indication, risks, benefits and alternatives to this procedure were discussed in detail with the patient and all questions were answered. Informed consent was obtained in writing. PROCEDURE NOTE Specimen A Procedure: Tangential Shave Indication: Diagnostic Biopsy Site: left mid flank Anesthesia: 1% lidocaine with epinephrine 1:100,000 local [...] was submitted to pathology for histological evaluation. Specimen B Procedure: Tangential Shave Indication: Diagnostic Biopsy Site: right groin crease Anesthesia: 1% lidocaine with epinephrine 1:100,000 local [...] was submitted to pathology for histological evaluation. Follow up here as needed, pending results of today's skin biopsy and/or other diagnostic procedures. Nusrat HARRIS PA-C [facility] Division of Dermatology Clinical Instructor - [facility] 11/02/2018 documented in this encounter Plan of Treatment Scheduled Orders Name Type Priority Associated Diagnoses Orde r Schedule SURGICAL PATHOLOGY- ORDER ONLY Pathology Routine Neoplasm of uncertain behavior of skin Ordered: 11/02/2018 documented as of this encounter Procedures Procedure Name Priority Date/Time Associated Diagnosis Comments SURGICAL PATHOLOGY Routine 11/02/2018 11 :57 EST documented in this encounter Results * SURGICAL PATHOLOGY (11/02/2018 11:57 EST) Pathology Report: SURGICAL PATHOLOGY REPORT Reports generated via electronic interface contain original data; however they are lacking the format of the original report. Caution should be taken when reading/interpret ing unformatted reports. Name: ? GENARO JIMENEZ ? Accession #: ? [id number] ? : ? 1955 (Age: 63) ??M ? Collect Date: ? 11/02/2018 ? Location: ? DERM ? Receive Date: ? 11/02/2018 ? Provider: NUSRAT JORDAN Copy to: TRA MONTEZ MD ? Final Pathologic Diagnosis: A. ??SKIN OF FLANK, LEFT, SHAVE BIOPSY: - Seborrheic keratosis. B. ??SKIN OF GROIN CREASE, RIGHT, SHAVE BIOPSY: - Seborrheic keratosis, inflamed. Microscopic Description: Orthohyperkeratos is and focal parakeratosis thicken the stratum corneum. ??There is formation of horn pseudocysts. ??The epidermis is hyperplastic with acanthosis and papillomatosis. ??The keratinocytes have a basaloid appearance with squamous eddies in many areas. ??Within the dermis, there is a moderately dense lymphohistiocytic infiltrate. ??The infiltrate extends into the epidermis with concomitant vacuolar change and keratinocyte necrosis. ??(Dr. Rogel)/[facility] Document reviewed and electronically signed by: CLAUDETTE ROGEL MD Report ??Date: 11/03/2018 14:12 By the signature above, the attending physician certifies that he/she has personally conducted a gross and/or microscopic examination of the described specimens and rendered or confirmed the above diagnosis. Specimen(s) Received: A. ??Left flank B. ??Right groin crease Clinical History: A. ISK vs BCC vs AMM; B. SK vs genital wart vs acrochordon; clinical diagnosis code: ??D48.5 Gross Description: A. ?Received in formalin labelled with proper patient identification (initials M, S) and left flank is a shave biopsy of schmid-pink, diffusely raised skin (1.0 x 0.7 x 0.2 cm). The specimen is inked, trisected and submitted in A1. B. ?Received in formalin labelled with proper patient identification (initials M, S) and right groin crease is a shave biopsy of a schmid-pink granular to furrowed papule (1.0 x 0.5 x 0.3 cm). The specimen is inked and submitted entirely in B1. NIKKI Banegas (ASCP) 11/02/2018 1:27 PM End of Report [facility] 11/02/2018 11:5 7 EST 11/02/2018 11:57 EST Nusrat Lopez PA-C PATHOLOGY ORDERABLES [place] [employer] Result [facility] [address] [place] [address] documented in this encounter Visit Diagnoses Diagnosis Neoplasm of uncertain behavior of skin- Primary Inflamed seborrheic keratosis Seborrheic dermatitis Seborrheic dermatitis, unspecified documented in this encounter Historical Medications * This list may reflect changes made after this encounter. aspirin 325 mg tablet Take 325 mg by mouth daily. 07/26/2021 added in this encounter Care Teams Information Systems Security Developer Relationship Specialty Start Date End Date Tra Montez MD [address] [address] PCP - General 08/29/18 documented as of this encounter
--- OUTSIDE RECORDS SUMMARY | 2024-10-12 08:16 | XMS_ITS | Encounter Summary ---
Author Organization [facility] Address [address] [place] [address] Care Team Providers Care Final Dressing Cutter Name Role Phone Nataliia Montez MD Primary Care Provide r Reason for Visit * (Routine/Next Available) - Receiving Office to Obtain Authorization Specialty Diagnoses / Procedures Referred By Imer howe Referred To Contact Procedures CT OUTSIDE IMAGES CHEST Unknown, Provider, MD Referral ID Status Reason Start Date Expiration Date Visits Requested Visits Authorized [id number] Receiving Office to Obtain Authorization 07/08/2021 1 1 Encounter Details Date Type Department Care Team (Latest Contact Info) Description 05/04/2021 Hospital Encounter [facility] Secondary Reads [place] Discharge Disposition: Home or Self Care Social [...] or Self Care documented in this encounter Plan of Treatment Not on file documented as of this encounter Procedures Procedure Name Priority Date/Time Associated Diagnosis Comments CT OUTSIDE IMAGES CHEST Routine 07/08/2021 10:21 EDT documented in this encounter Results * CT OUTSIDE IMAGES CHEST (07/08/2021 10:21 EDT) Narrative 07/08/2021 10:21 EDT This is a non-reportable exam. us Provider Unknown MD GONZALEZ OTHER IMAGING ORDERABLES Final Result documented in this encounter Visit Diagnoses Not on filedocumented in this encounter Care Teams Final Dressing Cutter Relationship Specialty Start Date End Date Nataliia Montez MD [address] [place] [address] [address] [place] [address] PCP - General 08/29/18 documented as of this encounter
--- OUTSIDE RECORDS SUMMARY | 2024-10-12 08:16 | XMS_ITS | Encounter Summary ---
Author Organization [facility] Address [address] [place] [address] Care Team Providers Care Corporate Executive Name Role Phone Nataliia Montez MD Primary Care Provide r Encounter Details Date Type Department Care Team (Late st Contact Info) Description 09/06/2018 Historical Results Only [facility] Radiology Results [address] [place], [place] [address] Oralia Celeste MD [address] [facility] [address] [place], [place] [address] Social History Tobacco Use Types Packs/Day Years [...] on file documented as of this encounter Plan of Treatment Not on file documented as of this encounter Procedures Procedure Name Priority Date/Time Associated Diagnosis Comments XR KNEE RIGHT 4 OR MORE VIEWS 09/06/2018 11:27 EST documented in this encounter Results * XR KNEE RIGHT 4 OR MORE VIEWS (09/06/2018 11:27 EST) Anatomical Region Laterality Modality Lower Extremities Right Other 09/06/2018 11:2 7 EST Narrative 09/06/2018 11:30 EST ? EXAM: RADIOLOGY EXPRESS CARE/EXP CARE KNE EX. D/ (1055) ? CLINICAL INFORMATION: ? M25.461 EFFUSION OF RIGHT KNEE ? SWOLLEN AND PAINFUL ? INDICATION: M25.461 EFFUSION OF RIGHT KNEE, ??, SWOLLEN AND PAINFUL. ? COMPARISON: None. ? TECHNIQUE: Four views of the right knee. ? FINDINGS: ? Large knee joint effusion. Mild swelling of the prepatellar soft ? tissues. Unremarkable tibiofemoral and patellofemoral joints. Normal ? bone density. No fracture. ? IMPRESSION: Knee joint effusion and nonspecific prepatellar soft ? tissue swelling. ? REPORT SIGNED IN OTHER VENDOR SYSTEM 09/06/2018 ?Reported By: Deni Mustafa MD ? CC: ? Transcribed Date/Time: 09/06/2018 (1130) ? Government Guard: ? Printed Date/Time: 04/08/2019 (1405) ? PAGE 1 ? Signed Report ? Procedure Note Deni Mustafa MD - 08/23/2019 EXAM: RADIOLOGY EXPRESS CARE/EXP CARE KNE EX. D/ (1055) CLINICAL INFORMATION: M25.461 EFFUSION OF RIGHT KNEE SWOLLEN AND PAINFUL INDICATION: M25.461 EFFUSION OF RIGHT KNEE, , SWOLLEN AND PAINFUL. COMPARISON: None. TECHNIQUE: Four views of the right knee. FINDINGS: Large knee joint effusion. Mild swelling of the prepatellar soft tissues. Unremarkable tibiofemoral and patellofemoral joints.Normal bone density. No fracture. IMPRESSION: Knee joint effusion and nonspecific prepatellar soft tissue swelling. REPORT SIGNED IN OTHER VENDOR SYSTEM 09/06/2018 Reported By: Deni Mustafa MD CC: Transcribed Date/Time: 09/06/2018 (2725) Government Guard: Printed Date/Time: 04/08/2019 (0696) PAGE 1 Signed Report us Oralia Celeste MD IMG DIAGNOSTIC IMAGING ORDERABLE S Final Result documented in this encounter Visit Diagnoses Not on filedocumented in this encounter Care Teams Corporate Executive Relationship Specialty Start Date End Date Nataliia Montez MD [address] [place] [address] PCP - General 08/29/18 documented as of this encounter
--- OUTSIDE RECORDS SUMMARY | 2024-10-12 08:16 | XMS_ITS | Encounter Summary ---
Author Organization [facility] Address [address] [place] [address] Care Team Providers Care Facilities Maintenance Assistant Name Role Phone Nataliia Montez MD Primary Care Provide r Encounter Details Date Type Department Care Team (Latest Contact Info) Description 07/14/2021 Transcribe Orders [facility] - [facility] [address] [place], [place] [address] Nataliia Montez MD [address] [place] [address] [place] [phone] Upper abdominal pain (Primary Dx) Social History Tobacco Use Types [...] as of this encounter Visit Diagnoses Diagnosis Upper abdominal pain- Primary Abdominal pain, other specified site documented in this encounter Care Teams Facilities Maintenance Assistant Relationship Specialty Start Date End Date Nataliia Montez MD [address] [address] PCP - General 08/29/18 documented as of this encounter
--- OUTSIDE RECORDS SUMMARY | 2024-10-12 08:16 | XMS_ITS | Encounter Summary ---
Author Organization [facility] Address [address] [place] [address] Care Team Providers Care Auctioneer Tobacco Name Role Phone Nataliia Montez MD Primary Care Provide r Reason for Visit * Reason Onset Date Comments Biopsy Results 06/12/2021 Encounter Details Date Type Department Care Team (Late st Contact Info) Description 06/12/2021 Telephone [facility] Dermatology [address] [address] Alex Lopez, PA-C [address] [place] [address], [address] [place] [address] Biopsy Results Social History Tobacco Use Types Packs/Day Years [...] 15:05 EDT documented as of this encounter Functional Status [...] 11/02/2018 8:22 EST documented in this encounter Miscellaneous Notes * Telephone Encounter - Winnie Bingham MA - 06/15/2021 1630 EDT Results relayed. See result note for further details. WINNIE BINGHAM MA 06/15/2021 16:30 * Telephone Encounter - Holly Jacobo MA - 06/12/2021 1534 EDT Left message for patient to call back regarding biopsy results. If MA, please inform, otherwise transfer call to me: Left pubic area: SK (benign, negative for any kind of wart). No further treatment needed. HOLLY JACOBO MA 06/12/2021 15:34 documented in this encounter Plan of Treatment Not on file documented as of this encounter Visit Diagnoses Not on filedocumented in this encounter Care Teams Auctioneer Tobacco Relationship Specialty Start Date End Date Nataliia Montez MD [address] [place] [address] [address] [place] [address] PCP - General 08/29/18 documented as of this encounter
--- OUTSIDE RECORDS SUMMARY | 2024-10-12 08:16 | XMS_ITS | Encounter Summary ---
Author Organization [facility] Address [address] [place] [address] Care Team Providers Care Director Independent Name Role Phone Nataliia Montez MD Primary Care Provide r Reason for Visit * (Routine/Next Available) - Receiving Office to Obtain Authorization Specialty Diagnoses / Procedures Referred By Imer howe Referred To Contact Procedures US OUTSIDE IMAGES BODY Unknown, Provider, MD Referral ID Status Reason Start Date Expiration Date Visits Requested Visits Authorized [id number] Receiving Office to Obtain Authorization 07/08/2021 1 1 Encounter Details Date Type Department Care Team (Latest Contact Info) Description 05/04/2021 Hospital Encounter [facility] Secondary Reads [place] Discharge Disposition: Home [...] Procedure Name Priority Date/Time Associated Diagnosis Comments US OUTSIDE IMAGES BODY Routine 07/08/2021 10:22 EDT documented in this encounter Results * US OUTSIDE IMAGES BODY (07/08/2021 10:22 EDT) Narrative 07/08/2021 10:22 EDT This is a non-reportable exam. us Provider Unknown IMVicki OTHER IMAGING ORDERABLES Final Result documented in this encounter Visit Diagnoses Not on filedocumented in this encounter Care Teams Director Independent Relationship Specialty Start Date End Date Nataliia Montez MD [address] [place] [address] [address] [place] [address] PCP - General 08/29/18 documented as of this encounter
--- OUTSIDE RECORDS SUMMARY | 2024-10-12 08:16 | XMS_ITS | Encounter Summary ---
Author Organization [facility] Address [address] [place] [address] Care Team Providers Care Java J2Ee Software Engineer Name Role Phone Nataliia Montez MD Primary Care Provide r Encounter Details Date Type Department Care Team (Latest Contact Info) Description 07/26/2021 Travel Social History Tobacco Use Types Packs/Day Years [...] on filedocumented in this encounter Care Teams Java J2Ee Software Engineer Relationship Specialty Start Date End Date Nataliia Montez MD [address] [address] PCP - General 08/29/18 documented as of this encounter
--- OUTSIDE RECORDS SUMMARY | 2024-10-12 08:16 | XMS_ITS | Encounter Summary ---
Author Organization [facility] Address [address] [place] [address] Care Team Providers Care Certified Health Education Specialist Name Role Phone Nataliia Montez MD Primary Care Provide r Encounter Details Date Type Department Care Team (Latest Contact Info) Description 09/06/2018 11:46 EST - 09/06/2018 23:[address] [facility] [address] [place] [address] Unknown, Provider, Discharge Disposition: Home or Self Care Social [...] on file documented as of this encounter Medications at Time of Discharge olmesartan (BENICAR) 20 mg tablet Take 1 Tablet by mouth daily. losartan (COZAAR) 25 mg tablet Take 25 mg by mouth daily. 07/26/2021 documented as of this encounter Discharge Disposition Disposition Code Departure Means Destination Home or Self Jail documented in this encounter Plan of Treatment Not on file documented as of this encounter Visit Diagnoses Not on filedocumented in this encounter Care Teams Certified Health Education Specialist Relationship Specialty Start Date End Date Nataliia Montez MD [address] [place] [address] [address] [place] [address] PCP - General 08/29/18 documented as of this encounter
--- OUTSIDE RECORDS SUMMARY | 2024-10-12 08:16 | XMS_ITS | Encounter Summary ---
Author Organization [facility] Address [address] [place] [address] Care Team Providers Care Mathematics Technician Name Role Phone Nataliia Montez MD Primary Care Provide r Encounter Details Date Type Department Care Team (Late st Contact Info) Description 04/17/2021 Lab Requisition [facility] Pathology & Laboratory Medicine - [facility] [address] [place] [address] Emilio Michael MD [address] [place], [place] [address] Encounter for other general examination Social History Tobacco Use Types Packs/Day Years [...] Priority Date/Time Associated Diagnosis Comments SURGICAL PATHOLOGY Today 04/16/2021 12 :30 EDT Encounter for other general examination documented in this encounter Results * SURGICAL PATHOLOGY (04/16/2021 12:30 EDT) Final Diagnosis Attention patients The following pathology results have been interpreted by your pathologist and may be available to you before your health provider has had the opportunity to review them. Please allow time for your provider to receive these results and explore management options, if applicable. A. SKIN OF PERIANAL REGION, SHAVE BIOPSY: - Condyloma acuminatum. See comment. 04/21/2021 14:49 [facility] Diagnosis Comment Flight Instructor slides of this case were reviewed at the intradepartmental consultation conference. 04/21/2021 14:49 [facility] Attestation By the signature below, the attending physician certifies that they have 1) personally conducted a gross and/or microscopic examination of the described specimen(s), and/or personally interpreted the results of laboratory testing of the described specimen(s), and 2) personally rendered or confirmed the above diagnosis. 04/21/2021 14:49 [facility] at 1449 Clinical History Perianal growth, anal wart vs. tumor; excision of pedunculated portion of lesion 04/21/2021 14:49 [facility] Gross Description A. Received in formalin labelled with proper patient identification (initials M, S) and perianal is a shave biopsy of a white to brown finely papillary irregular lesion (0.4 x 0.3 x 0.3 cm). The margin is inked blue. Submitted intact in A1. Rex Flores 04/18/2021 10:34 04/21/2021 14:49 [facility] Performing Lab [facility] 04/21/2021 14:49 EDT [facility] Scanned Images 04/21/2021 14:49 EDT [facility] Tissue TISSUE SPECIMEN FROM SKIN / Unknown 04/16/2021 12:30 EDT 04/17/2021 18:06 EDT us Emilio Michael MD PATHOLOGY ORDERABLES Final Resul t [facility] [address] [place] [address] documented in this encounter Visit Diagnoses Diagnosis Encounter for other general examination documented in this encounter Care Teams Mathematics Technician Relationship Specialty Start Date End Date Nataliia Montez MD [address] [place] [address] PCP - General 08/29/18 documented as of this encounter
--- OUTSIDE RECORDS SUMMARY | 2024-10-12 08:16 | XMS_ITS | Encounter Summary ---
Author Organization [facility] Address [address] [place] [address] Care Team Providers Care Briquetter Operator Name Role Phone Nataliia Montez MD Primary Care Provide r Encounter Details Date Type Department Care Team (Late st Contact Info) Description 09/19/2019 10:10 EST - 09/19/2019 10:50 EST Surgery [facility] Endoscopy - [address] [address] New Sorto MD [address] [place] [address], [facility] [address] [place] [address] COLONOSCOPY PROCEDURE-GI Surgery Details Date/Time Status Location OR Service Patient Class Case Class Case Type Trauma Case? 09/19/2019 1010 Posted [facility] GI/ENDO ENDO [facility] Outpatient Procedure H - Elective Panel 1 Procedure [facility] Anes Op Region Wound Class Comments COLONOSCOPY PROCEDURE-GI N/A Nurse Moderate Sedation Surgeon Surgeon Role Service Panel New Sorto MD Primary Gastroenterology 1 documented in this encounter Social History [...] Sign Reading Time Taken Comments Blood Pressure 106/75 09/19/2019 1048 EST Pulse - - Temperature 35.1 ??C (95.2 ??F) 09/19/2019 0943 EST Respiratory Rate 11 09/19/2019 1048 EST Oxygen Saturation 95% 09/19/2019 1048 EST Inhaled Oxygen Concentration - - Weight [...] & Physical Date: 09/19/2019 Time: 10:24 Location: [facility] Planned Procedure: Colonoscopy Chief Complaint/Indications for Procedure: [...] ??Total sedation time was 21 ?? minutes. [place] Bowel Prep Right Colon: 3 ? Transverse [...] - Fragments of tubular adenoma. 09/21/2019 14:38 [facility] at 1437 Clinical History 09/21/2019 14:38 [facility] Attestation By the signature below, the attending physician certifies that they have personally conducted a gross and/or microscopic examination of the described specimens and rendered or confirmed the above diagnosis. 09/21/2019 14:38 [facility] at 1437 Gross [...] Landy Sofia 09/19/2019 13:50 09/21/2019 14:38 EST [facility] Scanned Images 09/21/2019 14:38 EST [facility] Tissue POLYP OF COLON / [...] Sorto MD PATHOLOGY ORDERABLES María garza Result [facility] [address] [place] [address] documented in this encounter Visit Diagnoses Diagnosis Screen for colon cancer Special screening for malignant neoplasms, colon documented in this encounter Administered Medications Inactive Administered Medications - up to 3 most recent administrations Medication Order MAR Action Action Date Dose Rate Site diphenhydrAMINE (BENADRYL) injection 25 mg 25 mg, intravenous, ONCE PRN, 1 dose, Starting on Tue09/19/19 at 1010, Until 09/19/19 at 1409, Sleep, Routine, Preprocedure lactated ringers [...] 09/19/2019 documented in this encounter Care Teams Briquetter Operator Relationship Specialty Start Date End Date Nataliia Montez MD [address] [place] [address] [address] [place] [address] PCP - General 08/29/18 documented as of this encounter
--- OUTSIDE RECORDS SUMMARY | 2024-10-12 08:17 | XMS_ITS | Encounter Summary ---
Author Organization [facility] Address [address] [place] [address] Care Team Providers Care Aluminum Hydroxide Process Operator Name Role Phone Katelyn Schwab LABOR RELATIONS SUPERVISOR Primary Care Provider [phone] Encounter Details Date Type Department Care Team (Late st Contact Info) Description 03/27/[address] [facility] [address] [place], [place] [address] Viki Rahman MD [address] [place] [address] Social History Tobacco Use Types Packs/Day Years Used Date Smoking Tobacco: Every Day Cigarettes Alcohol Use Standard Drinks/Week Comments Yes 0 [...] Date/Time Associated Diagnosis Comments SURGICAL PATHOLOGY Routine 03/27/2013 11 :53 EDT documented in this encounter Results * SURGICAL PATHOLOGY (03/27/2013 11:53 EDT) Pathology Report: SURGICAL PATHOLOGY REPORT Reports generated via electronic interface contain original data; however they are lacking the format of the original report. Caution should be taken when reading/interpreti ng unformatted reports. Name: ? CHAUDHARYGENARO ONOFRE M ? Accession #: ? [id number] ? : ? 1955 (Age: 57) ??M ? Collect Date: ? 03/27/2013 ? Location: ? ENDOP ? Receive Date: ? 03/27/2013 ? Provider: VIKI RAHMAN MD Copy to: KATELYN SCHWAB LABOR RELATIONS SUPERVISOR ? Final Pathologic Diagnosis: A. ?Cecum, polyp, biopsy: 1. ?Tubular adenoma. B. ?Colon, transverse, proximal, polyps, biopsies: 1. ?Tubular adenoma (1 tissue fragment) 2. ? Polypoid fragments of colonic mucosa with prominent lymphoid aggregates (2 tissue ?fragments). See comment. Comment: ? Deeper levels have been examined. Document reviewed and electronically signed by: ÁLVARO VILLASENOR MD Report ??Date: 03/28/2013 17:59 By the signature above, the attending physician certifies that he/she has personally conducted a gross and/or microscopic examination of the described specimens and rendered or confirmed the above diagnosis. Specimen(s) Received: A. ?Cecal polyp B. ? Prox transv colon, 3 polyps Clinical History: ? Screen Gross Description: ? Received in formalin labelled Genaro Chaudhary and cecal polyp is a schmid-pink irregular soft tissue fragment measuring 0.5 x 0.2 x 0.2 cm. ??The specimen is entirely submitted as (A1). Received in formalin labelled Chaudhary, Genaro and proximal transverse polyps are two schmid-pink irregular soft tissue fragments measuring 0.5 x 0.3 x 0.3 cm and 0.5 x 0.3 x 0.2 cm. ??The specimen is entirely submitted as (B1). ??(Chloe Marshall)/kmmya ?? End of Report KARMEN DIAZ 03/27/2013 11:5 3 EDT 03/27/2013 11:53 EDT us Viki Rahman MD PATHOLOGY ORDERABLES Final Resu lt [facility] [address] [place] [address] documented in this encounter Visit Diagnoses Not on filedocumented in this encounter Care Teams Aluminum Hydroxide Process Operator Relationship Specialty Start Date End Date Katelyn Schwab APRN [address] [facility] [address] [place] [address] PCP - General 02/01/13 08/28/18 documented as of this encounter
--- OUTSIDE RECORDS SUMMARY | 2024-10-12 08:17 | XMS_ITS | Encounter Summary ---
Author Organization [facility] Address [address] [place] [address] Care Team Providers Care Stock Analyst Name Role Phone Katelyn Elder APRN Primary Care Provider [phone] Reason for Visit * Reason Onset Date Comments Requesting Sooner Appointment 02/01/2013 Steve goss has a brown non healing lesion on the bridge of his nose. Dr. Elder would like the patient to be seen within one month. Encounter Details Date Type Department Care Team (Late st Contact Info) Description 02/01/2013 Telephone [facility] Dermatology 3rd Floor [facility] [address] [place], [place] [id number] Gladys Haywood MD [address] [facility], [address] [place] [address] Requesting Sooner Appointment (Patient has a brown non healing lesion on the bridge of his nose. Dr. Elder would like the patient to be seen within one month.) Social History Tobacco Use Types Packs/Day Years [...] on file documented as of this encounter Miscellaneous Notes * Telephone Encounter - Iqra Wang, LIEN - 02/01/2013 1412 EDT Phoned and left a message for Karen at Dr. Elder's office requesting notes. Contacted patient. He states he has had the spot on his nose for approximately years. He describes it as brown asymetrical with irregular that changes in size from 1 in to 1/2 in long, is sometimes scabby, non healing, not painful or itchy. Patient is traveling and will be back by 03/05. Patient scheduled 03/05 at 815 with Alex Lopez PA-C. Left a message for Karen to let her know patient was scheduled. IQRA WANG RN 02/01/2013 14:27 documented in this encounter Plan of Treatment Not on file documented as of this encounter Visit Diagnoses Not on filedocumented in this encounter Care Teams Stock Analyst Relationship Specialty Start Date End Date Katelyn Elder, KEELEY [address] [facility] [address] [place] [address] PCP - General 02/01/13 08/28/18 documented as of this encounter
--- OUTSIDE RECORDS SUMMARY | 2024-10-12 08:17 | XMS_ITS | Encounter Summary ---
Author Organization [facility] Address [address] [place] [address] Care Team Providers Care Commissioner Conservation Of Resources Name Role Phone Unavailable Primary Care Provider Unavailabl e Encounter Details Date Type Department Care Team (Latest Contact Info) Description 05/11/2006 9:08 EDT - 05/11/2006 11:59 EDT Hospital Encounter [facility] Emergency Department - [facility] [address] [place] [address] Emergency, Default, MD Discharge Disposition: Home or Self Care Social History Tobacco Use Types Packs/Day Years Used Date Smoking Tobacco: Never Assessed Sex and Gender Information Value Date Recorded Sex Assigned at Not on file Legal Sex Male 17:36 EST Gender Identity Male 09/19/2019 9:00 EST Sexual Orientation Not on file documented as of this encounter Discharge Disposition Disposition Code Departure Means Destination Home or Self Care documented in this encounter Plan of Treatment Not on file documented as of this encounter Visit Diagnoses Not on filedocumented in this encounter
--- OUTSIDE RECORDS SUMMARY | 2024-10-12 08:17 | XMS_ITS | Encounter Summary ---
Author Organization [facility] Address [address] [place] [address] Care Team Providers Care As400 Operator Name Role Phone Katelyn Elder DIRECTOR MATERNAL CHILD Primary Care Provider [phone] Reason for Visit * Reason Comments Shoulder Pain X3 days, left neck p ain radiating to shoulder, arm. Seen by 2 other facilities, rx'd valium. No relief. Pain worse at night. Occasionally diaphoretic. Encounter Details Date Type Department Care Team (Late st Contact Info) Description 06/23/2017 3:11 EDT - 06/23/2017 8:50 EDT [facility] Emergency Department - [address] [address] Jovanna Brito MD [address] [place] [address], [facility], [address] [place] [address] Emergency, MD [place]ila Acute pain of left shoulder (Primary Dx) Discharge Disposition: Home or Self Care Social History Tobacco Use Types Packs/Day Years Used Date Smoking Tobacco: Some Days Cigarettes Alcohol Use Standard Drinks/Week Comments Yes [...] Sign Reading Time Taken Comments Blood Pressure 156/106 06/23/2017 0800 EDT Pulse 75 06/23/2017 0316 EDT Temperature 36.4 ??C (97.5 ??F) 06/23/2017 0316 EDT Respiratory Rate 13 06/23/2017 0800 EDT Oxygen Saturation 95% 06/23/2017 08 EDT Inhaled Oxygen Concentration - - Weight - - Height - - Body Mass Index - - documented in this encounter Discharge Diagnoses Diagnosis M25.512 Pain in left shoulder-M25.512[ICD-10-CM] I10 Essential (primary) hypertension-I10[ICD-10-CM] F17.200 Nicotine dependence, unspecified, uncomplicated-F17.200[ICD-10-CM] documented in this encounter Discharge Instructions * Attachments The following attachments cannot be sent through Care Everywhere. * SHOULDER PAIN (KINYARWANDA) documented in this encounter Medications at Time of Discharge olmesartan (BENICAR) 20 mg tablet Take 1 Tablet by mouth daily. losartan (COZAAR) 25 mg tablet Take 25 mg by mouth daily. 07/26/2021 documented as of this encounter Discharge Disposition Disposition Code Departure Means Destination Home or Self Care Car Home documented in this encounter ED Notes * Stacey Kaur - 06/23/2017 0605 EDT Pt placed back on the monitor. Offered blanket; currently comfortable, denies needs at this time. * Stacey Kaur - 06/23/2017 0501 EDT Medical evaluation in progress, Jovanna Brito MD at bedside * Stacey Kaur - 06/23/2017 0337 EDT Medical evaluation in [place] Katherine A, MD at bedside * Jovanna Brito MD - 06/23/2017 0336 EDT DOS: 06/23/2017 Chief Complaint Patient presents with ??? Shoulder Pain X3 days, left neck pain radiating to shoulder, arm. Seen by 2 other facilities, rx'd valium. No relief. Pain worse at night. Occasionally diaphoretic. HPI Comments: I, Nadia Prietoers, am scribing for Jovanna Brito MD while she is personally performing the service. Nadia Prietoers 06/23/2017 3:36 Genaro Jimenez is a 61 y.o. male with a history of hypertension and pericardial effusion who presents with left neck pain that radiates to his left arm that developed 9 days ago. The patient was seen by a facility in [place] where he was given a muscle relaxant without improvement of his pain. He states he had a Chest X-Ray, EKG, and laboratory results that were normal and he was prescribed valium. The patient states his pain is worse at night and has been affecting his sleep, where he is unable to find a comfortable position with lying supine. He endorses mild pleuritic pain and was told by his sister, who is an RN, that he should seek evaluation if he developed diaphoresis and reports he woke up diaphoretic this morning. 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 He denies change in his appetite, diarrhea, constipation, nausea, emesis, leg pain, leg swelling, cough, numbness, weakness, or rashes. The patient has tried hydrocodone and percocet without relief of his pain. He states this episode is not similar to his episode where he had a pericardial effusion. The history is provided by the patient and medical records. Review of Systems Review of Systems Constitutional: Negative for appetite change. Respiratory: Negative for cough. Cardiovascular: Positive for chest pain (mild, pleuritic). Negative for leg swelling. Gastrointestinal: Negative for constipation, diarrhea, nausea and vomiting. Musculoskeletal: Positive for arthralgias (left shoulder) and neck pain. Skin: Negative for rash. Neurological: Negative for weakness and numbness. All other systems reviewed and are negative. The patient???s past medical, family, and social history was reviewed and updated as needed. Allergies Allergen Reactions ??? No Known Drug Allergies Vital Signs Temp: 36.4 ??C (97.5 ??F) Temp src: Oral Pulse: 75 Resp: 14 SpO2: 99 % BP: (!) 143/94 BP Device: BP Machine Physical Exam Constitutional: He is oriented to person, place, and time. He appears well- developed and well-nourished. No distress. HENT: Head: Normocephalic and atraumatic. Eyes: Conjunctivae and EOM are normal. Pupils are equal, round, and reactive to light. Right eye exhibits no discharge. Left eye exhibits no discharge. Neck: Normal range of motion. Neck supple. No tracheal deviation present. Cardiovascular: Regular rhythm, normal heart sounds and intact distal pulses. Tachycardia present. No murmur heard. Pulmonary/Chest: Effort normal and breath sounds normal. No respiratory distress. He has no wheezes. Abdominal: Soft. Bowel sounds are normal. He exhibits no distension. There is no tenderness. Musculoskeletal: Normal range of motion. He exhibits no edema. Left arm neurovascularly intact with 5/5 strength intact, intact distal pulses, and good capillary refill. Neurological: He is alert and oriented to person, place, and time. He exhibits normal muscle tone. Skin: Skin is warm and dry. No rash noted. 2 cm area of induration over hid upper back just lateral to T3. Psychiatric: He has a normal mood and affect. Nursing note and vitals reviewed. RESULTS EKG orders: EKG 12-LEAD Radiology orders: SHOULDER 2 OR MORE VIEWS CERVICAL SPINE 2-3 VIEWS ED Lab Results Labs Reviewed PROFILE ED CARDIAC PACK - Abnormal Result Value Status ABS Monocytes 0.89 (*) Final Glucose, Screening 117 (*) Final Sodium 144 Final Potassium 4.1 Final Chloride 110 Final CO2 23 Final BUN 18 Final Creatinine 0.86 Final GFR, Calculated 95 Final Magnesium 2.0 Final WBC 8.20 Final RBC 5.12 Final Hemoglobin 15.9 Final HCT 44.7 Final MCV 87 Final MCH 31.1 Final MCHC 35.6 Final RDW-CV 12.8 Final RDW-SD 40.9 Final PLT 251 Final MPV 10.1 Final Neutrophils 48.7 Final Lymphocytes 32.0 Final Monocytes 10.9 Final Eosinophils 6.7 Final Basophils 1.2 Final Immature Grans 0.5 Final ABS Neutrophils 4.00 Final ABS Lymphs 2.62 Final ABS Eosinophils 0.55 Final ABS Basophils 0.10 Final ABS Immature Grans 0.04 Final Type of Diff: Automated Final Troponin I <0.034 Final Hold Blue Top Final Value: Sample for coagulation will be discarded after 4 hours SED. RATE:WESTERGREN Sed. Rate Westergren 2 Final C REACTIVE PROTEIN C Reactive Protien <7.0 Final Relevant Data Procedures ED COURSE A medical screening exam was performed. The patient was a 61 year old male who presented with 9 days of left sided neck pain that radiates to his left shoulder and arm with associated pleuritic mild chest pain and diaphoresis. Physical exam significant for a 2 cm area of induration over hid upper back just lateral to T3, right arm neurovascularly intact with 5/5 strength intact, intact distal pulses, and good capillary refill. The patient had an EKG which was independently reviewed and interpreted by me. Normal sinus rhythm at a rate of 73 BPM with no acute ST abnormalities. Patient had labs that were reviewed independently by myself, significant for negative troponin, ESRof 2, and CRP of less than 7. 0500: I performed a bedside Cardiac ultrasound. Findings include no pericardial effusion. Images were not saved. Patient had Cervical Spine X-ray, which was significant for no fracture or malalignment, and mild degenerative changes. Patient had x-rays that were obtained, reviewed, and interpreted by myself and discussed with a radiologist. Please see radiology report for further details. Patient had Left Shoulder X-ray, which was significant for likely rotator cuff insufficiency and calcific tendinitis of the supraspinatus. Patient had x-rays that were obtained, reviewed, and interpreted by myself and discussed with a radiologist. Please see radiology report for further details. Pain is most likely MSK in nature. May need MRI cervical spine as outpatient. Will continue with supportive management. The patient was discharged to home with instructions to follow-up with his PCP. Prior to discharge usual and customary precautions were reviewed with the patient including follow-up instructions and reasons to return to the Emergency Department if condition worsens, does not improve as expected, orother new concerns arise. ASSESSMENT AND PLAN Final diagnoses: Acute pain of left shoulder DISPOSITION: Discharged The patient's pain was managed to an adequate level weighing risk vs. benefit of further medications. Upon departure from the Emergency Department, the patient's pain was 4 on a zero to ten scale. Any further pain treatment will be at the discretion of the provider following up with the patient based on their clinical assessment. Condition at departure from the Emergency Department: Good This documentation is recorded by Nadia Montiel acting as Scribe under the direction and presenceof Jovanna Brito MD. Jovanna Brito MD: I personally performed the services recorded by the scribe in my presence. I confirm the scribe's documentation has been reviewed by me to accurately and completely record my work, treatment, procedures, and medical decision making. PCP: Katelyn Elder [facility] 06/23/2017 3:36 No flowsheet data found. * Mark Mendez, RN - 06/23/2017 0320 EDT X3 days, left neck pain radiating to shoulder, arm. Seen by 2 other facilities, rx'd valium. No relief. Pain worse at night. documented in this encounter Plan of Treatment Not on file documented as of this encounter Procedures Procedure Name Priority Date/Time Associated Diagnosis Comments ECG REPORT - SCANNED 06/23/2017 13:44 EDT SHOULDER 2 OR MORE VIEWS STAT 06/23/2017 5:53 EDT CERVICAL SPINE 2-3 VIEWS STAT 06/23/2017 5:53 EDT PROFILE ED CARDIAC PACK STAT 06/23/2017 3:50 EDT SED RATE STAT 06/23/2017 3:50 EDT C REACTIVE PROTEIN STAT 06/23/2017 3:50 EDT EKG 12-LEAD STAT 06/23/2017 3:30 EDT documented in this encounter Results * ECG REPORT - SCANNED (06/23/2017 13:44 EDT) 06/23/2017 13:4 4 EDT us Scan 2 Male Impersonator PROCEDURE/MINOR SURGICAL OR DERABLES Final Result * CERVICAL SPINE 2-3 VIEWS (06/23/2017 5:53 EDT) Anatomical Region Laterality Modality Other 06/23/2017 5:53 EDT 06/23/2017 10:14 EDT Narrative 06/23/2017 10:14 EDT CERVICAL SPINE 2-3 VIEWS ??06/23/2017 5:53 AM Signs and Symptoms/Comments: ?? neck pain Comparison: None. TECHNIQUE: 3 views of the cervical spine. FINDINGS: The odontoid is intact, and articulate symmetrically with the C1 lateral masses. C1-C6 are clearly visible on lateral examination. C7 cannot be identified clearly on the swimmer's view. Of the visible cervical vertebral bodies, there is no fracture or dislocation identified. Vertebral body heights and disc spaces are normal. Posterior elements are intact. There are only mild degenerative changes, including minimal endplate osteophytosis at C6-7, and mild facet arthropathy at C2-3, best seen on lateral Prevertebral soft tissues are normal. Impression: 1. No fracture or malalignment. 2. Mild degenerative changes detailed above. I have personally reviewed the images and the above interpretation and agree with the findings. Procedure Note Glenn Abad MD - 06/23/2017 CERVICAL SPINE 2-3 VIEWS 06/23/2017 5:53 AM Signs and Symptoms/Comments: neck pain Comparison: None. TECHNIQUE: 3 views of the cervical spine. FINDINGS: The odontoid is intact, and articulate symmetrically with the C1 lateral masses. C1-C6 are clearly visible on lateral examination. C7 cannot be identified clearly on the swimmer's view. Of the visible cervical vertebral bodies, there is no fracture or dislocation identified. Vertebral body heights and disc spaces are normal. Posterior elements are intact. There are only mild degenerative changes, including minimal endplate osteophytosis at C6-7, and mild facet arthropathy at C2-3, best seen on lateral Prevertebral soft tissues are normal. Impression: 1. No fracture or malalignment. 2. Mild degenerative changes detailed above. I have personally reviewed the images and the above interpretation and agree with the findings. us Jovanna Brito MD [facility] ORDDalia WAGNER Final Result * SHOULDER 2 OR MORE VIEWS (06/23/2017 5:53 EDT) Anatomical Region Laterality Modality Other 06/23/2017 5:53 EDT 06/23/2017 9:02 EDT Narrative 06/23/2017 9:02 EDT SHOULDER 2 OR MORE VIEWS ??06/23/2017 5:53 AM Signs and Symptoms/Comments: ?? shoulder pain Comparison: None. TECHNIQUE: 3 views of the left shoulder. No fracture or dislocation. The humeral head is slightly high riding with respect to the acromion. Calcific tendinitis at the insertion of the supraspinatus is noted. Otherwise, no significant degenerative changes. Limited view of the left upper lung shows no significant abnormality. IMPRESSION: Calcific tendinosis of the supraspinatus I have personally reviewed the images and the above interpretation and agree with the findings. Procedure Note Glenn Abad MD - 06/23/2017 SHOULDER 2 OR MORE VIEWS 06/23/2017 5:53 AM Signs and Symptoms/Comments: shoulder pain Comparison: None. TECHNIQUE: 3 views of the left shoulder. No fracture or dislocation. The humeral head is slightly high riding with respect to the acromion. Calcific tendinitis at the insertion of the supraspinatus is noted. Otherwise, no significant degenerative changes. Limited view of the left upper lung shows no significant abnormality. IMPRESSION: Calcific tendinosis of the supraspinatus I have personally reviewed the images and the above interpretation and agree with the findings. Jovanna Brito MD [facility] DIAGNOSTIC IMAGING ORDDalia WAGNER Final Result * C REACTIVE PROTEIN (06/23/2017 3:50 EDT) C Reactive Protein <7.0 <10.0 mg/L 06/23/2017 4:36 EDT [facility] Blood specimen (specimen) BLOOD SPECIMEN / Unknown 06/23/2017 3:50 EDT 06/23/2017 4:06 EDT Jovanna Brito MD CHEMISTRY & BLOOD GAS ORDER KARYN Final Result [facility] [address] [place] [address] * SED. RATE:WESTERGREN (06/23/2017 3:50 EDT) Sed. Rate Westergren 2 0 - 20 mm/hr 06/23/2017 5:06 EDT [facility] Blood specimen (specimen) BLOOD SPECIMEN / Unknown 06/23/2017 3:50 EDT 06/23/2017 4:06 EDT us Jovanna Brito MD HEMATOLOGY & PF4 ORDERABLES Final Result Performing Organization Address [facility] Co de Phone Number [facility] [address] [place] [address] * (ABNORMAL) PROFILE ED CARDIAC PACK (06/23/2017 3:50 EDT) [facility] Sodium 144 136 - 145 mEq/L 06/23/2017 4:36 [facility] Potassium 4.1 3.5 - 5.0 mEq/L 06/23/2017 4:36 [facility] Chloride 110 96 - 110 mEq/L 06/23/2017 4:36 [facility] CO2 23 22 - 32 mEq/L 06/23/2017 4:36 [facility] BUN 18 10 - 26 mg/dl 06/23/2017 4:36 [facility] Creatinine 0.86 0.66 - 1.25 mg/dl 06/23/2017 4:36 [facility] GFR, Calculated 95 >60 ml/min/1 .73m2 06/23/2017 4:36 [facility] Comment: eGFR calculated using CKD-EPI equation for non Americans. Multiply eGFR by 1.16 for Americans. Magnesium 2.0 1.7 - 2.8 mg/dl 06/23/2017 4:36 [facility] WBC 8.20 4.0 - 10.4 K/cmm 06/23/2017 4:26 [facility] RBC 5.12 4.36 - 5.78 M/cmm 06/23/2017 4:26 [facility] Hemoglobin 15.9 13.8 - 17.3 gm/dl 06/23/2017 4:26 [facility] HCT 44.7 39.5 - 50.2 % 06/23/2017 4:26 [facility] MCV 87 81 - 95 fl 06/23/2017 4:26 [facility] MCH 31.1 27.6 - 33.0 pg 06/23/2017 4:26 [facility] MCHC 35.6 32.8 - 36.4 gm/dl 06/23/2017 4:26 [facility] RDW-CV 12.8 <14.2 % 06/23/2017 4:26 [facility] RDW-SD 40.9 <46.0 fl 06/23/2017 4:26 [facility] PLT 251 141 - 377 K/cm 06/23/2017 4:26 [facility] MPV 10.1 9.5 - 12.7 fl 06/23/2017 4:26 [facility] % Neutrophils 48.7 % 06/23/2017 4:26 [facility] % Lymphocytes 32.0 % 06/23/2017 4:26 [facility] % Monocytes 10.9 % 06/23/2017 4:26 [facility] % Eosinophils 6.7 % 06/23/2017 4:26 [facility] % Basophils 1.2 % 06/23/2017 4:26 [facility] % Immature Grans 0.5 % 06/23/2017 4:26 [facility] ABS Neutrophils 4.00 2.20 - 8.85 K/cmm 06/23/2017 4:26 [facility] ABS Lymphs 2.62 1.09 - 3.30 K/cmm 06/23/2017 4:26 [facility] ABS Monocytes 0.89(H) 0.1 - 0.8 K/cm 06/23/2017 4:26 EDT [facility] ABS Eosinophils 0.55 0.03 - 0.61 [facility] 06/23/2017 4:26 EDT [facility] ABS Basophils 0.10 0.01 - 0.11 [facility] 06/23/2017 4:26 EDT [facility] ABS Immature Grans 0.04 0 - 0.06 [facility] 06/23/2017 4:26 EDT [facility] Type of Diff: Automated 06/23/2017 4:26 EDT [facility] Troponin I (ng/mL) <0.034 <0.034 ng/ml 06/23/2017 4:45 EDT [facility] Glucose, Screening 117(H) 70 - 100 mg/dl 06/23/2017 4:36 EDT [facility] Hold Blue Top Sample for coagulation will be discarded after 4 hours 06/23/2017 4:18 EDT [facility] Blood specimen (specimen) BLOOD SPECIMEN / Unknown 06/23/2017 3:50 EDT 06/23/2017 4:06 EDT us Jovanna Brito MD PACKAGES & DNA PROBE ORDERA BLES Final Result [facility] [address] [place] [address] * EKG 12-LEAD (06/23/2017 3:30 EDT) 06/23/2017 3:30 EDT Narrative [facility] EKG - 06/23/2017 13:20 EDT ?[facility] Emergency ? Test Date: ?2017-06-23 Pat Name: ? GENARO JIMENEZ ? Department: ?? ED ? Room: ? AC17 Gender: ? 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 [id number] : ?1955 ? Requested By: LARY CONRAD Devin Order Number: [id number] ? Reading MD: ?? BRUCE HENRY MD ? Measurements Intervals ?Pratt ? Rate: ? 68 ? P: ?13 TN: ? 143 ?QRS: ?-11 QRSD: ? 97 ? T: ?31 QT: ? 408 ? QTc: ?434 ? Interpretive Statements SINUS RHYTHM LOW QRS VOLTAGE IN PRECORDIAL LEADS NONSPECIFIC T-WAVE ABNORMALITY No previous ECG available for comparison I reviewed the tracing and have either agreed or edited the findings in this report. Electronically Signed On 06-23-17 13:20:12 EDT by BRUCE HENRY MD. 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 Electronically Signed On 06-23-17 13:20:12 EDT by BRUCE VELAZQUEZ. us Jovanna Brito MD CARDIAC ECG ORDERABLES María garza Result [facility] EKG documented in this encounter Visit Diagnoses Diagnosis Acute pain of left shoulder- Primary documented in this encounter Historical Medications * This list may reflect changes made after this encounter. olmesartan (BENICAR) 20 mg tablet Take 1 Tablet by mouth daily. added in this encounter Care Teams As400 Operator Relationship Specialty Start Date End Date Katelyn Elder APRN [address] [place] [address] PCP - General 02/01/13 08/28/18 documented as of this encounter
--- OUTSIDE RECORDS SUMMARY | 2024-10-12 08:17 | XMS_ITS | Encounter Summary ---
Author Organization [facility] Address [address] [place] [address] Care Team Providers Care Senior Cytogenetic Technologist Name Role Phone Katelyn Elder APRN Primary Care Provider [phone] Reason for Visit * Reason Comments Chest Pain Encounter Details Date Type Department Care Team (Late st Contact Info) Description 05/21/2013 11:40 EDT Office Visit [facility] Cardiology - [facility] [address] [place] [address] Rodríguez Hsu MD HTN (hypertension), benign (Primary Dx); Unspecified disease of pericardium Discharge Disposition: Auto Discharge Social History Tobacco [...] documented in this encounter Progress Notes * Rodríguez Hsu MD - 05/22/2013 4955 EDT [facility] OF CARDIOLOGY May 21, 2013 Katelyn Elder APRN [facility] [address] [place] [address] RE: GENARO JIMENEZ : 1955 Dear Ms Elder: I saw Mr Jimenez in cardiology clinic. As you know, he is a very pleasant 58-year-old who has had no previous known cardiac disease, but has been having intermittent pleuritic-type chest pain overthe last, he says, 9 months. He was seen earlier this spring by [facility] Cardiology and apparently nothing was identified at that time. Subsequently, was visiting his father in [place], had more chest pain and was seen in the emergency room at [facility], was found to have a large posterior pericardial effusion and tamponade physiology by echocardiography. They could not drain it percutaneously and so he underwent a pericardial window by the surgeons at [facility]. He recovered for 3 or 4 days in the hospital and was subsequently discharged. Since discharge, he has had no chest pains, no shortness of breath, no dizziness, no blackouts. Apparently, the fluid didnot show any malignant cells, nor is there any evidence of infection. He has had no return of the pleuritic chest pain that he was having prior to this. He had previously been a smoker, has a historyof hypertension and has a family history of coronary disease. There is combined immunodeficiency syndrome in his brother. He is back working and feeling well. He is due for a CT of his chest as he has been having sharp, lancinating chest pains on the lower left side of his chest. Problem List: 1. Pericardial effusion. a. Pericardial window. 2. Hypertension. 3. Long smoking history. 4. GERD. 5. Immunodeficiency syndrome in brother. Current Medications: Losartan 25 mg a day. 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 Drinks 2 glasses of wine a week. Is still smoking about a cigarette or 2 per day. Family History: Known coronary disease in his father. Allergies: No known. Review of Systems: 1. Denies fever, chills, sweats. 2. No nausea, vomiting, diarrhea. 3. No claudication. 4. No burning with urination. 5. No bleeding abnormalities. 6. No rash. 7. No known inflammatory arthritis. 8. No asthma. 9. No stroke. 10. No diabetes. 11. No hearing deficit. 12. No visual disturbance. Objective: He was alert, oriented x3, in no acute distress. Blood pressure was 125/70, heart rate was 75 and regular. Lungs were clear. Cardiac examination: S1 and S2 is normal. There was no murmur, gallops or rubs. Abdomen: Soft and nontender. Liver and spleen not enlarged. Extremities showed no edema. Pulses were 2+/4+. He had no jugular venous distention. Hearing was intact. Vision was intact and neurologically intact. A 12-lead was not provided. 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 It could recrudesce. Fortunately, he has the window, so presumably, would not have problems with pericardial effusion, reaccumulation, although the window could scar down at some point.At this point, as he is asymptomatic, we would not undertake any further treatment. I do not think any further workup need be undertaken at this juncture. He is due to get a CT of the chest that willsee if there is any significant pericardial effusion in there now. There may be a small amount, butthat is all. We would not do anything further. If pericardial pain resumes then we would begin withanti-inflammatory agents and occasional not completely successful would move to steroids. At this juncture, we will see him back in 6 months. If he has further problems in the meantime, we would be happy to see him sooner. Thank you, again, for allowing us to see him and participate in his care. Sincerely, Rodríguez Hsu MD 12 35 PM - Rodríguez Hsu MD wn Dictation ID: [id number] cc: Katelyn Elder APRN, [place] [id number] * Rodríguez Hsu MD - 05/21/2013 1235 EDT This office note has been dictated. documented in this encounter Plan of Treatment Not on file documented as of this encounter Visit Diagnoses Diagnosis HTN (hypertension), benign- Primary Essential hypertension, benign Unspecified disease of pericardium documented in this encounter Care Teams Senior Cytogenetic Technologist Relationship Specialty Start Date End Date Katelyn Elder APRN [address] [place] [address] PCP - General 02/01/13 08/28/18 documented as of this encounter
--- OUTSIDE RECORDS SUMMARY | 2024-10-12 08:17 | XMS_ITS | Encounter Summary ---
Author Organization [facility] Address [address] [place] [address] Care Team Providers Care Aircraft Fuselage Framer Name Role Phone Katelyn Elder GROUP FITNESS DEPARTMENT HEAD Primary Care Provider Encounter Details Date Type Department Care Team (Latest Contact Info) Description 07/31/2014 10:57 EDT - 07/31/2014 10:58 EDT Hospital Encounter [facility] [place] [address] [place] [address] Katelyn Edler, GROUP FITNESS DEPARTMENT HEAD [address] [place] [id number] Discharge Disposition: Home or Self Care Social [...] file documented as of this encounter Discharge Diagnoses Diagnosis V15.85 PERS HX OF CONTACT W/AND SUSPECTED EXPOSURE TO POT HAZARDOUS BODY FLUIDS[ICD-9-CM] documented in this encounter Medications at Time of Discharge losartan (COZAAR) 25 mg tablet Take 25 mg by mouth daily. 07/26/2021 documented as of this encounter Discharge Disposition Disposition Code Departure Means Destination Home or Self Care documented in this encounter Plan of Treatment Not on file documented as of this encounter Visit Diagnoses Not on filedocumented in this encounter Care Teams Aircraft Fuselage Framer Relationship Specialty Start Date End Date Katelyn Elder APRN [address] [place] [id number] PCP - General 02/01/13 08/28/18 documented as of this encounter
--- OUTSIDE RECORDS SUMMARY | 2024-10-12 08:17 | XMS_ITS | Encounter Summary ---
Author Organization [facility] Address [address] [place] [address] Care Team Providers Care Goldbeater Name Role Phone Unavailable Primary Care Provider Unavailabl e Encounter Details Date Type Department Care Team (Late st Contact Info) Description 12/01/2007 Office Visit [facility] - [facility] [place] [address] [place] [address] Dominic Hampton, PA-C [address] [facility], [address] [place] [phone] Social History Tobacco Use Types Packs/Day Years Used Date Smoking Tobacco: Never Assessed Sex and Gender Information Value Date Recorded Sex Assigned at Not on file Legal Sex Male 17:36 EST Gender Identity Male 09/19/2019 9:00 EST Sexual Orientation Not on file documented as of this encounter Progress Notes * Dominic Hampton Jr., PA - 12/07/2009 0729 EST Department - Physician Summary Registration Date/Time: 12/01/2007 21:31 Arrived- By private vehicle. Historian- patient. HISTORY OF PRESENT ILLNESS Chief Complaint- EYE PAIN, IRRITATION and FOREIGN BODY. This started today, involves the right eye and is characterized as moderate in severity. states he took goggles off piece of metal . He sustained injury. This occurred at work. The patient possibly has metallic foreign material in the eye. Associated symptoms: Eye pain, discomfort, redness and irritation. No eye itching, eyelid swelling,blurred vision or decreased vision. REVIEW OF SYSTEMS No fever, sore throat or cough. PAST HISTORY See nurses notes. Medications: The patient's medications have been reviewed. Allergies: The patient's allergies have been reviewed. ADDITIONAL NOTES The nursing notes have been reviewed. PHYSICAL EXAM Appearance: Alert. Oriented X3. Patient in mild distress. Vital Signs: Have been reviewed. Eyes: Right eyelid everted for examination. Eyelids appear normal to inspection. Conjunctivae and sclerae appear normal to inspection. EOMs intact. Rt Eye: Single medium sized linear corneal abrasion present (horizontal laceration 1 mm superior topupil). Fluorescein dye uptake on the cornea. No eyelid edema or erythema. No stye present. No foreign body under the eyelid. No injury to the eyelids. PROGRESS AND PROCEDURES E.D. Course: Patient is stable. Patient/family counseled. ED Attending on duty and available for supervision: Christina Correa Disposition: Condition: good. Discharged home. CLINICAL IMPRESSION Right eye corneal abrasion. INSTRUCTIONS (return in 24 hours if not feeling better, use erythromycin ointment every 6 hours as needed). (Electronically signed by Cristine Miranda 12/02/2007 1:46) Department - Nursing Summary Registration Date/Time: 12/01/2007 21:31 TRIAGE Initial Assessment Triage time 21:32 Dec 01 2007. Acuity: LEVEL 4. BP: 167 / 99. HR: 77. RR: 16. O2 saturation: 99% room air. Alert. --2133 Jordy Vasquez R.N. Visual acuity performed without corrective lenses: left eye 20/40; right eye 20/25. --2135 Jordy Vasquez R.N.. Medications None. --2133 Kush GivensN.. Allergies No known drug allergies. --2133 Jordy Vasquez R.N.. History Chief Complaint: FOREIGN BODY TO RIGHT EYE. This started today. The patient sustained injury. 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 Pain level now:10. PAST HX: Negative. SOCIAL HX: Smoker: 1 pack per day. No alcohol use. Arrived by private vehicle. Historian: patient. --2133 Jordy Vasquez R.N.. NURSING PROGRESS NOTES (Erythromycin Eye Ointment given to pt). --2230 Clemencia Machado R.N.. DISPOSITION / DISCHARGE Condition at departure: improved. Patient reports pain level on departure as 0/10. Fall risk assessment completed. No fall risk identified. No learning barriers present. Discharge instructions reviewed with the patient. Reviewed warnings. Reviewed medication. Reviewed referrals. Patient verbalized u nderstanding. Written instructions provided in Sami. The patient was discharged home. The patient left the Emergency Department ambulatory and via private vehicle. Patient driving. --2230 Clemencia Machado R.N.. Jordy Machado R.N. Locked/Released at 12/01/2007 23:46 by April Null R.N. documented in this encounter Plan of Treatment Not on file documented as of this encounter Visit Diagnoses Not on filedocumented in this encounter
--- OUTSIDE RECORDS SUMMARY | 2024-10-12 08:17 | XMS_ITS | Encounter Summary ---
Author Organization [facility] Address [address] [place] [address] Care Team Providers Care Ekg Manager Name Role Phone Unavailable Primary Care Provider Unavailabl e Encounter Details Date Type Department Care Team (Latest Contact Info) Description 02/05/2008 18:30 EDT Hospital Encounter [facility] Emergency Department - [address] [address] Emergency, Default, MD Discharge Disposition: Home or [...] Procedure Name Priority Date/Time Associated Diagnosis Comments WRIST 3 OR MORE VIEWS 02/05/2008 19:57 EDT documented in this encounter Results * WRIST 3 OR MORE VIEWS (02/05/2008 19:57 EDT) Anatomical Region Laterality Modality Other 02/05/2008 19:5 7 EDT Narrative 03/30/2009 13:05 EDT pain and swelling right wrist x3days no history injury r/o stress fracture right wrist , osteoarthritis WRIST 3 OR MORE VIEWS ??Feb 05, 2008 7:57:00 PM Signs and Symptoms: ??pain and swelling right wrist x3days no history injury r/o stress fracture right wrist , osteoarthritis Findings: 4 views of the right wrist were obtained. There is no evidence of acute fracture or dislocation. There is some mild deformity of the fifth metacarpal likely due to old trauma. They are some minimal degenerative change at the first carpal metacarpal joint. Impression: 1. No evidence of acute fracture or dislocation. 2. Degenerative change at the first carpometacarpal joint. 3. Deformity of the fifth metacarpal compatible with old trauma. 4. If there is any clinical suspicion of navicular fracture, followup films would be recommended in 10 days to 2 weeks. Procedure Note Evelyn Farah MD - 03/30/2009 pain and swelling right wrist x3days no history injury r/o stress fracture right wrist , osteoarthritis WRIST 3 OR MORE VIEWS Feb 05, 2008 7:57:00 PM Signs and Symptoms: pain and swelling right wrist x3days no history injury r/o stress fracture right wrist , osteoarthritis Findings: 4 views of the right wrist were obtained. There is no evidence of acute fracture or dislocation. There is some mild deformity of the fifth metacarpal likely due to old trauma. They are some minimal degenerative change at the first carpal metacarpal joint. Impression: 1. No evidence of acute fracture or dislocation. 2. Degenerative change at the first carpometacarpal joint. 3. Deformity of the fifth metacarpal compatible with old trauma. 4. If there is any clinical suspicion of navicular fracture, followup films would be recommended in 10 days to 2 weeks. us Niki Brooks MD PhD IMG DIAGNOSTIC IMAGING ARIE WAGNER Final Result documented in this encounter Visit Diagnoses Not on filedocumented in this encounter
--- OUTSIDE RECORDS SUMMARY | 2024-10-12 08:17 | XMS_ITS | Encounter Summary ---
Author Organization [facility] Address [address] [place] [address] Care Team Providers Care Biodiesel Product Manager Name Role Phone Unavailable Primary Care Provider Unavailabl e Encounter Details Date Type Department Care Team (Late st Contact Info) Description 02/05/2008 Office Visit [facility] - [facility] [address] [place] [address] Katelyn Myers MD [address] [place] [phone] Social History Tobacco Use Types Packs/Day Years Used Date Smoking Tobacco: Never Assessed Sex and Gender Information Value Date Recorded Sex Assigned at Not on file Legal Sex Male 17:36 EST Gender Identity Male 09/19/2019 9:00 EST Sexual Orientation Not on file documented as of this encounter Progress Notes * Kateyln Myers MD - 12/05/2009 1343 EST Department - Physician Summary Registration Date/Time: 02/05/2008 18:30 Arrived- By private vehicle. Historian- patient. HISTORY OF PRESENT ILLNESS Chief complaint- UPPER EXTREMITY PAIN and SWELLING. This started 3 days ago and is still present and worsening. The quality is noted to be aching. Severity is described as being moderate in degree. No radiation. Modifying factors- worsened by movement of arm and wrist. Made better by not moving andprescription medications. Symptoms located in the area of the right forearm and right wrist. Repetitive hand use at work. No chest pain, difficulty breathing, swelling, sensory loss or motor loss.Thepatient has not had redness. 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 He woke at 3am Sat morning with pain and has had significant pain in his lateral forearm since with limited movement at the wrist due to pain. Denies numbness or weakness. Does not recall injury). Patient denies an injury. Patient has not had similar symptoms previously. Not recently seen/assessed. REVIEW OF SYSTEMS No fever, chills, eye discomfort, headache or depression. No sore throat, cough, abdominal pain, nausea or vomiting. All systems otherwise negative, except as recorded above. PAST HISTORY nurses notes. The patient's dominant hand is the right. Medications: The patient's medications have been reviewed. Allergies: The patient's allergies have been reviewed. SOCIAL HISTORY Smoker: less than 1 pack per day. Occasional alcohol use. ADDITIONAL NOTES The nursing notes have been reviewed. PHYSICAL EXAM Appearance: Alert. Oriented X3. No acute distress. Vital Signs: Have been reviewed. Extremities: No signs of infection present in the upper extremities. Right forearm. Right wrist: moderate tenderness and swelling. Limited ROM secondary to pain (diminished flexion and extension, ulnar deviation and radial deviation). Neurovascular intact distally. No erythema, laceration, abrasion, ecchymosis or puncture wound. No deformity. LABS, X-RAYS, AND EKG Rt Wrist X-ray: No fracture. Mild degenerative disease. The X-rays were independently viewed by me and discussed with the radiologist. PROGRESS AND PROCEDURES Disposition: Discharged home in good condition. CLINICAL IMPRESSION Sprained right wrist. INSTRUCTIONS Wear sling. Do not work for one week. Warnings: GENERAL WARNINGS: Return or contact your physician immediately if your condition worsens or changesunexpectedly, if not improving as expected, or if other problems arise. OTC Medications: Take acetaminophen (Tylenol, Datril, etc.) and ibuprofen (Advil, Nuprin, etc.) according to label instructions. Available over the counter. Follow-up: JESSICA LUCAS MD, Medicine, , [place], [facility], [facility], [facility]. Follow up in about three days. Understanding of the discharge instructions verbalized. (Electronically signed by Katelyn Myers MD 02/05/2008 22:43) Attending Note: I supervised care provided by the resident. We have discussed the case. Ihave reviewed the note and agree with the plan of treatment. I personally interviewed the patient and examinedthe patient and was present during the exam by the resident. I have personally reviewed the X-rays and agree with the resident's and radiologist's interpretation of the X-rays. (Electronically signed by Niki Brooks MD 02/06/2008 16:30) Department - Nursing Summary Registration Date/Time: 02/05/2008 18:30 TRIAGE Initial Assessment Triage time 18:31 Feb 05 2008. Acuity: LEVEL 4. BP: 159 / 93. HR: 63. RR: 16. Temp: 35.9 tympanic. Alert. --1832 Jordy Vasquez R.N.. Medications None.--1832 Jordy Vasquez R.N.. Allergies No known drug allergies. --1832 Jordy Vasquez R.N.. History Chief Complaint: (progressive R forearm pain and swelling). Onset (2- 3 days). Pain level now: 3/10. Pain level: at maximum 5/10 (with use). PAST HX: Immunizations: status is unknown. (metal in eye). SOCIAL HX: Smoker: less than 1 pack per day. Alcohol use; consumes beer occasionally. Arrived by private vehicle. Historian: patient. --1832 Jordy Vasquez R.N.. NURSING PROGRESS NOTES Call light placed in reach. Side rails up x 1. Bed placed in lowest position. Brakes of bed on. Patient ready for evaluation. --1834 SHERRELL Hardwick, SOFT SUGAR SUPERVISOR IBUPROFEN 800 mg PO. . --2012 Lucas Bustillos R.N. Placed R wrist immobilizer and sling +CMST.. --2047 Lucas Bustillos R.N.. DISPOSITION / DISCHARGE Condition at departure: improved. Patient reports pain level on departure as 3/10. No learning barriers present. Discharge instructions reviewed with the patient. Reviewed warnings. Reviewed referralto an entry level administrative assistant for followup. Patient verbalized understanding. Written instructions provided in Arabic. The patient was discharged homeand accompanied by network firewall engineer. The patient left the Emergency Department ambulatory and via private vehicle. Grocery Carrier driving. --2047 Lucas Bustillos R.N.. SHERRELL Jernigan R.N., SOFT SUGAR SUPERVISOR Lucas Bustillos R.N. Locked/Released at 02/05/2008 20:48 by Lucas Bustillos R.N. documented in this encounter Plan of Treatment Not on file documented as of this encounter Visit Diagnoses Not on filedocumented in this encounter
--- OUTSIDE RECORDS SUMMARY | 2024-10-12 08:17 | XMS_ITS ---
Author Organization Unknown Address [address] [place], [place] [id number] Phone Care Team Providers Care Unhairing Machine Operator Name Role Phone BAMBI Cohen Attending Unavailable Immunization Immunization Date Status Additional Notes Code Code System Tdap 03/30/2023 Completed [address] CHEST WO CONTRAST - Compl eted: 05/14/2022 16:37 LOINC: Radiation optimization: All CT scans at this facility use at least one of these dose optimization techniques: automated exposure control; mA and/or kV adjustment per patient size (includes targeted exams where dose is matched to clinical indication); or iterative reconstruction. CHEST - LOW DOSE CT: Compared to prior CT scan of 05/04/21. The previously described 4 mm nodule in the right middle lobe is unchanged. tiny 2 mm fissure based nodule lateral aspect of the right minor fissure is unchanged. No nodules in the right upper lobe. In the lower lobe there is platelike atelectasis in the posterior basal segment, not associated with pleural effusion. There is a 2 mm nodule in the lateral basal segment of the right lower lobe again noted. No new right lung nodules. On the opposite/left side there is also some mild atelectasis now evident in the left lower lobe posterior basal segment. There is mild unchanged scarring in the left upper lobe. No pleural effusions on either side. No significant focal findings in the trachea and main stem bronchi. Mediastinum: There is no hilar nor mediastinal adenopathy. The visualized thyroid is unremarkable. Cardiac: Heart size is normal. No pericardial effusion. Caliber of thoracic aorta upper normal. Lower most images reveal no significant adrenal masses. No splenomegaly. Osseous: No significant osseous lesions. No fractures. IMPRESSION:Stable benign appearing lung nodules. No new nodules nor pleural effusions. No intrathoracic adenopathy. Lung Rads Category 2. Continue annual screening with LDCT in 12 months. Dictated by: SON AQUINO MD Transcribed by: ATUL 05/16/22/13:28 D April 2:15:27 PM [id number] Electronically Reviewed and Signed By: YULIET AQUINO MD 05/19/22 14:44 Copy for: BAMBI GREHSAMTaty Vicki via fax Copy for: 185 [facility]ALTH INFORMATION MGMT Social History Type Status Start Date End Date Code Code Syst em Smoking History Current every day smoker [id number] SNOMED CT Sex Male Medications Medication Start Date End Date Route Frequency Dose Code Code System Medication Instructions Home Meds HYDROcodone bitartrate-acetaminophen 5MG-325MG Oral Tablet 03/30/2023 03/30/2023 ORAL NEEDED EVERY 4 HOURS 1 TABLET 100758 RxNorm TAKE 1-2 TABLET ORAL NEEDED EVERY 4 HOURS FOR Pain Percocet 5MG-325MG Oral Tablet 03/30/2023 12/26/2023 ORAL NEEDED EVERY 4 HOURS 1 TABLET 6047349 RxNorm TAKE 1-2 TABLET ORAL NEEDED EVERY 4 HOURS Assessment You had the following problems:CLOSED FRACTURE OF RIGHT ANKLE Hospital Discharge Instructions Should you have any questions prior to discharge, please contact a member of your healthcare team. If you have left the hospital and have any questions, please contact your primary care physician. Reason For Referral No Data Found Problems Problem Start Date Resolved Date Status Code Code System CLOSED FRACTURE OF RIGHT ANKLE active [id number] SNOMED-CT HTN 03/30/2023 resolved 44632790 SNOMED-CT HLD 03/30/2023 resolved [id number] SNOMED-CT Allergies and Adverse Reactions Allergy Substance Reaction Severity Start Date Concern Status Co de Code System LOSARTAN Active 8[address] Rx[address] Plan of Treatment [address] CHEST W/O CONTRAST 05/13/2022 Encounters Encounter Diagnosis Start Date Code Code Sys tem Encounter for screening for malignant neoplasm of respiratory organs 05/13/2022 SNOMED-CT Personal Care Team Section Performer Name Performer Role Active Date Inactive Da te
--- OUTSIDE RECORDS SUMMARY | 2024-10-12 08:17 | XMS_ITS | Encounter Summary ---
Author Organization [facility] Address [address] [place] [address] Care Team Providers Care Gis Software Developer Name Role Phone Unavailable Primary Care Provider Unavailabl e Encounter Details Date Type Department Care Team (Latest Contact Info) Description 12/01/2007 21:31 EST Hospital Encounter [facility] Emergency Department - [address] [address] Emergency, Default, MD Discharge Disposition: Home or [...]
--- OUTSIDE RECORDS SUMMARY | 2024-10-12 08:17 | XMS_ITS | Encounter Summary ---
Author Organization [facility] Address [address] [place] [address] Care Team Providers Care Buckle Gluer Name Role Phone Katelyn Elder APRN Primary Care Provider Encounter Details Date Type Department Care Team (Latest Contact Info) Description 05/21/2013 13:10 EDT - 05/21/2013 23:59 EDT Hospital Encounter [facility] [id number] [place] [address] Katelyn Elder, CERTIFIED PERFORMANCE TECHNOLOGIST [address] [facility] [address] [place], [place] [address] Discharge Disposition: Auto Discharge Social History Tobacco [...] Disposition Code Departure Means Destination Auto Discharge Home documented in this encounter Plan of Treatment Not on file documented as of this encounter Visit Diagnoses Not on filedocumented in this encounter Care Teams Buckle Gluer Relationship Specialty Start Date End Date Katelyn Elder, CERTIFIED PERFORMANCE TECHNOLOGIST [address] [place] [address] PCP - General 02/01/13 08/28/18 documented as of this encounter
--- OUTSIDE RECORDS SUMMARY | 2024-10-12 08:17 | XMS_ITS | Encounter Summary ---
Author Organization [facility] Address [address] [place] [address] Care Team Providers Care Sale Professional Digital Marketing Name Role Phone Unavailable Primary Care Provider Unavailabl e Encounter Details Date Type Department Care Team (Latest Contact Info) Description 04/21/2001 17:41 EDT Hospital Encounter [facility] Emergency Department - [facility] [address] [place] [address] Emergency, Default, MD Discharge Disposition: Home or [...]
--- OUTSIDE RECORDS SUMMARY | 2024-10-12 08:17 | XMS_ITS | Encounter Summary ---
Author Organization [facility] Address [address] [place] [address] Care Team Providers Care Irrigation Installation Specialist Name Role Phone Katelyn Elder APRN Primary Care Provider [phone] Reason for Visit * Reason Onset Date Comments Appointment Related 06/06/2014 NO SHOW Encounter Details Date Type Department Care Team (Late st Contact Info) Description 06/06/2014 Telephone [facility] Cardiology [place] [place] [address] Bernie Yee ANP Appointment Related (NO SHOW) Social History Tobacco Use Types Packs/Day Years [...] encounter Miscellaneous Notes * Telephone Encounter - Janie Barfield - 06/06/2014 1520 EDT No Show for apt with Dyana Yee NP. Called and left message with our number to call to set up another apt time documented in this encounter Plan of Treatment Not on file documented as of this encounter Visit Diagnoses Not on filedocumented in this encounter Care Teams Irrigation Installation Specialist Relationship Specialty Start Date End Date Katelyn Elder APRN [address] [place] [address] PCP - General 02/01/13 08/28/18 documented as of this encounter
--- OUTSIDE RECORDS SUMMARY | 2024-10-12 08:17 | XMS_ITS | Encounter Summary ---
Author Organization [facility] Address [address] [place] [address] Care Team Providers Care Water Plant Maintenance Mechanic Name Role Phone Katelyn Elder KEELEY Primary Care Provider [phone] Reason for Visit * Reason Comments Skin Exam Patient has a spot o f concern on the nose and two on the back. Family history of skin cancer Encounter Details Date Type Department Care Team (Late st Contact Info) Description 05/16/2013 13:30 EDT Office Visit [facility] Dermatology [address]th [address] [address] Alex Lopez PA-C [address] [place] [address], [address] [place] [id number] Senile lentigo (Primary Dx); Seborrheic keratosis, inflamed Social History Tobacco Use Types Packs/Day Years [...] on file documented as of this encounter Patient Instructions * Patient Instructions* Alex Lopez PA-C - 05/16/2013 14:07 EDT DERMATOLOGY WOUND CARE INSTRUCTIONS FOR CRYOSURGERY [...] chills Please call our office or . Recommendations for Sun Protection Ultraviolet (UV) radiation is a known carcinogen (cancer-causing agent) and is primarily responsible for most skin cancers, including Basal Cell Carcinoma, Squamous Cell Carcinoma, and many Melanomas. UV radiation also rapidly ages the skin, leading to wrinkles, uneven color, and poor texture. Minimizing UV exposure has been shown in multiple studies to decrease the likelihood of developing cancers and pre-cancers of the skin, as well as improve overall appearance. To minimize UV exposure: 1) Avoid exposure to sunlight during the middle of the day (10am to 4pm). Seek shade when outside during these hours. Limit outdoor activities to hospital aide and/or evening hours when the sunlight is less intense. Remember that UV is reflected from water and snow, and can pass through window glass. It is still possible to get burned during cloudy weather and in the winter months. You can check the forecast for the UV Index in your area at most weather sites online. If the UV index is 3 or higher, sun protection/avoidance is recommended. 2) Wear protective clothing. Hats with wide brims that cover the ears and neck, sunglasses (sun exposure increases your risk for cataracts), long-sleeved shirts, long pants, and closed-top shoes offer good protection. Many makers of outdoor clothing test their fabrics for UV Protection Factor (UPF), which is a guide to the level of protection a particular item of clothing should provide. In general, loose weaves (Cotton) and farm demonstrator-colored fabrics offer less protection than tighter weaves or darker/thicker fabrics. It is possible to get a sunburn through clothing, especially if it is wet. 3) Use sunscreen on exposed areas. Choose a sunscreen that has a Sun Protection Factor (SPF) of 30+or higher. Apply the sunscreen generously (so much that you can barely rub it in) to exposed areas 30 minutes before sun exposure. Reapply every 2-3 hours, especially if you are in water or sweating.If you tend to break out from sunscreen, choose a sunscreen designed for Sensitive Skin and/or one with physical blocking agents, such as Zinc Oxide and Titanium Dioxide. For vigorous activity, look for Sport sunscreens, which are resistant to sweating. 4) Avoid artificial sources of UV, such as tanning beds or sun lamps. The UV emitted by these devices is just as damaging, if not more so, than natural sunlight. There is a well-documented increase in the incidence of all common skin cancers in frequent tanning bed users. Other considerations: Vitamin D: Exposure to UV light is one of the ways your body gets Vitamin D, a necessary nutrient. Other sources are from the diet and/or dietary supplements. If you are actively avoiding the sun, itmay be advisable to discuss Vitamin D supplementation with your Primary Care Provider (PCP). In general, taking a supplement of 1,000 to 2,000 International Units (IU) of Vitamin D3 is safe and well-tolerated in individuals who get minimal sun exposure and have normal kidney function. However, moreor less Vitamin D may be recommended, depending on your individual needs, and the use of such supplements should be discussed with your PCP. For more information about sun protection and skin cancer: www.skincancer.org Recommended sunscreens: Chemical sunscreen Neutrogena Ultra Sheer Dry Touch (helioplex) Aveeno (same sunscreen as in Neutrogena) Coppertone Sport La Meme-Posay Anthelios (mexoryl -good UVA and UVB) Vichy (mexoryl - available in Laron) Gel formulations good for hair bearing skin Bullfrog Alcohol based - goes on quickly and good for skin with hair Solbar Physical sunblock good for sensitive skin (titanium dioxide and zinc oxide chemical/fragrance free) Blue Lizard sensitive COTZ TiZO (comes in tinted form) Neutrogena pure and free baby or sensitive Recommended sun protection clothing websites www.sunprecautions.com www.coolibar.GT Energy www.Fitocracy.GT Energy www.Sahale Snacks.GT Energy documented in this encounter Progress Notes * Zoran Rucker MD - 05/23/2013 1655 EDT Attestation Statement: I was the supervising physician and was present in the clinic during this visit. Note reviewed, patient was not seen by me. Zoran Rucker MD, HENRY Bag Loader Division of Dermatology [facility] * Alex Lopez PA-C - 05/16/2013 1350 EDT Chief Complaint Patient presents with ??? Skin Exam Patient has a spot of concern on the nose and two on the back. Family history of skin cancer Subjective: Presents today for further evaluation and treatment of skin lesion on nasal bridge, present for approximately 20 years. Lesion has bled before with minor trauma. History of lesion(s) negative for spontaneous bleeding, itching or pain. This lesion does not seem to him to be changing in terms of size/shape/color. Also has several itchy skin lesions on back, relatively new over the past year or so. No treatment yet. FHx of Malignant melanoma in his father. For a complete past medical history, current medications, medication allergies, review of systems, family history and social history, please see the Dermatology intake sheet in chart. Objective: Waist up Cutaneous Exam On physical examination, in general, Mr. Jimenez is a male who presents well- groomed, well-nourished and appears stated age. He is alert and oriented to person, place and time. He has Mendieta type II skin. On cutaneous examination of the head, including the scalp and face, neck, back, chest, including breasts and axillae, abdomen, intertriginous areas, and upper extremities were examined. The examination was normal with the addition of the following comments: Lesion A: Location: mid nasal bridge Lesion Color: brown Lesion Type: papule, patch Lesion Description: Shows a broad, stellate patch - Characterized by a brown, waxy, somewhat warty,film-like area, shows a warty, stuck-on appearing papule centrally, No features consistent with melanocytic lesion are seen on dermoscopy. Lesion B: Location: right upper back x 1; left mid flank x 1 Lesion Color: pink, erythematous, brown Lesion Type: papule, plaque Lesion Description: Warty, crusted, stuck-on appearing papule and plaque with mild, surrounding erythema. A/P: 1.) Lentigo senilis (flat Seborrheic keratosis,) mid nasal bridge. PLAN: Patient reassurance; no further treatment today. 2.) Inflamed seborrheic keratoses, several lesions noted today on right upper back/left mid flank. PLAN: Etiology, treatment and expectations for treatment of Inflamed seborrheic keratosis were reviewed at length today. Risks/benefits of therapy were reviewed. Treatment by LN cryotherapy today. Seeprocedure note below for details. CRYOSURGERY PROCEDURE NOTE PATIENT INFORMATION: Carlos Alvarenga Jimenez [id number] 1955 [id number] 1955 DATE OF PROCEDURE: 05/16/2013 SURGEON: Alex Lopez PA-C BAKERY MANAGER: INDICATIONS: SITE/LESION TYPE/DIAGNOSIS: Lesion(s) A: Location: right upper back x 1; left mid flank x 1 Lesion Type/Diagnosis: 2 irritated seborrheic keratosis(es) Liquid nitrogen cryosurgery was applied to a total of 2 lesion(s) on the above stated locations. The expected reaction and healing course were discussed, as well as the possibility of incomplete resolution and/or permanent dyspigmentation. The indication, risks, benefits and alternatives to this pro cedure were discussed in detail with the patient and all questions were answered. Verbal wound care instructions were given. COMPLICATIONS: none Alex Lopez PA-C 05/16/2013 16:37 Follow up here as needed. Alex HARRIS PA-C [facility] Division of Dermatology Clinical Instructor - [facility] 05/16/2013 * Mayra Brady - 05/16/2013 5568 EDT Review of Systems Constitutional: Negative for fever, fatigue and unexpected weight change. HENT: Negative for mouth sores. Eyes: Negative for pain. Respiratory: Positive for shortness of breath. Negative for cough. Cardiovascular: Positive for chest pain. Negative for palpitations. Gastrointestinal: Positive for abdominal pain. Negative for nausea, vomiting, diarrhea, constipation and blood in stool. Genitourinary: Negative for dysuria, frequency and hematuria. Musculoskeletal: Negative for myalgias, joint swelling, arthralgias and muscle stiffness in the morning. Skin: Negative for rash. Neurological: Negative for numbness and headaches. Endo/Heme/Allergies: Does not bruise/bleed easily. Psychiatric/Behavioral: Negative for sleep disturbance. The patient is not nervous/anxious. Mayra Jose Antonio 05/16/2013 13:35 Reviewed Alex Lopez PA-C 05/16/2013 documented in this encounter Miscellaneous Notes * Scanned Note-Null - OUTPATIENT INTERVIEWING CLERK, SCAN 2 - 05/22/2013 1047 EDT documented in this encounter Plan of Treatment Not on file documented as of this encounter Visit Diagnoses Diagnosis Senile lentigo- Primary Other dyschromia Seborrheic keratosis, inflamed Inflamed seborrheic keratosis documented in this encounter Care Teams Water Plant Maintenance Mechanic Relationship Specialty Start Date End Date Katelyn Elder APRN [address] [place] [id number] PCP - General 02/01/13 08/28/18 documented as of this encounter
--- OUTSIDE RECORDS SUMMARY | 2024-10-12 08:17 | XMS_ITS | Encounter Summary ---
Author Organization [facility] Address [address] [place] [address] Care Team Providers Care Drawbench Operator Name Role Phone Katelyn Elder METROLOGIST Primary Care Provider Reason for Visit * Reason Onset Date Comments New Patient Visit 05/17/2013 Encounter Details Date Type Department Care Team (Late st Contact Info) Description 05/17/2013 Telephone [facility] Cardiology - [address] [place] [address] Katelyn Elder, KEELEY [address] [place], [place] [address] New Patient Visit Social History Tobacco Use Types Packs/Day Years [...] encounter Miscellaneous Notes * Telephone Encounter - Lola Gallardo - 05/17/2013 7009 EDT PCP would like patient seen as soon as possible for pericardial effusion, Chest pain. Please call PCP's office with appointment info. documented in this encounter Plan of Treatment Not on file documented as of this encounter Visit Diagnoses Not on filedocumented in this encounter Care Teams Drawbench Operator Relationship Specialty Start Date End Date Katelyn Elder APRN [address] [address] PCP - General 02/01/13 08/28/18 documented as of this encounter
--- OUTSIDE RECORDS SUMMARY | 2024-10-12 08:17 | XMS_ITS | Encounter Summary ---
Author Organization [facility] Address [address] [place] [address] Care Team Providers Care Front Desk Auxiliary Name Role Phone Unavailable Primary Care Provider Unavailabl e Encounter Details Date Type Department Care Team (Late st Contact Info) Description 05/11/2006 Office Visit [facility] - [place] [address] [place] [address] Alhaji Torres MD Social History Tobacco Use Types Packs/Day Years Used Date Smoking Tobacco: Never Assessed Sex and Gender Information Value Date Recorded Sex Assigned at Not on file Legal Sex Male 17:36 EST Gender Identity Male 09/19/2019 9:00 EST Sexual Orientation Not on file documented as of this encounter Progress Notes * Alhaji Torres MD - 12/10/2009 193 EST Department - Physician Summary Registration Date/Time: 05/11/2006 9:00 Arrived- By private vehicle. Historian - patient. HISTORY OF PRESENT ILLNESS Chief Complaint- EYE PAIN and FOREIGN BODY. This started yesterday, involves the right eye and is characterized as moderate in severity. He may have sustainedan injury. This occurred at home. The patient has foreign material in the right eye (piece of rust fell in eye yesterday). Associated symptoms: Eye pain, discomfort, burning and irritation. A scant amount of watery eye discharge. Photophobia. No eyelid swelling, blurred vision or decreased vision. PAST HISTORY Negative. Medications: The patient's medications have been reviewed. Allergies: The patient's allergies have been reviewed. SOCIAL HISTORY Smoker. PHYSICAL EXAM Appearance: Alert. Oriented X3. Eyes: Visual acuity noted - see nurse's notes. Eyelids appear normal to inspection. Conjunctivae and sclerae appear normal to inspection. Pupils equal, round and reactive to light. EOMs intact. Periorbital areas appear normal to inspection. Anterior chambers clear. Rt Eye: Small metallic corneal foreign body with rust ring is present. Neuro: Oriented X 3. PROGRESS AND PROCEDURES Removal of Eye Foreign Body: After topical anesthesia, a single foreign body was successfully removed from the right cornea using the slit lamp (with magnification) and a sterile eye spud and a sterile rotating usman. There were no complications encountered. Aftercare included antibiotic ointment. The patient was cooperative. A single rust ring removed completely. Disposition: Discharged home. Condition: stable. CLINICAL IMPRESSION Removed conjunctival foreign body to right eye . INSTRUCTIONS Use eye ointment for next 4 days. Use vicodin if needed for pain. Warnings: GENERAL WARNINGS: Return or contact your physician immediately if your condition worsens or changesunexpectedly, if not improving as expected, or if other problems arise. Prescription Medications: Vicodin 5 mg: take 1 to 2 orally every 6 hours as needed for pain. Dispense fifteen (15). No refills. Generic substitute OK. Erythromycin ophthalmic ointment 0.5%: Apply 1/2 inch to inner aspect of the lower lid on the affected eye every 4 hours while awake for 1 week. Dispense 3.5gm. No refills. Follow-up: WILFREDO LOCKHART MD, SURGERY/OPHTHALMOLOGY, , [address] [place] [address]. Call today to be seen in next few days to recheck healing of eye. (Electronically signed by Alhaij Torres M.D. 05/11/2006 10:20) Department - Nursing Summary Registration Date/Time: 05/11/2006 9:00 TRIAGE Initial Assessment Triage time 09:01 May 11 2006 . Acuity: LEVEL 4. BP: 160 / 89. HR: 74. RR: 16. Temp: 36.2 tympanic. Alert. Visual acuity: left eye 20/30; right eye 20/20. --903 Jordy Vasquez R.N. Medications None. --903 Jordy Vasquez R.N. Allergies No known drug allergies. --903 Jordy Vasquez R.N. History Chief Complaint: FOREIGN BODY and VISION PROBLEM TO RIGHT EYE. This started yesterday. Onset (afternoon). Pain level now: 6/10. The patient has had eye discomfort, eye irritation and eye discharge. Treatment OIL BURNER JOURNEYMAN: Irrigation. PAST HX: Negative. SOCIAL HX: Smoker: 1 pack per day. No alcohol use. Arrived by private vehicle. --903 Jordy Vasquez R.N. DISPOSITION / DISCHARGE ( late entry). --075 Gunnar Hartmann R.N., R.N. Locked/Released at 05/13/2006 7:55 by Clemencia Larsen R.N. documented in this encounter Plan of Treatment Not on file documented as of this encounter Visit Diagnoses Not on filedocumented in this encounter
--- OUTSIDE RECORDS SUMMARY | 2024-10-12 08:17 | XMS_ITS | Encounter Summary ---
Author Organization [facility] Address [address] [place] [address] Care Team Providers Care Windows Application Packager Name Role Phone Katelyn Elder EXTERMINATOR Primary Care Provider Encounter Details Date Type Department Care Team (Late st Contact Info) Description 02/01/2013 Results Only [facility] ([facility]) [address] [place] [address] Katelyn Elder, EXTERMINATOR [address] [place], [place] [id number] Social History Tobacco Use Types Packs/Day Years [...] Name Priority Date/Time Associated Diagnosis Comments PSA SCREEN Routine 02/01/2013 10:01 EDT documented in this encounter Results * PSA SCREEN (02/01/2013 10:01 EDT) PSA 1.0 0 - 3.5 ng/ml [facility] Comment: Serum PSA concentration should not be interpreted as absolute evidence for the presence or absence of malignant disease. Assayed utilizing Siemens (imgScrimmage) chemiluminescent technology. ??Values obtained by using different assay methods cannot be used interchangeably. 02/01/2013 10:0 1 EDT 02/01/2013 13:15 EDT us Katelyn Elder EXTERMINATOR CHEMISTRY & BLOOD GAS ORDERA BLES Final Result [facility] [address] [place] [address] documented in this encounter Visit Diagnoses Not on filedocumented in this encounter Care Teams Windows Application Packager Relationship Specialty Start Date End Date Katelyn Elder, EXTERMINATOR [address] [address] PCP - General 02/01/13 08/28/18 documented as of this encounter
--- OUTSIDE RECORDS SUMMARY | 2024-10-12 08:17 | XMS_ITS | Encounter Summary ---
Author Organization [facility] Address [address] [place] [address] Care Team Providers Care Asbestos Shingle Inspector Name Role Phone Katelyn Elder KEELEY Primary Care Provider [phone] Encounter Details Date Type Department Care Team (Latest Contact Info) Description 03/27/2013 7:04 EDT - 03/27/2013 10:24 EDT Hospital Encounter [facility] Out[facility] [address] [place] [address] Rodríguez Rahman MD [address] [place] [address] Discharge Disposition: Home or Self Care Social [...] Sign Reading Time Taken Comments Blood Pressure 134/83 03/27/2013 0958 EDT Pulse - - Temperature 36 ??C (96.8 ??F) 03/27/2013 0958 EDT Respiratory Rate 12 03/27/2013 0958 EDT Oxygen Saturation 96% 03/27/2013 0958 EDT Inhaled Oxygen Concentration - - Weight 83.5 kg (184 lb) 03/27/2013 0814 EDT Height 170.2 cm (5' 7) 03/27/201314 EDT Body Mass Index 28.82 03/27/2013813 EDT documented in this encounter Discharge Instructions * Discharge Instructions* Earline Malloy RN - 03/27/2013 10:08 EDT Images from the original note were not included. What I need to know about Colon Polyps What are colon polyps? A colon polyp is a growth on the surface of the colon, also called the large intestine. Sometimes, a person can have more than one colon polyp. Colon polyps can be raised or flat. The large intestine is the long, hollow tube at the end of your digestive tract. The large intestine absorbs water from stool and changes it from a liquid to a solid. Stool is the waste that passes through the rectum and anus as a bowel movement. Digestive tract with the large intestine highlighted. Are colon polyps cancerous? Some colon polyps are benign, which means they are not cancer. But some types of polyps may alreadybe cancer or can become cancer. Flat polyps can be smaller and harder to see and are more likely cricket cancer than raised polyps. Polyps can usually be removed during colonoscopy--the test used to check for colon polyps. Colon polyp. Who gets colon polyps? Anyone can get colon polyps, but certain people are more likely to get them than others. You may have a greater chance of getting polyps if: * you???re 50 years of age or older * you???ve had polyps before * someone in your family has had polyps * someone in your family has had cancer of the large intestine, also called colon cancer * you???ve had uterine or ovarian cancer before age 50 You may also be more likely to get colon polyps if you: * eat a lot of fatty foods * smoke * drink alcohol * don???t exercise * weigh too much What are the symptoms of colon polyps? Most people with colon polyps do not have symptoms. Often, people don???t know they have one until the doctor finds it during a regular checkup or while testing for something else. But some people do have symptoms, such as: * bleeding from the anus. The anus is the opening at the end of the digestive tract where stool leaves the body. You might notice blood on your underwear or on toilet paper after you???ve had a bowelmovement. * constipation or diarrhea that lasts more than a week. * blood in the stool. Blood can make stool look black, or it can show up as red streaks in the stool. If you have any of these symptoms, see a doctor to find out what the problem is. How does the doctor test for colon polyps? The doctor can use one or more tests to check for colon polyps. * Barium enema. The doctor puts a liquid called barium into your rectum before taking x rays of your large intestine. Barium makes your intestine look white in the pictures. Polyps are dark, so they???re easy to see. * Sigmoidoscopy. With this test, the doctor puts a thin, flexible tube into your rectum. The tube is called a sigmoidoscope, and it has a light in it. The doctor uses the sigmoidoscope to look at thelast third of your large intestine. * Colonoscopy. The doctor will give you medicine to sedate you during the colonoscopy. This test islike the sigmoidoscopy, but the doctor looks at the entire large intestine with a long, flexible tube with a camera that shows images on a TV screen. The tube has a tool that can remove polyps. The doctor usually removes polyps during colonoscopy. *Computerized tomography (CT) scan. With this test, also called virtual colonoscopy, the doctor puts a thin, flexible tube into your rectum. A machine using x rays and computers creates pictures of the large intestine that can be seen on a screen. The CT scan takes less time than a colonoscopy because polyps are not removed during the test. If the CT scan shows polyps, you will need a colonoscopy so they can be removed. * Stool test. The doctor will ask you to bring a stool sample in a special cup. The stool is testedin the laboratory for signs of cancer, such as DNA changes or blood. Who should get tested for colon polyps? Talk with your doctor about getting tested for colon polyps if you???re 50 years of age or older, or earlier if you have symptoms or someone in your family has had polyps or colon cancer. How are colon polyps treated? In most cases, the doctor removes colon polyps during sigmoidoscopy or colonoscopy. The polyps are then tested for cancer. If you???ve had colon polyps, the doctor will want you to get tested regularly in the future. How can I prevent colon polyps? Doctors don???t know of one sure way to prevent colon polyps. But you might be able to lower your risk of getting them if you: * eat more fruits and vegetables and less fatty food * don???t smoke * avoid alcohol * exercise most days of the week * lose weight if you???re overweight Eating more calcium may also lower your risk of getting polyps. Some foods that are rich in calciumare milk, cheese, yogurt, and broccoli. Taking a low dose of aspirin every day might help prevent polyps. Talk with your doctor before starting any medication. Points to Remember * A colon polyp is a growth on the surface of the colon, also called the large intestine. * Colon polyps can be raised or flat. * Some colon polyps are benign, which means they are not cancer. * Some types of polyps may already be cancer or can become cancer. Flat polyps can be smaller and harder to see and are more likely to be cancer than raised polyps. * Most people with colon polyps do not have symptoms. * Symptoms may include constipation or diarrhea for more than a week or blood on your underwear, ontoilet paper, or in your stool. * Doctors remove most colon polyps and test them for cancer. * Talk with your doctor about getting tested for colon polyps if you???re 50 years of age or older,or earlier if you have symptoms or someone in your family has had polyps or colon cancer. Hope through Research The National [place] of Diabetes and Digestive and Kidney Diseases??? Division of Digestive Diseases and Nutrition supports research into digestive conditions, including colon polyps. Researchers are studying why some people are more likely to get colon polyps than others. Researchers are also studying new tests and treatments to lower the risk of colon cancer in people with colon polyps. Participants in clinical trials can play a more active role in their own health care, gain access to new research treatments before they are widely available, and help others by contributing to medical research. For information about current studies, visit www.ClinicalTrials.gov. Pronunciation Guide anus (AY-nuhss) barium enema (BA-ree-uhm) (EN-uh-muh) benign (bee-NYN) colonoscopy (KQP-jet-WOZ-kuh-pee) computerized tomography scan (bey-RMZE-bkk-eyezd)(zxw-VVY-edo-fee) (skpriti) DNA (ZARI-EN-AY) intestine (in-SHUN-tin) polyp (VISH-ip) rectum (REK-tuhm) sigmoidoscopy (TED-wxs-KOJS-kuh-pee) stool test (stool) (test) virtual (XZH-bcau-fmst) For More Information [employer] [address] [place] [address] Internet: www.acg.gi.org [employer] [address] [place] [address] Email: Internet: www.gastro.org [employer] [address] [place] [address], [address] [place] [address] Phone: [phone] ([phone]) or [phone] Email: info@[employer]Leap[employer].org Internet: www.[employer] land investment National [employer] [place] Cancer Information Service [address] [place] [address], [address] [place] [address] Phone: [phone] ([phone]) or [phone] Email: Internet: www.[employer].nih.gov documented in this encounter Medications at Time of Discharge oxycodone-acetami nophen (PERCOCET) 5-325 mg per tablet Take 1 Tab by mouth every 6 hours as needed for Pain. 9 Tab 0 04/06/2010 05/21/2013 documented as of this encounter Discharge Disposition Disposition Code Departure Means Destination Home or Self Care documented in this encounter H&P Notes * Rodríguez Rahman - 03/27/2013 0849 EDT Sedation for Procedure History & Physical Date: 03/27/2013 Time: 8:49 Location: [facility] Planned Procedure: Colonoscopy Chief Complaint/Indications for Procedure: Father had colon Ca @ age 70. History Previous Complication with Sedation and/or Anesthesia? No Allergies: No Known Allergies Current Medications: (Not in a hospital admission) Past Medical History: Past Medical History Diagnosis Date ??? Pericardial effusion ??? Anomaly, cardiac ??? Hypertension Social History: Past Surgical History Procedure Date ??? Pilonidal cyst drainage ??? Cardiac surgery pericardial effusion History Substance Use Topics ??? Smoking status: Current Everyday Smoker -- 0.2 packs/day ??? Smokeless tobacco: Not on file ??? Alcohol Use: Yes rare Family History: Family History Problem Relation Age of Onset ??? Colon Cancer Father ??? Cancer Maternal Grandmother ??? Stomach Cancer Maternal Grandfather Review of Systems as pertinent: Physical Exam Vital Signs: BP 148/103 Resp 18 Ht 170.2 cm (67) Wt 83.462 kg (184 lb) BMI 28.82 kg/m2 SpO2 100% Heart Examination: Cardiac Regularity: Regular Respiratory Examination: Respiratory Pattern: Regular Breath Sounds Right: Clear Breath Sounds Left: Clear Additional physical exam related to the proposed procedure, patient activity, disease state and treatment as pertinent: Assessment Previous complications with sedation or anesthesia?: No Airway Concerns: None Anesthesia Classification: ASA 1 Fasting Time: Time of last liquid intake: 1800 Date of Last Liquid Intake: 03/19/13 Time of last solid intake: 1800 Date of last solid intake: 03/25/13 Patient Appropriate Candidate for Planned Sedation?: Yes documented in this encounter Procedure Notes * CUSTODIAL MAINTENANCE WORKER, SCAN 2 - 03/28/2013 0036 EDTAssociated Order(s): PROCEDURE REPORTS - SCANNED documented in this encounter Miscellaneous Notes * Scanned Note-Null - CUSTODIAL MAINTENANCE WORKER, SCAN 2 - 03/28/2013 0858 EDT * Scanned Note-Null - CUSTODIAL MAINTENANCE WORKER, SCAN 2 - 03/28/2013 0858 EDT documented in this encounter Plan of Treatment Not on file documented as of this encounter Procedures Procedure Name Priority Date/Time Associated Diagnosis Comments PROCEDURE REPORTS - SCANNED 03/28/2013 0:36 EDT documented in this encounter Results * PROCEDURE REPORTS - SCANNED (03/28/2013 0:36 EDT) 03/28/2013 0:36 EDT Narrative 03/28/2013 7:42 EDT Procedure Note CUSTODIAL MAINTENANCE WORKER, SCAN 2 - 03/28/2013 0:36 EDT us Scan 2 Baker PROCEDURE/MINOR SURGICAL OR DERABLES Final Result documented in this encounter Visit Diagnoses Not on filedocumented in this encounter Administered Medications Inactive Administered Medications - up to 3 most recent administrations Medication Order MAR Action Action Date Dose Rate Site meperidine (PF) (DEMEROL) 100 mg/mL injection 25-200 mg 25-200 mg, intravenous, ONCE PRN, 1 dose, Starting on Tue03/27/13 at 0818, Until Tue03/27/13 at 0913, Other, sedation, Routine, Intraprocedure Given 03/27/2013 9:13 EDT 100 mg midazolam (VERSED) injection 1-10 mg 1-10 mg, intravenous, ONCE PRN, 1 dose, Starting on 03/27/13 at 0818, Until 03/27/13 at 0913, Sedation, Routine, Intraprocedure Given 03/27/2013 9:13 EDT 3 mg sodium chloride 0.9 % (NS) infusion 30 mL/hr, intravenous, CONTINUOUS, Starting on Tue03/27/13 at 0845, Until Tue03/27/13 at 1226, Routine, Preprocedure New Bag 03/27/2013 8:37 EDT 30 mL/hr 30 mL/hr documented in this encounter Orders Transfer Count Last Ordered Date First Orde red Date NOTIFY PPS OF DISCHARGE COMPLETE 1 03/27/20 13 Discharge Count Last Ordered Date First Orde red Date DISCHARGE PATIENT 1 03/27/2013 documented in this encounter Care Teams Asbestos Shingle Inspector Relationship Specialty Start Date End Date Katelyn Eledr APRN [address] [place] [address] PCP - General 02/01/13 08/28/18 documented as of this encounter
--- OUTSIDE RECORDS SUMMARY | 2024-10-12 08:17 | XMS_ITS | Encounter Summary ---
Author Organization [facility] Address [address] [place] [address] Care Team Providers Care Manuscripts Curator Name Role Phone Katelyn Elder TIE LOADER Primary Care Provider [phone] Encounter Details Date Type Department Care Team (Late st Contact Info) Description 09/26/[address] [facility] [phone] Katelyn Elder, TIE LOADER [address] [place] [address] Social History Tobacco Use Types Packs/Day Years [...] Procedure Name Priority Date/Time Associated Diagnosis Comments HELICOBACTER PYLORI IGG ANTIBODY Routine 09/26/2015 8:25 EST PSA SCREEN Routine 09/26/2015 8:25 EST documented in this encounter Results * PSA SCREEN (09/26/2015 8:25 EST) PSA 0.6 0 - 3.5 ng/ml 09/26/2015 15:07 EST [facility] Comment: Serum PSA concentration should not be interpreted as absolute evidence for the presence or absence of malignant disease. Assayed utilizing Siemens (WeLab) chemiluminescent technology. ??Values obtained by using different assay methods cannot be used interchangeably. BLOOD SPECIMEN / Unknown 09/26/2015 8:25 EST 09/26/2015 12:38 EST Katelyn Elder TIE LOADER CHEMISTRY & BLOOD GAS ORDERA BLES Final Result Performing Organization Address City/[facility]/ZIP Co de Phone Number [facility] [address] [place] [address] * HELICOBACTER PYLORI IGG ANTIBODY (09/26/2015 8:25 EST) H. Pylori IgG Ab Negative 09/29/2015 12:11 EST [facility] Comment:Assayed utilizing Proximus DSX system. BLOOD SPECIMEN / Unknown 09/26/2015 8:25 EST 09/26/2015 12:38 EST Katelyn Elder TIE LOADER CHEMISTRY & BLOOD GAS ORDERA BLES Final Result Performing Organization Address City/[facility] Co de Phone Number [facility] [address] [place] [address] documented in this encounter Visit Diagnoses Not on filedocumented in this encounter Care Teams Manuscripts Curator Relationship Specialty Start Date End Date Katelyn Elder APRN [address] [place] [address] PCP - General 02/01/13 08/28/18 documented as of this encounter
--- OUTSIDE RECORDS SUMMARY | 2024-10-12 08:17 | XMS_ITS | Encounter Summary ---
Author Organization [facility] Address [address] [place] [address] Care Team Providers Care Manager Occupational Name Role Phone Bowen Lucas MD Primary Care Provider [phone] Reason for Visit * Reason Comments Shoulder Pain Encounter Details Date Type Department Care Team (Late st Contact Info) Description 04/06/2010 17:57 EDT - 04/06/2010 20:59 EDT Hospital Encounter [facility] [address] [phone] Anil Napier MD [address] [place] [address] Brachial plexus injury, right Discharge Disposition: Home or Self Care Social [...] Sign Reading Time Taken Comments Blood Pressure 158/100 04/06/2010 1923 EDT patient aware of HBP, cutting salt Pulse 78 04/06/2010 1923 EDT Temperature 37.1 ??C (98.7 ??F) 04/06/2010 1 923 EDT Respiratory Rate 20 04/06/2010 1923 EDT Oxygen Saturation - - Inhaled Oxygen Concentration - - Weight - - Height - - Body Mass Index - - documented in this encounter Discharge Instructions * Discharge Instructions* Anil Napier - 04/06/2010 20:50 EDT documented in this encounter Medications at Time of Discharge oxycodone-acetami nophen (PERCOCET) 5-325 mg per tablet Take 1 Tab by mouth every 6 hours as needed for Pain. 9 Tab 0 04/06/2010 05/21/2013 predniSONE (DELTASONE) 20 mg tablet Take 2 Tabs by mouth daily for 7 days. 14 Tab 0 04/06/2010 04/13/2010 documented as of this encounter Ordered Prescriptions Prescription Sig Dispense Quantity Refills Last Filled Start Date End Date oxycodone-acetamin ophen (PERCOCET) 5-325 mg per tablet Take 1 Tab by mouth every 6 hours as needed for Pain. 9 Tab 0 04/06/2010 05/21/2013 predniSONE (DELTASONE) 20 mg tablet Take 2 Tabs by mouth daily for 7 days. 14 Tab 0 04/06/2010 04/13/2010 documented in this encounter Discharge Disposition Disposition Code Departure Means Destination Home or Self Care Car Home documented in this encounter ED Notes * Anil Napier - 04/07/2010 1513 EDT DOS: 04/06/2010 Chief Complaint Patient presents with ??? Shoulder Pain The patient is a 54 y.o. male who presents today with Shoulder Pain HPI Comments: This pleasant man presents with right shoulder pain and numbness. Symptoms began after he napped for 1-2 hours with arms raised/hands behind head. He is right hand dominant. No specificinjury history. Similar, but milder, symptoms occur if he falls asleep with either arm abducted at the shoulder- these symptoms resolve quickly. 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 OTC analgesics and some left-over Vicodin have not helped. The history is provided by the patient and medical records. Shoulder Pain The incident occurred 2 days ago. The incident occurred at home. There was no injury mechanism. Theright shoulder is affected. The pain is moderate. The pain radiates (Radiates into right upper arm.). There is no history of shoulder injury. There is no history of shoulder surgery. Associated symptoms include numbness and tingling. Pertinent negatives include no muscle weakness. Review of Systems Constitutional: Negative. HENT: Negative. Eyes: Negative. Respiratory: Negative. Cardiovascular: Negative. Gastrointestinal: Negative. Musculoskeletal: Positive for myalgias and arthralgias. Negative for back pain, joint swelling and gait problem. Skin: Negative. Neurological: Positive for tingling and numbness. Negative for dizziness, weakness, light-headedness and headaches. Hematological: Negative. Psychiatric/Behavioral: Negative. Current hospital medications Medication Dose Route Frequency Provider Last Rate Last Dose ??? predniSONE (DELTASONE) tablet 40 mg 40 mg Oral Now Anil Napier MD Last Dose: 40 mg at ??? Oxycodone w APAP?? 5- 325 mg Tab STARTER PACK 1 Package Oral Now Anil Napier MD Last Dose: 1 Package at 04/06/102057 Current outpatient prescriptions Medication Sig Dispense Refill ??? predniSONE (DELTASONE) 20 mg tablet Take 2 Tabs by mouth daily for 7 days. 14 Tab 0 ??? oxycodone-acetaminophen (PERCOCET) 5-325 mg per tablet Take 1 Tab by mouth every 6 hours as needed for Pain. 9 Tab 0 No Known Allergies History reviewed. No pertinent past medical history. History Substance Use Topics ??? Tobacco Use: Yes -- 0.2 packs/day ??? Alcohol Use: Yes rare History reviewed. No pertinent family history. BP 158/100 Pulse 78 Temp 98.7 ??F (37.1 ??C) Resp 20 Physical Exam Nursing note and vitals reviewed. Constitutional: He is oriented. He appears well-developed and well-nourished. He appears not diaphoretic. Uncomfortable- standing with right arm straight at side during visit. HENT: Head: Normocephalic and atraumatic. Eyes: Conjunctivae and extraocular motions are normal. Pupils are equal, round, and reactive to light. Neck: Normal range of motion. Neck supple. No tracheal deviation present. No thyromegaly present. Cardiovascular: Normal rate, regular rhythm and normal heart sounds. Pulmonary/Chest: Effort normal and breath sounds normal. Abdominal: Soft. No tenderness. Musculoskeletal: Right shoulder: He exhibits decreased range of motion and tenderness. He exhibits no bony tenderness, no swelling, no effusion, no deformity, no laceration, no spasm, normal pulse and normal strength. Right shoulder: no deltoid paresthesia. Pain with passive flexion, abduction, and external rotation. Strength testing difficult due to pain. Grossly normal sensation throughout. Normal elbow, wrist, hand strength. 2+ distal pulses. Lymphadenopathy: He has no cervical adenopathy. Neurological: He is alert and oriented. No cranial nerve deficit. Skin: Skin is warm and dry. No rash noted. He is not diaphoretic. No erythema. No pallor. Psychiatric: He has a normal mood and affect. His behavior is normal. Judgment and thought content normal. Consult orders: None PCP: BOWEN LUCAS MD No results found for this visit on 04/06/10. Radiology orders: None Procedures Course: Reviewed my impression- should resolve, but may take some time- even a few weeks. If worsening, consider evaluation by Orthopedics and/or Neurology. Reviewed medication use and precautions. Encounter Diagnoses Code Name Primary? Qualifier ??? 953.4K Brachial plexus injury, right No supervision required. [facility] 04/07/2010 3:13 PM * Zita Mccormick LPN - 04/06/20101920 EDT Fell asleep with his hands behind his head on Tuesday-woke up and cannot lift his right arm, has kept him awake for 2 nights documented in this encounter Miscellaneous Notes * Scanned Note-Null - Inpatient, Physician - 04/13/20102055 EDT documented in this encounter Plan of Treatment Not on file documented as of this encounter Visit Diagnoses Diagnosis Brachial plexus injury, right Injury to brachial plexus documented in this encounter Administered Medications Inactive Administered Medications - up to 3 most recent administrations Medication Order MAR Action Action Date Dose Rate Site Oxycodone w APAP?? 5- 325 mg Tab STARTER PACK 1 Package, oral, NOW X1, 1 dose, On Tue04/06/10 at 2115, Routine Given 04/06/2010 20:58 EDT 1 Package predniSONE (DELTASONE) tablet 40 mg 40 mg, oral, NOW X1, 1 dose, On Tue04/06/10 at 2115, Routine Given 04/06/2010 20:58 EDT 40 mg documented in this encounter Active and Recently Administered Medications Times are shown in EDT. Scheduled Medication Order 04/04/2010 04/05/2010 04/06/2010 Oxycodone w APAP?? 5- 325 mg Tab STARTER PACK (COMPLETED) 1 Package, oral, NOW X1, 1 dose, On Tue04/06/10 at 211, Routine 2057 (Given - Provid er: Mamie Cabral RN) predniSONE (DELTASONE) tablet 40 mg (COMPLETED) 40 mg, oral, NOW X1, 1 dose, On Tue04/06/10 at 2115, Routine 2057 (Given - Provid er: Mamie Cabral RN) documented in this encounter Care Teams Manager Occupational Relationship Specialty Start Date End Date Bowen Lucas MD [address] [place] [id number] PCP - General 04/06/10 01/31/13 documented as of this encounter
--- OUTSIDE RECORDS SUMMARY | 2024-10-12 08:17 | XMS_ITS | Encounter Summary ---
Author Organization [facility] Address [address] [place] [address] Care Team Providers Care Cereal Popper Name Role Phone Katelyn Elder MAINTENANCE SHOP TECHNICIAN Primary Care Provider [phone] Encounter Details Date Type Department Care Team (Latest Contact Info) Description 09/26/2015 8:30 EST - 09/26/2015 8:31 EST Hospital Encounter [facility] [place], [place] [address] [place] [address] Katelyn Elder, MAINTENANCE SHOP TECHNICIAN [address] [place] [address] [phone] Discharge Disposition: Home or Self Care Social [...] as of this encounter Discharge Diagnoses Diagnosis Z12.5 Encounter for screening for malignant neoplasm of prostate-Z12.5[ICD-10-CM] R07.82 Intercostal pain-R07.82[ICD-10-CM] documented in this encounter Medications at Time of Discharge losartan (COZAAR) 25 mg tablet Take 25 mg by mouth daily. 07/26/2021 documented as of this encounter Discharge Disposition Disposition Code Departure Means Destination Home or Self Care documented in this encounter Plan of Treatment Not on file documented as of this encounter Visit Diagnoses Not on filedocumented in this encounter Care Teams Cereal Popper Relationship Specialty Start Date End Date Katelyn Elder APRN [address] [address] PCP - General 02/01/13 08/28/18 documented as of this encounter
--- OUTSIDE RECORDS SUMMARY | 2024-10-12 08:17 | XMS_ITS | Encounter Summary ---
Author Organization [facility] Address [address] [place] [address] Care Team Providers Care Account Support Specialist Name Role Phone Katelyn Elder AIRPLANE RENTAL CLERK Primary Care Provider [phone] Encounter Details Date Type Department Care Team (Late st Contact Info) Description 05/18/2013 Results Only Imaging [facility] [phone] Katelyn Elder, AIRPLANE RENTAL CLERK [address] [place] [address] Social History Tobacco Use Types Packs/Day Years [...] Name Priority Date/Time Associated Diagnosis Comments CT CHEST W CONTRAST 05/21/2013 1 3:47 EDT documented in this encounter Results * CT CHEST W CONTRAST (05/21/2013 13:47 EDT) Anatomical Region Laterality Modality Other 05/21/2013 13:4 7 EDT 05/21/2013 15:12 EDT Narrative 05/21/2013 15:[address] CHEST W CONTRAST ??05/21/2013 1:47 PM Clinical History/Comments: Chest pain returning. Comparison: None available Technique: A CT of the chest was obtained. Imaging was performed from the lung apices to the lung bases. IV contrast was administered. Findings: CHEST WALL (SOFT TISSUES): A small scar is present in the mid lower chest adjacent to the xiphoid process from a prior procedure. MEDIASTINUM/DARYL: The cardiac chambers and proximal great vessels are normal in size. The pericardium is within normal limits. No enlarged mediastinal or hilar lymph nodes are identified. LUNGS: There are a few scattered pulmonary cysts, indicative of minimal centrilobular emphysema. A 6 mm triangular nodule in the right middle lobe has the appearance of a pulmonary lymph node. Linear opacities in the right middle lobe, lingula, and lung base could represent areas of subsegmental atelectasis and/or scarring. PLEURA: Normal. AIRWAYS: Normal. UPPER ABDOMEN: The suprarenal abdominal aorta demonstrates scattered areas of both calcified and noncalcified atherosclerotic plaque. BONES: Degenerative changes are noted throughout the thoracic spine, somewhat greater than expected for age. Impression: 1. No abnormality identified to explain the reported history of chest pain. 2. Minimal centrilobular emphysema. 3. Multilevel thoracic degenerative change, somewhat greater than expected for age. 4. ??Scar in the lower chest adjacent to the xiphoid process from a prior procedure. I have personally reviewed the images and the above interpretation and agree with the findings. Procedure Note Jun Mcdowell MD - 05/21/2013 CT CHEST W CONTRAST 05/21/2013 1:47 PM Clinical History/Comments: Chest pain returning. Comparison: None available Technique: A CT of the chest was obtained. Imaging was performed from the lung apices to the lung bases. IV contrast was administered. Findings: CHEST WALL (SOFT TISSUES): A small scar is present in the mid lower chest adjacent to the xiphoid process from a prior procedure. MEDIASTINUM/DARYL: The cardiac chambers and proximal great vessels are normal in size. The pericardium is within normal limits. No enlarged mediastinal or hilar lymph nodes are identified. LUNGS: There are a few scattered pulmonary cysts, indicative of minimal centrilobular emphysema. A 6 mm triangular nodule in the right middle lobe has the appearance of a pulmonary lymph node. Linear opacities in the right middle lobe, lingula, and lung base could represent areas of subsegmental atelectasis and/or scarring. PLEURA: Normal. AIRWAYS: Normal. UPPER ABDOMEN: The suprarenal abdominal aorta demonstrates scattered areas of both calcified and noncalcified atherosclerotic plaque. BONES: Degenerative changes are noted throughout the thoracic spine, somewhat greater than expected for age. Impression: 1. No abnormality identified to explain the reported history of chest pain. 2. Minimal centrilobular emphysema. 3. Multilevel thoracic degenerative change, somewhat greater than expected for age. 4. Scar in the lower chest adjacent to the xiphoid process from a prior procedure. I have personally reviewed the images and the above interpretation and agree with the findings. Katelyn Eldre APRN IMG CT ORDERABLES Final Resu lt documented in this encounter Visit Diagnoses Not on filedocumented in this encounter Care Teams Account Support Specialist Relationship Specialty Start Date End Date Katelyn Elder, KEELEY [address] [facility] [address] [place] [address] PCP - General 02/01/13 08/28/18 documented as of this encounter
--- OUTSIDE RECORDS SUMMARY | 2024-10-12 08:17 | XMS_ITS ---
Author Organization Unknown Address [address] [place] [phone] Phone Care Team Providers Care Middleware Engineer Name Role Phone TEDDY Peguero Attending Unavailable BAMBI Cohen Primary Unavailable Immunization Immunization Date Status Additional Notes Code Code System Tdap 03/30/2023 Completed 115 CVX Social History Type Status Start Date End Date Code Code Syst em Smoking History Current every day smoker 895966989 SNOMED CT Sex Male Medications Medication Start Date End Date Route Frequency Dose Code Code System Medication Instructions Home Meds HYDROcodone bitartrate-acetaminophen 5MG-325MG Oral Tablet 03/30/2023 03/30/2023 ORAL NEEDED EVERY 4 HOURS 1 TABLET 245385 RxNorm TAKE 1-2 TABLET ORAL NEEDED EVERY 4 HOURS FOR Pain Percocet 5MG-325MG Oral Tablet 03/30/2023 12/26/2023 ORAL NEEDED EVERY 4 HOURS 1 TABLET 2206488 RxNorm TAKE 1-2 TABLET ORAL NEEDED EVERY [...] System CLOSED FRACTURE OF RIGHT ANKLE active 52988026157572534 SNOMED-CT HTN 03/30/2023 resolved 37946242 SNOMED-CT HLD 03/30/2023 resolved 85593431 SNOMED-CT Allergies and Adverse Reactions Allergy Substance Reaction Severity Start Date Concern Status Co de Code System LOSARTAN Active 92497 RxNorm Plan of Treatment CT CHEST W/O CONTRAST 05/13/2022 Encounters Encounter Diagnosis Start Date Code Code Sys tem Atherosclerotic heart diseas e of [place] coronary artery without angina pectoris 01/29/2022 SNOMED-CT Personal Care Team Section Performer Name Performer Role Active Date Inactive Da te
--- OUTSIDE RECORDS SUMMARY | 2024-10-12 08:17 | XMS_ITS | Encounter Summary ---
Author Organization [facility] [place] [facility] Address [address] [place] [address] Care Team Providers Care Visual Merchandising Assistant Name Role Phone Katelyn Elder APRN Primary Care Provider [phone] Encounter Details Date Type Department Care Team (Latest Contact Info) Description 03/27/2013 8:20 EDT - 03/27/2013 23:59 EDT Hospital Encounter [facility] - Main [place] [address] [place] [address] [facility] Room Discharge Disposition: Home or Self Care Social [...] Code Departure Means Destination Home or Self [facility] documented in this encounter Plan of Treatment Not on file documented as of this encounter Visit Diagnoses Not on filedocumented in this encounter Care Teams Visual Merchandising Assistant Relationship Specialty Start Date End Date Katelyn Elder APRN [address] [facility] [address] [place] [address] PCP - General 02/01/13 08/28/18 documented as of this encounter
--- OUTSIDE RECORDS SUMMARY | 2024-10-12 08:17 | XMS_ITS | Encounter Summary ---
Author Organization [facility] Address [address] [place] [address] Care Team Providers Care Beamer Helper Name Role Phone Katelyn Elder SAND MIXER Primary Care Provider [phone] Encounter Details Date Type Department Care Team (Late st Contact Info) Description 07/31/2014 Results Only [facility] - [facility] [place] [address] [place] [address] Katelyn Elder, SAND MIXER [address] [place], [place] [phone] Social History Tobacco Use Types Packs/Day Years [...] Procedure Name Priority Date/Time Associated Diagnosis Comments HEPATITIS C AB W REFLEX TO HCV RNA BY PCR Routine 07/31/2014 15:17 EDT HIV 1/2 ANTIGEN AND ANTIBODY, 4TH GENERATION Routine 07/31/2014 15:17 EDT documented in this encounter Results * HIV 1/2 ANTIBODY (07/31/2014 15:17 EDT) HIV 1/2 Antibody Negative [facility] Comment: If acute HIV-1 infection is suspected in a high risk patient, submit plasma specimen for HIV-1 RNA quantification test. Reference Range: ??Negative Assayed utilizing Blink (air taxi) chemiluminescent technology. 07/31/2014 15:1 7 EDT 07/31/2014 19:08 EDT Katelyn Elder SAND MIXER IMMUNOLOGY AND SEROLOGY ORDE RABLES Final Result Performing Organization Address City/[facility]/ZIP Co de Phone Number [facility] [address] [place] [address] * HEPATITIS C ANTIBODY (07/31/2014 15:17 EDT) Hepatitis C Ab Negative [facility] Comment:Reference Range: Neg ative 07/31/2014 15:1 7 EDT 07/31/2014 19:08 EDT Katelyn Elder SAND MIXER CHEMISTRY & BLOOD GAS ORDERA BLES Final Result Performing Organization Address City/[facility] Co de Phone Number [facility] [address] [place] [address] documented in this encounter Visit Diagnoses Not on filedocumented in this encounter Care Teams Beamer Helper Relationship Specialty Start Date End Date Katelyn Elder APRN [address] [place] [address] PCP - General 02/01/13 08/28/18 documented as of this encounter
--- OUTSIDE RECORDS SUMMARY | 2024-10-12 08:17 | XMS_ITS | Encounter Summary ---
Author Organization [facility] Address [address] [place] [address] Care Team Providers Care Circus Rider Name Role Phone Katelyn Elder DATAPOWER CONSULTANT Primary Care Provider [phone] Encounter Details Date Type Department Care Team (Latest Contact Info) Description 02/01/2013 19:37 EDT - 02/01/2013 22:00 EDT Hospital Encounter [facility] [address] [place] [address] Katelyn Elder, DATAPOWER CONSULTANT [address] [place] [phone] Discharge Disposition: Home or Self Care Social [...] on filedocumented in this encounter Care Teams Circus Rider Relationship Specialty Start Date End Date Katelyn Elder APRN [address] [place] [id number] PCP - General 02/01/13 08/28/18 documented as of this encounter
--- OUTSIDE RECORDS SUMMARY | 2024-10-12 08:18 | XMS_ITS ---
Author Organization Unknown Address [address] [place] [phone] Phone Care Team Providers Care Hair Baler Name Role Phone GERSON Tate Attending Unavailable BAMBI Cohen Primary Unavailable Immunization Immunization Date Status Additional Notes Code Code System Tdap 03/30/2023 Completed 115 CVX Social History Type Status Start Date End Date Code Code Syst em Smoking History Current every day smoker 276892893 SNOMED CT Sex Male Medications Medication Start Date End Date Route Frequency Dose Code Code System Medication Instructions Home Meds Percocet 5MG-325MG Oral Tablet 03/30/2023 12/26/2023 ORAL NEEDED EVERY 4 HOURS 1 TABLET 5700433 RxNorm TAKE 1-2 TABLET ORAL NEEDED EVERY [...] System CLOSED FRACTURE OF RIGHT ANKLE active 89871092220086853 SNOMED-CT HTN 03/30/2023 resolved 20554660 SNOMED-CT HLD 03/30/2023 resolved 44228929 SNOMED-CT Allergies and Adverse Reactions Allergy Substance Reaction Severity Start Date Concern Status Co de Code System LOSARTAN Active 89090 RxNorm Plan of Treatment CT CHEST W/O CONTRAST 05/13/2022 Encounters Encounter Diagnosis Start Date Code Code Sys tem Closed trimalleolar fracture 04/01/2023 3152757 SNOMED-CT Personal Care Team Section Performer Name Performer Role Active Date Inactive Da te
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
--- OUTSIDE RECORDS SUMMARY | 2024-10-12 08:18 | XMS_ITS ---
Author Organization Unknown Address [address] [place], [place] [phone] Phone Care Team Providers Care Aircraft Delivery Checker Name Role Phone GERSON Tate Attending Unavailable TUSHAR Chung WEBSITE ADMIN Unavailable KEVYN Chung Nurse Practitioner Unavailchandrika Cohen Primary Unavailable Immunization Immunization Date Status Additional Notes Code Code System Tdap 03/30/2023 Completed 115 CVX Results BASIC METABOLIC PANEL (BMP) - Collect Date/Time: 04/05/2023 11:41 [facility] ID: [id number] [address] [place], [place], [address] LOINC: 57611-8 Test Value Unit Reference Range Code Code System Flag GLUCOSE 116 mg/dL L=70 H=116 2345-7 LOINC BUN 18 mg/dL L=6 H=25 3094-0 LOINC CREATININE 1.06 mg/dL L=0.67 H=1.17 2160-0 LOINC SODIUM SERUM 133 mmol/L L=136 H=145 2951-2 LOINC L POTASSIUM SERUM 4.2 mmol/L L=3.4 H=5.2 2823-3 LOINC CHLORIDE SERUM 101 mmol/L L=96 H=110 2075-0 LOINC CARBON DIOXIDE (CO2) 25 mmol/L L=22 H=34 2028-9 LOINC ANION GAP 7.2 mmol/L 36200-2 LOINC CALCIUM SERUM 9.2 mg/dL L=8.2 H=10.2 85994-0 LOINC AGE 67 years eGFR (non-Afr.Amer.) 70 mL/min 46651-8 LOINC eGFR (Afr-Mauritian) 85 mL/min 73202-1 LOINC CBC W/ DIFFERENTIAL* - Colle ct Date/Time: 04/05/2023 11:41 [facility] ID: [id number] [address] [place], [place], [address] LOINC: 30820-3 Test Value Unit Reference Range Code Code System Flag WBC 8.17 th/cmm L=5.00 H=10.00 6690-2 LOINC NEUT % 63.3 % L=40.0 H=80.0 LYMPH % 23.9 % L=10.0 H=50.0 MONO % 8.4 % L=2.0 H=12.0 48925-2 LOINC EOS % 3.2 % L=0.0 H=8.0 BASO % 1.0 % L=0.0 H=3.0 IG % 0.2 % L=0.0 H=1.1 2514-8 LOINC NRBC % 0.0 % L=0.0 H=0.0 35669-9 LOINC NEUT abs count 5.2 th/cmm L=1.6 H=8.4 751-8 LOINC LYMPH abs count 2.0 th/cmm L=1.5 H=4.0 731-0 LOINC MONO abs count 0.7 th/cmm L=0.2 H=1.0 742-7 LOINC EOS abs count 0.3 th/cmm L=0.0 H=0.5 711-2 LOINC BASO abs count 0.1 th/cmm L=0.0 H=0.2 704-7 LOINC IG abs count 0.0 th/cmm L=0.0 H=0.1 02048-1 LOINC NRBC abs count 0.0 mil/cmm L=0.0 H=0.0 73975-2 LOINC RBC 5.03 mil/cmm L=4.30 H=6.20 789-8 LOINC HEMOGLOBIN 15.0 gm/dL L=13.0 H=17.0 718-7 LOINC HEMATOCRIT 45 % L=45 H=52 4544-3 LOINC MCV 90 fL L=82 H=92 787-2 LOINC MCH 29.8 pg L=27.0 H=31.0 785-6 LOINC MCHC 33.2 % L=32.0 H=36.0 786-4 LOINC RDW-SD 42.1 fL L=39.0 H=49.0 788-0 LOINC PLATELET COUNT 261 th/cmm L=150 H=450 777-3 LOINC XR C-ARM ANKLE 2V RT* - Comp leted: 04/05/2023 16:05 LOINC: [facility] [place], [place] [address] PACS WELD FITTER REPORT Patient Name: GENARO SHIN MRN: Sex: : Age: [id number] M 1955 67 Account: Accession: Admit: StayType: [id number] 04/05/2023 O/P Ordered: Order ID: Submitted: Ordering Provider: 04/05/2023 07:26 [id number] MARY MARCUM Completed: Technologist: Resulted: 04/05/2023 16:05 MLL 04/05/2023 16:12 Study Description:XR C-ARM ANKLE 2V RT Study Reason: RT ANKLE ORIF Comparison: 30 March 2023 Fluoroscopy was provided for the referring physicianin the OR. 2D and real time imaging was performed. Hardcopy images show placement of a screw and plate along the distal fibula as well as a screw through the posterior tibia for fracture fixation. Please see procedure note for details. Fluoroscopy time:32.2sec Kelly,r: 0.69mGy Report Digitally Signed by Katalina Becerril on 04/05/2023 04:12 PM EDT Social History Type Status Start Date End Date Code Code Syst em Smoking History Current every day smoker 226995077 SNOMED CT Sex Male Vital Signs Vital Sign Value Unit [place] Value [place] Unit Date/Time Recent/Initial? Code Code System Systolic Blood Pressure 107 mm[Hg] 04/05/2023 17:01 Initial 8480-6 LOINC Diastolic Blood Pressure 60 mm[Hg] 04/05/2023 17:01 Initial 8462-4 LOINC O2 Saturation 99 % 2022 17:01 Initial 98217- 5 LOINC Pulse 67.0 /min 04/05/2023 17:01 Initial 8867-4 LOINC Respiration 14 /min 04/05/20 17:01 Initial 9279-1 LOINC Temperature 37.0 Ludivina 98.6 F 04/05/20 17:01 Initial 8310-5 LOINC Medications Medication Start Date End Date Route Frequency Dose Code Code System Medication Instructions Home Meds Percocet 5MG-325MG Oral Tablet 03/30/2023 12/26/2023 ORAL NEEDED EVERY 4 HOURS 1 TABLET 2659743 RxNorm TAKE 1-2 TABLET ORAL NEEDED EVERY 4 HOURS Assessment You had the following problems:CLOSED FRACTURE OF RIGHT ANKLE Hospital Discharge Instructions Should you have any questions prior to discharge, please contact a member of your healthcare team. If you have left the hospital and have any questions, please contact your primary care physician. Reason For Referral No Data Found Procedures Procedure Name Date Status Code Code Syste m Open Treatment Trimalleolar Ankle Fracture w/o Fixation Post Lip 04/05/2023 completed 60594 CPT Repair, Primary, Disrupted L igament, Ankle; Collateral 04/05/2023 completed 84727 CPT Injection Anesthetic Agent a nd/or Steroid; Other Peripheral Nerve or Branch 04/05/2023 completed 61846 CPT Injection Anesthetic Agent a nd/or Steroid; Femoral Nerve Including Imaging Guidance When Performed 04/05/2023 completed 07999 CPT Anesthesia, Open Proc, Bones , Lower Leg/Ankle/Foot; NOS 04/05/2023 completed 82835 CPT Problems Problem Start Date Resolved Date Status Code Code System CLOSED FRACTURE OF RIGHT ANKLE active 10801680303432556 SNOMED-CT HTN 03/30/2023 resolved 44691993 SNOMED-CT HLD 03/30/2023 resolved 21342088 SNOMED-CT Allergies and Adverse Reactions Allergy Substance Reaction Severity Start Date Concern Status Co de Code System LOSARTAN Active 01882 RxNorm Plan of Treatment CT CHEST W/O CONTRAST 05/13/2022 Encounters Encounter Diagnosis Start Date Code Code Sys tem Displaced trimalleolar fract ure of right lower leg, initial encounter for closed fracture 04/05/2023 SN OMED-CT Personal Care Team Section Performer Name Performer Role Active Date Inactive Da te
--- OUTSIDE RECORDS SUMMARY | 2024-10-12 08:18 | XMS_ITS ---
Author Organization Unknown Address [address] [place], [place] [phone] Phone Care Team Providers Care Chief Transfer And Pumphouse Operator Name Role Phone TEDDY Peguero Attending Unavailable BAMBI Cohen Primary Unavailable Immunization Immunization Date Status Additional Notes Code Code System Tdap 03/30/2023 Completed 115 CVX Results LIPID PANEL* - Collect Date/ Time: 01/20/2023 09:42 [facility] ID: [id number] [address] [place], [place], [id number] LOINC: Test Value Unit Reference Range Code Code System Flag FASTING STATUS: R CHOLESTEROL 156 mg/dL L=0 H=200 2093-3 LOINC TRIGLYCERIDES 92 mg/dL L=56 H=240 2571-8 LOINC HDL 58 mg/dL L=30 H=74 2085-9 LOINC non-HDL-C 98 mg/dL L=0 H=160 54345-7 LOINC LDL (CALC) 80 mg/dL L=0 H=130 14051-0 LOINC % HDL 37.2 % Chol/HDL Ratio 2.7 L=0.0 H=4.9 9830-1 LOINC CHD Relative Risk 0.5 x Avg L=0.0 H=1.0 LDL/HDL Ratio 1.4 L=0.0 H=3.5 75377-5 LOINC CHD Relative Risk. 0.4 x Avg L=0.0 H=1.0 Social History Type Status Start Date End Date Code Code Syst em Smoking History Current every day smoker 670211655 SNOMED CT Sex Male Medications Medication Start Date End Date Route Frequency Dose Code Code System Medication Instructions Home Meds HYDROcodone bitartrate-acetaminophen 5MG-325MG Oral Tablet 03/30/2023 03/30/2023 ORAL NEEDED EVERY 4 HOURS 1 TABLET 522686 RxNorm TAKE 1-2 TABLET ORAL NEEDED EVERY 4 HOURS FOR Pain Percocet 5MG-325MG Oral Tablet 03/30/2023 12/26/2023 ORAL NEEDED EVERY 4 HOURS 1 TABLET 4630293 RxNorm TAKE 1-2 TABLET ORAL NEEDED EVERY [...] System CLOSED FRACTURE OF RIGHT ANKLE active 46655954522353608 SNOMED-CT HTN 03/30/2023 resolved 19980359 SNOMED-CT HLD 03/30/2023 resolved 82449860 SNOMED-CT Allergies and Adverse Reactions Allergy Substance Reaction Severity Start Date Concern Status Co de Code System LOSARTAN Active 49682 RxNorm Plan of Treatment CT CHEST W/O CONTRAST 05/13/2022 Encounters Encounter Diagnosis Start Date Code Code Sys tem Atherosclerotic heart diseas e of [place] coronary artery without angina pectoris 01/20/2023 SNOMED-CT Personal Care Team Section Performer Name Performer Role Active Date Inactive Leo hameed
--- OUTSIDE RECORDS SUMMARY | 2024-10-12 08:19 | XMS_ITS ---
Author Organization Unknown Address [address] [place] [phone] Phone Care Team Providers Care Cigarette Packer Name Role Phone ROGER Valero Attending Unavailable BAMBI Cohen Primary Unavailable Immunization Immunization Date Status Additional Notes Code Code System Tdap 03/30/2023 Completed 115 CVX Social History Type Status Start Date End Date Code Code Syst em Smoking History Current every day smoker 068225043 SNOMED CT Sex Male Medications Medication Start Date End Date Route Frequency Dose Code Code System Medication Instructions Home Meds Percocet 5MG-325MG Oral Tablet 03/30/2023 12/26/2023 ORAL NEEDED EVERY 4 HOURS 1 TABLET 9721218 RxNorm TAKE 1-2 TABLET ORAL NEEDED EVERY [...] System CLOSED FRACTURE OF RIGHT ANKLE active 66468975009180737 SNOMED-CT HTN 03/30/2023 resolved 08949036 SNOMED-CT HLD 03/30/2023 resolved 39050311 SNOMED-CT Allergies and Adverse Reactions Allergy Substance Reaction Severity Start Date Concern Status Co de Code System LOSARTAN Active 34626 RxNorm Plan of Treatment CT CHEST W/O CONTRAST 05/13/2022 Encounters Encounter Diagnosis Start Date Code Code Sys tem Other fracture of right lowe r leg, subsequent encounter for closed fracture with routine healing 04/27/2023 SNOMED-CT Personal Care Team Section Performer Name Performer Role Active Date Inactive Da te
--- OUTSIDE RECORDS SUMMARY | 2024-10-12 08:19 | XMS_ITS ---
Author Organization Unknown Address [address] [place], [place] [phone] Phone Care Team Providers Care Aviation Safety Inspector Name Role Phone GERSON Tate Attending Unavailable CORRY ZAMBRANO CRNA Unavailable KEVYN Chung Nurse Practitioner Unavailchandrika Cohen Primary Unavailable Immunization Immunization Date Status Additional Notes Code Code System Tdap 03/30/2023 Completed 115 CVX Results BASIC METABOLIC PANEL (BMP) - Collect Date/Time: 02/13/2024 10:59 [facility] ID: [id number] 8 [place], [place], [address] LOINC: 00434-4 Test Value Unit Reference Range Code Code System Flag GLUCOSE 111 mg/dL L=70 H=116 2345-7 LOINC BUN 15 mg/dL L=6 H=25 3094-0 LOINC CREATININE 0.90 mg/dL L=0.67 H=1.17 2160-0 LOINC SODIUM SERUM 140 mmol/L L=136 H=145 2951-2 LOINC POTASSIUM SERUM 4.6 mmol/L L=3.4 H=5.2 2823-3 LOINC CHLORIDE SERUM 107 mmol/L L=96 H=110 2075-0 LOINC CARBON DIOXIDE (CO2) 25 mmol/L L=22 H=34 2028-9 LOINC ANION GAP 7.6 mmol/L 81983-9 LOINC CALCIUM SERUM 8.8 mg/dL L=8.2 H=10.2 28155-6 LOINC AGE 68 years eGFR (non-Afr.Amer.) 84 mL/min 12828-3 LOINC eGFR (Afr-Cymraes) 102 mL/min 26674-0 LOINC CBC W/ DIFFERENTIAL* - Colle ct Date/Time: 02/13/2024 10:59 [facility] ID: [id number] [address] [place], [place], [address] LOINC: 76054-2 Test Value Unit Reference Range Code Code System Flag WBC 6.31 th/cmm L=5.00 H=10.00 6690-2 LOINC NEUT % 52.8 % L=40.0 H=80.0 LYMPH % 33.4 % L=10.0 H=50.0 MONO % 8.1 % L=2.0 H=12.0 01968-7 LOINC EOS % 4.3 % L=0.0 H=8.0 BASO % 1.1 % L=0.0 H=3.0 IG % 0.3 % L=0.0 H=1.1 2514-8 LOINC NRBC % 0.0 % L=0.0 H=0.0 72692-6 LOINC NEUT abs count 3.3 th/cmm L=1.6 H=8.4 751-8 LOINC LYMPH abs count 2.1 th/cmm L=1.5 H=4.0 731-0 LOINC MONO abs count 0.5 th/cmm L=0.2 H=1.0 742-7 LOINC EOS abs count 0.3 th/cmm L=0.0 H=0.5 711-2 LOINC BASO abs count 0.1 th/cmm L=0.0 H=0.2 704-7 LOINC IG abs count 0.0 th/cmm L=0.0 H=0.1 22196-2 LOINC NRBC abs count 0.0 mil/cmm L=0.0 H=0.0 51878-0 LOINC RBC 5.02 mil/cmm L=4.30 H=6.20 789-8 LOINC HEMOGLOBIN 15.3 gm/dL L=13.0 H=17.0 718-7 LOINC HEMATOCRIT 45 % L=45 H=52 4544-3 LOINC MCV 90 fL L=82 H=92 787-2 LOINC MCH 30.5 pg L=27.0 H=31.0 785-6 LOINC MCHC 33.8 % L=32.0 H=36.0 786-4 LOINC RDW-SD 43.1 fL L=39.0 H=49.0 788-0 LOINC PLATELET COUNT 219 th/cmm L=150 H=450 777-3 LOINC XR C-ARM ANKLE 3V RT* - Comp leted: 02/13/2024 16:17 LOINC: [facility] RADI[facility] [place], [place] [address] PACS LABORER HIDE HOUSE REPORT Patient Name: GENARO SHIN MRN: Sex: : Age: [id number] M 1955 68 Account: Accession: Admit: StayType: [id number] 02/13/2024 O/P Ordered: Order ID: Submitted: Ordering Provider: 02/13/2024 01:30 [id number] MARY HANSEN Completed: Technologist: Resulted: 02/13/2024 16:18 BXG 02/13/2024 16:52 XR C-ARM ANKLE 3V RT HAEDWARE REMOVAL Technique: 2D digital imaging was performed. 2 images were obtained. COMPARISON: Comparison is made with prior examinations. FINDINGS: Fluoroscopy was utilized by Dr. Humphries during the performance of a hardware removal. Please refer to the procedure details. Kar = 0.06 mGy. Report Digitally Signed by Mark Mejias on 02/13/2024 04:52 PM EDT Social History Type Status Start Date End Date Code Code Syst em Smoking History Current every day smoker 728013861 SNOMED CT Sex Male Vital Signs Vital Sign Value Unit [place] Value [place] Unit Date/Time Recent/Initial? Code Code System Body Mass Index 32.10 kg/m2 12/26/2023 10:39 Initial 02412 -5 LOINC Systolic Blood Pressure 128 mm[Hg] 02/13/2024 15:48 Initial 8480- 6 LOINC Diastolic Blood Pressure 77 mm[Hg] 02/13/2024 15:48 Initial 8462- 4 LOINC Body Surface Area 1.96 m2 12/26/2023 10:39 Initial 3140- 1 LOINC Height 162.560 0 cm 64.00 in 12/26/2023 10:39 Initial 8302- 2 LOINC O2 Saturation 97 % 2023 15:48 Initial 96697 -5 LOINC Pulse 65.0 /min 02/13/2024 15:48 Initial 8867- 4 LOINC Respiration 15 /min 02/13/20 15:48 Initial 9279- 1 LOINC Temperature 36.1 Ludivina 97.0 F 02/13/20 15:48 Initial 8310- 5 LOINC Weight 84.82 kg 187.00 lbs 12/26/2023 10:39 Initial 86753 -7 LOINC Assessment You had the following problems:CLOSED FRACTURE OF RIGHT ANKLE Hospital Discharge Instructions Should you have any questions prior to discharge, please contact a member of your healthcare team. If you have left the hospital and have any questions, please contact your primary care physician. Reason For Referral No Data Found Procedures Procedure Name Date Status Code Code Syste m Removal, Implant; Deep 02/13/2024 completed 31288 CP T Anesthesia, Open Proc, Bones , Lower Leg/Ankle/Foot; NOS 02/13/2024 completed 44058 CPT Problems Problem Start Date Resolved Date Status Code Code System CLOSED FRACTURE OF RIGHT ANKLE active 91093440948495507 SNOMED-CT HTN 03/30/2023 resolved 24255086 SNOMED-CT HLD 03/30/2023 resolved 98817671 SNOMED-CT Allergies and Adverse Reactions Allergy Substance Reaction Severity Start Date Concern Status Co de Code System LOSARTAN Active 52663 RxNorm Plan of Treatment CT CHEST W/O CONTRAST 05/13/2022 Encounters Encounter Diagnosis Start Date Code Code Sys tem Pain due to internal orthope dic prosthetic devices, implants and grafts, initial encounter 02/13/2024 S NOMED-CT Personal Care Team Section Performer Name Performer Role Active Date Inactive Da te
--- OUTSIDE RECORDS SUMMARY | 2024-10-12 08:19 | XMS_ITS ---
Author Organization Unknown Address [address] [place] [phone] Phone Care Team Providers Care Outdoor Emergency Care Technician Name Role Phone GERSON Tate Attending Unavailable BAMBI Cohen Primary Unavailable Immunization Immunization Date Status Additional Notes Code Code System Tdap 03/30/2023 Completed 115 CVX Results XR ANKLE RT 3V* - Completed: 12/30/2023 10:03 [facility]: [place], [place] [address] PACS ROUNDER HAND REPORT Patient Name: GENARO SHIN MRN: Sex: : Age: [id number] M 1955 68 Account: Accession: Admit: StayType: [id number] 12/30/2023 CLINIC Ordered: Order ID: Submitted: Ordering Provider: 12/30/2023 09:55 [id number] MARY OATES Completed: Technologist: Resulted: 12/30/2023 10:03 [place] 12/30/2023 12:59 Study Description: XR ANKLE RT 3V Study Reason: Pain TECHNIQUE: 2D digital imaging was performed. COMPARISON: Prior x-rays of 06/27/2023 and 05/16/2023. FINDINGS: NUMBER OF VIEWS: 3 There is stable appearance of the hardware comprised of lateral fixation plate in the distal fibula and PA orientated screw in the tibial plafond and across healed posterior malleolus fracture site. There are no visible fracture lines evident at this time. No obvious degenerative changes. On the lateral view there is a small corticated calcification in the anterior aspect of the tibiotalar joint measuring approximately 2 mm. May represent loose intra articular body. IMPRESSION: As above. Report Digitally Signed by Eduin Lin on 12/30/2023 12:59 PM EDT Social History Type Status Start Date End Date Code Code Syst em Smoking History Current every day smoker 757822354 KlickExOMED CT Sex Male Assessment You had the following problems:CLOSED FRACTURE [...] System CLOSED FRACTURE OF RIGHT ANKLE active 11487757750100110 SNOMED-CT HTN 03/30/2023 resolved 33840149 SNOMED-CT HLD 03/30/2023 resolved 77659663 SNOMED-CT Allergies and Adverse Reactions Allergy Substance Reaction Severity Start Date Concern Status Co de Code System LOSARTAN Active 33950 RxNorm Plan of Treatment CT CHEST W/O CONTRAST 05/13/2022 Encounters Encounter Diagnosis Start Date Code Code Sys tem Pain due to internal prosthetic device 12/30/2023 21 9817538 Proper Cloth-CT Personal Care Team Section Performer Name Performer Role Active Date Inactive Da te
--- OUTSIDE RECORDS SUMMARY | 2024-10-12 08:19 | XMS_ITS ---
Author Organization Unknown Address [address] [place] [phone] Phone Care Team Providers Care Records Tech Name Role Phone GERSON Tate Attending Unavailable BAMBI Cohen Primary Unavailable Immunization Immunization Date Status Additional Notes Code Code System Tdap 03/30/2023 Completed 115 CVX Social History Type Status Start Date End Date Code Code Syst em Smoking History Current every day smoker 601759898 SNOMED CT Sex Male Medications Medication Start Date End Date Route Frequency Dose Code Code System Medication Instructions Home Meds Percocet 5MG-325MG Oral Tablet 03/30/2023 12/26/2023 ORAL NEEDED EVERY 4 HOURS 1 TABLET 1282311 RxNorm TAKE 1-2 TABLET ORAL NEEDED EVERY [...] System CLOSED FRACTURE OF RIGHT ANKLE active 60621344217584815 SNOMED-CT HTN 03/30/2023 resolved 26619521 SNOMED-CT HLD 03/30/2023 resolved 95621679 SNOMED-CT Allergies and Adverse Reactions Allergy Substance Reaction Severity Start Date Concern Status Co de Code System LOSARTAN Active 39644 RxNorm Plan of Treatment CT CHEST W/O CONTRAST 05/13/2022 Encounters Encounter Diagnosis Start Date Code Code Sys tem Closed trimalleolar fracture 04/18/2023 3681227 SNOMED-CT Personal Care Team Section Performer Name Performer Role Active Date Inactive Da te
--- OUTSIDE RECORDS SUMMARY | 2024-10-12 08:20 | XMS_ITS ---
Author Organization Unknown Address [address] [place], [place] [phone] Phone Care Team Providers Care Paraffiner Name Role Phone STEWART TRACI Cohen Attending Unavailable BAMBI Cohen Primary Unavailable Immunization Immunization Date Status Additional Notes Code Code System Tdap 03/30/2023 Completed 115 CVX Social History Type Status Start Date End Date Code Code Syst em Smoking History Current every day smoker 805324394 SNOMED CT Sex Male Assessment You had the [...] System CLOSED FRACTURE OF RIGHT ANKLE active 33154674683737342 SNOMED-CT HTN 03/30/2023 resolved 35941796 SNOMED-CT HLD 03/30/2023 resolved 42402442 SNOMED-CT Allergies and Adverse Reactions Allergy Substance Reaction Severity Start Date Concern Status Co de Code System LOSARTAN Active 73656 RxNorm Plan of Treatment CT CHEST W/O CONTRAST 05/13/2022 Encounters Encounter Diagnosis Start Date Code Code Sys tem Supraventricular tachycardia 04/16/2024 5251694 SNOMED-CT Personal Care Team Section Performer Name Performer Role Active Date Inactive Da te
--- OUTSIDE RECORDS SUMMARY | 2024-10-12 08:20 | XMS_ITS ---
Author Organization Unknown Address [address] [place], [place] [phone] Phone Care Team Providers Care Delinquent Tax Collection Assistant Name Role Phone KEVYN Chung Attending Unavailable BAMBI Cohen Primary Unavailable Immunization Immunization Date Status Additional Notes Code Code System Tdap 03/30/2023 Completed 115 CVX Social History Type Status Start Date End Date Code Code Syst em Smoking History Current every day smoker 230402712 SNOMED CT Sex Male Assessment You had [...] System CLOSED FRACTURE OF RIGHT ANKLE active 09187311444125422 SNOMED-CT HTN 03/30/2023 resolved 84113687 SNOMED-CT HLD 03/30/2023 resolved 77916625 SNOMED-CT Allergies and Adverse Reactions Allergy Substance Reaction Severity Start Date Concern Status Co de Code System LOSARTAN Active 41354 RxNorm Plan of Treatment CT CHEST W/O CONTRAST 05/13/2022 Encounters Encounter Diagnosis Start Date Code Code Sys tem Follow-up orthopedic assessment 02/27/2024 225059705 SNOMED-CT Personal Care Team Section Performer Name Performer Role Active Date Inactive Da te
--- OUTSIDE RECORDS SUMMARY | 2024-10-12 08:20 | XMS_ITS ---
Author Organization Unknown Address [address] [place] [phone] Phone Care Team Providers Care Facility Security Officer Name Role Phone ROGER Valero Attending Unavailable BAMBI Cohen Primary Unavailable Immunization Immunization Date Status Additional Notes Code Code System Tdap 03/30/2023 Completed 115 CVX Results XR KNEE BILAT 4V* - Complete d: 03/15/2024 08:46 LOINC: [place], [place] [id number] [place] [address] PRIMARY CARE COORDINATOR REPORT Patient Name: GENARO SHIN MRN: Sex: : Age: [id number] O 1955 68 Account: Accession: Admit: StayType: [id number] 03/15/2024 O Ordered: Order ID: Submitted: Ordering Provider: 03/15/2024 08:23 [id number] ISABEL BRISCOE Completed: Technologist: Resulted: 03/15/2024 08:28 LB 03/15/2024 17:15 FINAL REPORT EXAM: XR KNEE BILAT 4V* CLINICAL HISTORY: Reason for Extrem: Pain. TECHNIQUE: 2D digital imaging was performed. Four views of both knees. COMPARISON: No exams were available for comparison FINDINGS: BONES: No acute fracture is present. No bony destructive lesion is seen. Mild spurring bilaterally at the tibial tubercles. Minimal patellar enthesophytes on the left. JOINTS: The knees are normally aligned. A small right joint effusion is seen. Mild narrowing of the medial femorotibial joint space of the right knee. Mild periarticular spurring. Remaining joint spaces are maintained. SOFT TISSUE: Normal. 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 DATA REPOSITORY: RADIATION DOSE DELIVERED: Electronically signed by: Katalina Becerril Dictated: 03/15/2024 17:15 Social History Type Status Start Date End Date Code Code Syst em Smoking History Current every day smoker 974247171 SNOMED CT Sex Male Assessment You had [...] System CLOSED FRACTURE OF RIGHT ANKLE active 09779530270150098 SNOMED-CT HTN 03/30/2023 resolved 58090626 SNOMED-CT HLD 03/30/2023 resolved 26219435 SNOMED-CT Allergies and Adverse Reactions Allergy Substance Reaction Severity Start Date Concern Status Co de Code System LOSARTAN Active 33828 RxNorm Plan of Treatment CT CHEST W/O CONTRAST 05/13/2022 Encounters Encounter Diagnosis Start Date Code Code Sys tem Idiopathic osteoarthritis 03/15/2024 476494997 SN OMED-CT Personal Care Team Section Performer Name Performer Role Active Date Inactive Da te
--- OUTSIDE RECORDS SUMMARY | 2024-10-12 08:20 | XMS_ITS ---
Author Organization Unknown Address [address] [place], [place] [phone] Phone Care Team Providers Care Grout Pump Operator Name Role Phone TEDDY Peguero Attending Unavailable BAMBI Cohen Primary Unavailable Immunization Immunization Date Status Additional Notes Code Code System Tdap 03/30/2023 Completed 115 CVX Social History Type Status Start Date End Date Code Code Syst em Smoking History Current every day smoker 067419866 SNOMED CT Sex Male Assessment You had [...] System CLOSED FRACTURE OF RIGHT ANKLE active 59178955986465452 SNOMED-CT HTN 03/30/2023 resolved 48084231 SNOMED-CT HLD 03/30/2023 resolved 98351009 SNOMED-CT Allergies and Adverse Reactions Allergy Substance Reaction Severity Start Date Concern Status Co de Code System LOSARTAN Active 67574 RxNorm Plan of Treatment CT CHEST W/O CONTRAST 05/13/2022 Encounters Encounter Diagnosis Start Date Code Code Sys tem 03/16/2024 542810863055836 SNOMED-CT Personal Care Team Section Performer Name Performer Role Active Date Inactive Da te
--- OUTSIDE RECORDS SUMMARY | 2024-10-12 08:21 | XMS_ITS ---
Author Organization Unknown Address [address], [place] [phone] Phone Care Team Providers Care Group Care Worker Name Role Phone BAMBI DUTTA MD Attending Unavailable ZAHEER MANRIQUEZ Primary Unavailable Results CT CHEST LOW DOSE LUNG NATALYA MARAVILLA - Completed: 05/04/2021 10:22 LOINC: Radiation optimization: All CT scans at this facility use at least one of these dose optimization techniques: automated exposure control; mA and/or kV adjustment per patient size (includes targeted exams where dose is matched to clinical indication); or iterative reconstruction. LOW DOSE CHEST CT FOR LUNG CANCER SCREENING:There are no prior comparison exams. The heart size is normal. There are mild coronary artery calcifications and mild aortic calcifications. The aorta appears normal in diameter. No adenopathy, pleural or pericardial effusions are seen. The visualized portions of the upper abdomen are unremarkable. There is a 3 mm in diameter nodule in the right lower lobe. A 4 mm diameter nodule is noted adjacent to a vessel in the right middle lobe. There is a small area of scarring in the medial left upper lobe. There are minimal emphysematous changes. Degenerative changes are noted in the thoracic spine. IMPRESSION:Small nodules in the right middle and lower lobes. Lung Rads Category 2: Continue annual screening with LDCT in 12 months. Dictated by: CEO ERIN PAVON M.D. RADIOLOGIST Transcribed by: ATUL 05/04/21/12:09 D Tuesday, May 04, 2021 9:31:11 AM/#[id number] Electronically Reviewed and Signed By: ERIN PAVON M.D. RADIOLOGIST 05/04/21 12:19 Copy for: BAMBI DUTTA MD via link Social History Type Status Start Date End Date Code Code Syst em Smoking History Current every day smoker [id number] SNOMED CT Sex Male Medications Medication Start Date End Date Route Frequency Dose Code Code System Medication Instructions Home Meds HYDROcodone bitartrate-acetaminophen 5MG-325MG Oral Tablet 03/30/2023 03/30/2023 ORAL NEEDED EVERY 4 HOURS 1 TABLET 626569 RxNorm TAKE 1-2 TABLET ORAL NEEDED EVERY 4 HOURS FOR Pain Percocet 5MG-325MG Oral Tablet 03/30/2023 12/26/2023 ORAL NEEDED EVERY 4 HOURS 1 TABLET [id number] RxNorm TAKE 1-2 TABLET ORAL NEEDED EVERY [...] System CLOSED FRACTURE OF RIGHT ANKLE active [id number] SNOMED-CT HTN 03/30/2023 resolved [id number] SNOMED-CT HLD 03/30/2023 resolved [id number] SNOMED-CT Allergies and Adverse Reactions Allergy Substance Reaction Severity Start Date Concern Status Co de Code System LOSARTAN Active 14430 RxNorm Plan of Treatment CT CHEST W/O CONTRAST 05/13/2022 Encounters Encounter Diagnosis Start Date Code Code Sys tem Encounter for screening for malignant neoplasm of respiratory organs 05/04/2021 SNOMED-CT Personal Care Team Section Performer Name Performer Role Active Date Inactive Da te
--- OUTSIDE RECORDS SUMMARY | 2024-10-12 08:21 | XMS_ITS ---
Author Organization Unknown Address [address] [place] [phone] Phone Care Team Providers Care Plant Packer Name Role Phone BAMBI DUTTA MD Attending Unavailable Results US ABDOMEN COMPLETE - Comple viktor: 05/04/2021 08:37 LOINC: The liver is normal in size and echogenicity. No focal liver lesions or biliary dilatation is seen. The gallbladder is unremarkable, without evidence of stones or wall thickening. The spleen is normal in size. The right kidney is unremarkable. The left kidney shows a small cyst. No stones or hydronephrosis. The aorta is normal in diameter where visualized. There is no ascites. IMPRESSION: Small left renal cyst, otherwise, unremarkable exam. Dictated by: CEO ERIN PAVON M.D. RADIOLOGIST Transcribed by: ATUL 05/04/21/10:58 D Tuesday, May 04, 2021 8:53:31 AM [id number] Electronically Reviewed and Signed By: ERIN PAVON M.D. RADIOLOGIST 05/04/21 11:03 Copy for: BAMBI DUTTA MD via link Social History Type Status Start Date End Date Code Code Syst em Smoking History Current every day smoker [id number] SNOMED CT Sex Male Medications Medication Start Date End Date Route Frequency Dose Code Code System Medication Instructions Home Meds HYDROcodone bitartrate-acetaminophen 5MG-325MG Oral Tablet 03/30/2023 03/30/2023 ORAL NEEDED EVERY 4 HOURS 1 TABLET 756345 RxNorm TAKE 1-2 TABLET ORAL NEEDED EVERY 4 HOURS FOR Pain Percocet 5MG-325MG Oral Tablet 03/30/2023 12/26/2023 ORAL NEEDED EVERY 4 HOURS 1 TABLET [id number] RxNorm TAKE 1-2 TABLET ORAL NEEDED EVERY [...] System CLOSED FRACTURE OF RIGHT ANKLE active [id number] SNOMED-CT HTN 03/30/2023 resolved 13878455 SNOMED-CT HLD 03/30/2023 resolved 27270404 SNOMED-CT Allergies and Adverse Reactions Allergy Substance Reaction Severity Start Date Concern Status Co de Code System LOSARTAN Active 38072 RxNorm Plan of Treatment CT CHEST W/O CONTRAST 05/13/2022 Encounters Encounter Diagnosis Start Date Code Code Sys tem Upper abdominal pain, unspecified 05/04/2021 SNOMED-CT Personal Care Team Section Performer Name Performer Role Active Date Inactive Da te
--- OUTSIDE RECORDS SUMMARY | 2024-10-12 08:21 | XMS_ITS ---
Author Organization Unknown Address [address], [place] [phone] Phone Care Team Providers Care Automation And Controls Supervisor Name Role Phone ROGER Valero Attending Unavailable BAMBI Cohen Primary Unavailable Immunization Immunization Date Status Additional Notes Code Code System Tdap 03/30/2023 Completed 115 CVX Social History Type Status Start Date End Date Code Code Syst em Smoking History Current every day smoker [id number] SNOMED CT Sex Male Assessment You had [...] System CLOSED FRACTURE OF RIGHT ANKLE active 01433441607288688 SNOMED-CT HTN 03/30/2023 resolved 32250926 SNOMED-CT HLD 03/30/2023 resolved 24616123 SNOMED-CT Allergies and Adverse Reactions Allergy Substance Reaction Severity Start Date Concern Status Co de Code System LOSARTAN Active 05114 RxNorm Plan of Treatment CT CHEST W/O CONTRAST 05/13/2022 Encounters Encounter Diagnosis Start Date Code Code Sys tem Idiopathic osteoarthritis 07/03/2024 [id number] SN OMED-CT Personal Care Team Section Performer Name Performer Role Active Date Inactive Da te
[2024-10-12 14:49] LABS: Calculated LDL 82 mg/dL (<100); Cholesterol 171 mg/dL (<200); HDL Cholesterol 61 mg/dL (40-60); Triglyceride 143 mg/dL (<150)
== END 2024-10-12 08:07 | disposition home or self-care (01) ==
LOC: NCHCN 08:06
PROVIDERS: PCP Family Medicine; Visit Provider Family Medicine
DX: E78.5 Hyperlipidemia, unspecified (principal)
CPT/HCPCS: 80061

== ENCOUNTER 2025-01-18 17:51 | Outpatient (REF) | payer MEDICARE, OTHER, SELFPAY ==
[2025-01-18 14:48] LABS: ALT 33 U/L (16-63); AST 23 U/L (15-37); Albumin 4.3 g/dL (3.4-5.0); Alkaline Phosphatase 130 U/L (46-116); Anion Gap 7.6 mmol/L (3-11); BUN 14 mg/dL (7-18); Bilirubin, Total 0.4 mg/dL (0.2-1.0); CO2 31.4 mmol/L (21.0-32.0); Calculated LDL 128 mg/dL (<100); Chloride 105 mmol/L (98-107); Cholesterol 210 mg/dL (<200); Estimated GFR 82.49 (mL/min/1.73m2); Glucose 112 mg/dL (74-106); HDL Cholesterol 61 mg/dL (>or=40); Potassium 4.3 mmol/L (3.5-5.1); Sodium 144 mmol/L (136-145); Total Protein 7.9 g/dL (6.4-8.2); Triglyceride 107 mg/dL (<150)
== END 2025-01-18 17:52 | disposition home or self-care (01) ==
LOC: NCHCN 17:51
PROVIDERS: PCP Family Medicine; Visit Provider Family Medicine
DX: E78.5 Hyperlipidemia, unspecified (principal); R73.03 Prediabetes
CPT/HCPCS: 80053; 80061; 83036